=== PATIENT | male | born 1955 | race Caucasian/White ===

== ENCOUNTER 2016-05-31 11:39 | Inpatient (IN) ==
--- NOTE | 2016-05-31 11:56 | Emergency Department Note ---
Disposition Clinical Impression: Pancreatic cancer, Jaundice, Abdominal pain, Hyperbilirubinemia Disposition: Admitted As Inpatient Condition: Fair Referrals: NO,PCP [Primary Care Provider] - Forms: Work/School Release, ED Satisfaction Letter Time of Disposition: 14:37 Abdominal Pain HPI - General Chief Complaint: ED Abdominal Pain Stated Complaint: Abd Pain Time Seen by Provider: 05/31/16 11:46 Source: patient Mode of arrival: ambulatory Limitations: no limitations Nursing Notes Reviewed: Yes Vital Signs Reviewed: Yes - History of Present Illness HPI Narrative: This is a 61-year-old male who presents with abdominal pain that has been chronic since December but slowly getting worse. Patient also states the last couple weeks he has noticed a jaundice color to his skin. Patient states he has had one episode of vomiting with this. Patient states he is not having diarrhea but his stools are loose. Patient denies any black or bloody stools. Patient does not have any urinary symptoms or fevers. Patient states his pain does go up into his chest now. Pt has never used IV drugs or been a heavy alcohol drinker. Pt has not traveled out of the country. Pt Subjective Complaint: abdominal pain Onset (ago): month(s) Consistency: constant, Worsening Location: diffuse Pain Scale: 3 - Related Data Home Medications Medication Instructions Recorded Confirmed Amlodipine [Norvasc] 5 mg PO DAILY 04/30/15 05/31/16 Metoprolol XL (24 HR) Succ [Toprol 25 mg PO DAILY 04/30/15 05/31/16 XL] Allergies Allergy/AdvReac Type Severity Reaction Status Date / Time No Known Allergies Allergy Verified 01/27/16 16:12 All systems ED: reviewed and negative except as stated. Constitutional: Denies: fever, chills, weakness, weight change Eyes: Denies: eye pain, eye discharge, vision change ENT ED: Denies: ear pain, throat pain, dental pain, hearing loss, epistaxis, congestion, dysphagia Cardiovascular: Reports: chest pain. Denies: palpitations, dyspnea on exertion , edema, syncope Respiratory: Denies: cough, dyspnea, wheezes, hemoptysis, stridor Gastrointestinal: Reports: abdominal pain, nausea, vomiting. Denies: diarrhea, constipation, hematemesis, melena, hematochezia Genitourinary: Denies: urgency, dysuria, frequency, hematuria Musculoskeletal: Denies: back pain, neck pain, arthralgia, myalgia Integumentary: Reports: other (yellow skin color). Denies: rash, abrasion, lesions Neurological: Denies: headache, weakness, numbness, paresthesias, confusion, abnormal gait, vertigo Psychiatric: Denies: anxiety, depression, suicidal thoughts, homicidal thoughts , auditory hallucinations, visual hallucinations Endocrine: Denies: fatigue Hematological/Lymphatic: Denies: easy bleeding, easy bruising Allergic/Immunologic: Denies: facial swelling, urticaria Abdominal Pain PMH - Past Medical History Medical history: Reports: hypertension Male Surgical History: Reports: non-contributory - Social History Smoking status: Current every day smoker Alcohol use: Reports: none Drug use: Reports: none Physical Exam - General Limitations: no limitations General appearance: alert, in no apparent distress - Head Head exam: atraumatic, normocephalic, normal inspection - Eye Eye exam: Present: normal appearance, PERRL, EOMI - ENT ENT exam: normal exam, normal oropharynx, mucous membranes moist - Expanded ENT Exam External ear exam: Present: normal external inspection Mouth exam: Present: normal external inspection Teeth exam: Present: normal inspection Throat exam: Present: normal inspection - Neck Neck exam: Present: normal inspection, full ROM, trachea midline - Chest Chest inspection: Present: normal inspection, symmetric chest wall rise - Respiratory Respiratory exam: Present: normal lung sounds bilaterally - Cardiovascular Cardiovascular exam: Present: regular rate, normal rhythm, normal heart sounds - Abdominal Exam Abdominal exam: Present: soft, tenderness. Absent: distention, guarding, rebound, rigidity Abdominal tenderness: Present: diffuse, moderate - Extremities Exam Extremities exam: Present: normal inspection, full ROM. Absent: tenderness, pedal edema - Expanded Upper Extremity Exam Shoulder exam: Present: normal inspection, full ROM Arm exam: Present: normal inspection, full ROM Elbow exam: Present: normal inspection, full ROM Forearm/Wrist exam: Present: normal inspection, full ROM Hand exam: Present: normal inspection, full ROM Vascular exam: Normal: capillary refill, radial pulse - Expanded Lower Extremity Exam Hip/Pelvis exam: Present: normal inspection, full ROM Upper leg exam: Present: normal inspection, full ROM Knee exam: Present: normal inspection, full ROM Lower leg exam: Present: normal inspection, full ROM Ankle exam: Present: normal inspection, full ROM Foot/toe exam: Present: normal inspection, full ROM Neurovascular/Tendon exam: Absent: motor deficit, sensory deficit, tendon deficit - Back Exam Back exam: Present: normal inspection, full ROM. Absent: tenderness - Neurological Exam Neurological exam: Present: alert, oriented X3 - Expanded Neurological Exam Patient oriented to: Present: person, place, time Coma Scale Eye Opening: Spontaneous Coma Scale Motor Response: Obeys Commands Coma Scale Verbal Response: Oriented Coma Scale Total: 15 - Psychiatric Psychiatric exam: Present: normal affect, normal mood - Skin Skin exam: Present: warm, dry, intact, other (jaundice) Course - Consultations Consultation #1: I spoke with Dr. Guerrero he wants a CA 19-9 and a CEA ordered and he will consult. Time: 14:49 Consultation #2: I spoke with Dr. Wayne vance to admit and consult GI for Thursday. Time: 15:15 Vital Signs Temperature 97.9 F 05/31/16 11:40 Pulse Rate 70 05/31/16 11:40 Respiratory Rate 16 05/31/16 11:40 Blood Pressure 153/87 05/31/16 11:40 O2 Sat by Pulse Oximetry 97 05/31/16 11:40 Temperature 97.9 F 05/31/16 11:40 Pulse Rate 66 05/31/16 14:48 Respiratory Rate 16 05/31/16 14:48 Blood Pressure 138/95 05/31/16 14:48 O2 Sat by Pulse Oximetry 96 05/31/16 13:11 Oxygen Delivery Oxygen Delivery Room Air Abdominal Pain - Medical Records Medical records reviewed: Yes I reviewed the patient's medical records. - Lab Data Lab results reviewed: Yes I reviewed the patient's lab results. Result diagrams: 05/31/16 12:45 05/31/16 12:45 Lab Results 05/31/16 05/31/16 05/31/16 Range/Units 11:54 12:45 12:45 WBC 6.3 (4.3-11.1) K/mcL RBC 5.12 (4.19-5.50) M/mcL Hgb 15.4 (12.9-16.9) g/dL Hct 42.2 (37.5-50.1) % MCV 82.4 L (83.0-100.0) fL MCH 30.1 (28.0-33.3) pg MCHC 36.5 H (31.6-35.5) g/dL RDW 15.6 H (11.5-14.5) % Plt Count 179 (140-400) K/mcL MPV 11.0 (9.4-12.4) fL Immature Gran % 0.3 (0-4) % Seg Neutrophils % 69.3 % Lymphocytes % 20.6 % Monocytes % 7.4 % Eosinophils % 1.3 % Basophils % 1.1 % Neutrophils # 4.4 (1.6-8.9) K/mcL Lymphocytes # 1.3 (0.6-4.6) K/mcL Monocytes # 0.5 (0.0-1.3) K/mcL Eosinophils # 0.1 (0.0-0.6) K/mcL Basophils # 0.1 (0.0-0.2) K/mcL Sodium 132 L (136-145) mEq/L Potassium 4.0 (3.5-4.5) mEq/L Chloride 102 (98-109) mEq/L Carbon Dioxide 20 (19-29) mEq/L BUN 10 (8-26) mg/dL Creatinine 0.80 (0.72-1.25) mg/dL Est GFR ( Amer) > 60 (> 60) Est GFR (Non-Af Amer) > 60 (> 60) BUN/Creatinine Ratio 13 (6-26) Glucose 466 H (70-99) mg/dL Calculated Osmolality 293 (280-300) Calcium 9.1 (8.6-10.8) mg/dL Total Bilirubin 15.6 H (0.2-1.2) mg/dL Direct Bilirubin 11.3 H (0.0-0.5) mg/dL Indirect Bilirubin 4.3 H (0.0-1.2) mg/dL AST 92 H (5-34) Units/L ALT 285 H (0-55) Units/L Alkaline Phosphatase 456 H (38-126) Units/L Troponin I (0-0.03) ng/mL B-Natriuretic Peptide (0-100) pg/mL Serum Total Protein 6.1 (6.0-8.3) g/dL Albumin 3.1 L (3.5-5.0) g/dL Globulin 3.0 (2.4-3.5) g/dL Albumin/Globulin Ratio 1.0 L (1.1-2.2) Lipase 16 (8-78) Units/L Urine Color Dark Yellow (Yellow) Urine Clarity Clear (Clear) Urine pH 6.5 (5.0-8.0) pH Units Ur Specific [place] > 1.030 H (1.010-1.025) Urine Protein Negative (Neg-Trace) mg/dL Urine Glucose (UA) >=1000 H (Normal) mg/dL Urine Ketones Negative (Negative) mg/dL Urine Blood Negative (Negative) Urine Nitrite Negative (Negative) Urine Bilirubin Large H (Negative) Urine Urobilinogen Normal (Normal) mg/dL Ur Leukocyte Esterase Negative (Negative) Ur Culture Indicated? NO (NO) 05/31/16 05/31/16 Range/Units 12:45 12:45 WBC (4.3-11.1) K/mcL RBC (4.19-5.50) M/mcL Hgb (12.9-16.9) g/dL Hct (37.5-50.1) % MCV (83.0-100.0) fL MCH (28.0-33.3) pg MCHC (31.6-35.5) g/dL RDW (11.5-14.5) % Plt Count (140-400) K/mcL MPV (9.4-12.4) fL Immature Gran % (0-4) % Seg Neutrophils % % Lymphocytes % % Monocytes % % Eosinophils % % Basophils % % Neutrophils # (1.6-8.9) K/mcL Lymphocytes # (0.6-4.6) K/mcL Monocytes # (0.0-1.3) K/mcL Eosinophils # (0.0-0.6) K/mcL Basophils # (0.0-0.2) K/mcL Sodium (136-145) mEq/L Potassium (3.5-4.5) mEq/L Chloride (98-109) mEq/L Carbon Dioxide (19-29) mEq/L BUN (8-26) mg/dL Creatinine (0.72-1.25) mg/dL Est GFR ( Amer) (> 60) Est GFR (Non-Af Amer) (> 60) BUN/Creatinine Ratio (6-26) Glucose (70-99) mg/dL Calculated Osmolality (280-300) Calcium (8.6-10.8) mg/dL Total Bilirubin (0.2-1.2) mg/dL Direct Bilirubin (0.0-0.5) mg/dL Indirect Bilirubin (0.0-1.2) mg/dL AST (5-34) Units/L ALT (0-55) Units/L Alkaline Phosphatase (38-126) Units/L Troponin I 0.00 (0-0.03) ng/mL B-Natriuretic Peptide 36 (0-100) pg/mL Serum Total Protein (6.0-8.3) g/dL Albumin (3.5-5.0) g/dL Globulin (2.4-3.5) g/dL Albumin/Globulin Ratio (1.1-2.2) Lipase (8-78) Units/L Urine Color (Yellow) Urine Clarity (Clear) Urine pH (5.0-8.0) pH Units Ur Specific [place] (1.010-1.025) Urine Protein (Neg-Trace) mg/dL Urine Glucose (UA) (Normal) mg/dL Urine Ketones (Negative) mg/dL Urine Blood (Negative) Urine Nitrite (Negative) Urine Bilirubin (Negative) Urine Urobilinogen (Normal) mg/dL Ur Leukocyte Esterase (Negative) Ur Culture Indicated? (NO) - Radiology Data Radiology results reviewed: Yes I reviewed the patient's radiology results. - EKG Data EKG attestation: Yes I reviewed and interpreted this EKG. EKG shows normal: sinus rhythm Rate: normal Rhythm: NSR [place]/QRS: right axis deviation Interpretation: no acute changes, normal EKG
[2016-05-31] MEDS ORDERED: Ondansetron 4 MG/2 ML VIAL IV ONE (11:57)
[2016-05-31 12:12] LABS: Bilirubin,Urine Large (Negative); Blood,Urine Negative (Negative); Clarity,Urine Clear (Clear); Color,Urine Dark Yellow (Yellow); Glucose,Urine (UA) >=1000 mg/dL (Normal); Ketones,Urine Negative (Negative); Leukocyte Esterase,Urine Negative (Negative); Nitrite,Urine Negative (Negative); PH,Urine 6.5 pH Units (5.0-8.0); Protein,Urine Negative (Neg-Trace); Specific Gravity,Urine > 1.030 (1.010-1.025); Urobilinogen,Urine Normal (Normal)
[2016-05-31 13:02] LABS: Basophils # 0.1 K/mcL (0.0-0.2); Basophils % 1.1 %; Eosinophils # 0.1 K/mcL (0.0-0.6); Eosinophils % 1.3 %; Hematocrit 42.2 % (37.5-50.1); Hemoglobin 15.4 g/dL (12.9-16.9); Immature Granulocytes % 0.3 % (0-4); Lymphocytes # 1.3 K/mcL (0.6-4.6); Lymphocytes % 20.6 %; Mean Corpuscular HGB Conc 36.5 g/dL (31.6-35.5); Mean Corpuscular Hemoglobin 30.1 pg (28.0-33.3); Mean Corpuscular Volume 82.4 fL (83.0-100.0); Monocytes # 0.5 K/mcL (0.0-1.3); Monocytes % 7.4 %; Neutrophils # 4.4 K/mcL (1.6-8.9); Platelet Count 179 K/mcL (140-400); Red Blood Count 5.12 M/mcL (4.19-5.50); Red Cell Distribution Width 15.6 % (11.5-14.5); Segmented Neutrophils % 69.3 %
[2016-05-31 13:21] LABS: Alanine Aminotransferase 285 Units/L (0-55); Albumin 3.1 g/dL (3.5-5.0); Alkaline Phosphatase 456 Units/L (38-126); Aspartate Amino Transferase 92 Units/L (5-34); BUN/Creatinine Ratio 13 (6-26); Bilirubin,Direct 11.3 mg/dL (0.0-0.5); Bilirubin,Indirect 4.3 mg/dL (0.0-1.2); Bilirubin,Total 15.6 mg/dL (0.2-1.2); Blood Urea Nitrogen 10 mg/dL (8-26); Calcium 9.1 mg/dL (8.6-10.8); Carbon Dioxide 20 mEq/L (19-29); Chloride 102 mEq/L (98-109); Glucose 466 mg/dL (70-99); Lipase 16 Units/L (8-78); Osmolality,Calculated 293 (280-300); Sodium 132 mEq/L (136-145); Total Protein 6.1 g/dL (6.0-8.3); eGFR For African Americans > 60 (> 60); eGFR For Non-African Americans > 60 (> 60)
[2016-05-31 16:20] LABS: INR 1.1; Prothrombin Time 12.1 Seconds (9.4-12.1)
[2016-05-31 16:23] LABS: Activated Partial Thrombo Time 30.7 Seconds (26.0-36.0)
[2016-05-31] MEDS ORDERED: *HR* Morphine 2 MG/ML SYRINGE IVP PRN (17:11)
[2016-05-31] MEDS ORDERED: Acetaminophen 325 MG TABLET PO PRN (17:11)
[2016-05-31] MEDS ORDERED: Naloxone 0.4 MG/ML INJ IVP PRN (17:11)
[2016-05-31] MEDS ORDERED: Ondansetron 4 MG/2 ML VIAL IVP PRN (17:11)
[2016-05-31] MEDS ORDERED: *HR* Dextrose 50 % in Water (Syg) 50 ML SYRINGE IVP PRN (17:25)
[2016-05-31] MEDS ORDERED: D5% in Water 1,000 ML IV PRN (17:25)
[2016-05-31] MEDS ORDERED: Dextrose Gel 15 GM PO PRN ×2 (17:25)
--- NOTE | 2016-05-31 17:30 | Internal Med History&Physical ---
Date of Encounter: 05/31/16 Time of Encounter: 16:30 Assessment and Plan (1) Pancreatic cancer Current visit: Yes Status: Acute 1 CT concerning for pancreatic neoplasm. Patient has had 20 pound weight loss in the past few months with abdominal pain. Consulted oncology 2 cc for pain Zofran as needed for nausea 3 check Accu-Cheks before meals and at bedtime with sliding scale insulin 4 we will give IV fluids Qualifiers: Pancreatic malignancy location: head of pancreas Qualified Code(s): C25.0 - Malignant neoplasm of head of pancreas (2) Hypertension Current visit: Yes Status: Acute 1 patient presently controlled we will continue with home machine will monitor liver functions goal is to maintain systolic less than 140 Qualifiers: Hypertension type: essential hypertension Qualified Code(s): I10 - Essential (primary) hypertension (3) Tobacco abuse Current visit: Yes Status: Acute 1 occurred patient to stop smoking nicotine patch (4) Abdominal pain Current visit: Yes Status: Acute Patient has been experiencing abdominal pain since December. CT scan is suspicious for pancreatic neoplasm as well as biliary ductal dilatation/ obstruction. Consulted gastroenterology for MRCP/ERCP on Thursday we will avoid hepatotoxins will monitor liver functions Qualifiers: Abdominal location: generalized Qualified Code(s): R10.84 - Generalized abdominal pain (5) Jaundice Current visit: Yes Status: Acute 1 concern for biliary obstruction consulted gastroenterology for MRCP/ERCP- Thursday 2 Will monitor liver functions 3 we will avoid hepatotoxins (6) DVT prophylaxis Current visit: Yes Status: Acute 1 subcutaneous heparin Internal Medicine - H&P: HPI Chief complaint: Abdominal pain Admitted From: Home Plans for Post Hospital Care: Home History of present illness: Mr. Wilson is a 61 year old male past history of hypertension as well as arthritis and peptic ulcer disease current smoker. According to the patient he has been experiencing abdominal pain since December. He describes the pain as sharp to dull with no aggravating or relieving factors it located below sternum and radiates throughout abdomen at times going up into his chest. He also has nausea which is chronic and has had some episodes of vomiting which had just occurred within the past 2 weeks. He has lost approximately 20 pounds since January. And in the last 2 weeks has noticed jaundice color to his skin. He is also noticed increase in loose stools which are nela to white colored. He denies any not bloody emesis, hematochezia melena, fevers chills or urinary symptoms. He has a 2 pack-a-day smoker denies any alcohol use or recent travel out of the country. He has been seeing his PCP for the past few months for the abdominal pain which he has been retaking medications for nausea and he has appointment with regional project manager next week for colonoscopy. His became concerned about jaundice color and urged patient to go to the ER for evaluation. In the ER patient's chest x-ray no acute process, his glucose was 466 his total bilirubin was 15.6 direct bilirubin 11.3 and direct 4.3 AST 92 a LT [address] of abdomen and pelvis had findings concerning for pancreatic neoplasm moderate biliary ductal dilatation and and hypodensities in the liver which were concerning for metastases. Per ER documentation the ER physician spoke with oncology in which they will see the patient as well as place consult for gastroenterology and MRCP on Thursday. The patient has been admitted for further workup and evaluation. Presently patient denies any pain or discomfort at this time he is hemodynamically stable I reviewed case with who agrees with plan Past Med Surg Social Fam HX - Past Medical History Medical history: hypertension - Past Surgical History Surgical History: orthopedic, other (cervical spinal fusion) - Social History Smoking Status: Current every day smoker Smokeless Tobacco Status: No Alcohol use: none Drug use: none - Family History Mother Living Status: Hx Family Cancer: Yes Hx Family Neurologic Disorders: Yes Father Living Status: Cause of : NC Hx Family Cardiac Disorders: Yes Brother Living Status: Cause of : Cancer colon Hx Family Cancer: Yes Sister Living Status: Cause of : Breast cancer Hx Family Cancer: Yes Internal Medicine - H&P: Meds Amlodipine [Norvasc] 5 mg PO DAILY 04/30/15 [History] Metoprolol XL (24 HR) Succ [Toprol XL] 25 mg PO DAILY 04/30/15 [History] Allergies No Known Allergies Allergy (Verified 01/27/16 16:12) All Systems PM: A 10-system review of systems was performed and is negative for pertinent findings except as documented above in the HPI. - Constitutional Constitutional: weight loss - Cardiovascular Cardiovascular ROS IM: chest pain - Respiratory Respiratory: no cough, no dyspnea, no wheezing, no excessive phlegm production - Gastrointestinal Gastrointestinal: abdominal pain, change in stool character, loose stools, nausea, vomiting - Musculoskeletal Musculoskeletal ROS IM: no numbness, no tingling - Neurological Neurological ROS: no confusion, no convulsions, no focal weakness, no numbness, no tingling, no tremor(s) - Hematologic/Lymphatic Hematologic/Lymphatic: no easy bruising - Constitutional Vitals: Temp Pulse Resp BP Pulse Ox 98.0 F 63 16 119/71 96 05/31/16 17:17 05/31/16 17:17 05/31/16 17:17 05/31/16 17:17 05/31/16 17:17 General appearance: Present: A&O X 3, pleasant - Head Head exam: Present: atraumatic, normocephalic - Neck Neck exam general surgery: Present: supple, trachea midline. Absent: lymphadenopathy - Respiratory Respiratory exam: Present: CTAB. Absent: accessory muscle use, rales, rhonchi, wheezes - Cardiovascular Cardiovascular exam: Present: RRR, +S1, +S2. Absent: diastolic murmur, gallop, rubs, systolic murmur - GI/Abdominal GI/Abdominal exam: Present: normal bowel sounds, soft, no peritoneal signs. Absent: distended, tenderness - Extremities Exam Extremities exam: Present: warm, radial pulses palpable and symetrical. Absent : calf tenderness, cyanotic, pedal edema - Neurological Exam Neurological exam: Present: CN II-XII intact, oriented X3, no focal deficits. Absent: pronater drift, facial droop, speech deficit - Skin Skin exam: Present: dry, intact Additional comments: Jaundiced Internal Med - H&P Results - Labs CBC & Chem 7: 05/31/16 12:45 05/31/16 12:45 - EKG Data EKG shows normal: sinus rhythm Rate: normal - EKG Data Prior EKG available for review: no Interpretation IM: normal EKG EKG comments: 05/31/16 17:[address] Crespo - Diagnostic Studies CT scan - abdomen Additional comments: Per radiology read findings concerning for pancreatic neoplasm with ill-defined hyperdensity at the junction of the pancreatic head and neck. Moderate biliary ductal dilatation and narrowing of the origin of the superior mesenteric vein with no clear evidence of invasion. 11 x 8 mm soft tissue density nodule in the right upper quadrant mesenteric fat metastatic deposit not excluded. Small volume of free fluid in the abdomen and pelvis with malignant ascites not excluded. There are also a few scattered subcentimeter hypodensities in the liver that may represent benign cysts or hemangiomas although metastatic since are not excluded. Findings could be further evaluated with a PET CT and/or MRI.
[2016-05-31 17:41] LABS: Hemoglobin A1C 10.1 %
[2016-05-31] MEDS: 0.9 % Sodium Chloride 1,000 ML IVC SCH (18:43)
[2016-05-31] MEDS: Carbamide Peroxide 150 DROP/15 ML BOTTLE RIGHT EAR SCH (18:43)
[2016-05-31] MEDS: *HR* Heparin 5,000 UNIT/ML VIAL SQ SCH (18:43)
[2016-05-31] MEDS: *HR* HYDROcodone/Acet 5/325 mg TABLET PO PRN (18:51)
[2016-05-31] MEDS: Insulin LISPRO 300 UNITS/3 ML VIAL SQ SCH (20:53)
[2016-06-01] MEDS: 0.9 % Sodium Chloride 1,000 ML IVC SCH (04:56)
[2016-06-01] MEDS: *HR* Heparin 5,000 UNIT/ML VIAL SQ SCH ×2 (04:56→17:22)
[2016-06-01 05:48] LABS: Basophils # 0.1 K/mcL (0.0-0.2); Basophils % 1.1 %; Eosinophils # 0.1 K/mcL (0.0-0.6); Eosinophils % 1.1 %; Hematocrit 39.6 % (37.5-50.1); Hemoglobin 14.4 g/dL (12.9-16.9); Immature Granulocytes % 0.3 % (0-4); Lymphocytes # 1.6 K/mcL (0.6-4.6); Lymphocytes % 23.5 %; Mean Corpuscular HGB Conc 36.4 g/dL (31.6-35.5); Mean Corpuscular Volume 82.5 fL (83.0-100.0); Mean Platelet Volume 10.9 fL (9.4-12.4); Monocytes # 0.4 K/mcL (0.0-1.3); Monocytes % 5.9 %; Neutrophils # 4.5 K/mcL (1.6-8.9); Platelet Count 162 K/mcL (140-400); Segmented Neutrophils % 68.1 %
[2016-06-01 06:04] LABS: BUN/Creatinine Ratio 15 (6-26); Blood Urea Nitrogen 10 mg/dL (8-26); Calcium 8.6 mg/dL (8.6-10.8); Carbon Dioxide 18 mEq/L (19-29); Chloride 107 mEq/L (98-109); Glucose 177 mg/dL (70-99); Osmolality,Calculated 285 (280-300); Potassium 3.6 mEq/L (3.5-4.5); eGFR For African Americans > 60 (> 60); eGFR For Non-African Americans > 60 (> 60)
[2016-06-01 06:10] LABS: Sodium 136 mEq/L (136-145)
[2016-06-01] MEDS: Nicotine 21 MG PATCH.TD24 TD SCH (07:53)
[2016-06-01] MEDS: Carbamide Peroxide 150 DROP/15 ML BOTTLE RIGHT EAR SCH (07:53)
[2016-06-01] MEDS: Insulin LISPRO 300 UNITS/3 ML VIAL SQ SCH ×4 (07:54→21:11)
[2016-06-01] MEDS: amLODIPine 5 MG TABLET PO SCH (07:54)
[2016-06-01] MEDS: Metoprolol XL (24 HR) Succ 25 MG TAB.ER.24H PO SCH (07:54)
[2016-06-01] MEDS: *HR* HYDROcodone/Acet 5/325 mg TABLET PO PRN ×2 (15:37→22:36)
--- NOTE | 2016-06-01 17:30 | Internal Med Progress Note ---
Date of Encounter: 06/01/16 Time of Encounter: 17:28 - Assessment and plan (1) Obstructive jaundice Current Visit: Yes Status: Acute Assessment and plan: GI was consulted may need ERCP, keep him nothing by mouth after midnight, discussed with oncologist , he will come and see him next a.m. (2) Pancreatic mass Current Visit: Yes Status: Acute (3) Abdominal pain Current Visit: Yes Status: Acute Assessment and plan: Pain controlled with current pain medication Qualifiers: Abdominal location: generalized Qualified Code(s): R10.84 - Generalized abdominal pain (4) Diarrhea Current Visit: Yes Status: Acute Assessment and plan: Course monitoring of electrolyte Qualifiers: Diarrhea type: unspecified type Qualified Code(s): R19.7 - Diarrhea, unspecified - Time Spent With Patient Plan discussed with patient and family at bedside - Subjective Interval history: Patient denies any nausea or vomiting. The abdominal pain is controlled with current pain medication. He had loose bowel movement. Patient denies any blood in his stool - Constitutional Vitals: Temp Pulse Resp BP Pulse Ox 99.0 F 62 16 120/72 95 06/01/16 16:17 06/01/16 16:17 06/01/16 16:17 06/01/16 16:17 06/01/16 16:17 General appearance: Present: pleasant, loss of weight, answers questions appropriately - Head Head exam: Present: atraumatic, normocephalic - Respiratory Respiratory exam: Present: CTAB. Absent: accessory muscle use, rales, rhonchi, wheezes - Cardiovascular Cardiovascular exam: Present: RRR, +S1, +S2. Absent: diastolic murmur, gallop, rubs, systolic murmur - GI/Abdominal GI/Abdominal exam: Present: normal bowel sounds, soft. Absent: distended - Extremities Exam Extremities exam: Present: warm, radial pulses palpable and symetrical. Absent : calf tenderness, cyanotic, pedal edema - Neurological Exam Neurological exam: Present: CN II-XII intact. Absent: motor sensory deficit - Expanded Skin Exam Type of lesion: Absent: abrasion (Jaundice ) Internal Medicine: Result - Labs CBC & Chem 7: 06/01/16 05:24 06/01/16 05:24 Labs: Short CBC 06/01/16 Range/Units 05:24 WBC 6.6 (4.3-11.1) K/mcL Hgb 14.4 (12.9-16.9) g/dL Hct 39.6 (37.5-50.1) % Plt Count 162 (140-400) K/mcL Neutrophils # 4.5 (1.6-8.9) K/mcL BMP 06/01/16 05:24 Sodium 136 Potassium 3.6 Chloride 107 Carbon Dioxide 18 L BUN 10 Creatinine 0.67 L Glucose 177 H Calcium 8.6 - ABG Interpretation ABG results: PT/INR, D-dimer PT 12.1 Seconds (9.4-12.1) 05/31/16 15:50 Consult Discharge Plan - Plan Referrals: NO,PCP [Primary Care Provider] -
[2016-06-01] MEDS ORDERED: Potassium Chloride Elixir 20 MEQ/15 ML UDC PO ONE (17:37)
[2016-06-02] MEDS: 0.9 % Sodium Chloride 1,000 ML IVC SCH ×2 (01:00→10:11)
[2016-06-02 05:25] LABS: Basophils # 0.1 K/mcL (0.0-0.2); Basophils % 1.3 %; Eosinophils # 0.1 K/mcL (0.0-0.6); Eosinophils % 1.5 %; Hematocrit 39.1 % (37.5-50.1); Hemoglobin 14.2 g/dL (12.9-16.9); Immature Granulocytes % 0.2 % (0-4); Lymphocytes # 1.4 K/mcL (0.6-4.6); Mean Corpuscular HGB Conc 36.3 g/dL (31.6-35.5); Mean Corpuscular Hemoglobin 29.7 pg (28.0-33.3); Mean Corpuscular Volume 81.8 fL (83.0-100.0); Mean Platelet Volume 11.5 fL (9.4-12.4); Monocytes # 0.4 K/mcL (0.0-1.3); Monocytes % 7.1 %; Neutrophils # 3.4 K/mcL (1.6-8.9); Platelet Count 169 K/mcL (140-400); Red Blood Count 4.78 M/mcL (4.19-5.50); Red Cell Distribution Width 16.6 % (11.5-14.5); Segmented Neutrophils % 63.9 %
[2016-06-02 05:28] LABS: INR 1.2; Prothrombin Time 12.7 Seconds (9.4-12.1)
[2016-06-02 05:53] LABS: Alanine Aminotransferase 187 Units/L (0-55); Albumin 2.7 g/dL (3.5-5.0); Alkaline Phosphatase 412 Units/L (38-126); Aspartate Amino Transferase 74 Units/L (5-34); BUN/Creatinine Ratio 15 (6-26); Bilirubin,Total 16.5 mg/dL (0.2-1.2); Blood Urea Nitrogen 9 mg/dL (8-26); Calcium 8.6 mg/dL (8.6-10.8); Carbon Dioxide 17 mEq/L (19-29); Chloride 106 mEq/L (98-109); Globulin 2.8 g/dL (2.4-3.5); Glucose 196 mg/dL (70-99); Osmolality,Calculated 282 (280-300); Potassium 3.8 mEq/L (3.5-4.5); Sodium 134 mEq/L (136-145); Total Protein 5.5 g/dL (6.0-8.3); eGFR For African Americans > 60 (> 60); eGFR For Non-African Americans > 60 (> 60)
[2016-06-02] MEDS: *HR* Heparin 5,000 UNIT/ML VIAL SQ SCH ×2 (06:09→18:18)
--- NOTE | 2016-06-02 09:32 | Electrocardiograph Report ---
[facility] Test Date: 2016-05-31 Pat Name: Asif Wilson Department: [id number] Room: 3A56 Gender: M [employer]: : [id number] Requested By: Gloria Goel Order Number: [id number] Reading MD: Raad Addison MD Measurements Intervals [place] Rate: 65 P: 60 ID: 150 QRS: 91 QRSD: 93 T: 67 QT: 394 QTc: 405 Interpretive Statements SINUS RHYTHM BORDERLINE RIGHT AXIS DEVIATION Electronically Signed On 06-02-16 09:31:38 EST by Raad Addison MD
--- NOTE | 2016-06-02 09:37 | Gastroenterology Consult Note ---
<Joann Sinclair - Last Filed: 06/02/16 13:56> Date of Encounter: 06/02/16 Time of Encounter: 11:50 - Assessment and plan (1) Abdominal pain Current Visit: Yes Status: Acute Assessment and plan: ERCP to evaluate Qualifiers: Abdominal location: generalized Qualified Code(s): R10.84 - Generalized abdominal pain (2) Obstructive jaundice Current Visit: Yes Status: Acute Assessment and plan: ERCP to evaluate, r/o pancreatic mass, choledocholelithiasis. Likely with stent placement. (3) Pancreatic mass Current Visit: Yes Status: Acute - Time Spent With Patient Total time spent is greater than 50% in coordination of care (as documented) at patient's floor/unit and/or counseling patient: 25 - 35 minutes GI History of Present Illness - Data of Consult Patient: new to practice Consult date: 06/02/16 Requesting Physician: Bran Light MD - Consult Narrative Reason for consult: hyperbilirubinemia, abd CT findings History of present illness: Mr. Wilson is a 61 year old male with a PMH of hypertension as well as arthritis and peptic ulcer disease, he is a current smoker. According to the patient he has been experiencing abdominal pain since December. He describes the pain as sharp to dull with no aggravating or relieving factors it located below sternum and radiates throughout abdomen at times going up into his chest. He also has nausea which is chronic and has had some episodes of vomiting which had just occurred within the past 2 weeks. He has lost approximately 20 pounds since January. And in the last 2 weeks has noticed jaundice color to his skin. He is also noticed increase in loose stools which are nela to white colored. He denies any not bloody emesis, hematochezia melena, fevers chills or urinary symptoms. He has a 2 pack-a-day smoker denies any alcohol use or recent travel out of the country. He has been seeing his PCP for the past few months for the abdominal pain which he has been retaking medications for nausea and he has appointment with plant engineer next week for colonoscopy. His became concerned about jaundice color and urged patient to go to the ER for evaluation. CT of abdomen and pelvis had findings concerning for pancreatic neoplasm moderate biliary ductal dilatation and and hypodensities in the liver which were concerning for metastases. Urine has been dark. Bowels are fairly regular, daily, can be very light in color. Denies dysphagia, admits acid reflux symptoms. Colonoscopy: None noted EGD: Yes - years ago Past Med Surg Social Fam HX - Past Medical History Medical history: hypertension - Past Surgical History Surgical History: orthopedic, other (cervical spinal fusion) - Social History Smoking Status: Current every day smoker Smokeless Tobacco Status: No Alcohol use: none Drug use: none - Family History Mother Living Status: Age at : 90 Hx Family Cancer: Yes Father Age at : 83 Hx Family Cardiac Disorders: Yes Brother Living Status: Cause of : Cancer colon Hx Family Cancer: Yes Sister Living Status: Cause of : Breast cancer Hx Family Cancer: Yes - Gastrointestinal NSAID use: None noted Anticoagulation Use: Heparin as INPT Number of BM Per Day: 1 Gastrointestinal: Present: abdominal pain, heartburn, nausea, vomiting - Constitutional Constitutional: weight loss - EENT Eyes: as per HPI Ears: Present: as per HPI Nose, mouth and throat: Present: as per HPI - Cardiovascular Cardiovascular ROS: Present: as per HPI - Respiratory Respiratory IM: Present: as per HPI - Neurological ROS Neurological GI: Present: as per HPI - Hematologic/Lymphatic Hematologic/Lymphatic pediatric: Present: as per HPI - Musculoskeletal Musculoskeletal ROS GI: Present: as per HPI - Integumentary Integumentary GI: Present: jaundice - Psychiatric ROS Psychiatric GI: Present: as per HPI - Endocrine Endocrine IM: Present: as per HPI - Constitutional Vitals: Temp Pulse Resp BP Pulse Ox 97.7 F 63 14 127/73 97 06/02/16 07:58 06/02/16 07:58 06/02/16 07:58 06/02/16 07:58 06/02/16 07:58 General appearance: Present: cooperative, A&O X 3, no acute distress, answers questions appropriately - Head Head exam: Present: atraumatic, normocephalic - Eye Eye exam: Present: normal appearance, scleral icterus - ENT ENT exam: Present: mucous membranes moist - Neck Neck exam general surgery: Present: normal inspection, trachea midline - Respiratory Respiratory exam: Present: CTAB - Cardiovascular Cardiovascular exam: Present: RRR, +S1, +S2 - GI/Abdominal GI/Abdominal exam: Present: soft, tenderness, no peritoneal signs - Rectal Rectal exam: Present: deferred - Extremities Exam Extremities exam: Present: warm - Neurological Exam Neurological exam: Present: no focal deficits - Psychiatric Psychiatric exam: Present: normal affect, normal mood - Skin Skin exam: Present: dry, warm Additional comments: jaundice Results - Labs CBC & Chem 7: 06/02/16 04:54 06/02/16 04:54 Labs: Last Result Calcium 8.6 mg/dL (8.6-10.8) 06/02/16 04:54 Troponin I 0.00 ng/mL (0-0.03) 05/31/16 12:45 Entire Visit Hgb 14.2 g/dL (12.9-16.9) 06/02/16 04:54 Hct 39.1 % (37.5-50.1) 06/02/16 04:54 PT 12.7 Seconds (9.4-12.1) H 06/02/16 04:54 Total Bilirubin 16.5 mg/dL (0.2-1.2) H 06/02/16 04:54 AST 74 Units/L (5-34) H 06/02/16 04:54 ALT 187 Units/L (0-55) H 06/02/16 04:54 Lipase 16 Units/L (8-78) 05/31/16 12:45 Carcinoembryonic Ag 6.7 ng/mL (0-5.0) H 05/31/16 15:50 - ABG ABG results: PT/INR, D-dimer PT 12.7 Seconds (9.4-12.1) H 06/02/16 04:54 Consult Discharge Plan - Plan Referrals: NO,PCP [Primary Care Provider] - <Sandy Carlson - Last Filed: 06/02/16 18:30> Time of Encounter: 12:00 - Time Spent With Patient Total time spent is greater than 50% in coordination of care (as documented) at patient's floor/unit and/or counseling patient: GI History of Present Illness - Data of Consult Requesting Physician: Bran Light MD - Consult Narrative History of present illness: Mr. Wilson is a 61 year old male - Constitutional Vitals: Temp Pulse Resp BP Pulse Ox 99.1 F 70 16 158/81 95 06/02/16 15:50 06/02/16 15:50 06/02/16 15:50 06/02/16 15:50 06/02/16 15:50 Results - Labs CBC & Chem 7: 06/02/16 04:54 06/02/16 04:54 Labs: Last Result Calcium 8.6 mg/dL (8.6-10.8) 06/02/16 04:54 Troponin I 0.00 ng/mL (0-0.03) 05/31/16 12:45 Entire Visit Hgb 14.2 g/dL (12.9-16.9) 06/02/16 04:54 Hct 39.1 % (37.5-50.1) 06/02/16 04:54 PT 12.7 Seconds (9.4-12.1) H 06/02/16 04:54 Total Bilirubin 16.5 mg/dL (0.2-1.2) H 06/02/16 04:54 AST 74 Units/L (5-34) H 06/02/16 04:54 ALT 187 Units/L (0-55) H 06/02/16 04:54 Lipase 16 Units/L (8-78) 05/31/16 12:45 Carcinoembryonic Ag 6.7 ng/mL (0-5.0) H 05/31/16 15:50 - ABG ABG results: PT/INR, D-dimer PT 12.7 Seconds (9.4-12.1) H 06/02/16 04:54 - Impressions Impressions Cath/Invasive Procedure 06/02/16 14:40 IMPRESSION: Intraoperative images during ERCP. Common bile duct stent is placed. D/ / Lee Mancuso MD / Lee aMncuso MD Interpreting Provider: Lee Mancuso MD - Attending Attestation I examined this patient and my medical decision-making was reviewed with the [facility]/PA/Advanced Practice Nurse/Resident Physician. I agree with the documented findings, disposition and treatment plan as described except to the extent set forth below. Patient with pancreatic tumor with obstructive jaundice. Recommendation: ERCP with stent placement and EUS with biopsy
[2016-06-02] MEDS: Insulin LISPRO 300 UNITS/3 ML VIAL SQ SCH ×5 (10:09→20:51)
[2016-06-02] MEDS: Metoprolol XL (24 HR) Succ 25 MG TAB.ER.24H PO SCH (10:10)
[2016-06-02] MEDS: Nicotine 21 MG PATCH.TD24 TD SCH (10:10)
[2016-06-02] MEDS: Carbamide Peroxide 150 DROP/15 ML BOTTLE RIGHT EAR SCH (10:10)
[2016-06-02] MEDS: amLODIPine 5 MG TABLET PO SCH (10:10)
[2016-06-02] MEDS: *HR* HYDROcodone/Acet 5/325 mg TABLET PO PRN ×3 (10:12→20:45)
[2016-06-02] MEDS ORDERED: Albuterol 2.5 MG/3 ML NEBULIZER ONE (12:53)
--- NOTE | 2016-06-02 12:56 | Anesthesia Evaluation PreOp ---
Date of Encounter: 06/02/16 Time of Encounter: 12:54 - Past History Planned Operation: ERCP Cardiac History: HTN (maintained on Norvasc, Metoprolol) Pulmonary History: Smoker (2ppd x 40yrs), COPD HARDBOARD GRINDER History: Denies Any Significant HX Other Medical History: Hepatic (CT suggestive of liver mets, Elevated LFTs), Diabetes Type II (HbA1C >10, avg glucose = 243), GERD, Other (Probable Pancreatic Ca (per chart): Neoplastic mass head of pancreas w/Mets, common bile duct dilation/obstruction) Anesthesia History: No Prior Anesthetic Complications, Past Anesthesia (C-spine fusion, orthopedic surgeries) Alcohol Use: none Drug use: none Medications and Allergies Amlodipine [Norvasc] 5 mg PO DAILY 04/30/15 [History] Metoprolol XL (24 HR) Succ [Toprol XL] 25 mg PO DAILY 04/30/15 [History] Allergies No Known Allergies Allergy (Verified 01/27/16 16:12) - Meds/Allergy Pre-op Review Medications Reviewed: Yes Allergies Reviewed: Yes Beta Blockers on Current Med List: Yes (Metoprolol) If Beta Blockers taken, Date/Time (Last Dose taken): Not given today re: low HR Anesthesia Results - Labs 06/02/16 04:54 06/02/16 04:54 Laboratory Results Impressions Chest X-Ray 05/31/16 11:53 IMPRESSION: No acute cardiopulmonary disease. D/ / 05/31/2016 13:42:04 Fausto Ortega MD / bcarter Interpreting Provider: Fausto Ortega MD Abdomen/Pelvis CT 05/31/16 11:56 IMPRESSION: Findings concerning for pancreatic neoplasm with an ill-defined hypodensity at the junction of the pancreatic head and neck. Moderate biliary ductal dilatation and narrowing of the origin of the superior mesenteric vein with no clear evidence of invasion. 11 x 8 mm soft tissue density nodule in the right upper quadrant mesenteric fat with metastatic deposit not excluded. Small volume of free fluid in the abdomen and pelvis with malignant ascites not excluded. There are also a few scattered subcentimeter hypodensities in the liver that may represent benign cysts or hemangiomas although metastases are not excluded. Findings could be further evaluated with PET-CT and/or MRI. D/ / Hermelindo Bello MD / Hermelindo Bello MD Interpreting Provider: Hermelindo Bello MD Laboratory Tests 05/31/16 05/31/16 05/31/16 12:44 15:50 15:50 PT INR APTT 30.7 Est GFR (Non-Af Amer) POC Glucose Est Mean Plasma Glucose 243 Hemoglobin A1c 10.1 H AST ALT Alkaline Phosphatase Carcinoembryonic Ag 6.7 H 06/02/16 06/02/16 06/02/16 04:54 04:54 12:31 PT 12.7 H INR 1.2 APTT Est GFR (Non-Af Amer) > 60 POC Glucose 160 H Est Mean Plasma Glucose Hemoglobin A1c AST 74 H ALT 187 H Alkaline Phosphatase 412 H Carcinoembryonic Ag - Imaging EKG: image reviewed ( 65bpm SR) Anesthesia Exam Vital Signs Temp Pulse Resp BP Pulse Ox 06/02/16 12:51 99.4 F 62 16 136/80 95 06/02/16 07:58 97.7 F 63 14 127/73 97 06/02/16 05:33 97.7 F 56 17 116/72 93 L 06/02/16 00:57 97.9 F 58 17 111/66 97 06/01/16 20:54 98.4 F 63 17 122/65 96 06/01/16 16:17 99.0 F 62 16 120/72 95 Intake and Output 06/01/16 06/02/16 06/02/16 23:59 07:59 15:59 Intake Total 360 / 360 0 / 0 1000 / 1000 Output Total 1300 / 1300 0 / 0 Balance -940 / -940 0 / 0 1000 / 1000 Intake: IV Fluids 1000 / 1000 0.9 % Sodium Chloride 1, 1000 / 1000 000 ML @ 100 mls/hr IVC . Q10H KATIE Rx#:[id number] Oral 360 / 360 0 / 0 Output: Urine 1300 / 1300 0 / 0 Other: Meal apple juice Percent of Meal Consumed 25% # Voids 1 Weight 65.771 kg Blood Glucose* 153 197 197 Patient Weight 06/02/16 23:59 Weight 65.771 kg Height: 5'7" Weight: 145# BMI = 23 NPO (# of Hours): MNoc - HEENT Pupil (Motor): Pupils equal (slceral icterus), EOMI Mallampati: II Teeth: Edentulous Oral Opening: Greater than 3 - HARDBOARD GRINDER LOC: Oriented HARDBOARD GRINDER Motor: Normal RUE, Normal LUE, Normal RLE, Normal LLE, Normal Face HARDBOARD GRINDER Sensory: Normal: RUE, LUE, RLE, LLE, Face - Cardiac Rhythm: Regular Murmur: None - Pulmonary Breath Sounds: bilateral Clear Respiratory Effort: Symmetrical Anesthesia Assess/Plan ASA Score: 3 (Smoker, HTN, DM) Modified Karely Scale for Level of Consciousness: Cooperative, oriented, and tranquil Anesthetic Plan: General Monitoring Plan: Standard Monitors Recovery Plan: PACU Anes Supervising Prov Stmt: Pt seen/evaluated, R&B discussed, questions answered and consent obtained. Avel Lucio MD
[2016-06-02] MEDS ORDERED: Ringers Solution, Lactated 1,000 ML IVC SCH (13:00)
[2016-06-02] MEDS ORDERED: *HR* FentaNYL (PF) 100 MCG/2 ML VIAL ONE ×2 (13:20→13:38)
[2016-06-02] MEDS ORDERED: Indomethacin 50 MG SUPP.RECT RC ONE (14:56)
[2016-06-02 15:19] LABS: Hepatitis A Antibody IgM Nonreactive (Nonreactive); Hepatitis B Core IgM Nonreactive (Nonreactive); Hepatitis B Surface Antigen Nonreactive (Nonreactive); Hepatitis C Virus Antibody Nonreactive (Nonreactive)
--- NOTE | 2016-06-02 15:35 | Internal Med Progress Note ---
Date of Encounter: 06/02/16 Time of Encounter: 15:33 - Assessment and plan (1) Abdominal pain Current Visit: Yes Status: Acute Assessment and plan: Pain controlled with current pain medication Qualifiers: Abdominal location: generalized Qualified Code(s): R10.84 - Generalized abdominal pain (2) Hypertension Current Visit: Yes Status: Acute Assessment and plan: will continue home meds. BP controlled. Qualifiers: Hypertension type: essential hypertension Qualified Code(s): I10 - Essential (primary) hypertension (3) Obstructive jaundice Current Visit: Yes Status: Acute Assessment and plan: GI was consulted , planned for ERCP today for possible pancreatic mass with stenting. will follow post procedure GI recommendtaions. will continue supportive treatment, start diet as tolerated after the procedure. (4) Pancreatic mass Current Visit: Yes Status: Acute (5) Tobacco abuse Current Visit: Yes Status: Acute - Time Spent With Patient 25 - 35 minutes - Subjective Interval history: seen at the bedside, c/o abdominal pain , denies any nausea or vomiting NPO for possibel ERCP today. GI has been consulted for obstructive jaundice and possible pancreatic mass. - Constitutional Vitals: Temp Pulse Resp BP Pulse Ox 99.1 F 80 18 158/87 94 L 06/02/16 15:21 06/02/16 15:21 06/02/16 15:21 06/02/16 15:21 06/02/16 15:21 General appearance: Present: mild distress, A&O X 3, pleasant, loss of weight, answers questions appropriately Exam: General appearance: Present: cooperative, A&O X 3, no acute distress, answers questions appropriately - Head Head exam: Present: atraumatic, normocephalic - Eye Eye exam: Present: normal appearance, scleral icterus - ENT ENT exam: Present: mucous membranes moist - Neck Neck exam general surgery: Present: normal inspection, trachea midline - Respiratory Respiratory exam: Present: CTAB - Cardiovascular Cardiovascular exam: Present: RRR, +S1, +S2 - GI/Abdominal GI/Abdominal exam: Present: soft, tenderness, no peritoneal signs - Extremities Exam Extremities exam: Present: warm - Neurological Exam Neurological exam: Present: no focal deficits - Psychiatric Psychiatric exam: Present: normal affect, normal mood - Skin Skin exam: Present: dry, warm Additional comments: Internal Medicine: Result - Labs CBC & Chem 7: 06/02/16 04:54 06/02/16 04:54 Labs: Short CBC 06/02/16 Range/Units 04:54 WBC 5.3 (4.3-11.1) K/mcL Hgb 14.2 (12.9-16.9) g/dL Hct 39.1 (37.5-50.1) % Plt Count 169 (140-400) K/mcL Neutrophils # 3.4 (1.6-8.9) K/mcL BMP 06/02/16 04:54 Sodium 134 L Potassium 3.8 Chloride 106 Carbon Dioxide 17 L BUN 9 Creatinine 0.62 L Glucose 196 H Calcium 8.6 Liver Function 06/02/16 Range/Units 04:54 Total Bilirubin 16.5 H (0.2-1.2) mg/dL AST 74 H (5-34) Units/L ALT 187 H (0-55) Units/L Alkaline Phosphatase 412 H (38-126) Units/L Albumin 2.7 L (3.5-5.0) g/dL - ABG Interpretation ABG results: PT/INR, D-dimer PT 12.7 Seconds (9.4-12.1) H 06/02/16 04:54 Consult Discharge Plan - Plan Referrals: NO,PCP [Primary Care Provider] -
--- NOTE | 2016-06-02 18:03 | Oncology Inp Consult Note ---
Date of Encounter: 06/02/16 Time of Encounter: 17:58 Assessment and Plan (1) Pancreatic cancer Status: Acute Assessment and plan: Mass in the head of the pancreas. Hehasobstructive jaundice with the distal CBD stricture 1.5 cm followed by a plastic stent. Please obtained which showed some suspicious cells awaiting final report Complete staging with a PET/CT. Peritoneal nodule is concerning for metastasis. CA 19-9 pending. CEA elevated at 6.7 Alkaline phosphatase elevated at 425 with direct bilirubin 11. Viral hepatitis panel negative Treatment recommendation after completion of workup. May start with chemotherapy dose modified FOLFIRINOX. Also obtain surgical consult after completion of workup Discussed with family in detail about the natural history of pancreatic cancer which is very aggressive. 2. New-onset type 2 diabetes milliliters was 250-300 range. Gly Hb A1c 10. He was controlled on insulin hospitalization. Plan is to discharge him on oral metformin. If it is not controlling the blood glucose may need insulin as pancreatic cancer may have caused damage to the islet cells Qualifiers: Qualified Code(s): C25.0 - Malignant neoplasm of head of pancreas - Data of Consult Requesting Physician: Bran Light MD Primary Care Provider: PCP NO - Consult Narrative Reason for consult: Pancreatic cancer History of present illness: Mr. Wilson is a 61 year old male with a complaints of abdominal pain since December. He has lost approximately 20 pounds since January. Progressed jaundice in the last 2 weeks Admitted through the emergency room CT of abdomen and pelvis with contrast 2016 showed hypodensity junction of head and the neck. Rate biliary ductal dilatation with a narrowing of superior mesenteric vein Peritoneal nodule 11 x 8 mm concerning for metastasis Few subcentimeter hypodensities in the liver which could be evaluated further with a PET CT as an outpatient Discussed with Dr. Carlson. ERCP and a plastic stent deployed. He has about 1.5 cm area of stricture in the distal CBD which was successfully stented. Discussed with Dr. Carlson and the mass was fairly large extending from the head into the neck with some compression of portal vein. PMH Hypertension arthritis and peptic ulcer disease, current smoker. Past Med Surg Social Fam HX - Past Medical History Medical history: hypertension Psychiatric history: no psych history - Past Surgical History Surgical History: orthopedic, other (cervical spinal fusion) - Social History Smoking Status: Current every day smoker Smokeless Tobacco Status: No Alcohol use: none Drug use: none - Family History Mother Living Status: Age at : 90 Hx Family Cancer: Yes Father Age at : 83 Hx Family Cardiac Disorders: Yes Brother Living Status: Cause of : Cancer colon Hx Family Cancer: Yes Sister Living Status: Cause of : Breast cancer Hx Family Cancer: Yes Medications and Allergies Amlodipine [Norvasc] 5 mg PO DAILY 04/30/15 [History] Metoprolol XL (24 HR) Succ [Toprol XL] 25 mg PO DAILY 04/30/15 [History] Allergies No Known Allergies Allergy (Verified 01/27/16 16:12) Review of systems: Abdominal pain, weight loss and fatigue. Denied major shortness of breath Oncology - Exam - Constitutional Vitals: Temp Pulse Resp BP Pulse Ox 99.1 F 70 16 158/81 95 06/02/16 15:50 06/02/16 15:50 06/02/16 15:50 06/02/16 15:50 06/02/16 15:50 Exam: GENERAL: Alert and oriented, jaundiced Mental Status: Affect appropriate for circumstances HEENT: Sclerae anicteric. No mucositis or thrush. No other oral or pharyngeal lesions or erythema. Skin: No rashes or petechiae. No evidence of skin malignancy Lymph nodes: No cervical, supraclavicular, axillary, or inguinal adenopathy. Lungs: Clear to auscultation and percussion bilaterally. Cardiovascular: Regular rate and rhythm. No gallops, murmurs, or rubs. Abdomen: Soft, tenderness in the epigastrium; no organomegaly or masses palpable. Extremities: No edema. No calf swelling or tenderness. No joint deformity. Neurologic: Alert, cranial nerves II-XII intact; normal gait; no focal weakness or sensory abnormalities. Oncology - Results - Labs Labs: Short CBC 06/02/16 Range/Units 04:54 WBC 5.3 (4.3-11.1) K/mcL Hgb 14.2 (12.9-16.9) g/dL Hct 39.1 (37.5-50.1) % Plt Count 169 (140-400) K/mcL Neutrophils # 3.4 (1.6-8.9) K/mcL BMP 06/02/16 04:54 Sodium 134 L Potassium 3.8 Chloride 106 Carbon Dioxide 17 L BUN 9 Creatinine 0.62 L Glucose 196 H Calcium 8.6 Liver Function 06/02/16 Range/Units 04:54 Total Bilirubin 16.5 H (0.2-1.2) mg/dL AST 74 H (5-34) Units/L ALT 187 H (0-55) Units/L Alkaline Phosphatase 412 H (38-126) Units/L Albumin 2.7 L (3.5-5.0) g/dL Consult Discharge Plan - Plan Referrals: NO,PCP [Primary Care Provider] -
[2016-06-02] MEDS: *HR* FentaNYL (PF) 100 MCG/2 ML VIAL IVP PRN ×2 (18:18→18:19)
[2016-06-02] MEDS: Pantoprazole 40 MG VIAL IV SCH (18:18)
[2016-06-02] MEDS ORDERED: *HR* HYDROmorphone 2 MG/ML SYRINGE IVP PRN (19:55)
[2016-06-03] MEDS: *HR* HYDROcodone/Acet 5/325 mg TABLET PO PRN (02:45)
[2016-06-03] MEDS: *HR* Heparin 5,000 UNIT/ML VIAL SQ SCH (05:30)
[2016-06-03] MEDS: 0.9 % Sodium Chloride 1,000 ML IVC SCH (05:31)
[2016-06-03 07:08] VITALS: BP 120/67
[2016-06-03] MEDS: Pantoprazole 40 MG VIAL IV SCH (08:30)
[2016-06-03] MEDS: Nicotine 21 MG PATCH.TD24 TD SCH (08:31)
[2016-06-03] MEDS: Metoprolol XL (24 HR) Succ 25 MG TAB.ER.24H PO SCH (08:31)
[2016-06-03] MEDS: Insulin LISPRO 300 UNITS/3 ML VIAL SQ SCH (08:32)
[2016-06-03] MEDS: amLODIPine 5 MG TABLET PO SCH (08:32)
[2016-06-03] MEDS: Carbamide Peroxide 150 DROP/15 ML BOTTLE RIGHT EAR SCH (08:32)
[2016-06-03 08:58] LABS: Basophils # 0.1 K/mcL (0.0-0.2); Basophils % 0.5 %; Eosinophils # 0.1 K/mcL (0.0-0.6); Eosinophils % 0.8 %; Hematocrit 40.6 % (37.5-50.1); Hemoglobin 14.1 g/dL (12.9-16.9); Immature Granulocytes % 0.2 % (0-4); Lymphocytes # 1.7 K/mcL (0.6-4.6); Mean Corpuscular HGB Conc 34.7 g/dL (31.6-35.5); Mean Corpuscular Hemoglobin 29.4 pg (28.0-33.3); Mean Corpuscular Volume 84.6 fL (83.0-100.0); Mean Platelet Volume 11.9 fL (9.4-12.4); Monocytes # 0.6 K/mcL (0.0-1.3); Monocytes % 6.5 %; Neutrophils # 6.8 K/mcL (1.6-8.9); Platelet Count 186 K/mcL (140-400); Red Cell Distribution Width 16.8 % (11.5-14.5)
[2016-06-03 09:14] LABS: Blood Urea Nitrogen 9 mg/dL (8-26); Carbon Dioxide 23 mEq/L (19-29); Chloride 102 mEq/L (98-109); Potassium 3.5 mEq/L (3.5-4.5); Sodium 134 mEq/L (136-145)
[2016-06-03 09:15] LABS: Alanine Aminotransferase 142 Units/L (0-55); Albumin 2.8 g/dL (3.5-5.0); Alkaline Phosphatase 374 Units/L (38-126); Aspartate Amino Transferase 44 Units/L (5-34); BUN/Creatinine Ratio 13 (6-26); Bilirubin,Direct 6.1 mg/dL (0.0-0.5); Bilirubin,Indirect 2.9 mg/dL (0.0-1.2); Calcium 8.6 mg/dL (8.6-10.8); Globulin 2.8 g/dL (2.4-3.5); Glucose 263 mg/dL (70-99); Osmolality,Calculated 286 (280-300); Total Protein 5.6 g/dL (6.0-8.3); eGFR For African Americans > 60 (> 60); eGFR For Non-African Americans > 60 (> 60)
--- NOTE | 2016-06-03 09:18 | Gastroenterology Progress Note ---
Date of Encounter: 06/03/16 Time of Encounter: 10:10 - Assessment and plan (1) Abdominal pain Current Visit: Yes Status: Acute Assessment and plan: ERCP/EUS revealed pancreatic head mass with initial biopsy suspicious for malignancy. ERCP with stent placement, temporary. Remove 3 months. Consider permanent stent placement if mass non-resectable following oncology w/u. Improved pain level today. Understands need for oncology and GI f/u as scheduled. Qualifiers: Abdominal location: generalized Qualified Code(s): R10.84 - Generalized abdominal pain (2) Obstructive jaundice Current Visit: Yes Status: Acute Assessment and plan: Pancreatic mass, head/neck with stent placement.Bilirubin improved from 15.6 to 9 today. (3) Pancreatic mass Current Visit: Yes Status: Acute Assessment and plan: Oncology consulted and has seen patient. Planning for PET/CT. Temporary stent placed in CBD. If mass non-resectable, consider placement of permanent stent. - Time Spent With Patient Total time spent is greater than 50% in coordination of care (as documented) at patient's floor/unit and/or counseling patient: less than 15 minutes - Subjective Interval history: Patient underwent ERCP/EUS yesterday with [facility], initial pathology was suspicious for malignancy. Temporary stent was placed in CBD. Patient and present at time of my visit, they were packing and preparing for his d/c today. He feels improved and was up in room. Denies any immediate concerns. Will f/u with oncology and GI as scheduled. - Constitutional Vitals: Temp Pulse Resp BP Pulse Ox 98.3 F 61 14 120/67 93 L 06/03/16 07:06 06/03/16 07:06 06/03/16 07:06 06/03/16 07:06 06/03/16 07:06 General appearance: Present: cooperative, A&O X 3, no acute distress, answers questions appropriately - Head Head exam: Present: atraumatic, normocephalic - Eye Eye exam: Present: scleral icterus - ENT ENT exam: Present: mucous membranes moist - Neck Neck exam general surgery: Present: normal inspection, trachea midline - Respiratory Respiratory exam: Present: CTAB - Cardiovascular Cardiovascular exam: Present: RRR, +S1, +S2 - GI/Abdominal GI/Abdominal exam: Present: tenderness, no peritoneal signs - Rectal Rectal exam: Present: deferred - Extremities Exam Extremities exam: Present: warm - Neurological Exam Neurological exam: Present: no focal deficits - Psychiatric Psychiatric exam: Present: normal affect, normal mood - Skin Additional comments: jaundice Results - Labs CBC & Chem 7: 06/03/16 08:07 06/03/16 08:04 Labs: Last Result Calcium 8.6 mg/dL (8.6-10.8) 06/02/16 04:54 Troponin I 0.00 ng/mL (0-0.03) 05/31/16 12:45 Entire Visit Hgb 14.1 g/dL (12.9-16.9) 06/03/16 08:07 Hct 40.6 % (37.5-50.1) 06/03/16 08:07 PT 12.7 Seconds (9.4-12.1) H 06/02/16 04:54 Total Bilirubin 16.5 mg/dL (0.2-1.2) H 06/02/16 04:54 AST 74 Units/L (5-34) H 06/02/16 04:54 ALT 187 Units/L (0-55) H 06/02/16 04:54 Lipase 16 Units/L (8-78) 05/31/16 12:45 Carcinoembryonic Ag 6.7 ng/mL (0-5.0) H 05/31/16 15:50 - ABG ABG results: PT/INR, D-dimer PT 12.7 Seconds (9.4-12.1) H 06/02/16 04:54 - Impressions Impressions Cath/Invasive Procedure 06/02/16 14:40 IMPRESSION: Intraoperative images during ERCP. Common bile duct stent is placed. D/ / Lee Mancuso MD / Lee Mancuso MD Interpreting Provider: Lee Mancuso MD Consult Discharge Plan - Plan Referrals: Umberto Charles MD [Partnered Physician] - Prescriptions: Ondansetron [Zofran] 4 mg PO Q8HR #30 tablet OxyCODONE ER (12 HR) [OxyCONTIN] 10 mg PO Q8HR #30 tab.er.12h Metformin [Glucophage] 500 mg PO BIDWM #60 tablet Nicotine Patch [Nicoderm] 21 mg TD DAILY #7 patch.[id number]
--- NOTE | 2016-06-03 09:57 | Discharge Summary ---
Date of Encounter: 06/03/16 Time of Encounter: 09:54 - Discharge Diagnosis (1) Abdominal pain Priority: Primary Status: Acute Qualifiers: Abdominal location: generalized Qualified Code(s): R10.84 - Generalized abdominal pain (2) Hypertension Priority: Secondary Status: Acute Qualifiers: Hypertension type: essential hypertension Qualified Code(s): I10 - Essential (primary) hypertension (3) Obstructive jaundice Priority: Primary Status: Acute (4) Pancreatic mass Priority: Primary Status: Acute (5) Tobacco abuse Priority: Secondary Status: Acute - Discharge Medications Prescriptions: HYDROcodone/Acet 10/325 mg [[place] 10-325 mg] 1 tab PO Q4HR PRN #60 tab PRN Reason: Pain Morphine Sulfate SR (12 HR) [MS Contin] 30 mg PO Q8HR #60 tablet.er Ondansetron [Zofran] 4 mg PO Q8HR #30 tablet Metformin [Glucophage] 500 mg PO BIDWM #60 tablet Nicotine Patch [Nicoderm] 21 mg TD DAILY #7 patch.td24 Home Medications: Amlodipine [Norvasc] 5 mg PO DAILY 04/30/15 [History] Metoprolol XL (24 HR) Succ [Toprol Xl] 25 mg PO DAILY 04/30/15 [History] HYDROcodone/Acet 10/325 mg [[place] 10-325 mg] 1 tab PO Q4HR PRN #60 tab 06/03/16 [Rx] Metformin [Glucophage] 500 mg PO BIDWM #60 tablet 06/03/16 [Rx] Morphine Sulfate SR (12 HR) [MS Contin] 30 mg PO Q8HR #60 tablet.er 06/03/16 [Rx ] Nicotine Patch [Nicoderm] 21 mg TD DAILY #7 patch.td24 06/03/16 [Rx] Ondansetron [Zofran] 4 mg PO Q8HR #30 tablet 06/03/16 [Rx] Allergies/Adverse Reactions: Allergies No Known Allergies Allergy (Verified 01/27/16 16:12) Date of admission: 05/31/16 17:11 Primary care physician: PCP NO Consults: 05/31/16 17:44 Consult to Nutrition [CONS] Routine Comment: Consulting Provider: NUTRITION Reason for Dietary Consult: MST Score Consult to Restaurant Associate [CONS] Routine Reason for SW Consult: discharge planning 06/01/16 14:58 Consult to Oncology [CONS] Routine Consulting Provider: Oncology [facility] Reason for Consult: Pancreatic mass Call Completed: Yes 06/02/16 17:42 Consult to Pastoral Services [CONS] Routine Comment: New diagnosis of pancreatic cancer Discharging clinician: Kina Roque Anticipated date of discharge: 06/03/16 - Patient Status Disposition: Home, Self-Care Condition: Fair Functional capacity at discharge: independent ambulation Overall status at discharge: patient is progressing back to baseline - Discharge Instructions Instructions: Pancreatic Cancer (DC), Chronic Hypertension (DC), Jaundice (DC) , Pancreatic Cancer, Pheresis Nurse (GEN) Follow Up With: Keon Ferro [Other] - 06/13/16 2:30 pm Keon Ferro MD [Partnered Physician] - 06/05/16 8:10 am () Sola Doss MD [Non-Partnered Physician] - 06/10/16 11:30 am - Diet and Activity Activity: resume usual activities as tolerated Diet: diabetic diet, low fat, low cholesterol Interval History: Mr. Wilson is a 61 year old male with a PMH of hypertension as well as arthritis and peptic ulcer disease, he is a current smoker. According to the patient he has been experiencing abdominal pain since December. He describes the pain as sharp to dull with no aggravating or relieving factors it located below sternum and radiates throughout abdomen at times going up into his chest. He also has nausea which is chronic and has had some episodes of vomiting which had just occurred within the past 2 weeks. He has lost approximately 20 pounds since January. And in the last 2 weeks has noticed jaundice color to his skin. He is also noticed increase in loose stools which are nela to white colored. He denies any not bloody emesis, hematochezia melena, fevers chills or urinary symptoms. He has a 2 pack-a-day smoker denies any alcohol use or recent travel out of the country. He has been seeing his PCP for the past few months for the abdominal pain which he has been retaking medications for nausea and he has appointment with [facility] next week for colonoscopy. His became concerned about jaundice color and urged patient to go to the ER for evaluation. CT of abdomen and pelvis had findings concerning for pancreatic neoplasm moderate biliary ductal dilatation and and hypodensities in the liver which were concerning for metastases. Urine has been dark. Bowels are fairly regular, daily, can be very light in color. Denies dysphagia, admits acid reflux symptoms. Hospital course: HE was admitted for further evaluation of the obstructive jaundice and pancreatic mass. GI was consulted and he underwent ERCP/EUS. ERCP/EUS revealed pancreatic head mass with initial biopsy suspicious for malignancy. ERCP with stent placement, temporary. Remove 3 months. Consider permanent stent placement if mass non-resectable following oncology w/u. lFTS repeated next day has improved,Improved pain level today. Understands need for oncology and GI f/u as scheduled. was seen by DR. ferro from oncology , will be aranged for PET scan as OP and will f/u with onco for initiation of chemotherapy as OP. lesli is being dc in stable condition today to home. Time spent discussing smoking cessation with patient: more than 10 minutes - Time Spent with Patient Total time spent providing and/or coordinating discharge services: Greater than 30 minutes - Constitutional Vitals: Temp Pulse Resp BP Pulse Ox 98.3 F 61 14 120/67 93 L 06/03/16 07:06 06/03/16 07:06 06/03/16 07:06 06/03/16 07:06 06/03/16 07:06 General appearance: Present: A&O X 3, pleasant, loss of weight, answers questions appropriately Exam: General appearance: Present: cooperative, A&O X 3, no acute distress, answers questions appropriately - Head Head exam: Present: atraumatic, normocephalic - Eye Eye exam: Present: scleral icterus - ENT ENT exam: Present: mucous membranes moist - Neck Neck exam general surgery: Present: normal inspection, trachea midline - Respiratory Respiratory exam: Present: CTAB - Cardiovascular Cardiovascular exam: Present: RRR, +S1, +S2 - GI/Abdominal GI/Abdominal exam: Present:non tender, no peritoneal signs - Rectal Rectal exam: Present: deferred - Extremities Exam Extremities exam: Present: warm - Neurological Exam Neurological exam: Present: no focal deficits - Psychiatric Psychiatric exam: Present: normal affect, normal mood
[2016-06-03] MEDS ORDERED: Lidocaine -MPF 2% 5 ML VIAL INFILT ONE (12:15)
[2016-06-03] MEDS ORDERED: Ondansetron 4 MG/2 ML VIAL IVP ONE (12:15)
[2016-06-03] MEDS ORDERED: *HR* Propofol 200 MG/20 ML VIAL IVP ONE (12:15)
[2016-06-03] MEDS ORDERED: *HR* Metoprolol 5 MG/5 ML VIAL IVP ONE (12:15)
[2016-06-03] MEDS ORDERED: *HR* Succinylcholine 200 MG/10 ML VIAL IVP ONE (12:15)
== END 2016-06-03 12:16 | disposition home or self-care (01) | DRG 281 ==
LOC: 3ANU 11:39 → EMEROO 11:39 → 3ANU 16:18
PROVIDERS: ADMIT Internal Medicine; ATTEND Internal Medicine

== ENCOUNTER 2016-09-04 10:14 | Inpatient (IN) ==
[2016-09-04] MEDS ORDERED: Ondansetron 4 MG/2 ML VIAL IVP ONE (10:27)
[2016-09-04] MEDS ORDERED: 0.9 % Sodium Chloride 1,000 ML IVC ONE (10:27)
--- NOTE | 2016-09-04 10:27 | Emergency Department Note ---
START Narrative - START START: I examined this patient and my medical decision-making was reviewed with the SPECIAL EDUCATION RESOURCE ROOM TEACHER/PA/Advanced Practice Nurse/Resident Physician. I agree with the documented findings, disposition and treatment plan as described except to the extent set forth below. ED attending note: Patient seen with emergency medicine resident Dr. Cano. Please see a copy of his note for details of the H&P, evaluation, management and disposition of this patient. We independently had wegt-[id number] contact with the patient Briefly: -year-old male diagnosed with pancreatic cancer in May status post a supple chemotherapy treatments. On his lesions are getting smaller provided bedside. Saw Dr. rebollar earlier today. Patient fatigue jaundice with intractable vomiting. I performed last night will be reviewed he has a port in place. IV fluids and antibiotics and we will plan on admission. Disposition pending.
--- NOTE | 2016-09-04 10:32 | Emergency Department Note ---
Disposition Clinical Impression: Dehydration, Obstructive jaundice, Pancreatic cancer, Jaundice, Failure to thrive Disposition: Admitted As Inpatient Condition: Fair Referrals: Sola Doss MD [Primary Care Provider] - Forms: ED Satisfaction Letter Time of Disposition: 11:00 Nausea/Vomiting/Diarrhea HPI - General Chief complaint: ED Nausea/Vomiting/Diarrhea Stated complaint: vomiting Time Seen by Provider: 09/04/16 10:20 Source: patient Mode of arrival: wheelchair Limitations: no limitations Nursing Notes Reviewed: Yes Vital Signs Reviewed: Yes - History of Present Illness HPI Narrative: Patient presents to the ED the chief complaint of dehydration and vomiting. Patient has a history of pancreatic cancer that was diagnosed in early May of this year. He had pancreatic stents placed by Dr. Carlson in May. States that these were meant to be temporary. Has been following with oncology as well. He finished his sixth dose of chemotherapy a few weeks ago. Does have a port in place. States that for the last several days to a week. He has been having increasing nausea and vomiting. Has had significant decrease in by mouth intake with only liquids in last 24 hours. States he feels very dehydrated. Saw Dr. Carlson yesterday and had lab work drawn. Was told to come to the emergency department if symptoms worsen. States that he continued to worse throughout the night and decided to come in. He has had an MRI last month that showed decrease in the size of his cancer. He also had a spot on his liver, which are decreased by 40%. He states that GI and oncology has been working closely with him and that they know the stents are only temporary and that they will need to be replaced. They told him to watch out for warning signs such as abdominal pain, nausea and vomiting which is now experiencing. No fevers, but has been having chills. No chest pain or shortness of breath. No diarrhea. No pain or swelling in his legs. Does feel generally weak and has had a weight loss. - Related Data Home Medications Medication Instructions Recorded Confirmed Aspirin/Acetaminophen/Caffeine 1 tab PO DAILY PRN 09/04/16 09/04/16 [Excedrin Migraine Caplet] Ciprofloxacin HCl [Cipro] 500 mg PO BID MDD for 10 days 09/04/16 09/04/16 Ibuprofen/Diphenhydramine Cit 1 tab PO HS PRN 09/04/16 09/04/16 [Advil Pm Caplet] Insulin Glargine,Hum.rec.anlog 10 unit SQ BID 09/04/16 09/04/16 [Lantus Solostar] Oxycodone HCl/Acetaminophen 1 tab PO Q6H PRN 09/04/16 09/04/16 [Percocet 10-325 mg Tablet] Sennosides [Senna] 8.6 mg PO DAILY PRN 09/04/16 09/04/16 Previous Rx's Medication Instructions Recorded Ondansetron [Zofran] 4 mg PO Q8HR #30 tablet 06/03/16 Lidocaine/Prilocaine [Emla] 1 appl TP AD #30 gm 06/05/16 Nut.tx.gluc.intoler,Lac-Fr,Soy 1 can PO TID #90 can 06/05/16 [Glucerna] Loperamide [Imodium] 2 cap PO AD #30 capsule 06/09/16 Magic Mouthwash 5 ml PO Q4H PRN #240 ml 06/09/16 Prochlorperazine Maleate 10 mg PO Q6HR PRN #30 tablet 06/09/16 [Compazine] Ranitidine HCl [Zantac] 150 mg PO BID #60 tablet 07/17/16 Hydromorphone HCl [Dilaudid] 4 mg PO Q6H PRN #120 tablet 08/28/16 Oxymorphone HCl [Oxymorphone HCl 10 mg PO BID #28 tab.er.12h 08/28/16 ER] Allergies Allergy/AdvReac Type Severity Reaction Status Date / Time No Known Allergies Allergy Verified 06/14/16 20:32 All systems ED: reviewed and negative except as stated. Constitutional: Reports: chills, weakness, weight change (loss) Eyes: Denies: vision change Cardiovascular: Denies: chest pain Respiratory: Denies: dyspnea Gastrointestinal: Reports: abdominal pain, nausea, vomiting. Denies: diarrhea, hematemesis, melena, hematochezia Genitourinary: Reports: other (decreased urination and dark urine). Denies: dysuria Musculoskeletal: Denies: back pain, neck pain Integumentary: Denies: rash Neurological: Denies: headache Endocrine: Reports: fatigue Past Medical History - Past Medical History Attestation: Yes The following information was validated with the patient. Source: patient, old records reviewed Medical history: Reports: arthritis, cancer, diabetes, hypertension, other Surgical history: Reports: orthopedic, other Psychiatric history: Reports: no psych history - Social History Smoking Status: Former smoker Smokeless Tobacco Status: No Alcohol use: Reports: none Drug use: Reports: none Physical Exam - General Limitations: no limitations General appearance: alert, in no apparent distress, other (Slightly jaundiced, appears dehydrated and chronically ill) - Head Head exam: atraumatic, normocephalic, normal inspection - Eye Eye exam: Present: normal appearance, PERRL, EOMI - ENT ENT exam: normal exam, normal oropharynx, mucous membranes dry - Neck Neck exam: Present: normal inspection, full ROM, trachea midline - Chest Chest inspection: Present: normal inspection, symmetric chest wall rise, other ( Port in right chest, no signs of infection) - Respiratory Respiratory exam: Present: normal lung sounds bilaterally - Cardiovascular Cardiovascular exam: Present: regular rate, normal rhythm, normal heart sounds - Abdominal Exam Abdominal exam: Present: soft, tenderness, hyperactive bowel sounds. Absent: distention, guarding, rebound, Finnegan's sign, tenderness at McBurney's Point Abdominal tenderness: Present: epigastrium, mild - Extremities Exam Extremities exam: Present: normal inspection, full ROM, normal capillary refill. Absent: tenderness, pedal edema - Back Exam Back exam: Present: normal inspection - Neurological Exam Neurological exam: Present: alert, oriented X3 - Psychiatric Psychiatric exam: Present: normal affect, normal mood - Skin Skin exam: Present: warm, dry, intact, other (Slightly jaundiced). Absent: normal color Course Course Narrative: 61 -year-old male with pancreatic cancer and temp panc stent presenting for dehydration, nausea, vomiting. Planned admission. Had labs last night. We will repeat today. - Reevaluation(s) Reevaluation #1: Spoke with the hospitalist to let him know about likely admission. Agreeable with admission but did want to wait until the chemistry returns to evaluate for any electrolyte abnormalities. Did want to keep the patient in the emergency department as short as possible to avoid exposures. Will replace K Time: 10:30 Vital Signs Temperature 98.5 F 09/04/16 10:16 Pulse Rate 78 09/04/16 10:16 Respiratory Rate 16 09/04/16 10:16 Blood Pressure 121/78 09/04/16 10:16 O2 Sat by Pulse Oximetry 97 09/04/16 10:16 Temperature 98.5 F 09/04/16 10:16 Pulse Rate 78 09/04/16 10:16 Respiratory Rate 16 09/04/16 10:16 Blood Pressure 121/78 09/04/16 10:16 O2 Sat by Pulse Oximetry 97 09/04/16 10:16 Oxygen Delivery Oxygen Delivery Room Air Nausea/Vomiting/Diarrhea - Medical Records Medical records reviewed: Yes I reviewed the patient's medical records. - Lab Data Lab results reviewed: Yes I reviewed the patient's lab results. Result diagrams: 09/04/16 10:45 09/04/16 10:45 Lab Results 09/04/16 09/04/16 Range/Units 10:45 10:45 WBC 5.7 (4.3-11.1) K/mcL RBC 4.56 (4.19-5.50) M/mcL Hgb 13.0 (12.9-16.9) g/dL Hct 38.2 (37.5-50.1) % MCV 83.8 (83.0-100.0) fL MCH 28.5 (28.0-33.3) pg MCHC 34.0 (31.6-35.5) g/dL RDW 15.6 H (11.5-14.5) % Plt Count 150 (140-400) K/mcL MPV 10.5 (9.4-12.4) fL Immature Gran % 0.7 (0-4) % Seg Neutrophils % 74.2 % Lymphocytes % 18.9 % Monocytes % 5.8 % Eosinophils % 0.0 % Basophils % 0.4 % Neutrophils # 4.2 (1.6-8.9) K/mcL Lymphocytes # 1.1 (0.6-4.6) K/mcL Monocytes # 0.3 (0.0-1.3) K/mcL Eosinophils # 0.0 (0.0-0.6) K/mcL Basophils # 0.0 (0.0-0.2) K/mcL Sodium 136 (136-145) mEq/L Potassium 3.1 L (3.5-4.5) mEq/L Chloride 99 (98-109) mEq/L Carbon Dioxide 29 (19-29) mEq/L BUN 20 (8-26) mg/dL Creatinine 0.74 (0.72-1.25) mg/dL Est GFR ( Amer) > 60 (> 60) Est GFR (Non-Af Amer) > 60 (> 60) BUN/Creatinine Ratio 27 H (6-26) Glucose 134 H (70-99) mg/dL Calculated Osmolality 287 (280-300) Calcium 9.4 (8.6-10.8) mg/dL Total Bilirubin 3.5 H (0.2-1.2) mg/dL Direct Bilirubin 2.7 H (0.0-0.5) mg/dL Indirect Bilirubin 0.8 (0.0-1.2) mg/dL AST 79 H (5-34) Units/L ALT 122 H (0-55) Units/L Alkaline Phosphatase 596 H (38-126) Units/L Serum Total Protein 6.6 (6.0-8.3) g/dL Albumin 2.6 L (3.5-5.0) g/dL Globulin 4.0 H (2.4-3.5) g/dL Albumin/Globulin Ratio 0.7 L (1.1-2.2) Lipase < 4 L (8-78) Units/L - Radiology Data Radiology results reviewed: Yes I reviewed the patient's radiology results. - EKG Data EKG attestation: Yes I reviewed and interpreted this EKG. EKG results narrative: Sinus rhythm, rate 84, [place] interval 120, QRS 88, QTC 398, normal axis, no ischemic changes S.B.A.RAvelina - Robin.Medhat Situation: Demographics, MOA Background: Presenting Complaint, Relevant PMH, Meds, & Allergies Assessment: Vital Signs, Course and respsone to treatment, Exam Concerns, Patient/Family Expectation, Pertinant Lab Results, Outstanding Labs Recommendation: Recommendation based on pending studies, treatments, or consults S.B.A.RAvelina Report Given to: Dr. Rene Littlejohn Repor Time: 11:21
[2016-09-04 11:02] LABS: Basophils % 0.4 %; Hematocrit 38.2 % (37.5-50.1); Immature Granulocytes % 0.7 % (0-4); Lymphocytes # 1.1 K/mcL (0.6-4.6); Lymphocytes % 18.9 %; Mean Corpuscular Hemoglobin 28.5 pg (28.0-33.3); Mean Corpuscular Volume 83.8 fL (83.0-100.0); Mean Platelet Volume 10.5 fL (9.4-12.4); Monocytes # 0.3 K/mcL (0.0-1.3); Monocytes % 5.8 %; Neutrophils # 4.2 K/mcL (1.6-8.9); Platelet Count 150 K/mcL (140-400); Red Blood Count 4.56 M/mcL (4.19-5.50); Red Cell Distribution Width 15.6 % (11.5-14.5); Segmented Neutrophils % 74.2 %
[2016-09-04 11:16] LABS: Alanine Aminotransferase 122 Units/L (0-55); Albumin 2.6 g/dL (3.5-5.0); Albumin/Globulin Ratio 0.7 (1.1-2.2); Alkaline Phosphatase 596 Units/L (38-126); Aspartate Amino Transferase 79 Units/L (5-34); BUN/Creatinine Ratio 27 (6-26); Bilirubin,Direct 2.7 mg/dL (0.0-0.5); Bilirubin,Indirect 0.8 mg/dL (0.0-1.2); Bilirubin,Total 3.5 mg/dL (0.2-1.2); Blood Urea Nitrogen 20 mg/dL (8-26); Calcium 9.4 mg/dL (8.6-10.8); Carbon Dioxide 29 mEq/L (19-29); Chloride 99 mEq/L (98-109); Glucose 134 mg/dL (70-99); Lipase < 4 Units/L (8-78); Osmolality,Calculated 287 (280-300); Potassium 3.1 mEq/L (3.5-4.5); Sodium 136 mEq/L (136-145); Total Protein 6.6 g/dL (6.0-8.3); eGFR For African Americans > 60 (> 60); eGFR For Non-African Americans > 60 (> 60)
[2016-09-04] MEDS ORDERED: Potassium Chloride 40 MEQ, Lidocaine 1% 2 ML in D5% in Water 500 ML IVPB ONE (11:23)
[2016-09-04] MEDS ORDERED: *HR* FentaNYL (PF) 100 MCG/2 ML VIAL IVP ONE (11:56)
[2016-09-04] MEDS ORDERED: *HR* Promethazine 25 MG/ML VIAL IVP PRN (12:02)
[2016-09-04] MEDS ORDERED: Naloxone 0.4 MG/ML INJ IVP PRN (12:02)
[2016-09-04 12:37] LABS: Basophils % 0.4 %; Eosinophils % 0.4 %; Hematocrit 36.2 % (37.5-50.1); Hemoglobin 12.3 g/dL (12.9-16.9); Immature Granulocytes % 0.9 % (0-4); Lymphocytes # 1.2 K/mcL (0.6-4.6); Lymphocytes % 22.9 %; Mean Corpuscular Volume 85.4 fL (83.0-100.0); Mean Platelet Volume 10.6 fL (9.4-12.4); Monocytes # 0.3 K/mcL (0.0-1.3); Monocytes % 6.4 %; Neutrophils # 3.7 K/mcL (1.6-8.9); Platelet Count 129 K/mcL (140-400); Red Blood Count 4.24 M/mcL (4.19-5.50); Red Cell Distribution Width 15.6 % (11.5-14.5)
[2016-09-04 12:39] LABS: INR 1.5; Prothrombin Time 16.8 Seconds (9.4-12.1)
[2016-09-04 12:42] LABS: Activated Partial Thrombo Time 29.5 Seconds (26.0-36.0)
[2016-09-04 12:47] LABS: Alanine Aminotransferase 121 Units/L (0-55); Albumin 2.6 g/dL (3.5-5.0); Albumin/Globulin Ratio 0.7 (1.1-2.2); Alkaline Phosphatase 563 Units/L (38-126); Aspartate Amino Transferase 80 Units/L (5-34); BUN/Creatinine Ratio 26 (6-26); Blood Urea Nitrogen 18 mg/dL (8-26); Calcium 8.8 mg/dL (8.6-10.8); Carbon Dioxide 27 mEq/L (19-29); Chloride 102 mEq/L (98-109); Globulin 3.8 g/dL (2.4-3.5); Glucose 118 mg/dL (70-99); Magnesium 1.8 mg/dL (1.6-2.6); Osmolality,Calculated 285 (280-300); Potassium 3.4 mEq/L (3.5-4.5); Sodium 136 mEq/L (136-145); Total Protein 6.4 g/dL (6.0-8.3); eGFR For African Americans > 60 (> 60); eGFR For Non-African Americans > 60 (> 60)
[2016-09-04] MEDS ORDERED: DIPHENHYDRAMINE CIT PO PRN (13:00)
[2016-09-04] MEDS ORDERED: *HR* HYDROmorphone 4 MG TABLET PO PRN (13:00)
[2016-09-04] MEDS ORDERED: Acetaminophen/Aspirin/Caffeine TABLET PO PRN (13:00)
[2016-09-04] MEDS ORDERED: Sennosides 8.6 MG TABLET PO PRN (13:00)
[2016-09-04] MEDS ORDERED: *HR* OxyCODONE/APAP 10/325 TABLET PO PRN (13:00)
[2016-09-04] MEDS ORDERED: IBUPROFEN PO PRN (13:00)
[2016-09-04] MEDS ORDERED: Magic Mouthwash 10 ML UD Cup PO PRN (13:00)
--- NOTE | 2016-09-04 13:01 | Event Note ---
Date of Encounter: 09/04/16 Time of Encounter: 12:56 Patients and examined with nurse practitioner. Patient with an unfortunate history of pancreatic cancer status post delivery stent placement for biliary obstruction May 2016 currently on palliative chemotherapy presents to the emergency room today sent from production floater office because of vomiting and lethargy. For the past 10 days patient has been having abdominal pain nausea vomiting, unable to keep food down. He is also been getting progressively weaker. Currently he is performance stage significantly declined sitting in his recliner more than 50% of the time. He has also been noticing dark coloration of the urine. He was noted by Dr. Carlson to have rise in his direct bilirubin and alkaline phosphatase and was thought that he may be having obstruction in the stent with plan to change it. He also complained of rigors was checking temperature Tmax 99F. It was started [address] Carlson on ciprofloxacin and we will continue that in case there is concern for cholangitis.
[2016-09-04] MEDS ORDERED: D5% in Water 1,000 ML IVC PRN (13:10)
[2016-09-04] MEDS ORDERED: Dextrose Gel 15 GM PO PRN ×2 (13:10)
[2016-09-04] MEDS ORDERED: *HR* Dextrose 50 % in Water (Syg) 50 ML SYRINGE IVP PRN (13:10)
--- NOTE | 2016-09-04 13:19 | Internal Med History&Physical ---
Date of Encounter: 09/04/16 Time of Encounter: 11:30 Assessment and Plan (1) Dehydration Current visit: Yes Status: Acute Assess: Patient presents with current chief complaint of dehydration related to nausea and vomiting. Plan: Start IV fluids Monitor vitals Phenergan ordered PRN (Zofran contraindicated with current Cipro medication) NPO diet (2) Abdominal pain Current visit: Yes Status: Acute Assess: Patient reports abdominal pain and discomfort related to possible biliary stent blockage and recent nausea/vomiting. Plan: Assess: Monitor vitals Pain medications continued Continue famotidine Phenergan ordered PRN (Zofran contraindicated with current Cipro medication) NPO diet Bedrest with assist to bathroom Qualifiers: Abdominal location: generalized Qualified Code(s): R10.84 - Generalized abdominal pain (3) Hyperbilirubinemia Current visit: Yes Status: Acute Assess: Patient presents with hyperbilirubinemia related to possible biliary stent blockage. Plan: NPO diet GI consult ordered (4) Cancer-related pain Current visit: Yes Status: Chronic Assess: Patient presents with pain related to pancreatic cancer and possible biliary stent blockage. Plan: Continue pain medications IV Assess for pain Monitor vital signs (5) Diabetes mellitus Current visit: Yes Status: Chronic Assess: Patient presents with current diagnosis of insulin-dependent DM which began with diagnosis of pancreatic cancer. 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 Plan: Anti-embolic stockings ordered 12-lead ECG due to weakness/dehydration Internal Medicine - H&P: HPI Chief complaint: Nausea/vomiting History of present illness: Mr. Wilson is a 61 year old male who presents from the ED today with nausea and vomiting for the past several days. Patient reports he has not eaten for 3- 4 days. Patient also reports abdominal pain, marked weakness, and fatigue which has become progressively worse over the past 1 1/2 weeks. Patient feels that he has a blockage in the biliary stents placed in May after his diagnosis of pancreatic cancer. Reports he had his sixth dose of chemotherapy one week ago. He currently has port in place. Saw Dd. Carlson on 09/03/16 and had labs drawn[address] Dr. Carlson instructed patient to come to hospital is symptoms became worse. Patient's latest MRI shows a decrease in the size of his cancer as well as the spot on his liver. Patient was told to be aware of nausea, vomiting, and abdominal pain which could mean a biliary blockage. Patient reports chills within the past few days. Patient denies SOB, chest pain, diarrhea, and edema in extremities. Patient to be admitted as inpatient status IV fluid resuscitation. GI consult ordered. Past Med Surg Social Fam HX - Past Medical History Medical history: arthritis, cancer, diabetes, other Psychiatric history: no psych history - Past Surgical History Surgical History: orthopedic, other, other - Social History Smoking Status: Former smoker Packs per day: 2 packs per day Smokeless Tobacco Status: No Alcohol use: none Drug use: none Occupational status: unemployed Current living situation: Home, With Family Activity Level: Independent ambulation Recent Out of Country Travel Within the Last 8 Weeks: No Exposure or Possible Exposure to Illness During Travel: No - Family History Mother Race: Family Member Ethnicity: Non- Living Status: Age at : 90 Hx Family Cardiac Disorders: Yes (HTN) Hx Family Cancer: Yes (Colon) Father Race: Family Member Ethnicity: Non- Living Status: Age at : 90 Hx Family Cardiac Disorders: Yes (HD, [place], stroke) Brother Race: Family Member Ethnicity: Non- Living Status: Age at : 71 (Colon cancer) Hx Family Cancer: Yes (Colon) Sister Race: Family Member Ethnicity: Non- Living Status: Still Living Hx Family Cardiac Disorders: Yes (HD) Hx Family Cancer: Yes (Breast) Internal Medicine - H&P: Meds Ondansetron [Zofran] 4 mg PO Q8HR #30 tablet 06/03/16 [Rx] Lidocaine/Prilocaine [Emla] 1 appl TP AD #30 gm 06/05/16 [Rx] Nut.tx.gluc.intoler,Lac-Fr,Soy [Glucerna] 1 can PO TID #90 can 06/05/16 [Rx] Loperamide [Imodium] 2 cap PO AD #30 capsule 06/09/16 [Rx] Magic Mouthwash 5 ml PO Q4H PRN #240 ml 06/09/16 [Rx] Prochlorperazine Maleate [Compazine] 10 mg PO Q6HR PRN #30 tablet 06/09/16 [Rx] Ranitidine HCl [Zantac] 150 mg PO BID #60 tablet 07/17/16 [Rx] Hydromorphone HCl [Dilaudid] 4 mg PO Q6H PRN #120 tablet 08/28/16 [Rx] Oxymorphone HCl [Oxymorphone HCl ER] 10 mg PO BID #28 tab.er.12h 08/28/16 [Rx] Aspirin/Acetaminophen/Caffeine [Excedrin Migraine Caplet] 1 tab PO DAILY PRN [History] Ciprofloxacin HCl [Cipro] 500 mg PO BID MDD for 10 days 09/04/16 [History] Ibuprofen/Diphenhydramine Cit [Advil Pm Caplet] 1 tab PO HS PRN 09/04/16 [ History] Insulin Glargine,Hum.rec.anlog [Lantus Solostar] 10 unit SQ BID 09/04/16 [ History] Oxycodone HCl/Acetaminophen [Percocet 10-325 mg Tablet] 1 tab PO Q6H PRN [History] Sennosides [Senna] 8.6 mg PO DAILY PRN 09/04/16 [History] Allergies No Known Allergies Allergy (Verified 06/14/16 20:32) All Systems PM: A 10-system review of systems was performed and is negative for pertinent findings except as documented above in the HPI. - Constitutional Constitutional: as per HPI, chills, fatigue, weakness, weight loss Additional comments: Patient reports chills, weakness, fatigue and weight loss over the past week. - EENT Eyes: no change in vision, no discharge, no pain, no photophobia Ears: no ear discharge, no ear pain, no tinnitus Nose, mouth and throat: as per HPI, mouth lesions Additional comments: Patient reports history of mouth sores related to treatment. Uses magic mouthwash PRN. - Breasts Breasts: as per HPI - Cardiovascular Cardiovascular ROS IM: no chest pain, no diaphoresis, no dyspnea, no lightheadedness, no palpitations, no syncope - Respiratory Respiratory: no cough, no dyspnea, no wheezing, no excessive phlegm production - Gastrointestinal Gastrointestinal: abdominal pain, nausea, vomiting Additional comments: Patient reports abdominal pain accompanied by nausea and vomiting for the past 1 1/2 weeks. - Genitourinary Genitourinary ROS male: as per HPI, difficulty urinating Additional comments: Patient reports urine is dark and turbid for the past week becoming progressively darker with less output. - Musculoskeletal Musculoskeletal ROS IM: no numbness, no tingling - Integumentary Integumentary IM: no rash, no unusual bruising - Neurological Neurological ROS: weakness, no confusion, no convulsions, no focal weakness, no numbness, no tingling, no tremor(s) Additional comments: Patient reports progressive weakness over the past 1 1/2 weeks. - Psychiatric Psychiatric: as per HPI Additional comments: Denies any psych issues or history. - Endocrine Endocrine IM: as per HPI - Hematologic/Lymphatic Hematologic/Lymphatic: no easy bruising - Allergic/Immunologic Allergic/Immunologic: as per HPI - Constitutional Vitals: Temp Pulse Resp BP Pulse Ox 98.7 F 74 16 162/86 98 09/04/16 12:42 09/04/16 12:42 09/04/16 12:42 09/04/16 12:42 09/04/16 12:42 General appearance: Present: cooperative, mild distress, A&O X 3, pleasant, loss of weight, answers questions appropriately Exam: Patient appears in mild distress upon examination. Many answers given by family member due to patient's discomfort and fatigue. - Head Head exam: Present: atraumatic, normocephalic - Eye Eye exam: Present: PERRL, conjuntiva pink, sclera anicteric Pupils: Present: PERRL - ENT ENT exam: Present: normal exam - Neck Neck exam general surgery: Present: supple, trachea midline. Absent: lymphadenopathy - Respiratory Respiratory exam: Present: CTAB. Absent: accessory muscle use, rales, rhonchi, wheezes - Cardiovascular Cardiovascular exam: Present: RRR, +S1, +S2. Absent: diastolic murmur, gallop, rubs, systolic murmur - GI/Abdominal GI/Abdominal exam: Present: diminished bowel sounds, soft, tenderness Additional comments: Patient exhibits guarding and abdominal tenderness with mild palpation. - Rectal Rectal exam: Present: deferred - Additional comments: exam deferred. - Extremities Exam Extremities exam: Present: normal capillary refill, normal inspection, radial pulses palpable and symetrical - Back Exam Back exam: Present: normal inspection - Neurological Exam Neurological exam: Present: alert, oriented X3, no focal deficits - Psychiatric Psychiatric exam: Present: normal affect, normal mood - Skin Skin exam: Present: dry, intact Internal Med - H&P Results - Labs CBC & Chem 7: 09/04/16 12:22 09/04/16 12:22 Labs: Short CBC 09/04/16 Range/Units 12:22 WBC 5.3 (4.3-11.1) K/mcL Hgb 12.3 L (12.9-16.9) g/dL Hct 36.2 L (37.5-50.1) % Plt Count 129 L (140-400) K/mcL Neutrophils # 3.7 (1.6-8.9) K/mcL BMP 09/04/16 12:22 Sodium 136 Potassium 3.4 L Chloride 102 Carbon Dioxide 27 BUN 18 Creatinine 0.68 L Glucose 118 H Calcium 8.8 Liver Function 09/04/16 Range/Units 12:22 Total Bilirubin 4.0 H (0.2-1.2) mg/dL AST 80 H (5-34) Units/L ALT 121 H (0-55) Units/L Alkaline Phosphatase 563 H (38-126) Units/L Albumin 2.6 L (3.5-5.0) g/dL
[2016-09-04] MEDS: *HR* HYDROmorphone (PF) 1 MG/ML SYRINGE IVP PRN ×3 (14:57→22:16)
[2016-09-04] MEDS: 0.9 % Sodium Chloride 1,000 ML IVC SCH (14:58)
[2016-09-04] MEDS ORDERED: NON-FORMULARY MEDICATION 1 EACH EACH (Nut.Tx.Gluc.Intoler,Lac-Fr,Soy [Glucerna] 1 CAN) PO SCH (15:00)
[2016-09-04] MEDS: Insulin LISPRO 300 UNITS/3 ML VIAL SQ SCH ×2 (17:09→22:10)
[2016-09-04] MEDS ORDERED: Insulin DETEMIR 100 UNIT/ML X5UNITS SQ SCH (21:00)
[2016-09-04] MEDS ORDERED: Famotidine 20 MG TABLET PO SCH (21:00)
[2016-09-04] MEDS ORDERED: OXYMORPHONE HCL 10 MG PO SCH (21:00)
[2016-09-05] MEDS: *HR* HYDROmorphone (PF) 1 MG/ML SYRINGE IVP PRN ×4 (04:09→21:29)
[2016-09-05 04:14] LABS: Basophils % 0.4 %; Eosinophils % 0.2 %; Hematocrit 35.1 % (37.5-50.1); Hemoglobin 11.9 g/dL (12.9-16.9); Immature Granulocytes % 0.5 % (0-4); Lymphocytes # 1.3 K/mcL (0.6-4.6); Lymphocytes % 23.7 %; Mean Corpuscular HGB Conc 33.9 g/dL (31.6-35.5); Mean Corpuscular Hemoglobin 28.5 pg (28.0-33.3); Mean Corpuscular Volume 84.2 fL (83.0-100.0); Mean Platelet Volume 10.4 fL (9.4-12.4); Monocytes # 0.5 K/mcL (0.0-1.3); Neutrophils # 3.8 K/mcL (1.6-8.9); Platelet Count 138 K/mcL (140-400); Red Blood Count 4.17 M/mcL (4.19-5.50); Red Cell Distribution Width 15.3 % (11.5-14.5); Segmented Neutrophils % 67.2 %
[2016-09-05 04:21] LABS: INR 1.7; Prothrombin Time 18.1 Seconds (9.4-12.1)
[2016-09-05 04:34] LABS: Alanine Aminotransferase 142 Units/L (0-55); Albumin 2.4 g/dL (3.5-5.0); Albumin/Globulin Ratio 0.6 (1.1-2.2); Alkaline Phosphatase 611 Units/L (38-126); Aspartate Amino Transferase 137 Units/L (5-34); BUN/Creatinine Ratio 18 (6-26); Bilirubin,Total 5.2 mg/dL (0.2-1.2); Blood Urea Nitrogen 11 mg/dL (8-26); C-Reactive Protein 102 mg/L (Less than 5); Calcium 8.8 mg/dL (8.6-10.8); Carbon Dioxide 23 mEq/L (19-29); Chloride 102 mEq/L (98-109); Globulin 3.7 g/dL (2.4-3.5); Glucose 86 mg/dL (70-99); Osmolality,Calculated 283 (280-300); Sodium 137 mEq/L (136-145); Total Protein 6.1 g/dL (6.0-8.3); eGFR For African Americans > 60 (> 60); eGFR For Non-African Americans > 60 (> 60)
[2016-09-05 04:44] LABS: Bilirubin,Direct 4.2 mg/dL (0.0-0.5)
[2016-09-05] MEDS: Insulin LISPRO 300 UNITS/3 ML VIAL SQ SCH ×4 (08:46→21:25)
[2016-09-05] MEDS: Pantoprazole 40 MG VIAL IVP SCH (08:52)
[2016-09-05] MEDS: 0.9 % Sodium Chloride 1,000 ML IVC SCH ×3 (08:52→23:40)
[2016-09-05] MEDS ORDERED: Potassium Chloride 40 MEQ, Lidocaine 1% 2 ML in D5% in Water 500 ML IVPB ONE (09:00)
--- NOTE | 2016-09-05 11:32 | Gastroenterology Consult Note ---
<Umberto Jarrell - Last Filed: 09/05/16 11:30> Date of Encounter: 09/05/16 Time of Encounter: 10:25 - Assessment and plan (1) Pancreatic cancer metastasized to liver Current Visit: No Status: Acute Assessment and plan: EUS 05/2016 showed pancreatic mass with invasion into portal vein. ERPC 05/2016 with temporary stent placed in CBD and PD. Pt with abdominal pain, nausea, and vomiting. Plan to complete ERCP with possible metal stent placement. (2) Abdominal pain Current Visit: Yes Status: Acute Assessment and plan: Continue pain control. Plan for ERCP with possible metal stent placement. Qualifiers: Abdominal location: generalized Qualified Code(s): R10.84 - Generalized abdominal pain (3) Nausea Current Visit: Yes Status: Acute Assessment and plan: Continue antiemetics. - Time Spent With Patient Total time spent is greater than 50% in coordination of care (as documented) at patient's floor/unit and/or counseling patient: GI History of Present Illness - Data of Consult Patient: known to practice within the last 3 years Consult date: 09/05/16 Requesting Physician: Gilbert Treadwell - Consult Narrative Reason for consult: possible biliary stent blockage History of present illness: Mr. Wilson is a 61 year old male with PMHx of stage IV pancreatic cancer who presented to the ED with nausea and vomiting for 3-4 days. He also complains of abdominal pain, weakness, and fatigue that has worsened of the past week. Patient feels that he has a blockage in the biliary stents placed in May after his diagnosis of pancreatic cancer. Reports he had his sixth dose of chemotherapy one week ago. Patient's latest MRI shows a decrease in the size of his cancer as well as the spot on his liver. Patient was told to be aware of nausea, vomiting, and abdominal pain which could mean a biliary blockage. Patient reports chills within the past few days. Patient denies SOB, chest pain , diarrhea, and edema in extremities. Procedure: EUS 06/02/2016 with pancreatic mass with invasion into the portal vein. ERCP 06/02/2016 localized biliary stricture found due to pancreatic head tumor, entire main bile duct severely dilated, temporary stent placed into the CBD and PD. Past Med Surg Social Fam HX - Past Medical History Medical history: arthritis, cancer, diabetes, other Psychiatric history: no psych history - Past Surgical History Surgical History: orthopedic, other, other - Social History Smoking Status: Former smoker Packs per day: 2 packs per day Smokeless Tobacco Status: No Alcohol use: none Drug use: none - Family History Mother Race: Family Member Ethnicity: Non- Living Status: Age at : 90 Hx Family Cardiac Disorders: Yes (HTN) Hx Family Cancer: Yes (Colon) Father Race: Family Member Ethnicity: Non- Living Status: Age at : 90 Hx Family Cardiac Disorders: Yes (HD, [place], stroke) Brother Race: Family Member Ethnicity: Non- Living Status: Age at : 71 (Colon cancer) Hx Family Cancer: Yes (Colon) Sister Race: Family Member Ethnicity: Non- Living Status: Still Living Hx Family Cardiac Disorders: Yes (HD) Hx Family Cancer: Yes (Breast) - Gastrointestinal Gastrointestinal: Present: as per HPI - Constitutional Constitutional: as per HPI - EENT Eyes: as per HPI Ears: Present: as per HPI Nose, mouth and throat: Present: as per HPI - Cardiovascular Cardiovascular ROS: Present: as per HPI - Respiratory Respiratory IM: Present: as per HPI - Genitourinary Genitourinary: Absent: change in color, Urinary frequency - Neurological ROS Neurological GI: Present: as per HPI - Hematologic/Lymphatic Hematologic/Lymphatic pediatric: Present: as per HPI - Musculoskeletal Musculoskeletal ROS GI: Present: as per HPI - Integumentary Integumentary GI: Present: as per HPI - Psychiatric ROS Psychiatric GI: Present: as per HPI - Endocrine Endocrine IM: Present: as per HPI - Constitutional Vitals: Temp Pulse Resp BP Pulse Ox 98.2 F 73 18 149/81 95 09/05/16 07:22 09/05/16 07:22 09/05/16 07:22 09/05/16 07:22 09/05/16 08:55 General appearance: Present: cooperative, A&O X 3, no acute distress, answers questions appropriately - Head Head exam: Present: atraumatic, normocephalic - Eye Eye exam: Present: scleral icterus - ENT ENT exam: Present: mucous membranes dry - Neck Neck exam general surgery: Present: normal inspection, trachea midline - Respiratory Respiratory exam: Present: decreased breath sounds, CTAB. Absent: rales, rhonchi - Cardiovascular Cardiovascular exam: Present: RRR, +S1, +S2 - GI/Abdominal GI/Abdominal exam: Present: guarding, soft, tenderness (generalized with mild palpation), no peritoneal signs. Absent: distended, firm - Rectal Rectal exam: Present: deferred - Extremities Exam Extremities exam: Present: warm - Neurological Exam Neurological exam: Present: no focal deficits - Psychiatric Psychiatric exam: Present: normal affect, normal mood - Skin Skin exam: Present: dry, intact, normal color, warm Results - Labs CBC & Chem 7: 09/05/16 03:55 09/05/16 03:55 Labs: Last Result Calcium 8.8 mg/dL (8.6-10.8) 09/05/16 03:55 C-Reactive Protein 102 mg/L (Less than 5) H 09/05/16 03:55 Entire Visit Hgb 11.9 g/dL (12.9-16.9) L 09/05/16 03:55 Hct 35.1 % (37.5-50.1) L 09/05/16 03:55 PT 18.1 Seconds (9.4-12.1) H 09/05/16 03:55 Total Bilirubin 5.2 mg/dL (0.2-1.2) H 09/05/16 03:55 AST 137 Units/L (5-34) H 09/05/16 03:55 ALT 142 Units/L (0-55) H 09/05/16 03:55 Lipase < 4 Units/L (8-78) L 09/04/16 10:45 - ABG ABG results: PT/INR, D-dimer PT 18.1 Seconds (9.4-12.1) H 09/05/16 03:55 Consult Discharge Plan - Plan Referrals: Sola Doss MD [Primary Care Provider] - 09/18/16 1:45 pm <Sandy Carlson - Last Filed: 09/05/16 14:00> Date of Encounter: 09/05/16 Time of Encounter: 12:00 - Time Spent With Patient Total time spent is greater than 50% in coordination of care (as documented) at patient's floor/unit and/or counseling patient: GI History of Present Illness - Data of Consult Requesting Physician: Gilbert Treadwell - Consult Narrative History of present illness: Mr. Wilson is a 61 year old male - Constitutional Vitals: Temp Pulse Resp BP Pulse Ox 99.5 F 102 18 145/97 95 09/05/16 11:27 09/05/16 11:27 09/05/16 11:27 09/05/16 11:27 09/05/16 11:27 Results - Labs CBC & Chem 7: 09/05/16 03:55 09/05/16 03:55 Labs: Last Result Calcium 8.8 mg/dL (8.6-10.8) 09/05/16 03:55 C-Reactive Protein 102 mg/L (Less than 5) H 09/05/16 03:55 Entire Visit Hgb 11.9 g/dL (12.9-16.9) L 09/05/16 03:55 Hct 35.1 % (37.5-50.1) L 09/05/16 03:55 PT 18.1 Seconds (9.4-12.1) H 09/05/16 03:55 Total Bilirubin 5.2 mg/dL (0.2-1.2) H 09/05/16 03:55 AST 137 Units/L (5-34) H 09/05/16 03:55 ALT 142 Units/L (0-55) H 09/05/16 03:55 Lipase < 4 Units/L (8-78) L 09/04/16 10:45 - ABG ABG results: PT/INR, D-dimer PT 18.1 Seconds (9.4-12.1) H 09/05/16 03:55 - Attending Attestation I examined this patient and my medical decision-making was reviewed with the VENDOR SPECIALIST/PA/Advanced Practice Nurse/Resident Physician. I agree with the documented findings, disposition and treatment plan as described except to the extent set forth below. Worsening LFTs concerning for stent occlusion with possible cholangitis. Recommendation is for stent replacement with metal stent
[2016-09-05] MEDS ORDERED: Ringers Solution, Lactated 1,000 ML IVC SCH (11:45)
--- NOTE | 2016-09-05 12:39 | Electrocardiograph Report ---
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
--- NOTE | 2016-09-05 12:39 | Electrocardiograph Report ---
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
--- NOTE | 2016-09-05 12:41 | Anesthesia Evaluation PreOp ---
Date of Encounter: 09/05/16 Time of Encounter: 12:38 - Past History Planned Operation: ERCP Cardiac History: HTN Pulmonary History: Former smoker (quit 05/2016, smoked for 30+ years) PARK ATTENDANT History: Denies Any Significant HX Other Medical History: Diabetes Type II, GERD, Other (metastatic pancreatic CA) Anesthesia History: No Prior Anesthetic Complications, Past Anesthesia Alcohol Use: none Drug use: none Medications and Allergies Ondansetron [Zofran] 4 mg PO Q8HR #30 tablet 06/03/16 [Rx] Lidocaine/Prilocaine [Emla] 1 appl TP AD #30 gm 06/05/16 [Rx] Nut.tx.gluc.intoler,Lac-Fr,Soy [Glucerna] 1 can PO TID #90 can 06/05/16 [Rx] Loperamide [Imodium] 2 cap PO AD #30 capsule 06/09/16 [Rx] Magic Mouthwash 5 ml PO Q4H PRN #240 ml 06/09/16 [Rx] Prochlorperazine Maleate [Compazine] 10 mg PO Q6HR PRN #30 tablet 06/09/16 [Rx] Ranitidine HCl [Zantac] 150 mg PO BID #60 tablet 07/17/16 [Rx] Hydromorphone HCl [Dilaudid] 4 mg PO Q6H PRN #120 tablet 08/28/16 [Rx] Oxymorphone HCl [Oxymorphone HCl ER] 10 mg PO BID #28 tab.er.12h 08/28/16 [Rx] Aspirin/Acetaminophen/Caffeine [Excedrin Migraine Caplet] 1 tab PO DAILY PRN [History] Ciprofloxacin HCl [Cipro] 500 mg PO BID MDD for 10 days 09/04/16 [History] Ibuprofen/Diphenhydramine Cit [Advil Pm Caplet] 1 tab PO HS PRN 09/04/16 [ History] Insulin Glargine,Hum.rec.anlog [Lantus Solostar] 10 unit SQ BID 09/04/16 [ History] Oxycodone HCl/Acetaminophen [Percocet 10-325 mg Tablet] 1 tab PO Q6H PRN [History] Sennosides [Senna] 8.6 mg PO DAILY PRN 09/04/16 [History] Allergies No Known Allergies Allergy (Verified 06/14/16 20:32) - Meds/Allergy Pre-op Review Medications Reviewed: Yes Allergies Reviewed: Yes Beta Blockers on Current Med List: No Anesthesia Results - Labs 09/05/16 03:55 09/05/16 03:55 Laboratory Tests 09/04/16 09/05/16 12:22 03:55 PT 18.1 H INR 1.7 APTT 29.5 - Imaging EKG: report reviewed (09/04/2016 SR) Anesthesia Exam Vital Signs/O2 Sat/Glucose, Most Recent Temp Pulse Resp BP Pulse Ox 99.5 F 102 18 145/97 95 09/05/16 11:27 09/05/16 11:27 09/05/16 11:27 09/05/16 11:27 09/05/16 11:27 Blood Glucose* 85 Height: 5'7''/1.7 m Weight: 139 lbs/63.276 kg NPO (# of Hours): 8 Pain Scale: 0 Pain Scale Used: Numeric (1 - 10) - HEENT Pupil (Motor): EOMI Mallampati: II Teeth: Edentulous Oral Opening: Greater than 3 - PARK ATTENDANT LOC: Oriented PARK ATTENDANT Motor: Normal RUE, Normal LUE, Normal RLE, Normal LLE, Normal Face PARK ATTENDANT Sensory: Normal: RUE, LUE, RLE, LLE, Face - Cardiac Rhythm: Regular Murmur: None - Pulmonary Breath Sounds: bilateral Clear Respiratory Effort: Symmetrical Anesthesia Assess/Plan ASA Score: 3 Modified Karely Scale for Level of Consciousness: Cooperative, oriented, and tranquil Anesthetic Plan: General Monitoring Plan: Standard Monitors Recovery Plan: PACU
[2016-09-05] MEDS ORDERED: *HR* FentaNYL (PF) 100 MCG/2 ML VIAL ONE (13:08)
[2016-09-05] MEDS ORDERED: Indomethacin 50 MG SUPP.RECT RC ONE (13:46)
--- NOTE | 2016-09-05 14:34 | Anesthesia Evaluation Post Op ---
Date of Encounter: 09/05/16 Time of Encounter: 14:34 - Vital Signs Vital Signs: Last Vital Signs Temp 97.8 F 09/05/16 14:30 Pulse 62 09/05/16 14:30 Resp 16 09/05/16 14:30 BP 156/92 09/05/16 14:30 Pulse Ox 98 09/05/16 14:30 - Lungs Lungs: Clear Ascult./Percussion - Airway Airway: Non-obstructed - Cardiovascular Regular Rate - Mental Status Mental Status: Alert & Oriented, Answers Appropriately - Pain Pain Scale: 2 - Nausea Vomiting Nausea Vomiting: Not Present - Hydration Hydration: Ice chips - Discharge PostOp Status: Transfer Patient to floor
[2016-09-05] MEDS ORDERED: Potassium Chloride 20 MEQ, Lidocaine 1% 2 ML in D5% in Water 250 ML IVPB ONE (16:00)
--- NOTE | 2016-09-05 16:54 | Internal Med Progress Note ---
Date of Encounter: 09/05/16 Time of Encounter: 16:51 - Assessment and plan (1) Obstructive jaundice Current Visit: Yes Status: Acute Assessment and plan: history of plastic biliary stent, occluded, had ERCP today, report noted, metallic stent placed, pus noted during the procedure, will start CLD, continue iv antibiotics and might switch to po antibiotics tomorrow as recommened by GI. (2) Failure to thrive Current Visit: Yes Status: Acute Qualifiers: Failure to thrive age range: in adult Qualified Code(s): R62.7 - Adult failure to thrive (3) Pancreatic cancer metastasized to liver Current Visit: No Status: Acute (4) DVT prophylaxis Current Visit: Yes Status: Acute - Subjective Interval history: 1st encounter with the patient. seen and examined this am. his was at bedside. afebrile has not vomited since admission. - Constitutional Vitals: Temp Pulse Resp BP Pulse Ox 97.6 F 62 18 164/85 97 09/05/16 15:27 09/05/16 15:27 09/05/16 15:27 09/05/16 15:27 09/05/16 15:27 General appearance: Present: cooperative, mild distress, A&O X 3, pleasant, loss of weight, answers questions appropriately Exam: jaundiced - Head Head exam: Present: atraumatic, normocephalic - Eye Eye exam: Present: PERRL, conjuntiva pink, sclera anicteric Pupils: Present: PERRL - Neck Neck exam general surgery: Present: supple, trachea midline. Absent: lymphadenopathy - Respiratory Respiratory exam: Present: CTAB. Absent: accessory muscle use, rales, rhonchi, wheezes - Cardiovascular Cardiovascular exam: Present: RRR, +S1, +S2. Absent: diastolic murmur, gallop, rubs, systolic murmur - GI/Abdominal GI/Abdominal exam: Present: normal bowel sounds, soft, no peritoneal signs. Absent: distended, tenderness - Extremities Exam Extremities exam: Present: warm, radial pulses palpable and symetrical. Absent : calf tenderness, cyanotic, pedal edema - Neurological Exam Neurological exam: Present: CN II-XII intact, oriented X3, no focal deficits. Absent: pronater drift, facial droop, speech deficit - Skin Skin exam: Present: dry, intact Internal Medicine: Result - Labs CBC & Chem 7: 04/21/17 03:55 09/05/16 03:55 Labs: Short CBC 09/05/16 Range/Units 03:55 WBC 5.7 (4.3-11.1) K/mcL Hgb 11.9 L (12.9-16.9) g/dL Hct 35.1 L (37.5-50.1) % Plt Count 138 L (140-400) K/mcL Neutrophils # 3.8 (1.6-8.9) K/mcL BMP 09/05/16 03:55 Sodium 137 Potassium 3.0 L Chloride 102 Carbon Dioxide 23 BUN 11 Creatinine 0.61 L Glucose 86 Calcium 8.8 Liver Function 09/05/16 Range/Units 03:55 Total Bilirubin 5.2 H (0.2-1.2) mg/dL Direct Bilirubin 4.2 H D (0.0-0.5) mg/dL AST 137 H (5-34) Units/L ALT 142 H (0-55) Units/L Alkaline Phosphatase 611 H (38-126) Units/L Albumin 2.4 L (3.5-5.0) g/dL - ABG Interpretation ABG results: PT/INR, D-dimer PT 18.1 Seconds (9.4-12.1) H 09/05/16 03:55 - Impressions Impressions Cath/Invasive Procedure 09/05/16 00:00 IMPRESSION: Interval removal of the plastic stent and placement of a permanent metallic stent across the common ductal stricture. D/ / Omkar Warren MD / Omkar Warren MD Interpreting Provider: Omkar Warren MD - VTE Documentation of Mechanical Device: Graduated compression elastic hosiery Consult Discharge Plan - Plan Referrals: Sola Doss MD [Primary Care Provider] - 09/18/16 1:45 pm
[2016-09-06] MEDS: *HR* HYDROmorphone (PF) 1 MG/ML SYRINGE IVP PRN ×2 (04:19→08:50)
[2016-09-06 04:39] LABS: Basophils % 0.2 %; Hematocrit 33.5 % (37.5-50.1); Hemoglobin 11.6 g/dL (12.9-16.9); Immature Granulocytes % 0.4 % (0-4); Lymphocytes % 18.1 %; Mean Corpuscular HGB Conc 34.6 g/dL (31.6-35.5); Mean Corpuscular Hemoglobin 28.9 pg (28.0-33.3); Mean Corpuscular Volume 83.3 fL (83.0-100.0); Mean Platelet Volume 11.2 fL (9.4-12.4); Monocytes # 0.4 K/mcL (0.0-1.3); Monocytes % 6.6 %; Neutrophils # 4.2 K/mcL (1.6-8.9); Platelet Count 132 K/mcL (140-400); Red Blood Count 4.02 M/mcL (4.19-5.50); Red Cell Distribution Width 15.4 % (11.5-14.5); Segmented Neutrophils % 74.7 %
[2016-09-06 04:52] LABS: Alanine Aminotransferase 124 Units/L (0-55); Albumin 2.4 g/dL (3.5-5.0); Albumin/Globulin Ratio 0.7 (1.1-2.2); Alkaline Phosphatase 599 Units/L (38-126); Aspartate Amino Transferase 75 Units/L (5-34); BUN/Creatinine Ratio 15 (6-26); Bilirubin,Indirect 0.6 mg/dL (0.0-1.2); Bilirubin,Total 2.7 mg/dL (0.2-1.2); Blood Urea Nitrogen 9 mg/dL (8-26); Calcium 9.1 mg/dL (8.6-10.8); Carbon Dioxide 25 mEq/L (19-29); Chloride 102 mEq/L (98-109); Globulin 3.5 g/dL (2.4-3.5); Glucose 147 mg/dL (70-99); Magnesium 1.3 mg/dL (1.6-2.6); Osmolality,Calculated 283 (280-300); Potassium 3.5 mEq/L (3.5-4.5); Sodium 136 mEq/L (136-145); Total Protein 5.9 g/dL (6.0-8.3); eGFR For African Americans > 60 (> 60); eGFR For Non-African Americans > 60 (> 60)
[2016-09-06 04:53] LABS: Bilirubin,Direct 2.1 mg/dL (0.0-0.5)
[2016-09-06] MEDS: Insulin LISPRO 300 UNITS/3 ML VIAL SQ SCH ×2 (07:49→12:14)
[2016-09-06] MEDS ORDERED: Magnesium Sulfate 2 GM in D5% in Water 100 ML IVPB ONE (08:29)
[2016-09-06] MEDS: Pantoprazole 40 MG VIAL IVP SCH (08:50)
[2016-09-06 10:22] VITALS: BP 109/66
--- NOTE | 2016-09-06 12:25 | Discharge Summary ---
Date of Encounter: 09/06/16 Time of Encounter: 12:19 - Discharge Diagnosis (1) Dehydration Priority: Primary Status: Resolved (2) Obstructive jaundice Priority: Primary Status: Acute (3) Hyperbilirubinemia Priority: Primary Status: Acute (4) Pancreatic cancer Priority: Secondary Status: Chronic Qualifiers: Pancreatic malignancy location: body of pancreas Qualified Code(s): C25.1 - Malignant neoplasm of body of pancreas (5) Cancer-related pain Priority: Secondary Status: Chronic (6) Hypertension Priority: Secondary Status: Chronic Qualifiers: Hypertension type: essential hypertension Qualified Code(s): I10 - Essential (primary) hypertension - Discharge Medications Home Medications: Ondansetron [Zofran] 4 mg PO Q8HR #30 tablet 06/03/16 [Rx] Lidocaine/Prilocaine [Emla] 1 appl TP AD #30 gm 06/05/16 [Rx] Nut.tx.gluc.intoler,Lac-Fr,Soy [Glucerna] 1 can PO TID #90 can 06/05/16 [Rx] Loperamide [Imodium] 2 cap PO AD #30 capsule 06/09/16 [Rx] Magic Mouthwash 5 ml PO Q4H PRN #240 ml 06/09/16 [Rx] Prochlorperazine Maleate [Compazine] 10 mg PO Q6HR PRN #30 tablet 06/09/16 [Rx] Ranitidine HCl [Zantac] 150 mg PO BID #60 tablet 07/17/16 [Rx] Hydromorphone HCl [Dilaudid] 4 mg PO Q6H PRN #120 tablet 08/28/16 [Rx] Oxymorphone HCl [Oxymorphone HCl ER] 10 mg PO BID #28 tab.er.12h 08/28/16 [Rx] Aspirin/Acetaminophen/Caffeine [Excedrin Migraine Caplet] 1 tab PO DAILY PRN [History] Ciprofloxacin HCl [Cipro] 500 mg PO BID MDD for 10 days 09/04/16 [History] Ibuprofen/Diphenhydramine Cit [Advil Pm Caplet] 1 tab PO HS PRN 09/04/16 [ History] Insulin Glargine,Hum.rec.anlog [Lantus Solostar] 10 unit SQ BID 09/04/16 [ History] Oxycodone HCl/Acetaminophen [Percocet 10-325 mg Tablet] 1 tab PO Q6H PRN [History] Sennosides [Senna] 8.6 mg PO DAILY PRN 09/04/16 [History] Allergies/Adverse Reactions: Allergies No Known Allergies Allergy (Verified 06/14/16 20:32) Procedures/tests Complete & Pending: Procedures Performed prior 72 hours Category Date Time Status ECG 12 lead ECG [ECG] Routine Y 09/04/16 Completed Date of admission: 09/04/16 12:02 Primary care physician: Sola Doss MD Consults: 09/04/16 12:51 Consult to Gastroenterology [CONS] Routine Consulting Provider: Gastroenterology Emi Reason for Consult: Possible biliary stent blockage Call Completed: Yes 09/04/16 13:04 Consult to Nutrition [CONS] Routine Comment: Consulting Provider: NUTRITION Reason for Dietary Consult: MST Score Other:: CA patient, unergoing chemotherapy - Patient Status Disposition: Home, Self-Care Condition: Good Functional capacity at discharge: independent ambulation Overall status at discharge: patient is back to baseline - Discharge Instructions Follow Up With: Sola Doss MD [Primary Care Provider] - 09/18/16 1:45 pm - Diet and Activity Activity: resume usual activities as tolerated Diet: advance to your usual diet Interval History: Patient feels back to baseline. He is eager to go home. He is eating well. Hospital course: Mr. Wilson is a 61 year old male with a past medical history of diabetes and recent diagnosis of pancreatic cancer in May that got complicated by biliary obstruction status post biliary stent placement 06/02. Patient presented with worsening of abdominal pain, generalized weakness and jaundice. He was started on supportive therapy with IV fluids and empiric IV antibiotics for suspected blockage of old biliary stent. Patient underwent ERCP with removal of old biliary stent, biliary tree was swept and pus was found, one unconvered metal stent was placed into the common bile duct. Patient was eating well and antibiotics were switched to by mouth. PLAN: Continue oral ciprofloxacin for 5 more days. He will follow-up with Dr. Carlson 2-3 weeks. He will follow-up in the oncology clinic per his schedule. - Time Spent with Patient Total time spent providing and/or coordinating discharge services: - Constitutional Vitals: Temp Pulse Resp BP Pulse Ox 98.5 F 68 14 109/66 97 09/06/16 10:19 09/06/16 10:19 09/06/16 10:19 09/06/16 10:19 09/06/16 10:19 General appearance: Present: cooperative, A&O X 3, pleasant, no acute distress, loss of weight, answers questions appropriately - Eye Eye exam: Present: PERRL, scleral icterus - Respiratory Respiratory exam: Present: CTAB - Cardiovascular Cardiovascular exam: Present: RRR - GI/Abdominal GI/Abdominal exam: Present: normal bowel sounds, soft. Absent: distended, tenderness - Extremities Exam Extremities exam: Absent: pedal edema - Back Exam Back exam: Absent: CVA tenderness (L), CVA tenderness (R) - Neurological Exam Neurological exam: Present: alert, oriented X3, no focal deficits, strengths equal and symetr throughout. Absent: facial droop, speech deficit - Skin Skin exam: Absent: normal color (jaundice) - VTE Documentation of Mechanical Device: Graduated compression elastic hosiery
[2016-09-06] MEDS ORDERED: *HR* Propofol 500 MG/50 ML BOTTLE IVC ONE (12:49)
[2016-09-06] MEDS ORDERED: *HR* Succinylcholine 200 MG/10 ML VIAL IVP ONE (12:49)
[2016-09-06] MEDS ORDERED: *HR* EPINEPHrine 1 MG/ML AMPUL IV ONE (12:49)
[2016-09-06] MEDS ORDERED: Lidocaine -MPF 4% 5 ML AMPUL TP ONE (12:49)
[2016-09-06] MEDS ORDERED: *HR* Propofol 200 MG/20 ML VIAL IVP ONE (12:49)
== END 2016-09-06 12:50 | disposition home or self-care (01) | DRG 791 ==
LOC: EMEROO 10:14 → 3ANU 10:14 → SUATTDRO 12:02 → 3ANU 12:23
PROVIDERS: ADMIT Hospitalist; ATTEND Internal Medicine

== ENCOUNTER 2017-06-24 21:31 | Inpatient (IN) ==
[2017-06-24] MEDS ORDERED: Ondansetron 4 MG/2 ML VIAL IVP ONE (21:42)
[2017-06-24] MEDS ORDERED: *HR* FentaNYL (PF) 100 MCG/2 ML VIAL IVP ONE (21:43)
--- NOTE | 2017-06-24 21:49 | Emergency Department Note ---
Disposition Clinical Impression: Obstructive jaundice, Pancreatic cancer metastasized to liver Anemia Qualifiers: Anemia type: unspecified type Qualified Code(s): D64.9 - Anemia, unspecified Pancreatic cancer Qualifiers: Pancreatic malignancy location: unspecified Qualified Code(s): C25.9 - Malignant neoplasm of pancreas, unspecified Disposition: Admitted As Inpatient Time of Disposition: 22:55 Chest Pain HPI - General Chief Complaint: ED Chest Pain Stated Complaint: CP, dizzy Time Seen by Provider: 06/24/17 21:47 Source: patient, EMS Limitations: no limitations Vital Signs Reviewed: Yes Nursing Notes Reviewed: Yes - History of Present Illness HPI Narrative: 62-year-old male history of pancreatic cancer presents complaining of acute onset chest pain about 2-3 hours prior to arrival. Patient has no history of DVT, PE, history of CAD. Patient states that he just had 6 L of fluid drained off with paracentesis earlier today, about 2 or 3 hours ago he started having chest pain shortness of breath, he has been feeling dizzy and lightheaded as well. Said a few episodes of near syncope. Patient reports his pain is 6 out of 10 epigastric and substernal, aching in quality. Patient denies hematochezia or melena. Reports nausea but denies emesis. Pt complaint: chest pain Duration: intermittent Onset: during rest Pain Location: substernal, left chest Severity: moderate Severity scale (1-10): 5 Pain Radiation: LUE Improves with: nothing Associated symptoms: Reports: nausea, vomiting, dyspnea Treatments prior to arrival chest pain: none - Related Data Home Medications Medication Instructions Recorded Confirmed Cyclobenzaprine [Flexeril] 10 mg PO TID PRN 01/15/17 06/24/17 Zolpidem [Ambien] 10 mg PO HS PRN 01/27/17 06/24/17 Previous Rx's Medication Instructions Recorded Magic Mouthwash 5 ml PO Q4H PRN #240 ml 06/09/16 Ondansetron HCl [Zofran] 4 mg PO Q6H PRN #40 tablet 10/30/16 Bisacodyl [Dulcolax] 10 mg PO DAILY PRN tab 01/29/17 Prochlorperazine Maleate 10 mg PO Q6HR PRN #30 tablet 03/10/17 [Compazine] Lidocaine/Prilocaine [Emla] 1 appl TP AD #30 gm 03/31/17 Insulin Glargine,Hum.rec.anlog 10 unit SQ BID #5 insuln.pen 04/17/17 [Basaglar Kwikpen U-100] Dicyclomine [Bentyl] 10 mg PO QID PRN #30 capsule 06/09/17 Hydromorphone HCl [Dilaudid] 4 mg PO Q6H PRN #120 tablet 06/09/17 Lipase/Protease/Amylase [Creon Dr 1 each PO ACHS #90 cap 06/09/17 24,000 Units Capsule] Omeprazole [PriLOSEC] 20 mg PO DAILY #30 cap 06/09/17 Oxycodone HCl/Acetaminophen 1 each PO Q6H PRN #120 tablet 06/09/17 [Percocet 10-325 mg Tablet] Allergies Allergy/AdvReac Type Severity Reaction Status Date / Time morphine AdvReac Headache Verified 06/24/17 22:47 All systems ED: reviewed and negative except as stated. Review of Systems: As Per HPI Constitutional: Reports: weakness. Denies: fever, chills Eyes: Denies: eye pain ENT ED: Denies: ear pain Cardiovascular: Reports: as per HPI, chest pain Respiratory: Denies: cough, dyspnea Gastrointestinal: Reports: abdominal pain, nausea, diarrhea. Denies: vomiting, melena, hematochezia Genitourinary: Denies: urgency, dysuria Musculoskeletal: Denies: back pain Integumentary: Denies: rash Neurological: Denies: headache Chest Pain PMH - Past Medical History Medical history: Reports: arthritis, cancer, diabetes, hypertension, other Surgical history: Reports: orthopedic, other, other Psychiatric history: Reports: no psych history - Social History Smoking Status: Current every day smoker Alcohol use: Reports: none Drug use: Reports: none Physical Exam - General Limitations: no limitations General appearance: alert, cachectic - Head Head exam: atraumatic - Eye Eye exam: Present: scleral icterus, other (Conjunctival pallor) - ENT ENT exam: mucous membranes dry - Neck Neck exam: Present: normal inspection - Chest Chest inspection: Present: normal inspection - Respiratory Respiratory exam: Present: normal lung sounds bilaterally - Cardiovascular Cardiovascular exam: Present: tachycardia - Abdominal Exam Abdominal exam: Present: soft, tenderness (Mild diffusely), other (Ecchymosis to the right abdomen, paracentesis site with good hemostasis). Absent: rebound Abdominal tenderness: Present: diffuse, mild - Extremities Exam Extremities exam: Present: normal inspection, full ROM - Expanded Lower Extremity Exam Neurovascular/Tendon exam: Present: normal capillary refill - Neurological Exam Neurological exam: Present: alert, oriented X3, CN II-XII intact - Psychiatric Psychiatric exam: Present: normal affect - Skin Skin exam: Present: pallor (Jaundice), other Course Course Narrative: 62-year-old male who appears cachectic and frail, on exam his jaundice, conjunctival pallor, CBC BMP and basic lab work was ordered in addition to CT of chest as he had acute onset of chest pain shortness of breath in the setting of tachycardia, recent paracentesis, known pancreatic cancer, concern for possible pulmonary embolus versus other acute etiologies of ischemia, he has some subtle ST segment changes on his EKG, including depressions, - Reevaluation(s) Reevaluation #1: Patient was found to have an acute anemia hemoglobin of 6.6 he was recently transfused a few weeks ago for hemoglobin of 7.6, 2 units type and screen were ordered for the patient, CT scan shows worsening lymphadenopathy and obstruction , no evidence of pulmonary embolus, admitted to the medicine service Dr. Dela Cruz or blood transfusions, oncology consult, patient likely needs palliative care consult given his condition. Time: 22:58 Vital Signs Temperature 97.6 F 06/24/17 21:31 Pulse Rate 103 06/24/17 21:31 Respiratory Rate 18 06/24/17 21:31 Blood Pressure 99/68 06/24/17 21:31 O2 Sat by Pulse Oximetry 92 06/24/17 21:31 Temperature 97.6 F 06/24/17 21:31 Pulse Rate 105 06/24/17 22:22 Respiratory Rate 18 06/24/17 22:22 Blood Pressure 111/80 06/24/17 22:22 O2 Sat by Pulse Oximetry 96 06/24/17 22:22 Oxygen Delivery Oxygen Delivery Room Air Chest Pain - Differential Diagnosis Likely: pneumothorax, stable angina, unstable angina pectoris, atypical chest pain, chest pain - Medical Records Medical records reviewed: Yes I reviewed the patient's medical records. - Lab Data Lab results reviewed: Yes I reviewed the patient's lab results. Result diagrams: 06/24/17 21:51 06/24/17 21:51 Lab Results 06/24/17 06/24/17 06/24/17 Range/Units 21:51 21:51 21:51 WBC 13.6 H (4.3-11.1) K/mcL RBC 2.50 L (4.19-5.50) M/mcL Hgb 6.6 L D (12.9-16.9) g/dL Hct 21.7 L (37.5-50.1) % MCV 86.8 (83.0-100.0) fL MCH 26.4 L (28.0-33.3) pg MCHC 30.4 L (31.6-35.5) g/dL RDW 19.7 H (11.5-14.5) % Plt Count 386 D (140-400) K/mcL MPV 10.1 (9.4-12.4) fL Immature Gran % 0.7 (0-4) % Seg Neutrophils % 86.2 % Lymphocytes % 7.8 % Monocytes % 4.9 % Eosinophils % 0.0 % Basophils % 0.4 % Neutrophils # 11.7 H (1.6-8.9) K/mcL Lymphocytes # 1.1 (0.6-4.6) K/mcL Monocytes # 0.7 (0.0-1.3) K/mcL Eosinophils # 0.0 (0.0-0.6) K/mcL Basophils # 0.1 (0.0-0.2) K/mcL Sodium (136-145) mEq/L Potassium (3.5-5.1) mEq/L Chloride (98-107) mEq/L Carbon Dioxide (23-29) mEq/L BUN (8-23) mg/dL Creatinine (0.70-1.30) mg/dL Est GFR ( Amer) (> 60) Est GFR (Non-Af Amer) (> 60) BUN/Creatinine Ratio (6-26) Glucose (70-105) mg/dL Calculated Osmolality (280-300) Calcium (8.6-10.3) mg/dL Total Bilirubin 0.6 (0.3-1.0) mg/dL Direct Bilirubin 0.3 H (0.0-0.2) mg/dL Indirect Bilirubin 0.3 (0.0-1.2) mg/dL AST 18 (13-39) Units/L ALT 16 (7-52) Units/L Alkaline Phosphatase 515 H (34-104) Units/L Troponin I (< 0.04) ng/mL B-Natriuretic Peptide 18 (Less than 100) pg/mL Serum Total Protein 5.4 L (6.4-8.9) g/dL Albumin 2.9 L (3.5-5.7) g/dL Globulin 2.5 (2.4-3.5) g/dL Albumin/Globulin Ratio 1.2 (1.1-2.2) Lipase 7 L (11-82) Units/L 06/24/17 06/24/17 Range/Units 21:51 21:51 WBC (4.3-11.1) K/mcL RBC (4.19-5.50) M/mcL Hgb (12.9-16.9) g/dL Hct (37.5-50.1) % MCV (83.0-100.0) fL MCH (28.0-33.3) pg MCHC (31.6-35.5) g/dL RDW (11.5-14.5) % Plt Count (140-400) K/mcL MPV (9.4-12.4) fL Immature Gran % (0-4) % Seg Neutrophils % % Lymphocytes % % Monocytes % % Eosinophils % % Basophils % % Neutrophils # (1.6-8.9) K/mcL Lymphocytes # (0.6-4.6) K/mcL Monocytes # (0.0-1.3) K/mcL Eosinophils # (0.0-0.6) K/mcL Basophils # (0.0-0.2) K/mcL Sodium 136 (136-145) mEq/L Potassium 4.2 (3.5-5.1) mEq/L Chloride 102 (98-107) mEq/L Carbon Dioxide 30 H (23-29) mEq/L BUN 23 (8-23) mg/dL Creatinine 0.78 (0.70-1.30) mg/dL Est GFR ( Amer) > 60 (> 60) Est GFR (Non-Af Amer) > 60 (> 60) BUN/Creatinine Ratio 29 H (6-26) Glucose 243 H (70-105) mg/dL Calculated Osmolality 294 (280-300) Calcium 8.2 L (8.6-10.3) mg/dL Total Bilirubin (0.3-1.0) mg/dL Direct Bilirubin (0.0-0.2) mg/dL Indirect Bilirubin (0.0-1.2) mg/dL AST (13-39) Units/L ALT (7-52) Units/L Alkaline Phosphatase (34-104) Units/L Troponin I < 0.03 (< 0.04) ng/mL B-Natriuretic Peptide (Less than 100) pg/mL Serum Total Protein (6.4-8.9) g/dL Albumin (3.5-5.7) g/dL Globulin (2.4-3.5) g/dL Albumin/Globulin Ratio (1.1-2.2) Lipase (11-82) Units/L - Radiology Data Radiology results reviewed: Yes I reviewed the patient's radiology results. Chest CTA 06/24/17 21:48 IMPRESSION: Limited exam with no definite scan evidence for pulmonary embolus. Tiny left pleural effusion. Emphysema. D/ / Lj Goel MD / Lj Goel MD Interpreting Provider: Lj Goel MD Abdomen/Pelvis CT 06/24/17 22:14 IMPRESSION: Increasing soft tissue mass in the hima hepatis and pancreatic head region surrounding the common duct stent highly suspicious for local recurrence of pancreatic tumor and/or metastatic adenopathy. The stomach is moderately to markedly distended. Gastric outlet obstruction should be considered with partial obstruction of the duodenum. Nasogastric tube placement would be helpful. Moderate ascites, new from the prior study. D/ / Sunday Jack MD / Sunday Jack MD Interpreting Provider: Sunday Jack MD - EKG Data EKG attestation: Yes I reviewed and interpreted this EKG. EKG shows normal: sinus rhythm Rate: tachycardia (105 bpm MS 131 QRS 85 QTc 388 no acute ischemic changes, Q waves in leads 23 aVF, slight ST depressions in precordial leads) ST segment depression in: v3, v4, v5 Interpretation: nonspecific ST-T wave changes - Core Measures AMI Core Measures Followed: No Measure Exclusions: not indicated Attestation Statement - Attestation Attestation: I, Adam Hendrix DO, examined this patient [id number] and my medical decision-making was reviewed with Dr. Sim Serrano, Resident Physician. I agree with the documented findings, disposition and treatment plan as described except to the extent set forth below. Please see my progress notes for details. 62-year-old male presents to emergency room with epigastric pain secondary to pancreatic cancer. Patient is currently in chemotherapy radiation treatment. Patient had paracentesis performed today secondary to large volume fluid effusion in the abdomen. 6 L of fluid was taken off his abdomen today. Is clear colored according to him. Since the procedure patient has had some abdominal discomfort and pain in his left chest and abdomen. Patient presented today secondary to nausea and vomiting. Physical exam is otherwise unremarkable except for the patient being extremely thin and frail. Patient is a pale-appearing skin. His mucous membranes and conjunctivae are very poor as well. Patient does appear to be dry. Patient's lungs are clear heart is regular. Abdomen is soft with some mild tenderness but no guarding or rigidity. There is no leaking or bleeding noted on exam. Patient moves his extremities but he is very weak. Labs reviewed and patient is anemic with a hemoglobin of 6.6. He was recently transfused 2 units of blood 2 weeks ago secondary to anemia. Patient currently is a full code based on conversations with the family as well as the patient himself. Patient's CT imaging of his chest and his abdomen do show progression of the pancreatic mass with possible extension of the liver at this time. Because of the low hemoglobin as well as the patient symptomatic presentation he will be recommended for admission. 2 units of blood for transfusion. Patient family informed that the patient himself is very critical could decompensate potentially secondary to his terminal illness. Family has not been informed at this time that the patient most likely has a terminal condition at this time. We will admit for symptomatic control and reevaluation. Further workup and treatment course will be completed by the hospitalist team. Physical exam is otherwise unremarkable except for the discomfort in his abdomen. No other acute infectious, pulmonary emboli, fluid accumulations were noted during the evaluation. No need for antibiotics or further medication treatment course at this time. See detailed documentation of the physical exam, medical intervention, medical decision- making, disposition and admission M.D. resident physician's note. No critical care providertubercle
[2017-06-24 22:02] LABS: Basophils # 0.1 K/mcL (0.0-0.2); Basophils % 0.4 %; Hematocrit 21.7 % (37.5-50.1); Immature Granulocytes % 0.7 % (0-4); Lymphocytes # 1.1 K/mcL (0.6-4.6); Lymphocytes % 7.8 %; Mean Corpuscular HGB Conc 30.4 g/dL (31.6-35.5); Mean Corpuscular Hemoglobin 26.4 pg (28.0-33.3); Mean Corpuscular Volume 86.8 fL (83.0-100.0); Mean Platelet Volume 10.1 fL (9.4-12.4); Monocytes # 0.7 K/mcL (0.0-1.3); Monocytes % 4.9 %; Neutrophils # 11.7 K/mcL (1.6-8.9); Platelet Count 386 K/mcL (140-400); Red Cell Distribution Width 19.7 % (11.5-14.5); Segmented Neutrophils % 86.2 %
[2017-06-24 22:20] LABS: BUN/Creatinine Ratio 29 (6-26); Blood Urea Nitrogen 23 mg/dL (8-23); Calcium 8.2 mg/dL (8.6-10.3); Carbon Dioxide 30 mEq/L (23-29); Chloride 102 mEq/L (98-107); Glucose 243 mg/dL (70-105); Osmolality,Calculated 294 (280-300); Potassium 4.2 mEq/L (3.5-5.1); Sodium 136 mEq/L (136-145); eGFR For African Americans > 60 (> 60); eGFR For Non-African Americans > 60 (> 60)
[2017-06-24 22:21] LABS: Albumin 2.9 g/dL (3.5-5.7); Albumin/Globulin Ratio 1.2 (1.1-2.2); Bilirubin,Direct 0.3 mg/dL (0.0-0.2); Bilirubin,Indirect 0.3 mg/dL (0.0-1.2); Bilirubin,Total 0.6 mg/dL (0.3-1.0); Globulin 2.5 g/dL (2.4-3.5); Total Protein 5.4 g/dL (6.4-8.9)
[2017-06-24 22:23] LABS: Hemoglobin 6.6 g/dL (12.9-16.9)
[2017-06-24] MEDS ORDERED: Naloxone 0.4 MG/ML INJ IVP PRN (23:30)
[2017-06-24] MEDS ORDERED: 0.9 % Sodium Chloride 250 ML ONE (23:47)
--- NOTE | 2017-06-25 | Internal Med History&Physical ---
Date of Encounter: 06/24/17 Time of Encounter: 23:40 Assessment and Plan (1) Anemia Current visit: Yes Status: Acute Will admit the pt into Tele His Hb dropped down to 6.6 Mostly due to his metastatic pancreatic adeno CA will transfuse 2 U PRBC check Iron levels in AM Qualifiers: Anemia type: unspecified type Qualified Code(s): D64.9 - Anemia, unspecified (2) Gastric outlet obstruction Current visit: Yes Status: Acute Reviewed his CT of Abd..he does have gastric out let obstruction will put NG tube with low intermittent suction Will consult surgery in AM NPO IV hydration IV analgesics (3) Abdominal pain Current visit: No Status: Acute cont supportive care Qualifiers: Abdominal location: generalized Qualified Code(s): R10.84 - Generalized abdominal pain (4) Pancreatic cancer metastasized to liver Current visit: Yes Status: Acute Seems to be overall very poor prognosis will consult his Heme Onc in AM (5) Dehydration Current visit: No Status: Acute on IV hydration (6) Diabetes mellitus Current visit: No Status: Chronic on ISS Qualifiers: Diabetes mellitus type: type 2 Diabetes mellitus complication status: with hyperglycemia Diabetes mellitus joint terminal attack controller insulin use: without joint terminal attack controller use Qualified Code(s): E11.65 - Type 2 diabetes mellitus with hyperglycemia (7) Hypertension Current visit: No Status: Chronic resumed home meds Qualifiers: Hypertension type: essential hypertension Qualified Code(s): I10 - Essential (primary) hypertension Internal Medicine - H&P: HPI Chief complaint: Weakness, N/V Admitted From: Emergency Dept Plans for Post Hospital Care: Home History of present illness: Mr. Wilson is a 62 year old male with known history of arthritis, hypertension , diabetes, metastatic pancreatic adenocarcinoma stage IV with liver metastases diagnosed in May 2016, currently on chemo therapy with Abraxane since 2016, who does have ascities for which he had paracentesis this morning and removed 6 lit fluid. Now he presented to ER c/o not feeling well, intractable nausea and vomiting x 1 episode, as well as SOB, lightheadedness and dizzy. Pt does look very pale and his Hb @ 6.6. He does have chronic anemia due to Pancreatic cancer, recently received 2 U PRBC at Heme Onc office. His CT Abd and Plevis showed local recurrent of pancreatic tumor as well markedly distended stomach with possible gastric outlet obstruction. Past Med Surg Social Fam HX - Past Medical History Medical history: arthritis, cancer, diabetes, hypertension, other Psychiatric history: no psych history - Past Surgical History Surgical History: orthopedic, other, other - Social History Smoking Status: Current every day smoker Smokeless Tobacco Status: No Alcohol use: none Drug use: none - Family History Mother Family Member Ethnicity: Non- Living Status: Hx Family Cardiac Disorders: Yes (HTN) Hx Family Cancer: Yes (Colon) Father Family Member Ethnicity: Non- Living Status: Hx Family Cardiac Disorders: Yes ([place], [place], stroke) Brother Family Member Ethnicity: Non- Living Status: Hx Family Cancer: Yes (Colon) Sister Family Member Ethnicity: Non- Living Status: Still Living Hx Family Cardiac Disorders: Yes ([place]) Hx Family Cancer: Yes (Breast) Internal Medicine - H&P: Meds Magic Mouthwash 5 ml PO Q4H PRN #240 ml 06/09/16 [Rx] Ondansetron HCl [Zofran] 4 mg PO Q6H PRN #40 tablet 10/30/16 [Rx] Cyclobenzaprine [Flexeril] 10 mg PO TID PRN 01/15/17 [History] Zolpidem [Ambien] 10 mg PO HS PRN 01/27/17 [History] Bisacodyl [Dulcolax] 10 mg PO DAILY PRN tab 01/29/17 [Rx] Prochlorperazine Maleate [Compazine] 10 mg PO Q6HR PRN #30 tablet 03/10/17 [Rx] Lidocaine/Prilocaine [Emla] 1 appl TP AD #30 gm 03/31/17 [Rx] Insulin Glargine,Hum.rec.anlog [Basaglar Kwikpen U-100] 10 unit SQ BID #5 insuln.pen 04/17/17 [Rx] Dicyclomine [Bentyl] 10 mg PO QID PRN #30 capsule 06/09/17 [Rx] Hydromorphone HCl [Dilaudid] 4 mg PO Q6H PRN #120 tablet 06/09/17 [Rx] Lipase/Protease/Amylase [Creon Dr 24,000 Units Capsule] 1 each PO ACHS #90 cap 06/09/17 [Rx] Omeprazole [PriLOSEC] 20 mg PO DAILY #30 cap 06/09/17 [Rx] Oxycodone HCl/Acetaminophen [Percocet 10-325 mg Tablet] 1 each PO Q6H PRN #120 tablet 06/09/17 [Rx] 3 Allergy/AdvReac Type Severity Reaction Status Date / Time morphine AdvReac Headache Verified 06/24/17 22:47 All Systems PM: A 10-system review of systems was performed and is negative for pertinent findings except as documented above in the HPI. Review of systems: All the systems are reviewed everything is benign except the systems and symptoms I mentioned in the history of present illness - Constitutional Vitals: Temp Pulse Resp BP Pulse Ox 97.5 F L 125 16 97/66 100 06/24/17 23:28 06/24/17 23:28 06/24/17 23:28 06/24/17 23:28 06/24/17 23:28 General appearance: Present: mild distress, A&O X 3, answers questions appropriately Exam: Looks very pale and lethargic - Head Head exam: Present: atraumatic, normal inspection - Neck Neck exam general surgery: Present: supple - Respiratory Respiratory exam: Present: decreased breath sounds, wheezes. Absent: rales, respiratory distress, rhonchi - Cardiovascular Cardiovascular exam: Present: +S1, +S2, tachycardia - GI/Abdominal GI/Abdominal exam: Present: distended, hypoactive bowel sounds, soft, tenderness. Absent: guarding, rebound, rigid - Extremities Exam Extremities exam: Absent: calf tenderness, pedal edema, tenderness - Back Exam Back exam: Absent: CVA tenderness (L), CVA tenderness (R) - Neurological Exam Neurological exam: Present: alert, oriented X3 - Psychiatric Psychiatric exam: Present: depressed - Skin Skin exam: Present: pallor. Absent: rash Internal Med - H&P Results - Labs CBC & Chem 7: 06/24/17 21:51 06/24/17 21:51
[2017-06-25] MEDS: *HR* Promethazine 25 MG/ML VIAL IVP PRN ×2 (00:36→10:13)
[2017-06-25] MEDS: *HR* FentaNYL (PF) 100 MCG/2 ML VIAL IVP PRN ×7 (01:22→23:14)
[2017-06-25] MEDS ORDERED: 0.9 % Sodium Chloride 250 ML ONE (03:06)
[2017-06-25] MEDS: 0.9 % Sodium Chloride 1,000 ML IVC SCH ×2 (07:02→15:31)
[2017-06-25 08:57] LABS: Basophils # 0.1 K/mcL (0.0-0.2); Basophils % 0.4 %; Hematocrit 22.9 % (37.5-50.1); Hemoglobin 7.4 g/dL (12.9-16.9); Immature Granulocytes % 0.7 % (0-4); Immature Platelets 4.4 % (1.1-6.1); Lymphocytes # 1.4 K/mcL (0.6-4.6); Lymphocytes % 10.6 %; Mean Corpuscular HGB Conc 32.3 g/dL (31.6-35.5); Mean Corpuscular Hemoglobin 27.1 pg (28.0-33.3); Mean Corpuscular Volume 83.9 fL (83.0-100.0); Mean Platelet Volume 10.4 fL (9.4-12.4); Monocytes # 0.8 K/mcL (0.0-1.3); Monocytes % 6.2 %; Platelet Count 398 K/mcL (140-400); Red Blood Count 2.73 M/mcL (4.19-5.50); Red Cell Distribution Width 17.7 % (11.5-14.5); Segmented Neutrophils % 82.1 %
[2017-06-25 09:00] LABS: INR 1.6
[2017-06-25 09:08] LABS: Alanine Aminotransferase 13 Units/L (7-52); Albumin 2.7 g/dL (3.5-5.7); Albumin/Globulin Ratio 1.2 (1.1-2.2); Alkaline Phosphatase 381 Units/L (34-104); Aspartate Amino Transferase 13 Units/L (13-39); BUN/Creatinine Ratio 49 (6-26); Bilirubin,Total 0.8 mg/dL (0.3-1.0); Blood Urea Nitrogen 52 mg/dL (8-23); Calcium 8.2 mg/dL (8.6-10.3); Carbon Dioxide 30 mEq/L (23-29); Chloride 101 mEq/L (98-107); Globulin 2.2 g/dL (2.4-3.5); Glucose 240 mg/dL (70-105); Magnesium 1.8 mg/dL (1.6-2.6); Osmolality,Calculated 304 (280-300); Phosphorous 3.6 mg/dL (2.7-4.5); Potassium 4.3 mEq/L (3.5-5.1); Sodium 136 mEq/L (136-145); Total Protein 4.9 g/dL (6.4-8.9); eGFR For African Americans > 60 (> 60); eGFR For Non-African Americans > 60 (> 60)
[2017-06-25] MEDS ORDERED: *HR* LORazepam 2 MG/ML VIAL ONE (10:39)
[2017-06-25] MEDS ORDERED: Albumin 25% 25gram/100mL 25 GM/100 ML IV.SOLN IVPB ONE (10:54)
[2017-06-25 11:03] LABS: ABG Base Excess 2 mEq/L (-2 to 3); ABG HCO3 26 mEq/L (21-27); ABG Oxygen Saturation 100 % (95-98); ABG PCO2 34 mmHg (35-45); ABG PH 7.49 pH Units (7.32-7.45); ABG PO2 291 mmHg (85-104); ABG TCO2 27 mEq/L (20-26)
--- NOTE | 2017-06-25 11:28 | Internal Med Progress Note ---
Date of Encounter: 06/25/17 Time of Encounter: 11:22 - Assessment and plan (1) Near syncope Current Visit: Yes Status: Acute Assessment and plan: per chart review, reported multiple episodes of near syncope on day of presentation. Had recurrent episode on 06/25/17 and rapid response was called. Suspect multifactorial with hypovolemia from paracentesis/anemia and disease progression. With persistent tachycardia in hypotension. Continue volume expansion was PRBC, albumin. Closely monitor vital signs. Transfer to [facility] for higher level of care. (2) Pancreatic cancer metastasized to liver Current Visit: Yes Status: Acute Assessment and plan: per hx. Follows with Dr. Sousa. Initially good response to chemo but now with disease progression per chart review. Oncology consulted. Palliative care consult for goals of care discussion. Overall poor prognosis. (3) Anemia Current Visit: Yes Status: Acute Assessment and plan: suspect secondary to chemo. Hgb 6.6 on arrival; received 2 units PRBC. Repeat Hgb 7.4, transfuse an additional 1 unit PRBC now. No active bleeding. Suspect this is vibha from chemo. Monitor H&H, transfuse for Hgb less than 8 Qualifiers: Anemia type: unspecified type Qualified Code(s): D64.9 - Anemia, unspecified (4) Hyperammonemia Current Visit: Yes Status: Acute Assessment and plan: Lethargic on exam. Ammonia 100. Start lactulose. Monitor repeat ammonia level and mentation. (5) Gastric outlet obstruction Current Visit: Yes Status: Acute Assessment and plan: presented with ABD pain. ABD CT showed moderately to markedly distended stomach concerning for gastric outlet obstruction with partial obstruction of the duodenum. NG attempted but unable to place. Remains symptomatic with nausea and vomiting. Attempts place NG, continue PRN emetics. General surgery consulted (6) Diabetes mellitus Current Visit: No Status: Chronic Assessment and plan: per hx. Cont SSI. Monitor blood sugars and titrate PRN Qualifiers: Diabetes mellitus type: type 2 Diabetes mellitus complication status: with hyperglycemia Diabetes mellitus mcfp insulin use: without exterminator termite use Qualified Code(s): E11.65 - Type 2 diabetes mellitus with hyperglycemia (7) Full code status Current Visit: Yes Status: Acute Assessment and plan: Full code; verified with family/patient on 06/25/17 although family considering comfort care. Palliative following. CODE STATUS remains full code as of now (8) DVT prophylaxis Current Visit: No Status: Acute Assessment and plan: SCDs - Time Spent With Patient 25 - 35 minutes - Subjective Interval history: Seen and examined at bedside; a rapid response was called due to possible seizure activity. at bedside and reports patient had to void and was attempting to get up out of bed by himself when he abruptly fell back. No shaking, no loss of consciousness. He was incontinent of urine however he was already in the process of waiting when incident occurred. A rapid response was called; he improved to baseline after laying 5-10 minutes in the supine position. Dr. Rubio at bedside attempting to place NG tube. Discussed with patient and at bedside and patient is to remain a full code at this time. Family's considering comfort care - Constitutional Vitals: Temp Pulse Resp BP Pulse Ox 98.0 F 122 15 106/74 96 06/25/17 07:57 06/25/17 07:57 06/25/17 07:57 06/25/17 07:57 06/25/17 07:57 General appearance: Present: A&O X 2, mild distress, answers questions appropriately - Head Head exam: Present: atraumatic, normocephalic - Eye Eye exam: Present: PERRL, conjuntiva pink, sclera anicteric Pupils: Present: PERRL - Neck Neck exam general surgery: Present: supple, trachea midline. Absent: lymphadenopathy - Respiratory Respiratory exam: Present: CTAB. Absent: accessory muscle use, rales, rhonchi, wheezes - Cardiovascular Cardiovascular exam: Present: RRR, +S1, +S2. Absent: diastolic murmur, gallop, rubs, systolic murmur - GI/Abdominal GI/Abdominal exam: Present: normal bowel sounds, soft, no peritoneal signs. Absent: distended, tenderness - Expanded GI/Abdominal Exam GI/Abdominal exam expanded: Present: ascites - Extremities Exam Extremities exam: Present: warm, radial pulses palpable and symmetrical. Absent : calf tenderness, cyanotic, pedal edema - Neurological Exam Neurological exam: Present: CN II-XII intact, oriented X3, no focal deficits. Absent: pronater drift, facial droop, speech deficit - Skin Skin exam: Present: dry, intact Internal Medicine: Result - Labs CBC & Chem 7: 06/25/17 08:31 06/25/17 08:31 Labs: Short CBC 06/25/17 Range/Units 08:31 WBC 13.4 H (4.3-11.1) K/mcL Hgb 7.4 L (12.9-16.9) g/dL Hct 22.9 L (37.5-50.1) % Plt Count 398 (140-400) K/mcL Neutrophils # 11.0 H (1.6-8.9) K/mcL BMP 06/25/17 08:31 Sodium 136 Potassium 4.3 Chloride 101 Carbon Dioxide 30 H BUN 52 H Creatinine 1.07 Glucose 240 H Calcium 8.2 L Liver Function 06/25/17 Range/Units 08:31 Total Bilirubin 0.8 (0.3-1.0) mg/dL AST 13 (13-39) Units/L ALT 13 (7-52) Units/L Alkaline Phosphatase 381 H (34-104) Units/L Albumin 2.7 L (3.5-5.7) g/dL - ABG Interpretation ABG results: ABG ABG pH 7.49 pH Units (7.32-7.45) H 06/25/17 10:58 ABG pCO2 34 mmHg (35-45) L 06/25/17 10:58 ABG pO2 291 mmHg (85-104) H 06/25/17 10:58 ABG O2 Saturation 100 % (95-98) H 06/25/17 10:58 PT/INR, D-dimer PT 17.0 Seconds (9.4-12.1) H 06/25/17 08:31 Consult Discharge Plan - Plan Referrals: NONE,PCP [Non-Partnered Physician] -
[2017-06-25] MEDS: Ondansetron 4 MG/2 ML VIAL IVP PRN ×2 (11:40→20:32)
[2017-06-25] MEDS ORDERED: 0.9 % Sodium Chloride 1,000 ML IVC ONE (12:07)
--- NOTE | 2017-06-25 13:54 | Palliative - Consult Note ---
Date of Encounter: 06/25/17 Time of Encounter: 13:50 - Assessment and Plan (1) Cancer associated pain Current Visit: Yes Status: Acute Assessment and plan: Currently has Fentanyl IVP for pain - administration has been limited r/t hypotension. Receiving blood at this time. Hopefully hemodynamically will stabilize and can tolerate pain medication. Decompression NG may make him more comfortable as well. (2) Nausea Current Visit: No Status: Acute Assessment and plan: Has Ondansetron (received x1) and Promethazine (Received x3) currently for nausea. NG just inserted and he already feels some relief. (3) Counseling regarding advanced care planning and goals of care Current Visit: Yes Status: Acute Assessment and plan: Patient in distress during my visit - at bedside very emotional. Dr. Rubio had a demarco discussion with them regarding probable poor prognosis, progression of cancer, and obstruction. Discussed code status as well. Awaiting oncology consult - per PATRICA Guallpa Dr. will be seeing pt today. understands that if they decide against surgery, would recommend comfort care/hospice. She verbalized understanding, was quite distraught during discussion. Pt/ have no children together - pt son is 28 and still resides with them, and he recently lost his biological mother. 's 2 sons currently in [place] with their wives ill relative. Will f/u in am after oncology visit and re-evaluate clinical course and goals of care. He already has power of insurance defense attorney completed, but currently remains a full code until pt/ decide how they desire to proceed with his care. (4) Gastric outlet obstruction Current Visit: Yes Status: Acute Assessment and plan: Dr. Rubio consulted and has evaluated pt. If they decide on surgery, possibly tomorrow (5) Pancreatic cancer metastasized to liver Current Visit: Yes Status: Acute Palliative-CN HPI - Data of Consult Consult date: 06/25/17 Requesting Physician: Dana Yarbrough CNP Primary Care Provider: Florence Bello - Consult Narrative History of present illness: Mr. Wilson is a 62 year old male with a medical history of hypertension and metastatic pancreatic cancer (diagnosed last ) who was admitted after presenting to ER for increasing abd pain/nausea, weakness. He had paracentesis yesterday and 6 liters was removed. He was found to have progression of pancreatic mass, gastric outlet obstruction, and anemia. NG was unable to be placed last night per nursing. He had rapid response earlier today, with brief unresponsive period. Patient is seen by Dr. Dewitt of [facility]. He has still been receiving chemotherapy, and has had ERCP with stents to bile duct, last one placed August 2016. states as of last week, they were told tumor markers were down. [facility] on [facility]. Upon my initial visit, Dr. Rubio is also present having demarco discussion with pt/ re: clinical status and option for possible surgery. Patient restless , cannot lie still in bed. Tachypneic and diaphoretic. Assisted up on side of bed and was incontinent of large amount urine. Dr Rubio returned and placed NG tube - returned burgundy liquid. Approx 700 immediate return. Patient now appears more relaxed and resting quietly. Lives with at home - pt's 28 yr old son currently resides with them. Madelyn and close friend are at the bedside. CC: Dana Yarbrough, MARA Past Med Surg Social Fam HX - Past Medical History Medical history: arthritis, cancer, diabetes, hypertension, other Psychiatric history: no psych history - Past Surgical History Surgical History: orthopedic, other, other - Social History Smoking Status: Current every day smoker Smokeless Tobacco Status: No Alcohol use: none Drug use: none - Family History Mother Family Member Ethnicity: Non- Living Status: Hx Family Cardiac Disorders: Yes (HTN) Hx Family Cancer: Yes (Colon) Father Family Member Ethnicity: Non- Living Status: Hx Family Cardiac Disorders: Yes (HD, [place], stroke) Brother Family Member Ethnicity: Non- Living Status: Hx Family Cancer: Yes (Colon) Sister Family Member Ethnicity: Non- Living Status: Still Living Hx Family Cardiac Disorders: Yes (HD) Hx Family Cancer: Yes (Breast) Medications and Allergies Magic Mouthwash 5 ml PO Q4H PRN #240 ml 06/09/16 [Rx] Ondansetron HCl [Zofran] 4 mg PO Q6H PRN #40 tablet 10/30/16 [Rx] Cyclobenzaprine [Flexeril] 10 mg PO TID PRN 01/15/17 [History] Zolpidem [Ambien] 10 mg PO HS PRN 01/27/17 [History] Bisacodyl [Dulcolax] 10 mg PO DAILY PRN tab 01/29/17 [Rx] Prochlorperazine Maleate [Compazine] 10 mg PO Q6HR PRN #30 tablet 03/10/17 [Rx] Lidocaine/Prilocaine [Emla] 1 appl TP AD #30 gm 03/31/17 [Rx] Insulin Glargine,Hum.rec.anlog [Basaglar Kwikpen U-100] 10 unit SQ BID #5 insuln.pen 04/17/17 [Rx] Dicyclomine [Bentyl] 10 mg PO QID PRN #30 capsule 06/09/17 [Rx] Hydromorphone HCl [Dilaudid] 4 mg PO Q6H PRN #120 tablet 06/09/17 [Rx] Lipase/Protease/Amylase [[place] Dr 24,000 Units Capsule] 1 each PO ACHS #90 cap 06/09/17 [Rx] Omeprazole [PriLOSEC] 20 mg PO DAILY #30 cap 06/09/17 [Rx] Oxycodone HCl/Acetaminophen [Percocet 10-325 mg Tablet] 1 each PO Q6H PRN #120 tablet 06/09/17 [Rx] 3 Allergy/AdvReac Type Severity Reaction Status Date / Time morphine AdvReac Headache Verified 06/24/17 22:47 All systems: reviewed and no additional remarkable complaints except as stated ( nausea, abd pain and distention, weakness, shortness of breath) Palliative Care-Exam - Constitutional Vitals: Temp Pulse Resp BP Pulse Ox 97.4 F L 132 24 92/64 97 06/25/17 12:09 06/25/17 12:09 06/25/17 12:09 06/25/17 12:09 06/25/17 12:09 General appearance: Present: thin - Head Head Exam: Present: normal inspection, normocephalic - Respiratory Respiratory exam: Present: CTAB - Cardiovascular Cardiovascular exam: Present: +S1, +S2, tachycardia - GI/Abdominal Exam GI/Abdominal exam: Present: distended, firm additional comments: NG inserted by Dr. Rubio during my visit. At least 700 ml burgandy fluid removed. - Catheter Type: Urethral (Marcus) - Extremities Exam Extremities exam: Present: normal capillary refill, normal inspection - Neurological Exam Neurological exam: Present: alert, oriented X3 - Skin Skin exam: Present: diaphoretic, pallor Internal Medicine - CN: Reslt - Labs CBC & Chem 7: 06/25/17 08:31 06/25/17 08:31 Labs: Short CBC 06/25/17 Range/Units 08:31 WBC 13.4 H (4.3-11.1) K/mcL Hgb 7.4 L (12.9-16.9) g/dL Hct 22.9 L (37.5-50.1) % Plt Count 398 (140-400) K/mcL Neutrophils # 11.0 H (1.6-8.9) K/mcL BMP 06/25/17 08:31 Sodium 136 Potassium 4.3 Chloride 101 Carbon Dioxide 30 H BUN 52 H Creatinine 1.07 Glucose 240 H Calcium 8.2 L Liver Function 06/25/17 Range/Units 08:31 Total Bilirubin 0.8 (0.3-1.0) mg/dL AST 13 (13-39) Units/L ALT 13 (7-52) Units/L Alkaline Phosphatase 381 H (34-104) Units/L Albumin 2.7 L (3.5-5.7) g/dL - ABG Interpretation ABG results: ABG ABG pH 7.49 pH Units (7.32-7.45) H 06/25/17 10:58 ABG pCO2 34 mmHg (35-45) L 06/25/17 10:58 ABG pO2 291 mmHg (85-104) H 06/25/17 10:58 ABG O2 Saturation 100 % (95-98) H 06/25/17 10:58 PT/INR, D-dimer PT 17.0 Seconds (9.4-12.1) H 06/25/17 08:31 Consult Discharge Plan - Plan Referrals: NONE,PCP [Non-Partnered Physician] - Palliative Quality Palliative Quality: Screen for Code Status: Yes, Screen for Goals of Care: Yes, Screen for Pain: Yes, If Pain Regimen Started, Initiate Bowel Regimen: NA, Screen for Nausea/Vomitting: Yes
[2017-06-25] MEDS: 0.9 % Sodium Chloride 250 ML IVC SCH ×2 (15:07→21:22)
[2017-06-25 15:09] LABS: Basophils % 0.2 %; Hematocrit 18.6 % (37.5-50.1); Hemoglobin 6.1 g/dL (12.9-16.9); Immature Granulocytes % 1.1 % (0-4); Lymphocytes # 1.5 K/mcL (0.6-4.6); Lymphocytes % 9.3 %; Mean Corpuscular HGB Conc 32.8 g/dL (31.6-35.5); Mean Corpuscular Hemoglobin 27.4 pg (28.0-33.3); Mean Corpuscular Volume 83.4 fL (83.0-100.0); Monocytes # 0.6 K/mcL (0.0-1.3); Monocytes % 3.9 %; Neutrophils # 13.9 K/mcL (1.6-8.9); Nucleated Red Blood Cells 0.1 /100 WBC (0); Platelet Count 396 K/mcL (140-400); Red Blood Count 2.23 M/mcL (4.19-5.50); Red Cell Distribution Width 16.7 % (11.5-14.5); Segmented Neutrophils % 85.5 %
[2017-06-25] MEDS ORDERED: *HR* FentaNYL (PF) 100 MCG/2 ML VIAL IVP ONE (15:19)
--- NOTE | 2017-06-25 17:31 | Oncology Inp Consult Note ---
Date of Encounter: 06/26/17 Time of Encounter: 17:29 Assessment and Plan (1) Gastric outlet obstruction Status: Acute Assessment and plan: This is secondary to enlarging pancreatic mass. He also has bloody gastric drainage Discussed with Dr. butt in detail Consult Dr. Carlson for EGD and if there are any bleeding spotsin the stomach may be cauterized Plan is to do gastrojejunostomy once his condition is stable and blood pressure improves Wound healing is a definite problem. May consider giving albumin infusions to improve his protein and oncotic pressure He may not need TPN at least for now (2) Pancreatic cancer metastasized to liver Status: Acute Assessment and plan: He is on second line chemotherapy as mentioned. His CA-19-9 has come down but there is evidence of disease progression by enlargement of pancreatic head mass. This is causing gastric outlet obstruction Profound anemia . This could be related to leading into the stomach. He has large volume ascites likely malignant. Had no history of prior liver cirrhosis Overall prognosis poor. May consider palliative radiation to pancreas if it is causing erosion into the stomach - Data of Consult Requesting Physician: Dana Yarbrough CNP Primary Care Provider: Florence Bello - Consult Narrative Reason for consult: Metastatic pancreatic cancer with gastric outlet obstruction History of present illness: Mr. Wilson is a 62 year old male treated with hypertension and syncopal episode I saw him in the office 06/23/2017 and he had huge abdominal distention. Ultrasound showed ascites and 5 L of fluid removed 06/23/[address] angiogram chest 06/24/2017 limited study but negative for PE CT abdomen and pelvis 06/25/2017 showed extremely distended stomach with enlarging pancreatic mass causing gastric obstruction. He is also profoundly anemic with hemoglobin 6.1. Glucose 240. Liver enzymes normal AST ALT 13. Alkaline phosphatase elevated at 381. Ammonia 100 He was evaluated by Dr. butt surgery Oncological history Diagnosis: Pancreatic cancer stage IV with multiple liver metastasis complaints of abdominal pain since December 2015 He has lost approximately 20 pounds . Developed obstructive jaundice Imaging CT of abdomen and pelvis with contrast on 05/31/2016 showed hypodensity junction of head and the neck. It showed biliary ductal dilatation with a narrowing of superior mesenteric vein Peritoneal nodule 11 x 8 mm concerning for metastasis. PET scan denied by insurance CT chest w/o con on 06/18/16 shows no evidence of intrathoracic metastatic disease. MRI abdomen w/wo con on 06/18/16 shows prominent prepancreatic lymph nodes, the largest measuring 2.2 x 1.2cm are likely metastatic. multiple metastatic lesions within the left hepatic lobe, the largest measuring 2.2 2.1cm. MRI also showed pancreatic mass. Biopsy was ordered but not done because the metastases was close to the diaphragm Discussed with Dr. Carlson. ERCP and a plastic stent deployed. He has about 1.5 cm area of stricture in the distal CBD which was successfully stented. Discussed with Dr. Carlson and the mass was fairly large extending from the head into the neck with some compression of portal vein. Elevated CA 19 9 of 2024 and CEA 6.7. Pathology EUS biopsy Dr. Carlson 1 05/31/2016 FNAC showed adenocarcinoma He had a port through interventional radiology right internal jugular vein on 06/12/2016. New onset diabetes mellitus most likely from pancreatic cancer. Currently on Lantus 10 units twice a day starting 06/25/2016 line blood glucose has been ranging between 150-220 including postprandial. Palliative chemotherapy Oxaliplatin 85 mg/m day 1 and irinotecan 150 mg/m day 1 with 5-FU infusion 2400 mg/m or 46 hours. Treatment dates 06/19/2016 to 02/09/2017 total of 11 doses FOLFIRINOX since 06/19/2016 every 2 weeks. After 3 doses changed every 3 weeks since 08/07/2016. Subsequently change frequency to every 4 weeks starting on 11/27/2016 Progression of disease Developed obstructive Jaundice again on 01/28/2017 Jaundice because of biliary sludge. With Dr. Carlson. Plastic stent deployed over metal stent. No need for any further intervention at this time. May redo the stent in 4 months if necessary He developed mild jaundice bilirubin 1.5 with AST and ALT 80 range on 2016. It was transient and the liver enzymes down to normal range on 2016 and bilirubin returned to 1.1 Second line chemotherapy Cycle repeated every 2 weeks Gemzar 1 g/m IV day 1 Abraxane 100 mg/m IV day 1 Cycle one started on 03/17/2017. He tolerated it well with grade 2 fatigue is the main complaint Platelets 7 cycles on 06/09/2017. Cycle 8 for 06/23/2017 postponed because of ascites Further imaging MRI abdomen on 03/30/2017 showed trace ascites. Stable liver metastases. Segment 2 size 1.8 x 1.5 cm. rest are smaller Retroperitoneal lymph node 1 Lymph node near aorta 1.4 x 2.1 cm. Pancreatic mass stable at 1.4 x 2.1 cm Right upper quadrant ultrasound 05/21/2017 showed mild intrahepatic biliary dilatation otherwise negative Tumor markers CA 19 9 has come down to 1300 on 06/09/2017 from 1900 range Past Med Surg Social Fam HX - Past Medical History Medical history: arthritis, cancer, diabetes, hypertension, other Psychiatric history: no psych history - Past Surgical History Surgical History: orthopedic, other, other - Social History Smoking Status: Current every day smoker Smokeless Tobacco Status: No Alcohol use: none Drug use: none - Family History Mother Family Member Ethnicity: Non- Living Status: Hx Family Cardiac Disorders: Yes (HTN) Hx Family Cancer: Yes (Colon) Father Family Member Ethnicity: Non- Living Status: Hx Family Cardiac Disorders: Yes (HD, [place], stroke) Brother Family Member Ethnicity: Non- Living Status: Hx Family Cancer: Yes (Colon) Sister Family Member Ethnicity: Non- Living Status: Still Living Hx Family Cardiac Disorders: Yes (HD) Hx Family Cancer: Yes (Breast) Medications and Allergies Magic Mouthwash 5 ml PO Q4H PRN #240 ml 06/09/16 [Rx] Ondansetron HCl [Zofran] 4 mg PO Q6H PRN #40 tablet 10/30/16 [Rx] Cyclobenzaprine [Flexeril] 10 mg PO TID PRN 01/15/17 [History] Zolpidem [Ambien] 10 mg PO HS PRN 01/27/17 [History] Bisacodyl [Dulcolax] 10 mg PO DAILY PRN tab 01/29/17 [Rx] Prochlorperazine Maleate [Compazine] 10 mg PO Q6HR PRN #30 tablet 03/10/17 [Rx] Lidocaine/Prilocaine [Emla] 1 appl TP AD #30 gm 03/31/17 [Rx] Insulin Glargine,Hum.rec.anlog [Basaglar Kwikpen U-100] 10 unit SQ BID #5 insuln.pen 04/17/17 [Rx] Dicyclomine [Bentyl] 10 mg PO QID PRN #30 capsule 06/09/17 [Rx] Hydromorphone HCl [Dilaudid] 4 mg PO Q6H PRN #120 tablet 06/09/17 [Rx] Lipase/Protease/Amylase [Creon Dr 24,000 Units Capsule] 1 each PO ACHS #90 cap 06/09/17 [Rx] Omeprazole [PriLOSEC] 20 mg PO DAILY #30 cap 06/09/17 [Rx] Oxycodone HCl/Acetaminophen [Percocet 10-325 mg Tablet] 1 each PO Q6H PRN #120 tablet 06/09/17 [Rx] 3 Allergy/AdvReac Type Severity Reaction Status Date / Time morphine AdvReac Headache Verified 06/24/17 22:47 Review of systems: NG tube in place. Abdominal distention. Breathing is stable. Abdominal pressure has improved after ascites fluid tapping Oncology - Exam - Constitutional Vitals: Temp Pulse Resp BP Pulse Ox 98.5 F 123 20 118/77 100 06/25/17 16:21 06/25/17 16:21 06/25/17 16:21 06/25/17 16:21 06/25/17 16:21 Exam: GENERAL: Alert and oriented, weight loss and deconditioning. Mental Status: Affect appropriate for circumstances HEENT: Sclerae anicteric. No mucositis or thrush. No other oral or pharyngeal lesions or erythema. Skin: No rashes or petechiae. No evidence of skin malignancy Lymph nodes: No cervical, supraclavicular, axillary, or inguinal adenopathy. Lungs: Air entry normal with normal breath sounds. No rhonchi or wheezing Cardiovascular: Regular rate and rhythm. No skipped beats Abdomen: distention and diffuse tenderness Extremities: No edema. No calf swelling or tenderness. No joint deformity. Neurologic: Alert, cranial nerves II-XII intact; normal gait; no focal weakness or sensory abnormalities Has deconditioning Oncology - Results Labs: Short CBC 06/25/17 06/25/17 Range/Units 08:31 15:00 WBC 13.4 H 16.3 H (4.3-11.1) K/mcL Hgb 7.4 L 6.1 L (12.9-16.9) g/dL Hct 22.9 L 18.6 L (37.5-50.1) % Plt Count 398 396 (140-400) K/mcL Neutrophils # 11.0 H 13.9 H (1.6-8.9) K/mcL BMP 06/25/17 08:31 Sodium 136 Potassium 4.3 Chloride 101 Carbon Dioxide 30 H BUN 52 H Creatinine 1.07 Glucose 240 H Calcium 8.2 L Liver Function 06/25/17 Range/Units 08:31 Total Bilirubin 0.8 (0.3-1.0) mg/dL AST 13 (13-39) Units/L ALT 13 (7-52) Units/L Alkaline Phosphatase 381 H (34-104) Units/L Albumin 2.7 L (3.5-5.7) g/dL Consult Discharge Plan - Plan Referrals: NONE,PCP [Non-Partnered Physician] -
[2017-06-25] MEDS: Lactulose Oral Soln 20 GM/30 ML UDC PO SCH ×2 (17:42→20:25)
--- NOTE | 2017-06-25 17:54 | General Surgery Consult Note ---
Date of Encounter: 06/25/17 Time of Encounter: 12:00 History of Present Illness Consult date: 06/25/17 Reason for consult: other (gastric outlet obstruction) Requesting physician: Humphrey Dela Cruz History of present illness: General Surgery - this is a delayed dictation including 2 bedside visits with patient and family. 62 yo with known metastatic pancreatic cancer referred for Surgical Evaluation new onset abd pain, distention, with N/V. Radiologic findings of gastric outlet obstruction. Patient approx 13 months (diagnosis made May 2016) after diagnosis of metastatic pancreatic cancer. Deemed inoperable. Has been receiving chemotherapy per [facility]. Dr Dewitt indicates patient is currently receiving second line chemotherapy. CA 19 9 has diminished but there has been clinical evidence progressive carcinoma including enlargement of the pancreatic head and gastric outlet obstruction. The patient apparently presented to the Emergency Department 06/24/17 complaining of chest pain. Patient was found to be anemic, hemoglobin 6.6/hematocrit 21.7. A CT angiogram of the chest demonstrated minor bilateral atelectasis without evidence of pneumonia, no pleural effusions or pneumothorax. No PE was identified. CT of the abdomen and pelvis demonstrated increasing soft tissue mass in the hima hepatis and pancreatic head, the presence of a common duct stent, markedly dilated/distended stomach which was fluid-filled. The duodenum appeared to be partially obstructed of visualization of the duodenum was incomplete. Moderate volume ascites in the abdominal pelvis and diffuse mesenteric fat stranding is noted. There is considerable fluid surrounding the liver. And evidence of carcinomatosis involving the peritoneal cavity The patient underwent a paracentesis of 6600 mL of fluid earlier today. This fluid is most likely malignant. The diagnosis of stage IV pancreatic cancer, the patient remains a full code. Past medical history: Stage IV pancreatic cancer as noted; diabetes mellitus, hypertension, and progressive weight loss Allergies: Morphine Medications on admission: Magic mouthwash 5 mL by mouth every 4 hours as needed Ondansetron 4 mg by mouth every 6 hours as needed Cyclobenzaprine 10 mg by mouth 3 times a day as needed Zolpidem 10 mg by mouth daily at bedtime as needed for sleep Bisacodyl 10 mg by mouth daily as needed for bowel movement Prochlorperazine 10 mg by mouth every 6 hours as needed for nausea or vomiting Lidocaine/Prilocaine (Emla) topical applied as directed Insulin glargine 10 units subcutaneous twice a day Dicyclomine 10 mg by mouth 4 times a day when necessary Hydromorphone 4 mg by mouth every 6 hours when necessary pain Lipase/protease/amylase (Remigio VELASCO 24,000 units) 1 capsule by mouth before meals and at bedtime Omeprazole 20 mg by mouth daily Oxycodone with acetaminophen 10/325 one every 6 hours as needed for pain Social history: Patient is ; is at home with his spouse; he is a smoker; no noted alcohol or illicit drug use Family history: Mother - Hypertension, colon cancer; Father - CAD with previous [place], CVA Brother due to colon cancer Sisters surviving; history of heart disease and breast cancer Physical examination: Thin, cachectic male in extremis secondary to upper abdominal pain. He is extremely restless, finding it difficult to find a comfortable position. He is afebrile ranging from 97.4-98.5; pulse ranging from 119 132; respirations 16-24; blood pressure 92/64 to 119/77; SPO2 on 4 L/m nasal cannula 100% The patient is extremely pale; there is very little subcutaneous fat, the skin very little turgor Lungs: Clear though breath sounds are rapid Cardiac: Rapid rate without discernible murmurs Abdomen: Distended; obvious tenderness or detected intra-abdominal masses; bowel sounds are hypoactive Extremities: Without obvious clubbing, cyanosis, or edema. CT and lab work were personally reviewed. Hospital course: On presentation to the ED and subsequent admission and NG tube was attempted but not tolerated by the patient. After lengthy discussion the patient was willing to have me place an NG tube. This was accomplished at bedside using an 18-gauge nasogastric tube. On insertion of the nasogastric tube approximately 800 mL of maroon fluid was evacuated. The patient felt immediately better with diminished restlessness and agitation. Patient has been transfused - medical record indicates he has received 3 units packed red blood cells with resulting hemoglobin falling to 6.1 (previously 6.6). It appears that the pancreatic cancer may have eroded into the stomach versus the stress of the disease causing significant peptic ulcer disease/peptic ulceration. The patient was examined followed by a lengthy discussion with the patient and his family. and daughter were present. CODE STATUS was discussed in detail. Surgery versus palliative care was also discussed at length. The patient's is in favor of surgery as this would provide relief of his upper abdominal discomfort, nausea and vomiting. This surgery would provide only transient relief of the patient's present discomfort will have no impact on the continued progression of his pancreatic cancer. The patient is poor candidate for surgery, however, a gastrojejunostomy to relieve his gastric obstruction was discussed versus comfort care/palliative care. Risks of surgery including hemorrhage, infection, intra-abdominal abscess, injury to adjacent structures, anastomotic leak or disruption, respiratory failure with prolonged mechanical ventilation, cardiac risks including dysrhythmia and [place]; progression of the patient's metastatic disease. The patient is severely calorie and protein deficient - which will increase the risk of surgery and failure to heal. As a result of his apparent upper GI hemorrhage (bloody nasogastric output) Dr Carlson has been consulted for possible EGD as he has been involved with this patient's care in the past. Recommendations: Continue transfusions await Dr Carlson's evaluation if hemoglobin improves and patient remains hemodynamically stable - proceed with gastro jejunostomy per patient's family wishes. If surgery is to be completed; total parenteral nutrition must be considered to provide calorie and protein supplementation to facilitate healing I will follow along with you and make further recommendations as the patient' s condition dictates Past Med Surg Social Fam HX - Past Medical History Medical history: arthritis, cancer, diabetes, hypertension, other Psychiatric history: no psych history - Past Surgical History Surgical History: orthopedic, other, other - Social History Smoking Status: Current every day smoker Smokeless Tobacco Status: No Alcohol use: none Drug use: none - Family History Mother Family Member Ethnicity: Non- Living Status: Hx Family Cardiac Disorders: Yes (HTN) Hx Family Cancer: Yes (Colon) Father Family Member Ethnicity: Non- Living Status: Hx Family Cardiac Disorders: Yes (HD, [place], stroke) Brother Family Member Ethnicity: Non- Living Status: Hx Family Cancer: Yes (Colon) Sister Family Member Ethnicity: Non- Living Status: Still Living Hx Family Cardiac Disorders: Yes (HD) Hx Family Cancer: Yes (Breast) Medications and Allergies Magic Mouthwash 5 ml PO Q4H PRN #240 ml 06/09/16 [Rx] Ondansetron HCl [Zofran] 4 mg PO Q6H PRN #40 tablet 10/30/16 [Rx] Cyclobenzaprine [Flexeril] 10 mg PO TID PRN 01/15/17 [History] Zolpidem [Ambien] 10 mg PO HS PRN 01/27/17 [History] Bisacodyl [Dulcolax] 10 mg PO DAILY PRN tab 01/29/17 [Rx] Prochlorperazine Maleate [Compazine] 10 mg PO Q6HR PRN #30 tablet 03/10/17 [Rx] Lidocaine/Prilocaine [Emla] 1 appl TP AD #30 gm 03/31/17 [Rx] Insulin Glargine,Hum.rec.anlog [Basaglar Kwikpen U-100] 10 unit SQ BID #5 insuln.pen 04/17/17 [Rx] Dicyclomine [Bentyl] 10 mg PO QID PRN #30 capsule 06/09/17 [Rx] Hydromorphone HCl [Dilaudid] 4 mg PO Q6H PRN #120 tablet 06/09/17 [Rx] Lipase/Protease/Amylase [Creon Dr 24,000 Units Capsule] 1 each PO ACHS #90 cap 06/09/17 [Rx] Omeprazole [PriLOSEC] 20 mg PO DAILY #30 cap 06/09/17 [Rx] Oxycodone HCl/Acetaminophen [Percocet 10-325 mg Tablet] 1 each PO Q6H PRN #120 tablet 06/09/17 [Rx] 3 Allergy/AdvReac Type Severity Reaction Status Date / Time morphine AdvReac Headache Verified 06/24/17 22:47 Review of Systems All systems PM: A 10-system review of systems was performed and is negative for pertinent findings except as documented above in the HPI. General Surgery Exam Initial Vital Signs Temp Pulse Resp BP Pulse Ox 97.6 F 103 18 99/68 92 06/24/17 21:31 06/24/17 21:31 06/24/17 21:31 06/24/17 21:31 06/24/17 21:31 Exam Initial Vital Signs Temp Pulse Resp BP Pulse Ox 97.6 F 103 18 99/68 92 06/24/17 21:31 06/24/17 21:31 06/24/17 21:31 06/24/17 21:31 06/24/17 21:31 Results - Labs 06/25/17 15:00 06/25/17 08:31 Abnormal lab results WBC 16.3 K/mcL (4.3-11.1) H 06/25/17 15:00 RBC 2.23 M/mcL (4.19-5.50) L 06/25/17 15:00 Hgb 6.1 g/dL (12.9-16.9) L 06/25/17 15:00 Hct 18.6 % (37.5-50.1) L 06/25/17 15:00 MCH 27.4 pg (28.0-33.3) L 06/25/17 15:00 RDW 16.7 % (11.5-14.5) H 06/25/17 15:00 Neutrophils # 13.9 K/mcL (1.6-8.9) H 06/25/17 15:00 Nucleated RBCs/100 WBC 0.1 /100 WBC (0) H 06/25/17 15:00 PT 17.0 Seconds (9.4-12.1) H 06/25/17 08:31 ABG pH 7.49 pH Units (7.32-7.45) H 06/25/17 10:58 ABG pCO2 34 mmHg (35-45) L 06/25/17 10:58 ABG pO2 291 mmHg (85-104) H 06/25/17 10:58 ABG Total CO2 27 mEq/L (20-26) H 06/25/17 10:58 ABG O2 Saturation 100 % (95-98) H 06/25/17 10:58 Carbon Dioxide 30 mEq/L (23-29) H 06/25/17 08:31 BUN 52 mg/dL (8-23) H 06/25/17 08:31 BUN/Creatinine Ratio 49 (6-26) H 06/25/17 08:31 Glucose 240 mg/dL (70-105) H 06/25/17 08:31 Calculated Osmolality 304 (280-300) H 06/25/17 08:31 Calcium 8.2 mg/dL (8.6-10.3) L 06/25/17 08:31 Direct Bilirubin 0.3 mg/dL (0.0-0.2) H 06/24/17 21:51 Alkaline Phosphatase 381 Units/L (34-104) H 06/25/17 08:31 Ammonia 100 mcmol/L (16-53) H 06/25/17 10:55 Serum Total Protein 4.9 g/dL (6.4-8.9) L 06/25/17 08:31 Albumin 2.7 g/dL (3.5-5.7) L 06/25/17 08:31 Globulin 2.2 g/dL (2.4-3.5) L 06/25/17 08:31 Lipase 7 Units/L (11-82) L 06/24/17 21:51 Diabetes panel 06/25/17 Range/Units 08:31 Sodium 136 (136-145) mEq/L Potassium 4.3 (3.5-5.1) mEq/L Chloride 101 (98-107) mEq/L Carbon Dioxide 30 H (23-29) mEq/L BUN 52 H (8-23) mg/dL Creatinine 1.07 (0.70-1.30) mg/dL Glucose 240 H (70-105) mg/dL Calcium 8.2 L (8.6-10.3) mg/dL AST 13 (13-39) Units/L ALT 13 (7-52) Units/L Alkaline Phosphatase 381 H (34-104) Units/L Albumin 2.7 L (3.5-5.7) g/dL Calcium panel 06/25/17 Range/Units 08:31 Calcium 8.2 L (8.6-10.3) mg/dL Phosphorus 3.6 (2.7-4.5) mg/dL Albumin 2.7 L (3.5-5.7) g/dL Pituitary panel 06/25/17 Range/Units 08:31 Sodium 136 (136-145) mEq/L Potassium 4.3 (3.5-5.1) mEq/L Chloride 101 (98-107) mEq/L Carbon Dioxide 30 H (23-29) mEq/L BUN 52 H (8-23) mg/dL Creatinine 1.07 (0.70-1.30) mg/dL Glucose 240 H (70-105) mg/dL Calcium 8.2 L (8.6-10.3) mg/dL Adrenal panel 06/25/17 Range/Units 08:31 Sodium 136 (136-145) mEq/L Potassium 4.3 (3.5-5.1) mEq/L Chloride 101 (98-107) mEq/L Carbon Dioxide 30 H (23-29) mEq/L BUN 52 H (8-23) mg/dL Creatinine 1.07 (0.70-1.30) mg/dL Glucose 240 H (70-105) mg/dL Calcium 8.2 L (8.6-10.3) mg/dL Total Bilirubin 0.8 (0.3-1.0) mg/dL AST 13 (13-39) Units/L ALT 13 (7-52) Units/L Alkaline Phosphatase 381 H (34-104) Units/L Albumin 2.7 L (3.5-5.7) g/dL All other labs normal. Consult Discharge Plan - Plan Referrals: NONE,PCP [Non-Partnered Physician] -
[2017-06-25] MEDS ORDERED: Dextrose Gel 15 GM/37.5 ML TUBE PO PRN ×2 (18:28)
[2017-06-25] MEDS ORDERED: D5% in Water 1,000 ML IVC PRN (18:28)
[2017-06-25] MEDS ORDERED: *HR* Dextrose 50 % in Water (Syg) 50 ML SYRINGE IVP PRN (18:28)
--- NOTE | 2017-06-25 19:57 | Electrocardiograph Report ---
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
[2017-06-25] MEDS: Insulin LISPRO 300 UNITS/3 ML VIAL SQ SCH ×2 (20:25→23:15)
[2017-06-25] MEDS ORDERED: *HR* Metoprolol 5 MG/5 ML VIAL IVP ONE (20:44)
[2017-06-25 21:35] LABS: Hematocrit 21.3 % (37.5-50.1); Hemoglobin 7.2 g/dL (12.9-16.9)
[2017-06-26] MEDS: *HR* FentaNYL (PF) 100 MCG/2 ML VIAL IVP PRN ×6 (01:15→11:33)
[2017-06-26 03:37] LABS: Hematocrit 21.2 % (37.5-50.1); Hemoglobin 7.1 g/dL (12.9-16.9)
[2017-06-26] MEDS: Insulin LISPRO 300 UNITS/3 ML VIAL SQ SCH ×4 (05:21→18:30)
[2017-06-26] MEDS: 0.9 % Sodium Chloride 250 ML IVC SCH ×3 (05:22→22:25)
[2017-06-26] MEDS: Lactulose Oral Soln 20 GM/30 ML UDC PO SCH ×3 (07:54→20:07)
[2017-06-26] MEDS: Pantoprazole 40 MG VIAL IVP SCH (07:54)
--- NOTE | 2017-06-26 09:34 | Internal Med Progress Note ---
Date of Encounter: 06/26/17 Time of Encounter: 08:30 - Assessment and plan (1) Anemia Current Visit: Yes Status: Acute Assessment and plan: Secondary to acute blood loss. Hgb 6.6 on admission; has received multiple units of PRBCs. NG with coffee-ground drainage, now clearing. Etiology unknown at this time; possibly secondary to disease progression with erosion into stomach or peptic ulcer disease/peptic ulceration. With persistent tachycardia however overall hemodynamically stable. No hypotension, maintaining mentation. Keep NG at low wall suction, NPO, IV PPI. GI complaining EGD. Monitor H&H and transfuse for Hgb less than 7 Qualifiers: Anemia type: unspecified type Qualified Code(s): D64.9 - Anemia, unspecified (2) Gastric outlet obstruction Current Visit: Yes Status: Acute Assessment and plan: presented with ABD pain. ABD CT showed moderately to markedly distended stomach concerning for gastric outlet obstruction with partial obstruction of the duodenum. Secondary to enlarging pancreatic mass. NG placed at bedside per general surgery. Patient is poor surgical candidate however a gastrojejunostomy is being considered for palliative treatment. Anemia/bleeding needs to be controlled first. General surgery following (3) Pancreatic cancer metastasized to liver Current Visit: Yes Status: Acute Assessment and plan: hx pancreatic cancer stage IV with multiple liver metastasis. ABD CT showed increasing soft tissue mass surrounding, and bile duct stent highly suspicious for recurrence of pancreatic tumor. Overall prognosis is poor. Oncology following. Pain poorly controlled with PRN fentanyl. 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 Lactulose started with improvement in mentation. Repeat ammonia level 50. Continue lactulose (5) Diabetes mellitus Current Visit: No Status: Chronic Assessment and plan: per hx. blood sugars variable. Accu-Cheks every 4 hours. Cont SSI. 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 Had recurrent episode on 06/25/17 and rapid response was called. Suspect multifactorial with hypovolemia from paracentesis/anemia and disease progression. With persistent tachycardia in hypotension. Continue volume expansion with IV fluids, PRBC. (7) Full code status Current Visit: Yes Status: Acute Assessment and plan: Full code; verified with family/patient on 06/25/17 although family considering comfort care. Palliative following. CODE STATUS remains full code as of now (8) DVT prophylaxis Current Visit: No Status: Acute Assessment and plan: SCDs - Subjective Interval history: Seen and examined at bedside; says he feels significantly better from yesterday. Still with some abdominal pain and cramping, fentanyl only provides about 20 minutes of relief. No chest pain or shortness of breath. reports several loose stools overnight that were black, no obvious bleeding. He is aware of plan for EGD later today. - Constitutional Vitals: Temp Pulse Resp BP Pulse Ox 98.2 F 106 22 112/77 95 06/26/17 07:02 06/26/17 08:02 06/26/17 07:58 06/26/17 07:58 06/26/17 07:58 General appearance: Present: A&O X 3, answers questions appropriately - Head Head exam: Present: atraumatic, normocephalic - Eye Eye exam: Present: PERRL, conjuntiva pink, sclera anicteric Pupils: Present: PERRL - ENT ENT exam: Present: mucous membranes dry - Neck Neck exam general surgery: Present: supple, trachea midline. Absent: lymphadenopathy - Respiratory Respiratory exam: Present: CTAB. Absent: accessory muscle use, rales, rhonchi, wheezes - Cardiovascular Cardiovascular exam: Present: RRR, +S1, +S2. Absent: diastolic murmur, gallop, rubs, systolic murmur - GI/Abdominal GI/Abdominal exam: Present: hypoactive bowel sounds, soft, no peritoneal signs. Absent: distended, tenderness - Extremities Exam Extremities exam: Present: warm, radial pulses palpable and symmetrical. Absent : calf tenderness, cyanotic, pedal edema - Neurological Exam Neurological exam: Present: CN II-XII intact, oriented X3, no focal deficits. Absent: pronater drift, facial droop, speech deficit - Skin Skin exam: Present: dry, intact Internal Medicine: Result - Labs CBC & Chem 7: 06/26/17 03:26 06/25/17 08:31 Labs: Short CBC 06/25/17 06/25/17 06/26/17 Range/Units 15:00 21:25 03:26 WBC 16.3 H (4.3-11.1) K/mcL Hgb 6.1 L 7.2 L 7.1 L (12.9-16.9) g/dL Hct 18.6 L 21.3 L 21.2 L (37.5-50.1) % Plt Count 396 (140-400) K/mcL Neutrophils # 13.9 H (1.6-8.9) K/mcL - ABG Interpretation ABG results: ABG ABG pH 7.49 pH Units (7.32-7.45) H 06/25/17 10:58 ABG pCO2 34 mmHg (35-45) L 06/25/17 10:58 ABG pO2 291 mmHg (85-104) H 06/25/17 10:58 ABG O2 Saturation 100 % (95-98) H 06/25/17 10:58 PT/INR, D-dimer PT 17.0 Seconds (9.4-12.1) H 06/25/17 08:31 Consult Discharge Plan - Plan Referrals: NONE,PCP [Non-Partnered Physician] -
[2017-06-26 10:44] LABS: INR 1.5; Prothrombin Time 16.4 Seconds (9.4-12.1)
[2017-06-26 10:50] LABS: Hematocrit 20.8 % (37.5-50.1); Hemoglobin 7.1 g/dL (12.9-16.9)
[2017-06-26 11:19] LABS: Alanine Aminotransferase 14 Units/L (7-52); Albumin 2.8 g/dL (3.5-5.7); Albumin/Globulin Ratio 1.4 (1.1-2.2); Aspartate Amino Transferase 17 Units/L (13-39); BUN/Creatinine Ratio 71 (6-26); Bilirubin,Total 0.8 mg/dL (0.3-1.0); Blood Urea Nitrogen 75 mg/dL (8-23); Calcium 8.5 mg/dL (8.6-10.3); Carbon Dioxide 31 mEq/L (23-29); Chloride 103 mEq/L (98-107); Glucose 186 mg/dL (70-105); Osmolality,Calculated 315 (280-300); Potassium 3.3 mEq/L (3.5-5.1); Sodium 139 mEq/L (136-145); Total Protein 4.8 g/dL (6.4-8.9); eGFR For African Americans > 60 (> 60); eGFR For Non-African Americans > 60 (> 60)
[2017-06-26] MEDS ORDERED: FentaNYL (PF) 1,000 MCG in 0.9 % Sodium Chloride 80 ML IVC SCH (11:30)
--- NOTE | 2017-06-26 12:21 | Palliative Progress Note ---
Date of Encounter: 06/26/17 Time of Encounter: 09:30 - Assessment and plan (1) Cancer associated pain Current Visit: Yes Status: Acute Assessment and plan: Patient with stage IV pancreatic cancer with liver mets. Patient c/o diffuse abdominal pain, ache 6/10. Just received IVP fentanyl. Total past 24 hour doses 6 doses IVP = 150 mcg total. Discussed possible need for continuous IV drip. Will reassess need. (2) Nausea Current Visit: No Status: Acute Assessment and plan: Patient's NG now draining coffee ground drainage. Patient reports feeling better and states no nausea since yesterday. PRN Zofran if needed. (3) Counseling regarding advanced care planning and goals of care Current Visit: Yes Status: Acute Assessment and plan: Follow-up discussion with patient and . Confirmed patient's desire to have EGD and possible surgery. They verbalized understanding and are aware of patient 's fragile state to have surgery. Case discussed with Dr. Rubio and plan for OR for gastrojejunostomy tomorrow 06/27/16. Patient receiving transfusion of PRBC today for Hgb - 7.1 and HCT 20.8. Ammonia level down to 50 and patent is more alert. B/P 112/77. Stage IV pancreatic cancer with mets. Oncology following and met with patient, and daughter last evening. Patient remains Full Code and NPO for now. Will continue to follow hospital course as patient has overall poor prognosis. (4) Gastric outlet obstruction Current Visit: Yes Status: Acute Assessment and plan: General Surgery - Dr. Rubio following. (5) Pancreatic cancer metastasized to liver Current Visit: Yes Status: Acute Assessment and plan: Oncology following - Time Spent With Patient Total time spent is greater than 50% in coordination of care (as documented) at patient's floor/unit and/or counseling patient: 25 - 35 minutes - Subjective Interval history: Chart reviewed and bedside discussion with patient and Madelyn. Patient just received IVP fentanyl and rates pain as continuous ache 6/10 to anterior abdomen. Patient alert and calm. states that discussions with Dr. Rubio and Oncology took place yesterday evening. They agree to having Dr. Carlson assess for EGD possibility and agree to attempt surgery if able. - Constitutional Vitals: Abnormal lab results WBC 16.3 K/mcL (4.3-11.1) H 06/25/17 15:00 RBC 2.23 M/mcL (4.19-5.50) L 06/25/17 15:00 Hgb 7.1 g/dL (12.9-16.9) L 06/26/17 10:29 Hct 20.8 % (37.5-50.1) L 06/26/17 10:29 MCH 27.4 pg (28.0-33.3) L 06/25/17 15:00 RDW 16.7 % (11.5-14.5) H 06/25/17 15:00 Neutrophils # 13.9 K/mcL (1.6-8.9) H 06/25/17 15:00 Nucleated RBCs/100 WBC 0.1 /100 WBC (0) H 06/25/17 15:00 PT 16.4 Seconds (9.4-12.1) H 06/26/17 10:29 ABG pH 7.49 pH Units (7.32-7.45) H 06/25/17 10:58 ABG pCO2 34 mmHg (35-45) L 06/25/17 10:58 ABG pO2 291 mmHg (85-104) H 06/25/17 10:58 ABG Total CO2 27 mEq/L (20-26) H 06/25/17 10:58 ABG O2 Saturation 100 % (95-98) H 06/25/17 10:58 Potassium 3.3 mEq/L (3.5-5.1) L 06/26/17 10:29 Carbon Dioxide 31 mEq/L (23-29) H 06/26/17 10:29 BUN 75 mg/dL (8-23) H 06/26/17 10:29 BUN/Creatinine Ratio 71 (6-26) H 06/26/17 10:29 Glucose 186 mg/dL (70-105) H 06/26/17 10:29 POC Glucose 315 (58-89) H 06/25/17 23:14 Calculated Osmolality 315 (280-300) H 06/26/17 10:29 Calcium 8.5 mg/dL (8.6-10.3) L 06/26/17 10:29 Direct Bilirubin 0.3 mg/dL (0.0-0.2) H 06/24/17 21:51 Alkaline Phosphatase 381 Units/L (34-104) H 06/25/17 08:31 Serum Total Protein 4.8 g/dL (6.4-8.9) L 06/26/17 10:29 Albumin 2.8 g/dL (3.5-5.7) L 06/26/17 10:29 Globulin 2.0 g/dL (2.4-3.5) L 06/26/17 10:29 Lipase 7 Units/L (11-82) L 06/24/17 21:51 Stool Occult Blood Positive (Negative) A 06/26/17 01:35 - Head Head exam: Present: atraumatic, normal inspection, normocephalic - Eye Eye exam: Present: PERRL Pupils: Present: PERRL Additional comments: Corrective glasses on - ENT ENT exam: Present: mucous membranes dry - Neck Neck exam: Present: full ROM - Respiratory Respiratory exam: Present: CTAB - Cardiovascular Cardiovascular exam: Present: RRR, +S1, +S2, tachycardia - Expanded Cardiovascular Exam Peripheral pulses: 1+: Femoral (L) PM, Femoral (R) PM, Posterior Tibialis (L), Posterior Tibialis (R), 2+: Carotid (L) PM, Carotid (R) PM, Radial (L), Radial ( R), Dorsalis Pedis (L) PM, Dorsalis Pedis (R) PM - GI/Abdominal GI/Abdominal exam: Present: distended, soft, tenderness Additional comments: NG to LWIS. Coffee ground drainage. Denies nausea. - Extremities Exam Extremities exam: Present: full ROM - Back Exam Back exam: Present: tenderness - Neurological Exam Neurological exam: Present: alert, oriented X3 - Psychiatric Psychiatric exam: Present: normal affect - Skin Skin exam: Present: pallor, warm Palliative Quality Palliative Quality: Screen for Code Status: Yes, Screen for Goals of Care: Yes, Screen for Pain: Yes, If Pain Regimen Started, Initiate Bowel Regimen: Yes, Screen for Nausea/Vomitting: Yes - Labs CBC & Chem 7: 06/26/17 10:29 06/26/17 10:29 Labs: Laboratory Results - last 24 hr 06/25/17 06/25/17 06/25/17 00:06 06:03 10:47 WBC RBC Hgb Hct MCV MCH MCHC RDW Plt Count MPV Immature Gran % Seg Neutrophils % Lymphocytes % Monocytes % Eosinophils % Basophils % Neutrophils # Lymphocytes # Monocytes # Eosinophils # Basophils # Nucleated RBCs/100 WBC PT INR Sodium Potassium Chloride Carbon Dioxide BUN Creatinine Est GFR ( Amer) Est GFR (Non-Af Amer) BUN/Creatinine Ratio Glucose POC Glucose 276 H 255 H 290 H Calculated Osmolality Calcium Total Bilirubin AST ALT Ammonia Serum Total Protein Albumin Globulin Albumin/Globulin Ratio Stool Occult Blood 06/25/17 06/25/17 06/25/17 15:00 17:53 17:55 WBC 16.3 H RBC 2.23 L Hgb 6.1 L Hct 18.6 L MCV 83.4 MCH 27.4 L MCHC 32.8 RDW 16.7 H Plt Count 396 MPV 10.0 Immature Gran % 1.1 Seg Neutrophils % 85.5 Lymphocytes % 9.3 Monocytes % 3.9 Eosinophils % 0.0 Basophils % 0.2 Neutrophils # 13.9 H Lymphocytes # 1.5 Monocytes # 0.6 Eosinophils # 0.0 Basophils # 0.0 Nucleated RBCs/100 WBC 0.1 H PT INR Sodium Potassium Chloride Carbon Dioxide BUN Creatinine Est GFR ( Amer) Est GFR (Non-Af Amer) BUN/Creatinine Ratio Glucose POC Glucose 392 H 397 H Calculated Osmolality Calcium Total Bilirubin AST ALT Ammonia Serum Total Protein Albumin Globulin Albumin/Globulin Ratio Stool Occult Blood 06/25/17 06/25/17 06/25/17 19:58 20:01 21:25 WBC RBC Hgb 7.2 L Hct 21.3 L MCV MCH MCHC RDW Plt Count MPV Immature Gran % Seg Neutrophils % Lymphocytes % Monocytes % Eosinophils % Basophils % Neutrophils # Lymphocytes # Monocytes # Eosinophils # Basophils # Nucleated RBCs/100 WBC PT INR Sodium Potassium Chloride Carbon Dioxide BUN Creatinine Est GFR ( Amer) Est GFR (Non-Af Amer) BUN/Creatinine Ratio Glucose POC Glucose 401 H* 391 H Calculated Osmolality Calcium Total Bilirubin AST ALT Ammonia Serum Total Protein Albumin Globulin Albumin/Globulin Ratio Stool Occult Blood 06/25/17 06/26/17 06/26/17 23:14 01:35 03:26 WBC RBC Hgb Hct MCV MCH MCHC RDW Plt Count MPV Immature Gran % Seg Neutrophils % Lymphocytes % Monocytes % Eosinophils % Basophils % Neutrophils # Lymphocytes # Monocytes # Eosinophils # Basophils # Nucleated RBCs/100 WBC PT INR Sodium Potassium Chloride Carbon Dioxide BUN Creatinine Est GFR ( Amer) Est GFR (Non-Af Amer) BUN/Creatinine Ratio Glucose POC Glucose 315 H Calculated Osmolality Calcium Total Bilirubin AST ALT Ammonia 50 Serum Total Protein Albumin Globulin Albumin/Globulin Ratio Stool Occult Blood Positive A 06/26/17 06/26/17 06/26/17 03:26 10:29 10:29 WBC RBC Hgb 7.1 L 7.1 L Hct 21.2 L 20.8 L MCV MCH MCHC RDW Plt Count MPV Immature Gran % Seg Neutrophils % Lymphocytes % Monocytes % Eosinophils % Basophils % Neutrophils # Lymphocytes # Monocytes # Eosinophils # Basophils # Nucleated RBCs/100 WBC PT INR Sodium 139 Potassium 3.3 L Chloride 103 Carbon Dioxide 31 H BUN 75 H Creatinine 1.06 Est GFR ( Amer) > 60 Est GFR (Non-Af Amer) > 60 BUN/Creatinine Ratio 71 H Glucose 186 H POC Glucose Calculated Osmolality 315 H Calcium 8.5 L Total Bilirubin 0.8 AST 17 ALT 14 Ammonia Serum Total Protein 4.8 L Albumin 2.8 L Globulin 2.0 L Albumin/Globulin Ratio 1.4 Stool Occult Blood 06/26/17 10:29 WBC RBC Hgb Hct MCV MCH MCHC RDW Plt Count MPV Immature Gran % Seg Neutrophils % Lymphocytes % Monocytes % Eosinophils % Basophils % Neutrophils # Lymphocytes # Monocytes # Eosinophils # Basophils # Nucleated RBCs/100 WBC PT 16.4 H INR 1.5 Sodium Potassium Chloride Carbon Dioxide BUN Creatinine Est GFR ( Amer) Est GFR (Non-Af Amer) BUN/Creatinine Ratio Glucose POC Glucose Calculated Osmolality Calcium Total Bilirubin AST ALT Ammonia Serum Total Protein Albumin Globulin Albumin/Globulin Ratio Stool Occult Blood - ABG Interpretation ABG results: ABG ABG pH 7.49 pH Units (7.32-7.45) H 06/25/17 10:58 ABG pCO2 34 mmHg (35-45) L 06/25/17 10:58 ABG pO2 291 mmHg (85-104) H 06/25/17 10:58 ABG O2 Saturation 100 % (95-98) H 06/25/17 10:58 PT/INR, D-dimer PT 16.4 Seconds (9.4-12.1) H 06/26/17 10:29 Consult Discharge Plan - Plan Referrals: NONE,PCP [Non-Partnered Physician] -
--- NOTE | 2017-06-26 13:06 | Gastroenterology Consult Note ---
<Eileen Boyer - Last Filed: 06/26/17 13:04> Date of Encounter: 06/26/17 Time of Encounter: 10:50 - Assessment and plan (1) Upper GI bleed Current Visit: Yes Status: Acute Assessment and plan: Pt had 800 ml maroon drainage after insertion of NGT, now coffee ground. Discussed with Dr Ken, needs EGD but is scheduled for gastrojejunostomy tube tomorrow with Dr Rubio. (2) Anemia Current Visit: Yes Status: Acute Assessment and plan: chronic due to pancreatic ca, worse presently due to upper GI bleed, pt has metastasis and may have erosion it the stomach, outcome is dismal Qualifiers: Anemia type: unspecified type Qualified Code(s): D64.9 - Anemia, unspecified (3) Pancreatic cancer metastasized to liver Current Visit: Yes Status: Acute Assessment and plan: Pt has Stage IV with mets to the liver, prognosis is very dismal, discussed with pt and per Dr Ken - Time Spent With Patient Total time spent is greater than 50% in coordination of care (as documented) at patient's floor/unit and/or counseling patient: GI History of Present Illness - Data of Consult Patient: known to practice within the last 3 years Consult date: 06/26/17 Requesting Physician: Dana Yarbrough CNP - Consult Narrative Reason for consult: upper GI bleed History of present illness: Mr. Wilson is a 62 year old male with known history of arthritis, hypertension , diabetes, metastatic pancreatic adenocarcinoma stage IV with liver metastases diagnosed in May 2016, currently on chemo therapy with Abraxane since 2016, who does have ascities for which he had paracentesis on Thursday, and removed 6 l fluid. He presented to ER c/o not feeling well, intractable nausea and vomiting, SOB, lightheadedness and dizzy. He was found to have a Hgb of 6.6. He does have chronic anemia due to Pancreatic cancer, recently received 2 U PRBC at Heme Onc office. CT Abd and Plevis showed local recurrent of pancreatic tumor as well markedly distended stomach with possible gastric outlet obstruction. 18g NGT was placed and 800 ml of maroon fluid was evacuated and the patient had some relief. He has been transfused prbcs. He has been seen by Dr Carlson in the past and ERCPs with stents were placed on multiple occasions, last 02/01, and the family is requesting to see Dr Carlson. He was seen by palliative care team and pain medications are being adjusted. He remains a full code at this time. Colonoscopy: EGD: ERCP 02/01biliary tree metal stent in place sludge cleared, temporary stent placed in CBD NSAIDS/ASA: none Anticoagulants: none Past Med Surg Social Fam HX - Past Medical History Medical history: arthritis, cancer, diabetes, hypertension, other Psychiatric history: no psych history - Past Surgical History Surgical History: orthopedic, other, other - Social History Smoking Status: Current every day smoker Smokeless Tobacco Status: No Alcohol use: none Drug use: none - Family History Mother Family Member Ethnicity: Non- Living Status: Hx Family Cardiac Disorders: Yes (HTN) Hx Family Cancer: Yes (Colon) Father Family Member Ethnicity: Non- Living Status: Hx Family Cardiac Disorders: Yes (HD, SC, stroke) Brother Family Member Ethnicity: Non- Living Status: Hx Family Cancer: Yes (Colon) Sister Family Member Ethnicity: Non- Living Status: Still Living Hx Family Cardiac Disorders: Yes (HD) Hx Family Cancer: Yes (Breast) Review of Systems: GI: as per [place] GENERAL: denies fever, has some chills EYES: denies yellow discoloration ENT: denies pain with swallowing or difficulty swallowing CARDIO: chest pain, no palpitations RESP: Shortness of breath with exertion : dark yellow to orange urine NEURO: weakness HEME: bruising MS: chronic joint and back pain DERM: denies rash or itching PSYCH: history of anxiety or depression - Constitutional Vitals: Temp Pulse Resp BP Pulse Ox 98.6 F 109 20 108/70 96 06/26/17 11:16 06/26/17 11:35 06/26/17 11:16 06/26/17 11:16 06/26/17 11:16 Exam: CONSTITUTIONAL:~alert, no acute distress.~HEAD:~normocephalic, facial wasting noted.~EYES:~mild jaundice.~NECK:~no obvious swelling.~HEART:~regular rate and rhythm, no murmurs.~LUNGS:~decreased air exchange bilateral ~ABDOMEN:~distended , soft, mildly tender.~RECTAL EXAM:~Deferred.~EXTREMITIES:~no clubbing, cyanosis , 1+ BLE edema~SKIN:~pallor and mild jaundice noted.~NEUROLOGIC:~no obvious focal defect.~~~~ Results - Labs CBC & Chem 7: 06/26/17 10:29 06/26/17 10:29 Labs: Last Result Calcium 8.5 mg/dL (8.6-10.3) L 06/26/17 10:29 Troponin I < 0.03 ng/mL (< 0.04) 06/24/17 21:51 Stool Occult Blood Positive (Negative) A 06/26/17 01:35 Entire Visit Hgb 7.1 g/dL (12.9-16.9) L 06/26/17 10:29 Hct 20.8 % (37.5-50.1) L 06/26/17 10:29 PT 16.4 Seconds (9.4-12.1) H 06/26/17 10:29 Total Bilirubin 0.8 mg/dL (0.3-1.0) 06/26/17 10:29 AST 17 Units/L (13-39) 06/26/17 10:29 ALT 14 Units/L (7-52) 06/26/17 10:29 Ammonia 50 mcmol/L (16-53) 06/26/17 03:26 Lipase 7 Units/L (11-82) L 06/24/17 21:51 - ABG ABG results: ABG ABG pH 7.49 pH Units (7.32-7.45) H 06/25/17 10:58 ABG pCO2 34 mmHg (35-45) L 06/25/17 10:58 ABG pO2 291 mmHg (85-104) H 06/25/17 10:58 ABG O2 Saturation 100 % (95-98) H 06/25/17 10:58 PT/INR, D-dimer PT 16.4 Seconds (9.4-12.1) H 06/26/17 10:29 Consult Discharge Plan - Plan Referrals: NONE,PCP [Non-Partnered Physician] - <Ish Ken - Last Filed: 06/29/17 09:37> Date of Encounter: 06/26/17 - Time Spent With Patient Total time spent is greater than 50% in coordination of care (as documented) at patient's floor/unit and/or counseling patient: GI History of Present Illness - Data of Consult Requesting Physician: Abundio Sunshine DO - Consult Narrative History of present illness: Mr. Wilson is a 62 year old male - Constitutional Vitals: Temp Pulse Resp BP Pulse Ox 97.1 F L 85 16 114/85 96 06/29/17 04:35 06/29/17 08:00 06/29/17 08:00 06/29/17 08:00 06/29/17 04:30 Results - Labs CBC & Chem 7: 06/29/17 04:37 06/28/17 04:10 Labs: Last Result Calcium 8.2 mg/dL (8.6-10.3) L 06/28/17 04:10 Troponin I < 0.03 ng/mL (< 0.04) 06/24/17 21:51 Stool Occult Blood Positive (Negative) A 06/26/17 01:35 Entire Visit Hgb 8.8 g/dL (12.9-16.9) L 06/29/17 04:37 Hct 27.7 % (37.5-50.1) L 06/29/17 04:37 PT 16.6 Seconds (9.4-12.1) H 06/28/17 07:38 Total Bilirubin 0.9 mg/dL (0.3-1.0) 06/28/17 04:10 AST 20 Units/L (13-39) 06/28/17 04:10 ALT 15 Units/L (7-52) 06/28/17 04:10 Ammonia 50 mcmol/L (16-53) 06/26/17 03:26 Lipase 7 Units/L (11-82) L 06/24/17 21:51 - ABG ABG results: ABG ABG pH 7.49 pH Units (7.32-7.45) H 06/25/17 10:58 ABG pCO2 34 mmHg (35-45) L 06/25/17 10:58 ABG pO2 291 mmHg (85-104) H 06/25/17 10:58 ABG O2 Saturation 100 % (95-98) H 06/25/17 10:58 PT/INR, D-dimer PT 16.6 Seconds (9.4-12.1) H 06/28/17 07:38 - Attending Attestation Unfortunate 62 year old male with advanced pancreatic cancer S/P palliative stenting via ERCP in past - most recently 01/16/2017. Patient seen by surgery and slated to have a procedure tomorrow. Overall poor prognosis unfortunately. I have personally performed a face to face evaluation on this patient. I have reviewed and agree with the care plan. History and Exam by me shows:
[2017-06-26 15:37] LABS: Alkaline Phosphatase 255 Units/L (34-104)
[2017-06-26] MEDS ORDERED: Iron Sucrose Complex 400 MG in 0.9 % Sodium Chloride 250 ML IVPB ONE (17:43)
[2017-06-26] MEDS ORDERED: Cyanocobalamin (B-12) 1,000 MCG/ML VIAL IM ONE (17:45)
--- NOTE | 2017-06-26 17:48 | Oncology Inp Progress Note ---
Date of Encounter: 06/29/17 Time of Encounter: 17:45 (1) Gastric outlet obstruction Current Visit: Yes Status: Acute Assessment and plan: This is secondary to enlarging pancreatic mass. He also has bloody gastric drainage Plan is to do gastrojejunostomy 06/27/2017 with tube in the gastrojejunostomy Wound healing is a definite problem. May consider giving albumin infusions to improve his protein and oncotic pressure He may not need TPN at least for now (2) Pancreatic cancer metastasized to liver Current Visit: Yes Status: Acute Assessment and plan: He is on second line chemotherapy as mentioned. His CA-19-9 has come down but there is evidence of disease progression by enlargement of pancreatic head mass. This is causing gastric outlet obstruction. About 6 L of acetic fluid drained. Cytology showed atypical cells suspicious for adenocarcinoma Profound anemia . This could be related to leading into the stomach. Iron levels are low. Venofer 400 mg IV one dose. B12 also low at 230. B12 1000 g IM Overall prognosis poor. May consider palliative radiation to pancreas if it is causing erosion into the stomach Oncology: Subj Interval history: Gastric outlet obstruction with progressive pancreatic cancer. Also malignant ascites. He is feeling slightly better today - Constitutional Vitals: Vital Signs Temp Pulse Resp BP Pulse Ox 06/26/17 16:42 98 06/26/17 16:37 97.9 F 92 18 126/76 97 06/26/17 14:49 98.0 F 105 16 116/75 97 06/26/17 14:43 98.0 F 109 16 124/77 97 06/26/17 14:38 97.6 F 104 16 96 06/26/17 14:15 98.0 F 103 20 124/77 96 06/26/17 13:20 104 16 119/72 96 06/26/17 11:35 109 06/26/17 11:27 105 16 115/72 06/26/17 11:16 98.6 F 111 20 108/70 96 06/26/17 11:14 98.6 F 113 20 109/74 96 06/26/17 11:12 97.6 F 115 20 116/69 97 06/26/17 09:54 108 96 06/26/17 08:02 106 06/26/17 07:58 105 22 112/77 95 06/26/17 07:57 105 22 112/77 95 06/26/17 07:02 98.2 F 107 16 112/77 97 06/26/17 04:05 98.3 F 112 19 119/78 97 06/25/17 23:13 98.0 F 112 20 115/75 98 06/25/17 21:28 95 122/78 06/25/17 21:05 121 129/89 06/25/17 20:37 98.0 F 120 18 136/90 06/25/17 18:22 97.7 F 117 19 117/81 100 Intake and Output 06/26/17 06/26/17 06/26/17 07:59 15:59 23:59 Intake Total 1250 / 1250 742 / 742 620 / 620 Output Total 1000 / 1000 1525 / 1525 Balance 250 / 250 -783 / -783 620 / 620 Intake: IV Fluids 1250 / 1250 0.9 % Sodium Chloride 1,000 ML 1000 / 1000 @ 75 mls/hr IVC .[id number] [facility] Rx #:[id number] 0.9 % Sodium Chloride 250 ML @ 250 / 250 25 mls/hr IVC .Q10H [facility] Rx#: [id number] Oral 0 / 0 Blood Product 742 / 742 620 / 620 Rbcs Leuko Poor As-1 Unit 0 / 0 620 / 620 [id number] Rbcs Leuko Poor As-3 Ph Unit 742 / 742 [id number] Output: Urine 0 / 0 525 / 525 Gastric Drainage 1000 / 1000 1000 / 1000 Other: Meal NPO Percent of Meal Consumed 0% Stool Size Moderate Small Stool Consistency liquid liquid Stool Characteristics Normal for Patient Stool Color Black Black # Voids 1 Weight 62.9 kg Blood Glucose* 201 210 Patient Weight 06/26/17 23:59 Weight 62.9 kg Exam: GENERAL: Alert and oriented, fatigued Mental Status: Affect appropriate for circumstances HEENT: Sclerae anicteric. No mucositis or thrush. No other oral or pharyngeal lesions or erythema. Skin: No rashes or petechiae. No evidence of skin malignancy Lymph nodes: No cervical, supraclavicular, axillary, or inguinal adenopathy. Lungs: Air entry decreased at both bases Cardiovascular: Regular rate and rhythm. No skipped beats Abdomen: Mild to moderate distention. NG tube in place Extremities: No edema. No calf swelling or tenderness. No joint deformity. Neurologic: Alert, cranial nerves II-XII intact; normal gait; no focal weakness or sensory abnormalities Oncology: Obj Data - Labs CBC & Chem 7: 06/29/17 04:37 06/28/17 04:10 Labs: Laboratory Results - last 24 hr 06/25/17 06/25/17 06/25/17 00:06 06:03 10:47 Hgb Hct PT INR Sodium Potassium Chloride Carbon Dioxide BUN Creatinine Est GFR ( Amer) Est GFR (Non-Af Amer) BUN/Creatinine Ratio Glucose POC Glucose 276 H 255 H 290 H Calculated Osmolality Calcium Total Bilirubin AST ALT Alkaline Phosphatase Ammonia Serum Total Protein Albumin Globulin Albumin/Globulin Ratio Stool Occult Blood 06/25/17 06/25/17 06/25/17 17:53 17:55 19:58 Hgb Hct PT INR Sodium Potassium Chloride Carbon Dioxide BUN Creatinine Est GFR ( Amer) Est GFR (Non-Af Amer) BUN/Creatinine Ratio Glucose POC Glucose 392 H 397 H 401 H* Calculated Osmolality Calcium Total Bilirubin AST ALT Alkaline Phosphatase Ammonia Serum Total Protein Albumin Globulin Albumin/Globulin Ratio Stool Occult Blood 06/25/17 06/25/17 06/25/17 20:01 21:25 23:14 Hgb 7.2 L Hct 21.3 L PT INR Sodium Potassium Chloride Carbon Dioxide BUN Creatinine Est GFR ( Amer) Est GFR (Non-Af Amer) BUN/Creatinine Ratio Glucose POC Glucose 391 H 315 H Calculated Osmolality Calcium Total Bilirubin AST ALT Alkaline Phosphatase Ammonia Serum Total Protein Albumin Globulin Albumin/Globulin Ratio Stool Occult Blood 06/26/17 06/26/17 06/26/17 01:35 03:26 03:26 Hgb 7.1 L Hct 21.2 L PT INR Sodium Potassium Chloride Carbon Dioxide BUN Creatinine Est GFR ( Amer) Est GFR (Non-Af Amer) BUN/Creatinine Ratio Glucose POC Glucose Calculated Osmolality Calcium Total Bilirubin AST ALT Alkaline Phosphatase Ammonia 50 Serum Total Protein Albumin Globulin Albumin/Globulin Ratio Stool Occult Blood Positive A 06/26/17 06/26/17 06/26/17 07:05 10:29 10:29 Hgb 7.1 L Hct 20.8 L PT INR Sodium 139 Potassium 3.3 L Chloride 103 Carbon Dioxide 31 H BUN 75 H Creatinine 1.06 Est GFR ( Amer) > 60 Est GFR (Non-Af Amer) > 60 BUN/Creatinine Ratio 71 H Glucose 186 H POC Glucose 201 H Calculated Osmolality 315 H Calcium 8.5 L Total Bilirubin 0.8 AST 17 ALT 14 Alkaline Phosphatase 255 H Ammonia Serum Total Protein 4.8 L Albumin 2.8 L Globulin 2.0 L Albumin/Globulin Ratio 1.4 Stool Occult Blood 06/26/17 06/26/17 06/26/17 10:29 11:41 17:36 Hgb Hct PT 16.4 H INR 1.5 Sodium Potassium Chloride Carbon Dioxide BUN Creatinine Est GFR ( Amer) Est GFR (Non-Af Amer) BUN/Creatinine Ratio Glucose POC Glucose 206 H 210 H Calculated Osmolality Calcium Total Bilirubin AST ALT Alkaline Phosphatase Ammonia Serum Total Protein Albumin Globulin Albumin/Globulin Ratio Stool Occult Blood - ABG Interpretation ABG results: ABG ABG pH 7.49 pH Units (7.32-7.45) H 06/25/17 10:58 ABG pCO2 34 mmHg (35-45) L 06/25/17 10:58 ABG pO2 291 mmHg (85-104) H 06/25/17 10:58 ABG O2 Saturation 100 % (95-98) H 06/25/17 10:58 PT/INR, D-dimer PT 16.4 Seconds (9.4-12.1) H 06/26/17 10:29 Consult Discharge Plan - Plan Referrals: NONE,PCP [Non-Partnered Physician] -
[2017-06-26 18:09] LABS: Basophils % 0.2 %; Hematocrit 27.6 % (37.5-50.1); Immature Granulocytes % 0.9 % (0-4); Lymphocytes # 1.8 K/mcL (0.6-4.6); Lymphocytes % 9.2 %; Mean Corpuscular Volume 84.9 fL (83.0-100.0); Mean Platelet Volume 9.7 fL (9.4-12.4); Monocytes # 1.2 K/mcL (0.0-1.3); Neutrophils # 16.5 K/mcL (1.6-8.9); Nucleated Red Blood Cells 0.1 /100 WBC (0); Platelet Count 275 K/mcL (140-400); Red Blood Count 3.25 M/mcL (4.19-5.50); Red Cell Distribution Width 16.6 % (11.5-14.5); Segmented Neutrophils % 83.7 %
[2017-06-26 18:11] LABS: Hemoglobin 9.1 g/dL (12.9-16.9)
--- NOTE | 2017-06-26 21:25 | General Surgery Progress Note ---
Date of Encounter: 06/26/17 Time of Encounter: 13:00 Subjective Patient reports: feels better, still having pain Narrative: General Surgery - Hospital Day #2 -- this is a delayed dictation The patient is feeling somewhat better with NG tube decompression of his gastric distention was present at bedside Patient has been afebrile, most recently 98.6; patient remains tachycardic range 105 to 115 - this is likely due to to the patient's discomfort which he indicates is only partially controlled with the provided analgesics. Respiratory rate 16-20; blood pressure 108/70. NG output approximately 800 mL. Nursing reports large formed black stool. NG output also demonstrates the presence of blood. Hemoglobin is improved to 7.1/ hematocrit 21.2. Additional blood being transfused. PT 16.4/INR 1.5 Laboratories notable for potassium of 3.3; BUN has increased to 75, creatinine 1.06. The patient's clinical situation again discussed in detail. The patient likely has a gastric outlet obstruction secondary to his pancreatic cancer. This either has occurred due to enlargement of the pancreatic head causing outlet obstruction versus metastatic involvement of the stomach causing the obstruction. There is also evidence of ongoing GI bleeding for which an EGD is pending. The patient and his still wished to proceed with surgery. The patient remains a full code. The planned gastrojejunostomy was again discussed in detail. This will provide only transient relief from the patient's obviously progressive metastatic pancreatic cancer. The risks of surgery include hemorrhage, infection, intra- abdominal abscess, injury to adjacent structures and failure to achieve significant pain relief. The patient wishes to proceed. The surgery is planned for the a.m. however the findings on EGD, which is pending, will determine whether the GI bleeding is controlled or controllable and that surgery is a reasonable but palliative option. Objective Vital Signs - Last 8 Hours Temp Pulse Resp BP Pulse Ox 06/26/17 18:50 97.9 F 98 19 114/80 95 06/26/17 16:42 98 06/26/17 16:37 97.9 F 92 18 126/76 97 06/26/17 14:49 98.0 F 105 16 116/75 97 06/26/17 14:43 98.0 F 109 16 124/77 97 06/26/17 14:38 97.6 F 104 16 96 06/26/17 14:15 98.0 F 103 20 124/77 96 06/26/17 13:20 104 16 119/72 96 Intake and Output 06/26/17 06/26/17 06/26/17 07:59 15:59 23:59 Intake Total 1250 / 1250 742 / 742 890 / 890 Output Total 1000 / 1000 1525 / 1525 1200 / 1200 Balance 250 / 250 -783 / -783 -310 / -310 Intake: IV Fluids 1250 / 1250 270 / 270 0.9 % Sodium Chloride 1,000 ML 1000 / 1000 @ 75 mls/hr IVC .[id number] [facility] Rx #:[id number] 0.9 % Sodium Chloride 250 ML @ 250 / 250 25 mls/hr IVC .Q10H [facility] Rx#: [id number] Venofer 400 MG In 0.9 % Sodium 270 / 270 Chloride 250 ML @ 120 mls/hr IVPB ONCE ONE Rx#:[id number] Oral 0 / 0 0 / 0 Blood Product 742 / 742 620 / 620 Rbcs Leuko Poor As-1 Unit 0 / 0 620 / 620 [id number] Rbcs Leuko Poor As-3 Ph Unit 742 / 742 [id number] Output: Urine 0 / 0 525 / 525 0 / 0 Gastric Drainage 1000 / 1000 1000 / 1000 1200 / 1200 Other: Meal NPO Percent of Meal Consumed 0% Stool Size Moderate Small Small Stool Consistency liquid liquid loose Stool Characteristics Normal for Patient Stool Color Black Black Brown # Voids 1 Weight 62.9 kg Blood Glucose* 201 210 Patient Weight 06/26/17 23:59 Weight 62.9 kg - Labs 06/26/17 17:47 06/26/17 10:29 Diabetes panel 06/26/17 Range/Units 10:29 Sodium 139 (136-145) mEq/L Potassium 3.3 L (3.5-5.1) mEq/L Chloride 103 (98-107) mEq/L Carbon Dioxide 31 H (23-29) mEq/L BUN 75 H (8-23) mg/dL Creatinine 1.06 (0.70-1.30) mg/dL Glucose 186 H (70-105) mg/dL Calcium 8.5 L (8.6-10.3) mg/dL AST 17 (13-39) Units/L ALT 14 (7-52) Units/L Alkaline Phosphatase 255 H (34-104) Units/L Albumin 2.8 L (3.5-5.7) g/dL Calcium panel 06/26/17 Range/Units 10:29 Calcium 8.5 L (8.6-10.3) mg/dL Albumin 2.8 L (3.5-5.7) g/dL Pituitary panel 06/26/17 Range/Units 10:29 Sodium 139 (136-145) mEq/L Potassium 3.3 L (3.5-5.1) mEq/L Chloride 103 (98-107) mEq/L Carbon Dioxide 31 H (23-29) mEq/L BUN 75 H (8-23) mg/dL Creatinine 1.06 (0.70-1.30) mg/dL Glucose 186 H (70-105) mg/dL Calcium 8.5 L (8.6-10.3) mg/dL Adrenal panel 06/26/17 Range/Units 10:29 Sodium 139 (136-145) mEq/L Potassium 3.3 L (3.5-5.1) mEq/L Chloride 103 (98-107) mEq/L Carbon Dioxide 31 H (23-29) mEq/L BUN 75 H (8-23) mg/dL Creatinine 1.06 (0.70-1.30) mg/dL Glucose 186 H (70-105) mg/dL Calcium 8.5 L (8.6-10.3) mg/dL Total Bilirubin 0.8 (0.3-1.0) mg/dL AST 17 (13-39) Units/L ALT 14 (7-52) Units/L Alkaline Phosphatase 255 H (34-104) Units/L Albumin 2.8 L (3.5-5.7) g/dL Consult Discharge Plan - Plan Referrals: NONE,PCP [Non-Partnered Physician] -
[2017-06-27] MEDS: Insulin LISPRO 300 UNITS/3 ML VIAL SQ SCH ×4 (00:07→20:50)
[2017-06-27 04:28] LABS: Hematocrit 26.1 % (37.5-50.1); Hemoglobin 8.6 g/dL (12.9-16.9); Mean Corpuscular Hemoglobin 28.1 pg (28.0-33.3); Mean Corpuscular Volume 85.3 fL (83.0-100.0); Mean Platelet Volume 9.8 fL (9.4-12.4); Platelet Count 224 K/mcL (140-400); Red Blood Count 3.06 M/mcL (4.19-5.50); Red Cell Distribution Width 17.7 % (11.5-14.5)
[2017-06-27 04:48] LABS: Alanine Aminotransferase 16 Units/L (7-52); Albumin 2.9 g/dL (3.5-5.7); Albumin/Globulin Ratio 1.4 (1.1-2.2); Alkaline Phosphatase 237 Units/L (34-104); Aspartate Amino Transferase 21 Units/L (13-39); BUN/Creatinine Ratio 71 (6-26); Bilirubin,Total 0.8 mg/dL (0.3-1.0); Blood Urea Nitrogen 52 mg/dL (8-23); Calcium 8.3 mg/dL (8.6-10.3); Carbon Dioxide 29 mEq/L (23-29); Chloride 106 mEq/L (98-107); Globulin 2.1 g/dL (2.4-3.5); Glucose 146 mg/dL (70-105); Osmolality,Calculated 313 (280-300); Potassium 3.1 mEq/L (3.5-5.1); Sodium 143 mEq/L (136-145); eGFR For African Americans > 60 (> 60); eGFR For Non-African Americans > 60 (> 60)
[2017-06-27] MEDS: Lactulose Oral Soln 20 GM/30 ML UDC PO SCH (07:42)
[2017-06-27] MEDS: Pantoprazole 40 MG VIAL IVP SCH (07:57)
[2017-06-27] MEDS: 0.9 % Sodium Chloride 250 ML IVC SCH (08:54)
--- NOTE | 2017-06-27 10:05 | Internal Med Progress Note ---
Date of Encounter: 06/27/17 Time of Encounter: 08:30 - Assessment and plan (1) Gastric outlet obstruction Current Visit: Yes Status: Acute Assessment and plan: presented with ABD pain. ABD CT showed moderately to markedly distended stomach concerning for gastric outlet obstruction with partial obstruction of the duodenum. Secondary to enlarging pancreatic mass causing outlet obstruction versus metastatic involvement of the stomach causing the obstruction. NG placed at bedside per general surgery. Patient is poor surgical candidate however a gastrojejunostomy is planned for palliative treatment. Wound healing is a concern post-op; Oncology recommends considering albumin infusions to improve his protein and oncotic pressure. Need to consider TPN as well. OR planned . General surgery following (2) Pancreatic cancer metastasized to liver Current Visit: Yes Status: Acute Assessment and plan: hx pancreatic cancer stage IV with multiple liver metastasis. S/p outpatient paracentesis with 6 L drained; cytology showed atypical cells suspicious for adenocarcinoma. ABD CT showed increasing soft tissue mass surrounding and bile duct stent concerning for recurrence of pancreatic tumor. Overall prognosis is poor. Pain controlled fentanyl gtt. Oncology and Palliative following. (3) Anemia Current Visit: Yes Status: Acute Assessment and plan: mulitfactorial with pancreatic cancer, chemo and acutely worsened with acute blood loss. Hgb 6.6 on admission; has received multiple units of PRBCs. NG with coffee-ground drainage, now clearing. Etiology unknown but suspect possible disease progression with erosion into stomach or peptic ulcer disease/ peptic ulceration. Keep NG to low wall suction, NPO, IV PPI. Monitor H&H and transfuse for Hgb less than 8. Qualifiers: Anemia type: unspecified type Qualified Code(s): D64.9 - Anemia, unspecified (4) Hypokalemia Current Visit: No Status: Acute Assessment and plan: K 3.1; secondary to excessive GI loss with NG tube. Replacement ordered. Monitor repeat BMP. (5) Hyperammonemia Current Visit: Yes Status: Acute Assessment and plan: Ammonia level 100. Lactulose started with improvement in mentation. Repeat ammonia level 50. Continue lactulose, maintaining mentation on 10 eam (6) Diabetes mellitus Current Visit: No Status: Chronic Assessment and plan: per hx. blood sugars variable. Accu-Cheks every 4 hours. Cont SSI. Monitor blood sugars and titrate PRN Qualifiers: Diabetes mellitus type: type 2 Diabetes mellitus complication status: with hyperglycemia Diabetes mellitus penitentiary insulin use: without intermediate designer use Qualified Code(s): E11.65 - Type 2 diabetes mellitus with hyperglycemia (7) Near syncope Current Visit: Yes Status: Acute Assessment and plan: per chart review, reported multiple episodes of near syncope on day of presentation. Had recurrent episode on 06/25/17 and rapid response was called. Suspect multifactorial with hypovolemia from paracentesis/anemia and disease progression. Symptoms now improved, no near-syncope recurrence. Hemodynamically stable; no further tachycardia or hypotension. No further workup indicated at this time. Continue to monitor. (8) Full code status Current Visit: Yes Status: Acute Assessment and plan: Full code; verified with family/patient on 06/25/17 although family considering comfort care. Palliative following. CODE STATUS remains full code as of now (9) DVT prophylaxis Current Visit: No Status: Acute Assessment and plan: SCDs - Subjective Interval history: Seen and examined at bedside; says he is weak and tired but overall feels better. He did not have EGD yesterday. Says he sat up in chair for a little bit yesterday. Has a little ABD pain; pain controlled with IV fentanyl. No CP, no SOB - Constitutional Vitals: Temp Pulse Resp BP Pulse Ox 98.5 F 86 18 120/78 93 06/27/17 06:59 06/27/17 08:06 06/27/17 06:59 06/27/17 08:06 06/27/17 08:06 General appearance: Present: A&O X 3, underweight, answers questions appropriately - Head Head exam: Present: atraumatic, normocephalic - Eye Eye exam: Present: PERRL, conjuntiva pink, sclera anicteric Pupils: Present: PERRL - Neck Neck exam general surgery: Present: supple, trachea midline. Absent: lymphadenopathy - Respiratory Respiratory exam: Present: CTAB. Absent: accessory muscle use, rales, rhonchi, wheezes - Cardiovascular Cardiovascular exam: Present: RRR, +S1, +S2. Absent: diastolic murmur, gallop, rubs, systolic murmur - GI/Abdominal GI/Abdominal exam: Present: firm, normal bowel sounds, no peritoneal signs. Absent: distended, tenderness Additional comments: NG to left nare - Extremities Exam Extremities exam: Present: warm, radial pulses palpable and symmetrical. Absent : calf tenderness, cyanotic, pedal edema - Neurological Exam Neurological exam: Present: CN II-XII intact, oriented X3, no focal deficits. Absent: pronater drift, facial droop, speech deficit - Skin Skin exam: Present: dry, intact Internal Medicine: Result - Labs CBC & Chem 7: 06/27/17 04:00 06/27/17 04:00 Labs: Short CBC 06/26/17 06/26/17 06/27/17 Range/Units 10:29 17:47 04:00 WBC 19.7 H 16.9 H (4.3-11.1) K/mcL Hgb 7.1 L 9.1 L D 8.6 L (12.9-16.9) g/dL Hct 20.8 L 27.6 L 26.1 L (37.5-50.1) % Plt Count 275 224 (140-400) K/mcL Neutrophils # 16.5 H (1.6-8.9) K/mcL BMP 06/26/17 06/27/17 10:29 04:00 Sodium 139 143 Potassium 3.3 L 3.1 L Chloride 103 106 Carbon Dioxide 31 H 29 BUN 75 H 52 H Creatinine 1.06 0.73 Glucose 186 H 146 H Calcium 8.5 L 8.3 L Liver Function 06/26/17 06/27/17 Range/Units 10:29 04:00 Total Bilirubin 0.8 0.8 (0.3-1.0) mg/dL AST 17 21 (13-39) Units/L ALT 14 16 (7-52) Units/L Alkaline Phosphatase 255 H 237 H (34-104) Units/L Albumin 2.8 L 2.9 L (3.5-5.7) g/dL - ABG Interpretation ABG results: ABG ABG pH 7.49 pH Units (7.32-7.45) H 06/25/17 10:58 ABG pCO2 34 mmHg (35-45) L 06/25/17 10:58 ABG pO2 291 mmHg (85-104) H 06/25/17 10:58 ABG O2 Saturation 100 % (95-98) H 06/25/17 10:58 PT/INR, D-dimer PT 16.4 Seconds (9.4-12.1) H 06/26/17 10:29 Consult Discharge Plan - Plan Referrals: NONE,PCP [Non-Partnered Physician] -
--- NOTE | 2017-06-27 10:17 | Event Note ---
Date of Encounter: 06/27/17 Time of Encounter: 10:00 Patient resting - for OR later today. Comfortable on Fentanyl drip at 25mcg/ hr. NG drainage now lt green - appears bleeding has subsided. Will follow clinical progress.
[2017-06-27] MEDS: *HR* FentaNYL (PF) 100 MCG/2 ML VIAL IVP PRN (10:31)
[2017-06-27 10:41] LABS: Hematocrit 26.9 % (37.5-50.1); Hemoglobin 8.9 g/dL (12.9-16.9)
--- NOTE | 2017-06-27 11:27 | Anesthesia Evaluation PreOp ---
Date of Encounter: 06/27/17 Time of Encounter: 11:25 - Past History Planned Operation: GastroJejunostomy Cardiac History: HTN Pulmonary History: Former smoker, COPD MACHINE COMPOSITOR History: Denies Any Significant HX Other Medical History: Diabetes Type II, Other (Metastatic Pancreatic Cancer) Anesthesia History: No Prior Anesthetic Complications Alcohol Use: none Drug use: none Medications and Allergies Magic Mouthwash 5 ml PO Q4H PRN #240 ml 06/09/16 [Rx] Ondansetron HCl [Zofran] 4 mg PO Q6H PRN #40 tablet 10/30/16 [Rx] Cyclobenzaprine [Flexeril] 10 mg PO TID PRN 01/15/17 [History] Zolpidem [Ambien] 10 mg PO HS PRN 01/27/17 [History] Bisacodyl [Dulcolax] 10 mg PO DAILY PRN tab 01/29/17 [Rx] Prochlorperazine Maleate [Compazine] 10 mg PO Q6HR PRN #30 tablet 03/10/17 [Rx] Lidocaine/Prilocaine [Emla] 1 appl TP AD #30 gm 03/31/17 [Rx] Insulin Glargine,Hum.rec.anlog [Basaglar Kwikpen U-100] 10 unit SQ BID #5 insuln.pen 04/17/17 [Rx] Dicyclomine [Bentyl] 10 mg PO QID PRN #30 capsule 06/09/17 [Rx] Hydromorphone HCl [Dilaudid] 4 mg PO Q6H PRN #120 tablet 06/09/17 [Rx] Lipase/Protease/Amylase [Remigio Dr 24,000 Units Capsule] 1 each PO ACHS #90 cap 06/09/17 [Rx] Omeprazole [PriLOSEC] 20 mg PO DAILY #30 cap 06/09/17 [Rx] Oxycodone HCl/Acetaminophen [Percocet 10-325 mg Tablet] 1 each PO Q6H PRN #120 tablet 06/09/17 [Rx] 3 Allergy/AdvReac Type Severity Reaction Status Date / Time morphine AdvReac Headache Verified 06/24/17 22:47 Anesthesia Results - Labs 06/27/17 10:15 06/27/17 04:00 Laboratory Tests 01/27/17 06/26/17 06/27/17 02:16 10:29 04:00 Hgb Hct Plt Count 224 PT 16.4 H INR 1.5 APTT 30.3 Sodium Potassium BUN Creatinine 06/27/17 06/27/17 04:00 10:15 Hgb 8.9 L Hct 26.9 L Plt Count PT INR APTT Sodium 143 Potassium 3.1 L BUN 52 H Creatinine 0.73 - Imaging EKG: report reviewed (Sinus Tach) Anesthesia Exam O2 Sat Weight 60.3 kg Weight 67.7 kg O2 Sat by Pulse Oximetry 93 O2 Sat by Pulse Oximetry 92 O2 Sat by Pulse Oximetry 94 O2 Sat by Pulse Oximetry 95 O2 Sat by Pulse Oximetry 95 O2 Sat by Pulse Oximetry 97 O2 Sat by Pulse Oximetry 97 O2 Sat by Pulse Oximetry 97 O2 Sat by Pulse Oximetry 96 O2 Sat by Pulse Oximetry 96 O2 Sat by Pulse Oximetry 96 Vital Signs Temp Pulse Resp BP Pulse Ox 97.6 F 103 18 99/68 92 06/24/17 21:31 06/24/17 21:31 06/24/17 21:31 06/24/17 21:31 06/24/17 21:31 Height: 5'2 Weight: 132 lbs NPO (# of Hours): MN Pain Scale: 0 - HEENT Pupil (Motor): Pupils equal, EOMI Mallampati: II Teeth: Edentulous Oral Opening: Greater than 3 - MACHINE COMPOSITOR LOC: Oriented MACHINE COMPOSITOR Motor: Normal RUE, Normal LUE, Normal RLE, Normal LLE, Normal Face MACHINE COMPOSITOR Sensory: Normal: RUE, LUE, RLE, LLE, Face - Cardiac Rhythm: Regular Murmur: None JVD: No Carotid Bruit: No - Pulmonary Breath Sounds: bilateral Clear Respiratory Effort: Symmetrical Anesthesia Assess/Plan ASA Score: 3 (HTN COPD Met Pancreatic Cancer) Modified Karely Scale for Level of Consciousness: Cooperative, oriented, and tranquil Anesthetic Plan: General, Regional Monitoring Plan: Standard Monitors Recovery Plan: PACU (Discussed GA, possible TAP Block, agrees to proceed)
[2017-06-27] MEDS ORDERED: Dexamethasone 4 MG/ML VIAL ONE (11:40)
[2017-06-27] MEDS ORDERED: *HR* FentaNYL (PF) 100 MCG/2 ML VIAL ONE ×2 (11:40→12:36)
[2017-06-27] MEDS ORDERED: Lidocaine -MPF 2% 2 ML VIAL ONE (11:40)
[2017-06-27] MEDS ORDERED: *HR* Rocuronium Bromide 50 MG/5 ML VIAL ONE (11:40)
[2017-06-27] MEDS ORDERED: Ondansetron 4 MG/2 ML VIAL ONE (11:40)
[2017-06-27] MEDS ORDERED: 0.9 % Sodium Chloride 500 ML ONE (11:47)
[2017-06-27] MEDS ORDERED: *HR* PHENYLEPHRINE 1,000 MCG/10 ML SYRINGE IVP ONE (12:19)
[2017-06-27] MEDS ORDERED: Bupivacaine/EPI 1:200k 0.5%PF 30 ML VIAL ONE (12:22)
[2017-06-27] MEDS ORDERED: ceFAZolin 2,000 MG in Water for inj. (sterile) 20 ML IVP ONE (12:42)
[2017-06-27] MEDS ORDERED: Neostigmine Methylsulfate 3 MG/3 ML SYRINGE ONE (13:14)
[2017-06-27] MEDS ORDERED: *HR* Morphine 10 MG/ML VIAL ONE (13:32)
--- NOTE | 2017-06-27 14:19 | Operative Note ---
Date of procedure: 06/27/17 Pre-op diagnosis: metastatic pancreatic carcinoma with gastric outlet obstruction Post-op diagnosis: same Procedure: placement CVL for elena operative IV access; explor celiotomy, stapled gastrojejunostomy with placement gastrojejunostomy tube Complications: none apparent Anesthesia: GETA Local Anesthetics: 0.5% Sensorcaine HCL with Epinephrine 1:200,000 SubQ (cc) ( 40 mL) Surgeon: Jorge Rubio Was there an refinery operator assistant present: No Estimated blood loss (cc): 100 IV fluids (cc): 1,000 Specimen: none Condition: critical Disposition: ICU Procedure in Detail: Brief history: 62-year-old male with known history of metastatic pancreatic cancer referred for evaluation of new onset abdominal pain, distention, and radiographic evidence of acute gastric outlet obstruction. The patient was seen and examined, x-rays and labs were reviewed. Lengthy discussion with patient and family completed. The patient presents now gastrojejunostomy with placement of a gastrojejunostomy tube to bypass the gastric outlet obstruction. Technique: The patient was brought to the operating room where he was placed supine on the operating room table. The patient was appropriately identified as person and procedure. The accuracy of this information is confirmed by the patient as well as the procedure team. The patient was intubated and anesthetized under the supervision of Dr. Anthony Cardenas. At the time of endotracheal intubation, the only IV access was a port which had previously been placed via the right subclavian vein. This was sufficient to sedate the patient for intubation but anesthesia requested additional IV access. The patient was placed in Trendelenburg, the left upper chest and shoulder was prepped with chlorhexidine. A whole body drape was applied. Using an 18-gauge needle the left subclavian vein was located. At no time was air aspirated. In a technique described by Adelaida, the guidewire was inserted, the needle extracted. The skin tract was incised and dilated. A 16 cm, 7Fr, 3 lumen Arrow -lyn catheter was passed over the guidewire. The guidewire was removed. 3 ports aspirated easily for blood and were flushed with saline. The catheter was advanced to 15 cm and secured to the infraclavicular skin with 3-0 silk. A Biopatch was applied followed by a dry sterile OpSite dressing. The patient bilateral equal breath sounds at the completion of the line placement. The surgeon then re-scrubbed and was gowned and gloved in the usual manner. The abdomen was prepped and draped in usual sterile fashion. A midline incision from xiphoid to umbilicus was planned with a skin scribe. This proposed incision was infiltrated with several milliliters of 0.5% bupivacaine with 1 200,000 epinephrine. The skin was incised, dissection extended to the fascia. Bleeding points were controlled with electrocautery. The fascia was then incised and the abdomen entered atraumatically. Immediately on entering the peritoneal cavity copious clear ascites was encountered. Approximately 2800 mL of this fluid was evacuated. Examination demonstrated extensive carcinomatosis throughout the serosal surfaces and omentum. The liver also had significant palpable "studding". An ill-defined indurated mass was evident in the midline. Small bowel was examined from the ligament of Treitz to the ileocecal valve. There were no obvious obstructing lesions. A segment of the jejunum was approximated to the anterior abdominal wall with interrupted 3-0 silk. A small incision was made in the stomach and adjacent small bowel. A stapled gastrojejunostomy was completed with an Ethicon 75 mm linear stapler. A Kay gastrojejunostomy tube was introduced through the left upper anterior abdominal wall. A pursestring 3-0 silk was placed in the anterior gastric wall. A gastrotomy was placed in the center of this pursestring. A gastrojejunostomy tube was passed through the gastrotomy and exited through the remaining defect in the gastric wall related to the stapled gastrojejunostomy. The pursestring was secured and the anterior gastric wall affixed to the anterior abdominal wall with 3-0 silk. The gastric balloon was inflated with 5 mL sterile saline. The gastrojejunostomy tube was then passed into the efferent limb of the gastrojejunostomy. The remaining defect in the thymic and small bowel was closed with interrupted 3-0 silk reinforced with an Ethicon TX 60 mm stapler. Hemostasis appeared to be adequate. The abdominal wall was then closed in layers. The peritoneum was closed with running interlocking 0 Vicryl. The fascia was closed with interrupted [id number] 0 Vicryl. The fascia was infiltrated with several milliliters of 0.5% piperocaine with 1-200, 000 epinephrine. The skin edges were approximated with slim. A dry sterile dressing was applied. The gastrojejunostomy tube was secured to the anterior abdominal wall with interrupted 3-0 silk. The patient was taken to ICU in stable condition. Needle, sponge, and instrument counts were correct at the close of the case. Total volume of 0.5% bupivacaine with 1-200,000 epinephrine , 40 mL.
[2017-06-27] MEDS ORDERED: D5% in Water 1,000 ML IVC PRN (15:18)
[2017-06-27] MEDS ORDERED: Ondansetron 4 MG/2 ML VIAL IVP PRN (15:18)
[2017-06-27] MEDS ORDERED: FentaNYL (PF) 1,000 MCG in 0.9 % Sodium Chloride 80 ML IVC SCH (15:18)
[2017-06-27] MEDS ORDERED: *HR* Promethazine 25 MG/ML VIAL IVP PRN (15:18)
[2017-06-27] MEDS ORDERED: *HR* Dextrose 50 % in Water (Syg) 50 ML SYRINGE IVP PRN (15:18)
[2017-06-27] MEDS ORDERED: Dextrose Gel 15 GM/37.5 ML TUBE PO PRN (15:18)
[2017-06-27] MEDS ORDERED: Magic Mouthwash 10 ML UD Cup PO PRN (15:18)
[2017-06-27] MEDS ORDERED: Naloxone 0.4 MG/ML INJ IVP PRN (15:18)
[2017-06-27 15:41] LABS: Hemoglobin 9.1 g/dL (12.9-16.9)
[2017-06-27] MEDS: Ringers Solution, Lactated 1,000 ML IVC SCH (16:08)
[2017-06-27] MEDS ORDERED: Insulin LISPRO 300 UNITS/3 ML VIAL SQ SCH (17:57)
[2017-06-27 22:11] LABS: Hematocrit 27.1 % (37.5-50.1); Hemoglobin 8.7 g/dL (12.9-16.9)
[2017-06-28] MEDS: Insulin LISPRO 300 UNITS/3 ML VIAL SQ SCH ×6 (00:07→20:18)
[2017-06-28] MEDS: Ringers Solution, Lactated 1,000 ML IVC SCH (04:24)
[2017-06-28 04:26] LABS: Hematocrit 27.2 % (37.5-50.1); Hemoglobin 8.7 g/dL (12.9-16.9); Mean Corpuscular Hemoglobin 28.8 pg (28.0-33.3); Mean Corpuscular Volume 90.1 fL (83.0-100.0); Mean Platelet Volume 9.6 fL (9.4-12.4); Platelet Count 228 K/mcL (140-400); Red Blood Count 3.02 M/mcL (4.19-5.50); Red Cell Distribution Width 19.3 % (11.5-14.5)
[2017-06-28 05:42] LABS: Alanine Aminotransferase 15 Units/L (7-52); Albumin 2.8 g/dL (3.5-5.7); Albumin/Globulin Ratio 1.3 (1.1-2.2); Alkaline Phosphatase 213 Units/L (34-104); Aspartate Amino Transferase 20 Units/L (13-39); BUN/Creatinine Ratio 52 (6-26); Bilirubin,Total 0.9 mg/dL (0.3-1.0); Blood Urea Nitrogen 35 mg/dL (8-23); Calcium 8.2 mg/dL (8.6-10.3); Carbon Dioxide 28 mEq/L (23-29); Chloride 106 mEq/L (98-107); Globulin 2.1 g/dL (2.4-3.5); Glucose 154 mg/dL (70-105); Osmolality,Calculated 307 (280-300); Sodium 143 mEq/L (136-145); Total Protein 4.9 g/dL (6.4-8.9); eGFR For African Americans > 60 (> 60); eGFR For Non-African Americans > 60 (> 60)
--- NOTE | 2017-06-28 07:08 | Pulmonology Consult Note ---
Date of Encounter: 06/28/17 Time of Encounter: 07:03 Assessment and Plan (1) Gastric outlet obstruction Current Visit: Yes Status: Acute Postop day 0 status post palliative surgical evaluation of gastric outlet obstruction. Encouraging hemodynamically stable with acceptable oxygenation on Oxy mask which can likely be weaned down to nasal cannula over the next 12-24 hours. 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 Encouragingly renal function appears stable and we will continue to monitor urine output (2) Pancreatic cancer Current Visit: Yes Status: Acute This is advanced metastatic pancreatic cancer with overall poor prognosis oncology following his receiving chemotherapy Qualifiers: Pancreatic malignancy location: unspecified Qualified Code(s): C25.9 - Malignant neoplasm of pancreas, unspecified (3) Protein-calorie malnutrition, mild Current Visit: No Status: Acute Seen by dietary was plan to start TPN (4) Counseling regarding advanced care planning and goals of care Current Visit: Yes Status: Acute Patient currently full code however given extent of metastatic disease this would be inappropriate based upon outcomes in this patient population palliative care has been consulted prior to admission to ICU and is following closely with patient need to continue to educate patient about the outcomes of metastatic oncology patients who undergo CPR (5) DVT prophylaxis Current Visit: No Status: Acute Mechanical DVT prophylaxis today and can start low molecular weight heparin likely within the next 24 hours after discussion with general surgery (6) Cancer-related pain Current Visit: No Status: Chronic Currently receiving fentanyl infusion and pain appears adequately controlled History of Present Illness Consult date: 06/28/17 Requesting physician: Jorge Rubio Reason for consult: other Chief complaint: abdominal pain History of present illness: 62-year-old gentleman unfortunately has developed metastatic pancreatic cancer and developed gastric outlet obstruction he is postop day 0 status post palliative exploratory celiotomy with stapled gastrojejunostomy and placement of GJ tube. The surgery was performed by Dr. Rubio who kindly requested critical care evaluation of the patient postoperatively and medical management. Patient tolerated the procedure very well and was able to be liberated from the ventilator in the PACU and is otherwise hemodynamically stable when I evaluated him. With regard to treatment of underlying malignancy is on saline chemotherapy and although tumor markers have declined on this therapy has evidence of diffuse carcinomatosis of the abdomen. Course is also been complicated by malnutrition. Concerning his also had significant anemia with a concern for GI invasion however this has not been confirmed by endoscopy Clearly overall prognosis is extremely poor and both oncologist and palliative care and involved and goals of care conversation. When I examined the patient and this note reflects the findings from 06/27/2017 he is comfortable but does complain of some moderate postoperative abdominal pain. He is otherwise drowsy. Past Med Surg Social Fam HX - Past Medical History Medical history: arthritis, cancer, diabetes, hypertension, other Psychiatric history: no psych history - Past Surgical History Surgical History: orthopedic, other, other - Social History Smoking Status: Current every day smoker Smokeless Tobacco Status: No Alcohol use: none Drug use: none - Family History Mother Family Member Ethnicity: Non- Living Status: Hx Family Cardiac Disorders: Yes (HTN) Hx Family Cancer: Yes (Colon) Father Family Member Ethnicity: Non- Living Status: Hx Family Cardiac Disorders: Yes (HD, [place], stroke) Brother Family Member Ethnicity: Non- Living Status: Hx Family Cancer: Yes (Colon) Sister Family Member Ethnicity: Non- Living Status: Still Living Hx Family Cardiac Disorders: Yes (HD) Hx Family Cancer: Yes (Breast) Medications and Allergies Magic Mouthwash 5 ml PO Q4H PRN #240 ml 06/09/16 [Rx] Ondansetron HCl [Zofran] 4 mg PO Q6H PRN #40 tablet 10/30/16 [Rx] Cyclobenzaprine [Flexeril] 10 mg PO TID PRN 01/15/17 [History] Zolpidem [Ambien] 10 mg PO HS PRN 01/27/17 [History] Bisacodyl [Dulcolax] 10 mg PO DAILY PRN tab 01/29/17 [Rx] Prochlorperazine Maleate [Compazine] 10 mg PO Q6HR PRN #30 tablet 03/10/17 [Rx] Lidocaine/Prilocaine [Emla] 1 appl TP AD #30 gm 03/31/17 [Rx] Insulin Glargine,Hum.rec.anlog [Basaglar Kwikpen U-100] 10 unit SQ BID #5 insuln.pen 04/17/17 [Rx] Dicyclomine [Bentyl] 10 mg PO QID PRN #30 capsule 06/09/17 [Rx] Hydromorphone HCl [Dilaudid] 4 mg PO Q6H PRN #120 tablet 06/09/17 [Rx] Lipase/Protease/Amylase [Creon Dr 24,000 Units Capsule] 1 each PO ACHS #90 cap 06/09/17 [Rx] Omeprazole [PriLOSEC] 20 mg PO DAILY #30 cap 06/09/17 [Rx] Oxycodone HCl/Acetaminophen [Percocet 10-325 mg Tablet] 1 each PO Q6H PRN #120 tablet 06/09/17 [Rx] 3 Allergy/AdvReac Type Severity Reaction Status Date / Time morphine AdvReac Headache Verified 06/24/17 22:47 All Systems: A 10-system review of systems was performed and is negative for pertinent findings except as documented above in the HPI. Physical Examination Vital Signs: Vital Signs, Last 4 Hours Temp Pulse Resp BP Pulse Ox 06/28/17 06:00 88 16 139/89 98 06/28/17 05:00 94 18 143/87 99 06/28/17 04:32 98.0 F 06/28/17 04:00 98 20 125/89 98 General appearance: no acute distress, other (Drowsy but easily awakens) Eyes: nonicteric ENT: oropharynx dry Neck: supple Effort: normal Auscultation: bilateral: clear Cardiovascular: regular rate and rhythm Gastrointestinal: hypoactive bowel sounds, soft, tender (Surgical incision is dressed and dressing is clean and dry and intact) Integumentary: normal Extremities: no edema Musculoskeletal: no deformities non-focal exam, pupils equal and round affect normal Results - Laboratory Findings CBC and BMP: 06/28/17 04:10 06/28/17 04:10 ABG ABG pH 7.49 pH Units (7.32-7.45) H 06/25/17 10:58 ABG pCO2 34 mmHg (35-45) L 06/25/17 10:58 ABG pO2 291 mmHg (85-104) H 06/25/17 10:58 ABG O2 Saturation 100 % (95-98) H 06/25/17 10:58 PT/INR, D-dimer PT 16.4 Seconds (9.4-12.1) H 06/26/17 10:29 Abnormal lab findings: Abnormal lab results WBC 14.0 K/mcL (4.3-11.1) H 06/28/17 04:10 RBC 3.02 M/mcL (4.19-5.50) L 06/28/17 04:10 Hgb 8.7 g/dL (12.9-16.9) L 06/28/17 04:10 Hct 27.2 % (37.5-50.1) L 06/28/17 04:10 RDW 19.3 % (11.5-14.5) H 06/28/17 04:10 Neutrophils # 16.5 K/mcL (1.6-8.9) H 06/26/17 17:47 Nucleated RBCs/100 WBC 0.1 /100 WBC (0) H 06/26/17 17:47 PT 16.4 Seconds (9.4-12.1) H 06/26/17 10:29 ABG pH 7.49 pH Units (7.32-7.45) H 06/25/17 10:58 ABG pCO2 34 mmHg (35-45) L 06/25/17 10:58 ABG pO2 291 mmHg (85-104) H 06/25/17 10:58 ABG Total CO2 27 mEq/L (20-26) H 06/25/17 10:58 ABG O2 Saturation 100 % (95-98) H 06/25/17 10:58 BUN 35 mg/dL (8-23) H 06/28/17 04:10 Creatinine 0.67 mg/dL (0.70-1.30) L 06/28/17 04:10 BUN/Creatinine Ratio 52 (6-26) H 06/28/17 04:10 Glucose 154 mg/dL (70-105) H 06/28/17 04:10 POC Glucose 156 (58-89) H 06/28/17 04:19 Calculated Osmolality 307 (280-300) H 06/28/17 04:10 Calcium 8.2 mg/dL (8.6-10.3) L 06/28/17 04:10 Direct Bilirubin 0.3 mg/dL (0.0-0.2) H 06/24/17 21:51 Alkaline Phosphatase 213 Units/L (34-104) H 06/28/17 04:10 Serum Total Protein 4.9 g/dL (6.4-8.9) L 06/28/17 04:10 Albumin 2.8 g/dL (3.5-5.7) L 06/28/17 04:10 Globulin 2.1 g/dL (2.4-3.5) L 06/28/17 04:10 Lipase 7 Units/L (11-82) L 06/24/17 21:51 Stool Occult Blood Positive (Negative) A 06/26/17 01:35 - Clinical Findings Intake & Output: Intake & Output 06/27/17 06/27/17 06/28/17 15:59 23:59 07:59 Intake Total 662.5 / 662.5 1495 / 1495 Output Total 3760 / 3760 200 / 200 300 / 300 Balance -3097.5 / -3097.5 -200 / -200 1195 / 1195 Weight 60.8 kg Consult Discharge Plan - Plan Referrals: NONE,PCP [Non-Partnered Physician] -
[2017-06-28 07:59] LABS: INR 1.5; Prothrombin Time 16.6 Seconds (9.4-12.1)
[2017-06-28] MEDS ORDERED: Pantoprazole 40 MG VIAL IVP SCH (09:00)
--- NOTE | 2017-06-28 09:54 | General Surgery Progress Note ---
Date of Encounter: 06/28/17 Time of Encounter: 09:15 Subjective Narrative: General Surgery - POD #1 Patient feeling well, minimal abdominal distention, no N/V. Distention resolved with placement gastrostomy port to intermittent suction. patient has remained afeb; 97.9; pulse 84-90; respiratory rate 18, blood pressure stable at 140/87 Lungs: Clear; no obvious pain on deep inspiration Abdomen: Soft, active bowel sounds but no flatus or BM. Midline incision clean and dry; dressing removed. Gastrostomy tube also intact - small amount of bilious fluid evacuated when gastrostomy tube placed to suction. Urine output approximately 400 mL so far today. Laboratories: White count has improved to 14.0; hemoglobin stable at 8.7, hematocrit 27.2. Electrolytes notable for correction of hypokalemia; electrolytes currently within normal limits; BUN has improved to 35, creatinine 0.67. Impression: Postoperative day #1 - status post stapled gastrojejunostomy for gastric outlet obstruction secondary to prostatic pancreatic cancer. Acceptable status Plan: Transfer to General bed (3A) Allow clear liquids Objective Vital Signs - Last 8 Hours Temp Pulse Resp BP Pulse Ox 06/28/17 09:00 90 18 140/87 95 06/28/17 08:24 97.9 F 06/28/17 08:00 84 19 141/82 95 06/28/17 07:00 86 15 144/86 100 06/28/17 06:00 88 16 139/89 98 06/28/17 05:00 94 18 143/87 99 06/28/17 04:32 98.0 F 06/28/17 04:00 98 20 125/89 98 06/28/17 03:00 81 16 150/84 98 06/28/17 02:00 79 16 127/82 98 Intake and Output 06/27/17 06/28/17 06/28/17 23:59 07:59 15:59 Intake Total 1507.5 / 1507.5 Output Total 200 / 200 300 / 300 130 / 130 Balance -200 / -200 1207.5 / 1207.5 -130 / -130 Intake: IV Fluids 1027.5 / 1027.5 FentaNYL (PF) 1,000 MCG In 0.9 27.5 / 27.5 % Sodium Chloride 80 ML @ 25 MCG/HR 2.5 mls/hr IVC CONT KATIE Rx#:[id number] Lactated Ringers 1,000 ML @ 100 1000 / 1000 mls/hr IVC .Q10H KATIE Rx#: [id number] Oral 480 / 480 Output: Gastric Tube Lavage Amount 30 / 30 Left Lower Quadrant 30 / 30 Catheter 200 / 200 300 / 300 100 / 100 Other: Weight 60.8 kg Blood Glucose* 171 157 154 Patient Weight 06/28/17 23:59 Weight 60.8 kg - Labs 06/28/17 04:10 06/28/17 04:10 Diabetes panel 06/28/17 Range/Units 04:10 Sodium 143 (136-145) mEq/L Potassium 4.0 (3.5-5.1) mEq/L Chloride 106 (98-107) mEq/L Carbon Dioxide 28 (23-29) mEq/L BUN 35 H (8-23) mg/dL Creatinine 0.67 L (0.70-1.30) mg/dL Glucose 154 H (70-105) mg/dL Calcium 8.2 L (8.6-10.3) mg/dL AST 20 (13-39) Units/L ALT 15 (7-52) Units/L Alkaline Phosphatase 213 H (34-104) Units/L Albumin 2.8 L (3.5-5.7) g/dL Calcium panel 06/28/17 Range/Units 04:10 Calcium 8.2 L (8.6-10.3) mg/dL Albumin 2.8 L (3.5-5.7) g/dL Pituitary panel 06/28/17 Range/Units 04:10 Sodium 143 (136-145) mEq/L Potassium 4.0 (3.5-5.1) mEq/L Chloride 106 (98-107) mEq/L Carbon Dioxide 28 (23-29) mEq/L BUN 35 H (8-23) mg/dL Creatinine 0.67 L (0.70-1.30) mg/dL Glucose 154 H (70-105) mg/dL Calcium 8.2 L (8.6-10.3) mg/dL Adrenal panel 06/28/17 Range/Units 04:10 Sodium 143 (136-145) mEq/L Potassium 4.0 (3.5-5.1) mEq/L Chloride 106 (98-107) mEq/L Carbon Dioxide 28 (23-29) mEq/L BUN 35 H (8-23) mg/dL Creatinine 0.67 L (0.70-1.30) mg/dL Glucose 154 H (70-105) mg/dL Calcium 8.2 L (8.6-10.3) mg/dL Total Bilirubin 0.9 (0.3-1.0) mg/dL AST 20 (13-39) Units/L ALT 15 (7-52) Units/L Alkaline Phosphatase 213 H (34-104) Units/L Albumin 2.8 L (3.5-5.7) g/dL - VTE Documentation of Mechanical Device: Intermittent pneumatic compression device Consult Discharge Plan - Plan Referrals: NONE,PCP [Non-Partnered Physician] -
[2017-06-28] MEDS ORDERED: Dextrose Gel 15 GM/37.5 ML TUBE PO PRN (10:08)
[2017-06-28] MEDS ORDERED: Magic Mouthwash 10 ML UD Cup PO PRN (10:08)
[2017-06-28] MEDS ORDERED: *HR* Promethazine 25 MG/ML VIAL IVP PRN (10:08)
[2017-06-28] MEDS ORDERED: Naloxone 0.4 MG/ML INJ IVP PRN (10:08)
[2017-06-28] MEDS ORDERED: Ondansetron 4 MG/2 ML VIAL IVP PRN (10:08)
[2017-06-28] MEDS ORDERED: *HR* Dextrose 50 % in Water (Syg) 50 ML SYRINGE IVP PRN (10:08)
[2017-06-28] MEDS ORDERED: *HR* FentaNYL PATCH 75 MCG PATCH TD SCH (11:00)
--- NOTE | 2017-06-28 11:31 | Event Note ---
Date of Encounter: 06/28/17 Time of Encounter: 11:30 Awake and alert - feeling better. present. Incision open to air - Kay GJ tube to suction. Some incisional discomfort but tolerable with Fentanyl. Hemodynamically stable. Awaiting transfer to . Anxious to get out of bed today. Palliative following from a distance.
[2017-06-28] MEDS: D5% in 0.45% NACL 1,000 ML IVC SCH (12:30)
[2017-06-28] MEDS: *HR* FentaNYL (PF) 100 MCG/2 ML VIAL IVP PRN ×4 (16:00→22:56)
[2017-06-29] MEDS: D5% in 0.45% NACL 1,000 ML IVC SCH ×2 (00:41→15:51)
[2017-06-29] MEDS: Insulin LISPRO 300 UNITS/3 ML VIAL SQ SCH ×6 (00:45→23:26)
[2017-06-29] MEDS: *HR* FentaNYL (PF) 100 MCG/2 ML VIAL IVP PRN ×2 (02:30→05:16)
[2017-06-29 04:55] LABS: Hematocrit 27.7 % (37.5-50.1); Hemoglobin 8.8 g/dL (12.9-16.9); Mean Corpuscular HGB Conc 31.8 g/dL (31.6-35.5); Mean Corpuscular Hemoglobin 28.7 pg (28.0-33.3); Mean Corpuscular Volume 90.2 fL (83.0-100.0); Mean Platelet Volume 9.5 fL (9.4-12.4); Platelet Count 203 K/mcL (140-400); Red Blood Count 3.07 M/mcL (4.19-5.50); Red Cell Distribution Width 18.7 % (11.5-14.5)
[2017-06-29] MEDS: Pantoprazole 40 MG VIAL IVP SCH (08:14)
--- NOTE | 2017-06-29 10:55 | Internal Med Progress Note ---
<EvanUmberto terry - Last Filed: 06/29/17 14:37> Date of Encounter: 06/29/17 Time of Encounter: 10:52 - Assessment and plan (1) Gastric outlet obstruction Current Visit: Yes Status: Acute Assessment and plan: Postop day 2 status post gastrojejunostomy. Patient appears to be recovering well. He is not had a bowel movement yet but is passing flatus. Tolerating clear liquids well. Further management per surgery. (2) Anemia Current Visit: Yes Status: Acute Assessment and plan: Hemoglobin stable postoperative period. No evidence of active bleeding. We will continue to monitor. Qualifiers: Anemia type: unspecified type Qualified Code(s): D64.9 - Anemia, unspecified (3) Pancreatic cancer metastasized to liver Current Visit: Yes Status: Acute Assessment and plan: History of stage IV pancreatic cancer resulting in bowel obstruction. Pain appears to be under good control at this time. Continue fentanyl patch and transition to oral Percocet for breakthrough. - Subjective Interval history: Patient seen and examined at bedside. He states that he feels better today. He reports very mild abdominal pain that is worse with movement. He states he is tolerating a clear liquid diet well. He denies any nausea, vomiting. He has not had a bowel movement yet but is passing gas. - Constitutional Vitals: Temp Pulse Resp BP Pulse Ox 97.8 F 85 16 114/85 96 06/29/17 08:00 06/29/17 08:00 06/29/17 08:00 06/29/17 08:00 06/29/17 04:30 General appearance: Present: A&O X 3, no acute distress, underweight, answers questions appropriately - Respiratory Respiratory exam: Present: CTAB. Absent: rales, rhonchi, wheezes - Cardiovascular Cardiovascular exam: Present: RRR. Absent: gallop, rubs, systolic murmur - GI/Abdominal GI/Abdominal exam: Present: distended (mild), hypoactive bowel sounds, soft. Absent: tenderness Additional comments: Midline abdominal incision is clean dry and intact with slim present. - Extremities Exam Extremities exam: Absent: pedal edema Internal Medicine: Result - Labs CBC & Chem 7: 06/29/17 04:37 06/28/17 04:10 Labs: Short CBC 06/29/17 Range/Units 04:37 WBC 9.5 (4.3-11.1) K/mcL Hgb 8.8 L (12.9-16.9) g/dL Hct 27.7 L (37.5-50.1) % Plt Count 203 (140-400) K/mcL - ABG Interpretation ABG results: ABG ABG pH 7.49 pH Units (7.32-7.45) H 06/25/17 10:58 ABG pCO2 34 mmHg (35-45) L 06/25/17 10:58 ABG pO2 291 mmHg (85-104) H 06/25/17 10:58 ABG O2 Saturation 100 % (95-98) H 06/25/17 10:58 PT/INR, D-dimer PT 16.6 Seconds (9.4-12.1) H 06/28/17 07:38 - VTE Documentation of Mechanical Device: Intermittent pneumatic compression device Consult Discharge Plan - Plan Referrals: NONE,PCP [Non-Partnered Physician] - <Abundio Sunshine - Last Filed: 06/29/17 18:34> Date of Encounter: 06/29/17 - Assessment and plan (1) Anemia Current Visit: Yes Status: Acute Qualifiers: Anemia type: other cause Other causes of anemia: chronic disease, neoplastic Qualified Code(s): 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 - Anemia in neoplastic disease (2) Gastric outlet obstruction Current Visit: Yes Status: Acute (3) Pancreatic cancer Current Visit: Yes Status: Chronic Qualifiers: Pancreatic malignancy location: unspecified Qualified Code(s): C25.9 - Malignant neoplasm of pancreas, unspecified (4) Tobacco abuse Current Visit: Yes Status: Chronic - Constitutional Vitals: Temp Pulse Resp BP Pulse Ox 98.2 F 91 16 117/76 96 06/29/17 15:13 06/29/17 15:13 06/29/17 15:13 06/29/17 15:13 06/29/17 15:13 Internal Medicine: Result - Labs CBC & Chem 7: 06/29/17 04:37 06/28/17 04:10 Labs: Short CBC 06/29/17 Range/Units 04:37 WBC 9.5 (4.3-11.1) K/mcL Hgb 8.8 L (12.9-16.9) g/dL Hct 27.7 L (37.5-50.1) % Plt Count 203 (140-400) K/mcL - ABG Interpretation ABG results: ABG ABG pH 7.49 pH Units (7.32-7.45) H 06/25/17 10:58 ABG pCO2 34 mmHg (35-45) L 06/25/17 10:58 ABG pO2 291 mmHg (85-104) H 06/25/17 10:58 ABG O2 Saturation 100 % (95-98) H 06/25/17 10:58 PT/INR, D-dimer PT 16.6 Seconds (9.4-12.1) H 06/28/17 07:38 - Attending Attestation I examined this patient and my medical decision-making was reviewed with the Resident Physician on 06/29/17. I agree with the documented findings, disposition and treatment plan as described except to the extent set forth below. Mr Wilson is currently admitted for gastric outlet obstruction s/p surgery. He remains moderate risk at this time. Mr Wilson is beginning to feel better. No fever or chills. No new issues Exam Alert. Comfortable Mucus membranes dry Heart reg No wheeze I/P 1. Gastric outlet obstruction 2. Anemia 3. Pancreatic cancer Further diagnoses and plan as above.
[2017-06-29] MEDS: *HR* OxyCODONE/APAP 10/325 TABLET PO PRN ×3 (11:10→23:15)
--- NOTE | 2017-06-29 20:33 | General Surgery Progress Note ---
Date of Encounter: 06/29/17 Time of Encounter: 20:27 Subjective Patient reports: feels better Narrative: General Surgery -POD #2 Patient feeling better with resolution of cramping abdominal pain. Minimal incisional pain; likely controlled with fentanyl patch patient is afebrile, 98.6; pulse 92, respirations 15, blood pressure 112/65. Lungs: Clear; minimal pain at end inspiration Abdomen: Soft, slightly distended, few active bowel sounds audible. No passage of flatus or bowel movement midline incision clean and dry; gastrostomy site intact gastric drainage significantly increased, I noted an mL for calendar day 06/28/17; 2500 mL so far today- this is likely reflective of clear liquids allowed today but the abdominal distention is concerning Laboratories: White count 9.5, hemoglobin 8.8 with hematocrit 27.7; platelet count 203,000. Impression: Postoperative day #2; status post gastro-jejunostomy for gastric outlet obstruction secondary to metastatic pancreatic carcinoma Acceptable status Plan: Hold clear liquid diet until improved bowel function and diminished abdominal distention - resume diet and/or tube feeding KATT; allow oral meds as needed for pain Encourage activity out of bed and pulmonary toilet Reduce fentanyl patch 25 mcg/h. Percocet 10/325 one every 6 hours as needed for breakthrough pain Objective Vital Signs - Last 8 Hours Temp Pulse Resp BP Pulse Ox 06/29/17 19:59 98.6 F 92 15 112/65 94 06/29/17 15:13 98.2 F 91 16 117/76 96 Intake and Output 06/29/17 06/29/17 06/29/17 07:59 15:59 23:59 Intake Total 1240 / 1240 1240 / 1240 720 / 720 Output Total 680 / 680 1360 / 1360 830 / 830 Balance 560 / 560 -120 / -120 -110 / -110 Intake: IV Fluids 1000 / 1000 1000 / 1000 D5% And 0.45% Nacl 1000 Ml Bag 1000 / 1000 1000 / 1000 1,000 ML @ 75 mls/hr IVC . [id number] [facility] Rx#:[id number] Oral 240 / 240 240 / 240 720 / 720 Output: Urine 250 / 250 0 / 0 Gastric Tube Lavage Amount 30 / 30 60 / 60 30 / 30 Left Lower Quadrant 30 / 30 60 / 60 30 / 30 Gastric Drainage 400 / 400 1300 / 1300 800 / 800 Other: Meal Breakfast Clears Percent of Meal Consumed 90% Weight 62 kg Blood Glucose* 126 105 185 Patient Weight 06/29/17 23:59 Weight 62 kg - Labs 06/29/17 04:37 06/28/17 04:10 - VTE Documentation of Mechanical Device: Intermittent pneumatic compression device Consult Discharge Plan - Plan Referrals: NONE,PCP [Non-Partnered Physician] -
[2017-06-29] MEDS: *HR* FentaNYL PATCH 25 MCG PATCH TD SCH (21:15)
[2017-06-30 04:50] LABS: Basophils % 0.2 %; Eosinophils # 0.1 K/mcL (0.0-0.6); Eosinophils % 0.7 %; Hematocrit 27.7 % (37.5-50.1); Hemoglobin 8.7 g/dL (12.9-16.9); Immature Granulocytes % 0.7 % (0-4); Lymphocytes # 1.2 K/mcL (0.6-4.6); Lymphocytes % 13.7 %; Mean Corpuscular HGB Conc 31.4 g/dL (31.6-35.5); Mean Corpuscular Hemoglobin 28.7 pg (28.0-33.3); Mean Corpuscular Volume 91.4 fL (83.0-100.0); Mean Platelet Volume 9.7 fL (9.4-12.4); Monocytes # 0.7 K/mcL (0.0-1.3); Monocytes % 8.4 %; Neutrophils # 6.4 K/mcL (1.6-8.9); Nucleated Red Blood Cells 0.2 /100 WBC (0); Platelet Count 208 K/mcL (140-400); Red Blood Count 3.03 M/mcL (4.19-5.50); Red Cell Distribution Width 18.5 % (11.5-14.5); Segmented Neutrophils % 76.3 %
[2017-06-30] MEDS: D5% in 0.45% NACL 1,000 ML IVC SCH ×2 (05:19→17:49)
[2017-06-30] MEDS: Insulin LISPRO 300 UNITS/3 ML VIAL SQ SCH ×4 (05:20→23:36)
[2017-06-30 05:57] LABS: BUN/Creatinine Ratio 24 (6-26); Blood Urea Nitrogen 13 mg/dL (8-23); Calcium 8.2 mg/dL (8.6-10.3); Carbon Dioxide 26 mEq/L (23-29); Chloride 103 mEq/L (98-107); Glucose 150 mg/dL (70-105); Osmolality,Calculated 287 (280-300); Potassium 3.4 mEq/L (3.5-5.1); Sodium 137 mEq/L (136-145); eGFR For African Americans > 60 (> 60); eGFR For Non-African Americans > 60 (> 60)
[2017-06-30] MEDS ORDERED: Potassium Chloride Elixir 20 MEQ/15 ML UDC GTUBE ONE (07:38)
--- NOTE | 2017-06-30 07:46 | Internal Med Progress Note ---
<Fred Hudson - Last Filed: 06/30/17 13:48> Date of Encounter: 06/30/17 Time of Encounter: 07:46 - Assessment and plan (1) Gastric outlet obstruction Current Visit: Yes Status: Acute Assessment and plan: Postop day 3 s/p gastrojejunostomy -Patient appears to be recovering well. -He is not had a bowel movement yet but is passing flatus. -Currently NPO except PO medications Plan: -Currently on fentanyl patch 25 mcg TD Q72 for pain control -Phenergan 12.5 mg IV Q4 PRN -Further management per surgery (2) Anemia Current Visit: Yes Status: Acute Assessment and plan: Hemoglobin stable postoperative period. -No evidence of active bleeding. -Current Hb is 8.7. -Repeat in the morning. 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 -Pain appears to be under good control at this time. -Continue fentanyl patch; transition to oral Percocet for breakthrough. -Oncology has been consulted Qualifiers: Pancreatic malignancy location: body of pancreas Qualified Code(s): C25.1 - Malignant neoplasm of body of pancreas - Subjective Interval history: 62-year-old male with a PMH of of arthritis, hypertension, diabetes, metastatic pancreatic adenocarcinoma stage IV with liver metastases diagnosed in May 2016, currently on chemo therapy with Abraxane since 03/17/2017 who presented to [facility] on 06/24/17 with the chief complain of acute onset chest pain about 2-3 hours prior to arrival. No history of DVT, PE, history of CAD. Patient stated that he just had 6 L of fluid drained off with paracentesis earlier today, about 2 or 3 hours ago he started having chest pain shortness of breath, he has been feeling dizzy and lightheaded as well. Said a few episodes of near syncope. Patient reports his pain is 6/10 epigastric and substernal, aching in quality. Patient denies hematochezia or melena. Reported nausea. Abdominal/Pelvic CT demonstrated the following: Increasing soft tissue mass in the hima hepatis and pancreatic head region surrounding the common duct stent highly suspicious for local recurrence of pancreatic tumor and/or metastatic adenopathy. Stomach moderately to markedly distended. Gastric outlet obstruction should be considered with partial obstruction of the duodenum. Patient was placed on fentanyl drip for pain management. Patient appeared very pale; his Hb was 6.6. He does have chronic anemia due to Pancreatic cancer, had recently received 2 U PRBC at Heme Onc office prior to arrival. Patient was transfused with 2U pRBCs. General surgery was consulted; NG tube was placed. Seemed to help with his distension. On 06/27, patient was taken to surgery. Recovering well; currently POD 3. - Constitutional Vitals: Temp Pulse Resp BP Pulse Ox 97.9 F 93 17 114/78 95 06/30/17 06:56 06/30/17 06:56 06/30/17 06:56 06/30/17 06:56 06/30/17 06:56 General appearance: Present: A&O X 3, no acute distress, underweight, answers questions appropriately - Head Head exam: Present: atraumatic, normocephalic - Eye Eye exam: Present: PERRL, conjuntiva pink, sclera anicteric Pupils: Present: PERRL - Neck Neck exam general surgery: Present: supple, trachea midline. Absent: lymphadenopathy - Respiratory Respiratory exam: Present: CTAB. Absent: accessory muscle use, rales, rhonchi, wheezes - Cardiovascular Cardiovascular exam: Present: RRR, +S1, +S2. Absent: diastolic murmur, gallop, rubs, systolic murmur - GI/Abdominal GI/Abdominal exam: Present: normal bowel sounds, soft, no peritoneal signs. Absent: distended, tenderness - Extremities Exam Extremities exam: Present: warm, radial pulses palpable and symmetrical. Absent : calf tenderness, cyanotic, pedal edema - Neurological Exam Neurological exam: Present: CN II-XII intact, oriented X3, no focal deficits. Absent: pronater drift, facial droop, speech deficit - Skin Skin exam: Present: dry, intact Internal Medicine: Result - Labs CBC & Chem 7: 06/30/17 04:13 06/30/17 04:13 Labs: Short CBC 06/30/17 Range/Units 04:13 WBC 8.4 (4.3-11.1) K/mcL Hgb 8.7 L (12.9-16.9) g/dL Hct 27.7 L (37.5-50.1) % Plt Count 208 (140-400) K/mcL Neutrophils # 6.4 (1.6-8.9) K/mcL [facility] 06/30/17 04:13 Sodium 137 Potassium 3.4 L Chloride 103 Carbon Dioxide 26 BUN 13 Creatinine 0.54 L Glucose 150 H Calcium 8.2 L - ABG Interpretation ABG results: ABG ABG pH 7.49 pH Units (7.32-7.45) H 06/25/17 10:58 ABG pCO2 34 mmHg (35-45) L 06/25/17 10:58 ABG pO2 291 mmHg (85-104) H 06/25/17 10:58 ABG O2 Saturation 100 % (95-98) H 06/25/17 10:58 PT/INR, D-dimer PT 16.6 Seconds (9.4-12.1) H 06/28/17 07:38 - VTE Documentation of Mechanical Device: Intermittent pneumatic compression device Consult Discharge Plan - Plan Referrals: Florence Bello CNP [Primary Care Provider] - Jorge Rubio MD [Non-Partnered Physician] - <Wayne Crespo - Last Filed: 06/30/17 15:05> Date of Encounter: 06/30/17 - Constitutional Vitals: Temp Pulse Resp BP Pulse Ox 98.6 F 98 15 109/73 93 06/30/17 15:01 06/30/17 15:01 06/30/17 15:01 06/30/17 15:01 06/30/17 15:01 Internal Medicine: Result - Labs CBC & Chem 7: 06/30/17 04:13 06/30/17 04:13 Labs: Short CBC 06/30/17 Range/Units 04:13 WBC 8.4 (4.3-11.1) K/mcL Hgb 8.7 L (12.9-16.9) g/dL Hct 27.7 L (37.5-50.1) % Plt Count 208 (140-400) K/mcL Neutrophils # 6.4 (1.6-8.9) K/mcL [facility] 06/30/17 04:13 Sodium 137 Potassium 3.4 L Chloride 103 Carbon Dioxide 26 BUN 13 Creatinine 0.54 L Glucose 150 H Calcium 8.2 L - ABG Interpretation ABG results: ABG ABG pH 7.49 pH Units (7.32-7.45) H 06/25/17 10:58 ABG pCO2 34 mmHg (35-45) L 06/25/17 10:58 ABG pO2 291 mmHg (85-104) H 06/25/17 10:58 ABG O2 Saturation 100 % (95-98) H 06/25/17 10:58 PT/INR, D-dimer PT 16.6 Seconds (9.4-12.1) H 06/28/17 07:38 - Attending Attestation Seen and evaluated at bedside Stage IV pancreatic head CA with liver mets, admitted for GOO. POD 3 He denies new complains, states his pain control is not adequate. He takes dilaudid at home and we will resume this through his Gtube since he is receiving feeds Abdomen is distended and mildly tender, Bowel sounds are present.Chest is CTAB. He is cachectic . Labs and Imaging reviewed:Hypokalemia. Chronic anemia is stable. Plan is to continue current management. Surgery is following. Rest as in resident physician's documentation
[2017-06-30] MEDS: *HR* OxyCODONE/APAP 10/325 TABLET PO PRN ×2 (08:17→20:32)
[2017-06-30] MEDS: Pantoprazole 40 MG VIAL IVP SCH (08:18)
[2017-06-30] MEDS: *HR* HYDROmorphone 4 MG TABLET PO PRN ×2 (14:42→23:41)
--- NOTE | 2017-06-30 17:10 | Oncology Inp Progress Note ---
Date of Encounter: 06/29/17 Time of Encounter: 17:09 (1) Gastric outlet obstruction Current Visit: Yes Status: Acute Assessment and plan: Recovering from stapled gastrojejunostomy with gastrostomy tube on 06/27/2017. Able to tolerate ice chips and some liquids area no major bowel movement yet. Continue to have some ascites (2) Pancreatic cancer metastasized to liver Current Visit: Yes Status: Acute Assessment and plan: He is on second line chemotherapy as mentioned. His CA-19-9 has come down but there is evidence of disease progression by enlargement of pancreatic head mass. This is causing gastric outlet obstruction. About 6 L of acetic fluid drained. Cytology showed atypical cells suspicious for adenocarcinoma Profound anemia . This could be related to leading into the stomach. Iron levels are low. Venofer 400 mg IV one dose. B12 also low at 230. B12 1000 g IM Current hemoglobin stable at 8.7 Overall prognosis poor. May consider palliative radiation to pancreas as an outpatient Oncology: Subj Interval history: According from recent stapled gastrojejunostomy and gastrostomy tube placement Draining some bile from the tube. Mild abdominal distention. Midline incision and slim looked good - Constitutional Vitals: Vital Signs Temp Pulse Resp BP Pulse Ox 06/30/17 15:01 98.6 F 98 15 109/73 93 06/30/17 10:49 98.3 F 91 15 113/74 95 06/30/17 06:56 97.9 F 93 17 114/78 95 06/30/17 04:03 98.5 F 84 14 117/74 95 06/29/17 23:16 98.8 F 93 15 114/73 94 06/29/17 19:59 98.6 F 92 15 112/65 94 Intake and Output 06/30/17 06/30/17 06/30/17 07:59 15:59 23:59 Intake Total 1000 / 1000 0 / 0 Output Total 30 / 30 1075 / 1075 300 / 300 Balance 970 / 970 -1075 / -1075 -300 / -300 Intake: IV Fluids 1000 / 1000 D5% And 0.45% Nacl 1000 Ml Bag 1000 / 1000 1,000 ML @ 75 mls/hr IVC . [id number] [facility] Rx#:[id number] Oral 0 / 0 0 / 0 Output: Urine 0 / 0 275 / 275 Gastric Tube Lavage Amount 30 / 30 300 / 300 Left Lower Quadrant 30 / 30 300 / 300 Gastric Drainage 800 / 800 Other: Weight 62.3 kg Blood Glucose* 142 145 Patient Weight 06/30/17 23:59 Weight 62.3 kg Exam: GENERAL: Alert and oriented, well appearing. Mental Status: Affect appropriate for circumstances HEENT: Sclerae anicteric. No mucositis or thrush. No other oral or pharyngeal lesions or erythema. Skin: No rashes or petechiae. No evidence of skin malignancy Lymph nodes: No cervical, supraclavicular, axillary, or inguinal adenopathy. Lungs: Air entry normal with normal breath sounds. No rhonchi or wheezing Cardiovascular: Regular rate and rhythm. No skipped beats Abdomen: Distention present. Midline incision healing. Extremities: No edema. No calf swelling or tenderness. No joint deformity. Neurologic: Alert, cranial nerves II-XII intact; normal gait; no focal weakness or sensory abnormalities Oncology: Obj Data - Labs CBC & Chem 7: 06/30/17 04:13 06/30/17 04:13 Labs: Laboratory Results - last 24 hr 06/29/17 06/30/17 06/30/17 23:24 04:13 04:13 WBC 8.4 RBC 3.03 L Hgb 8.7 L Hct 27.7 L MCV 91.4 MCH 28.7 MCHC 31.4 L RDW 18.5 H Plt Count 208 MPV 9.7 Immature Gran % 0.7 Seg Neutrophils % 76.3 Lymphocytes % 13.7 Monocytes % 8.4 Eosinophils % 0.7 Basophils % 0.2 Neutrophils # 6.4 Lymphocytes # 1.2 Monocytes # 0.7 Eosinophils # 0.1 Basophils # 0.0 Nucleated RBCs/100 WBC 0.2 H Sodium 137 Potassium 3.4 L Chloride 103 Carbon Dioxide 26 BUN 13 Creatinine 0.54 L Est GFR ( Amer) > 60 Est GFR (Non-Af Amer) > 60 BUN/Creatinine Ratio 24 Glucose 150 H POC Glucose 158 H Calculated Osmolality 287 Calcium 8.2 L 06/30/17 06/30/17 05:19 10:57 WBC RBC Hgb Hct MCV MCH MCHC RDW Plt Count MPV Immature Gran % Seg Neutrophils % Lymphocytes % Monocytes % Eosinophils % Basophils % Neutrophils # Lymphocytes # Monocytes # Eosinophils # Basophils # Nucleated RBCs/100 WBC Sodium Potassium Chloride Carbon Dioxide BUN Creatinine Est GFR ( Amer) Est GFR (Non-Af Amer) BUN/Creatinine Ratio Glucose POC Glucose 142 H 145 H Calculated Osmolality Calcium - ABG Interpretation ABG results: ABG ABG pH 7.49 pH Units (7.32-7.45) H 06/25/17 10:58 ABG pCO2 34 mmHg (35-45) L 06/25/17 10:58 ABG pO2 291 mmHg (85-104) H 06/25/17 10:58 ABG O2 Saturation 100 % (95-98) H 06/25/17 10:58 PT/INR, D-dimer PT 16.6 Seconds (9.4-12.1) H 06/28/17 07:38 Consult Discharge Plan - Plan Referrals: Florence Bello CNP [Primary Care Provider] - Jorge Rubio MD [Non-Partnered Physician] -
[2017-06-30] MEDS ORDERED: D5% in 0.45% NACL 1,000 ML IVC SCH (18:30)
--- NOTE | 2017-06-30 19:22 | General Surgery Progress Note ---
Date of Encounter: 06/30/17 Time of Encounter: 19:16 Subjective Patient reports: feels better, still having pain Narrative: General Surgery - POD#3 Patient feeling better; abdominal distention persists but diminished. Patient complaining that Percocet 10/325 did not provide significant relief last evening. Patient is also on a fentanyl patch, 25 g per hour The patient has been afebrile, most recently 98.6, pulse 91-98; respirations 15, but pressure 109/73 Lungs: Clear; no obvious pain in deep inspiration Abdomen: Distended but soft, nontender. Active bowel sounds. Patient reports passing flatus. Midline incision clean and dry; gastrostomy tube/site intact Urine output 550 mL per calendar day 06/29/17; 275 mL recorded today. Gastric output 3000 mL for calendar day 06/29/17; 800 mL so far today Laboratories: White count 8.4, hemoglobin 8.7, hematocrit 27.7; platelet count 208,000. Electrolytes, BUN, creatinine notable for potassium 3.4- likely due to gastric drainage; it has been replaced via gastrostomy tube Impression/plan: Allow clear liquid diet; if no increased abdominal distention or pain can advance to full in a.m. discontinue suction/clamp the gastrostomy. Unclamp and restore intermittent suction if abdominal distention, discomfort, nausea or vomiting Reduce IV fluids Objective Vital Signs - Last 8 Hours Temp Pulse Resp BP Pulse Ox 06/30/17 15:01 98.6 F 98 15 109/73 93 Intake and Output 06/30/17 06/30/17 06/30/17 07:59 15:59 23:59 Intake Total 1000 / 1000 0 / 0 1360 / 1360 Output Total 1075 / 1075 300 / 300 Balance 970 / 970 -1075 / -1075 1060 / 1060 Intake: IV Fluids 1000 / 1000 1000 / 1000 D5% And 0.45% Nacl 1000 Ml Bag 1000 / 1000 1000 / 1000 1,000 ML @ 75 mls/hr IVC . [id number] [facility] Rx#:[id number] Oral 0 / 0 0 / 0 360 / 360 Output: Urine 0 / 0 275 / 275 Gastric Tube Lavage Amount 30 / 30 300 / 300 Left Lower Quadrant 30 / 30 300 / 300 Gastric Drainage 800 / 800 Other: Weight 62.3 kg Blood Glucose* 142 145 150 Patient Weight 06/30/17 23:59 Weight 62.3 kg - Labs 06/30/17 04:13 06/30/17 04:13 Diabetes panel 06/30/17 Range/Units 04:13 Sodium 137 (136-145) mEq/L Potassium 3.4 L (3.5-5.1) mEq/L Chloride 103 (98-107) mEq/L Carbon Dioxide 26 (23-29) mEq/L BUN 13 (8-23) mg/dL Creatinine 0.54 L (0.70-1.30) mg/dL Glucose 150 H (70-105) mg/dL Calcium 8.2 L (8.6-10.3) mg/dL Calcium panel 06/30/17 Range/Units 04:13 Calcium 8.2 L (8.6-10.3) mg/dL Pituitary panel 06/30/17 Range/Units 04:13 Sodium 137 (136-145) mEq/L Potassium 3.4 L (3.5-5.1) mEq/L Chloride 103 (98-107) mEq/L Carbon Dioxide 26 (23-29) mEq/L BUN 13 (8-23) mg/dL Creatinine 0.54 L (0.70-1.30) mg/dL Glucose 150 H (70-105) mg/dL Calcium 8.2 L (8.6-10.3) mg/dL Adrenal panel 06/30/17 Range/Units 04:13 Sodium 137 (136-145) mEq/L Potassium 3.4 L (3.5-5.1) mEq/L Chloride 103 (98-107) mEq/L Carbon Dioxide 26 (23-29) mEq/L BUN 13 (8-23) mg/dL Creatinine 0.54 L (0.70-1.30) mg/dL Glucose 150 H (70-105) mg/dL Calcium 8.2 L (8.6-10.3) mg/dL - VTE Documentation of Mechanical Device: Intermittent pneumatic compression device Consult Discharge Plan - Plan Referrals: Florence Bello CNP [Primary Care Provider] - Jorge Rubio MD [Non-Partnered Physician] -
[2017-07-01] MEDS: *HR* OxyCODONE/APAP 10/325 TABLET PO PRN ×3 (03:58→20:40)
[2017-07-01 04:02] LABS: Basophils % 0.3 %; Eosinophils # 0.1 K/mcL (0.0-0.6); Eosinophils % 0.7 %; Immature Granulocytes % 0.4 % (0-4); Lymphocytes # 1.2 K/mcL (0.6-4.6); Lymphocytes % 11.2 %; Mean Corpuscular Hemoglobin 28.3 pg (28.0-33.3); Mean Corpuscular Volume 91.2 fL (83.0-100.0); Mean Platelet Volume 9.6 fL (9.4-12.4); Monocytes # 0.9 K/mcL (0.0-1.3); Monocytes % 8.2 %; Neutrophils # 8.5 K/mcL (1.6-8.9); Platelet Count 197 K/mcL (140-400); Red Blood Count 3.18 M/mcL (4.19-5.50); Red Cell Distribution Width 18.3 % (11.5-14.5); Segmented Neutrophils % 79.2 %
[2017-07-01 04:48] LABS: BUN/Creatinine Ratio 21 (6-26); Blood Urea Nitrogen 11 mg/dL (8-23); Calcium 8.1 mg/dL (8.6-10.3); Carbon Dioxide 27 mEq/L (23-29); Chloride 102 mEq/L (98-107); Glucose 114 mg/dL (70-105); Osmolality,Calculated 280 (280-300); Potassium 3.4 mEq/L (3.5-5.1); Sodium 135 mEq/L (136-145); eGFR For African Americans > 60 (> 60); eGFR For Non-African Americans > 60 (> 60)
[2017-07-01] MEDS: Insulin LISPRO 300 UNITS/3 ML VIAL SQ SCH ×3 (05:32→18:23)
[2017-07-01] MEDS: *HR* HYDROmorphone 4 MG TABLET PO PRN ×3 (05:49→23:54)
[2017-07-01] MEDS: Pantoprazole 40 MG VIAL IVP SCH (07:53)
--- NOTE | 2017-07-01 10:43 | General Surgery Progress Note ---
Date of Encounter: 07/01/17 Time of Encounter: 10:37 Subjective Narrative: General Surgery - POD #4 Patient voicing no complaints, indicating he is feeling well, however, abdominal distention markedly increased overnight. No nausea/vomiting The patient remains afebrile, MAXIMUM TEMPERATURE 99.1; pulse 97, respirations 15, blood pressure 110/75 Lungs: Clear bilaterally, no abdominal pain with deep inspiration Abdomen: Distended, tympanitic but nontender, no rebound; gastrostomy tube site intact; midline sitting clean and dry Active bowel sounds; patient passing flatus but no BM Laboratories: White count 10.7, hemoglobin 9.0, hematocrit 29.0; platelet count 197,000 Electrolytes notable for sodium of 135, potassium 3.4 Impression: Postoperative day #4; status post stapled gastrojejunostomy for gastric outlet obstruction secondary to metastatic pancreatic cancer Acceptable postoperative status; increased abdominal distention - most likely due to postoperative ileus, incomplete return of post operative bowel function Persistent hypokalemia which will be addressed Plan: Hold diet at clear liquids, do not advance as planned Replacement potassium via gastrostomy tube Monitor abdominal distention - if it increases, resume suction via gastrostomy tube Fleet enema rectally to stimulate colon Objective Vital Signs - Last 8 Hours Temp Pulse Resp BP Pulse Ox 07/01/17 10:29 97.9 F 83 15 111/72 94 07/01/17 07:53 94 07/01/17 07:09 98.6 F 97 15 110/75 94 07/01/17 03:54 99.1 F 97 15 115/71 95 Intake and Output 06/30/17 07/01/17 07/01/17 23:59 07:59 15:59 Intake Total 1700 / 1700 200 / 200 460 / 460 Output Total 300 / 300 0 / 0 Balance 1400 / 1400 200 / 200 460 / 460 Intake: IV Fluids 1100 / 1100 D5% And 0.45% Nacl 1000 Ml Bag 1100 / 1100 1,000 ML @ 75 mls/hr IVC . [id number] [facility] Rx#:[id number] Oral 600 / 600 200 / 200 460 / 460 Output: Urine 0 / 0 0 / 0 Gastric Tube Lavage Amount 300 / 300 0 / 0 Left Lower Quadrant 300 / 300 0 / 0 Other: Meal Clears Percent of Meal Consumed 0% # Voids 0 0 Weight 62.5 kg Blood Glucose* 186 146 Patient Weight 07/01/17 23:59 Weight 62.5 kg - Labs 07/01/17 03:47 07/01/17 03:47 Diabetes panel 07/01/17 Range/Units 03:47 Sodium 135 L (136-145) mEq/L Potassium 3.4 L (3.5-5.1) mEq/L Chloride 102 (98-107) mEq/L Carbon Dioxide 27 (23-29) mEq/L BUN 11 (8-23) mg/dL Creatinine 0.53 L (0.70-1.30) mg/dL Glucose 114 H (70-105) mg/dL Calcium 8.1 L (8.6-10.3) mg/dL Calcium panel 07/01/17 Range/Units 03:47 Calcium 8.1 L (8.6-10.3) mg/dL Pituitary panel 07/01/17 Range/Units 03:47 Sodium 135 L (136-145) mEq/L Potassium 3.4 L (3.5-5.1) mEq/L Chloride 102 (98-107) mEq/L Carbon Dioxide 27 (23-29) mEq/L BUN 11 (8-23) mg/dL Creatinine 0.53 L (0.70-1.30) mg/dL Glucose 114 H (70-105) mg/dL Calcium 8.1 L (8.6-10.3) mg/dL Adrenal panel 07/01/17 Range/Units 03:47 Sodium 135 L (136-145) mEq/L Potassium 3.4 L (3.5-5.1) mEq/L Chloride 102 (98-107) mEq/L Carbon Dioxide 27 (23-29) mEq/L BUN 11 (8-23) mg/dL Creatinine 0.53 L (0.70-1.30) mg/dL Glucose 114 H (70-105) mg/dL Calcium 8.1 L (8.6-10.3) mg/dL - VTE Documentation of Mechanical Device: Intermittent pneumatic compression device Consult Discharge Plan - Plan Referrals: Florence Bello CNP [Primary Care Provider] - Jorge Rubio MD [Non-Partnered Physician] -
[2017-07-01] MEDS: Potassium Chloride Elixir 20 MEQ/15 ML UDC GTUBE SCH ×2 (11:25→20:39)
--- NOTE | 2017-07-01 11:26 | Internal Med Progress Note ---
<Fred Hudson - Last Filed: 07/01/17 14:53> Date of Encounter: 07/01/17 Time of Encounter: 11:25 - Assessment and plan (1) Gastric outlet obstruction Current Visit: Yes Status: Acute Assessment and plan: Postop day 4 s/p gastrojejunostomy -Patient appears to be recovering well. -He is not had a bowel movement yet but is passing flatus. -Currently NPO except PO medications Per Sugery: -Hold diet at clear liquids, do not advance as planned -Replacement potassium via gastrostomy tube -Monitor abdominal distention - if it increases, resume suction via gastrostomy tube -Fleet enema rectally to stimulate colon Plan: -Currently on fentanyl patch 25 mcg TD Q72 for pain control -Phenergan 12.5 mg IV Q4 PRN (2) Anemia Current Visit: Yes Status: Acute Assessment and plan: Hemoglobin stable postoperative period. -No evidence of active bleeding. -Continue to monitor. 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 -Pain appears to be under good control at this time. -Continue fentanyl patch; transition to oral Percocet for breakthrough. -Oncology has been consulted; recommend possible palliative radiation to pancreas -Consult palliative Qualifiers: Pancreatic malignancy location: body of pancreas Qualified Code(s): C25.1 - Malignant neoplasm of body of pancreas - Subjective Interval history: Patient was seen and examined at bedside this morning. Reports an improvement in his pain. Stated that his abdomen becomes mildly distended after he eats. Per surgery, diet is being advanced. No complaints at this time. - Constitutional Vitals: Temp Pulse Resp BP Pulse Ox 97.9 F 83 15 111/72 94 07/01/17 10:29 07/01/17 10:29 07/01/17 10:29 07/01/17 10:29 07/01/17 10:29 General appearance: Present: A&O X 3, no acute distress, underweight, answers questions appropriately - Head Head exam: Present: atraumatic, normocephalic - Eye Eye exam: Present: PERRL, conjuntiva pink, sclera anicteric Pupils: Present: PERRL - Neck Neck exam general surgery: Present: supple, trachea midline. Absent: lymphadenopathy - Respiratory Respiratory exam: Present: CTAB. Absent: accessory muscle use, rales, rhonchi, wheezes - Cardiovascular Cardiovascular exam: Present: RRR, +S1, +S2. Absent: diastolic murmur, gallop, rubs, systolic murmur - GI/Abdominal GI/Abdominal exam: Present: distended, normal bowel sounds, soft, no peritoneal signs. Absent: tenderness Additional comments: Midline abdominal incision visualized; no redness or discharge. Feeding tube placed on L side. - Extremities Exam Extremities exam: Present: warm, radial pulses palpable and symmetrical. Absent : calf tenderness, cyanotic, pedal edema - Neurological Exam Neurological exam: Present: CN II-XII intact, oriented X3, no focal deficits. Absent: pronater drift, facial droop, speech deficit - Skin Skin exam: Present: dry, intact Internal Medicine: Result - Labs CBC & Chem 7: 07/01/17 03:47 07/01/17 03:47 Labs: Short CBC 07/01/17 Range/Units 03:47 WBC 10.7 (4.3-11.1) K/mcL Hgb 9.0 L (12.9-16.9) g/dL Hct 29.0 L (37.5-50.1) % Plt Count 197 (140-400) K/mcL Neutrophils # 8.5 (1.6-8.9) K/mcL BMP 07/01/17 03:47 Sodium 135 L Potassium 3.4 L Chloride 102 Carbon Dioxide 27 BUN 11 Creatinine 0.53 L Glucose 114 H Calcium 8.1 L - ABG Interpretation ABG results: ABG ABG pH 7.49 pH Units (7.32-7.45) H 06/25/17 10:58 ABG pCO2 34 mmHg (35-45) L 06/25/17 10:58 ABG pO2 291 mmHg (85-104) H 06/25/17 10:58 ABG O2 Saturation 100 % (95-98) H 06/25/17 10:58 PT/INR, D-dimer PT 16.6 Seconds (9.4-12.1) H 06/28/17 07:38 - VTE Documentation of Mechanical Device: Intermittent pneumatic compression device Consult Discharge Plan - Plan Referrals: Florence Bello CNP [Primary Care Provider] - Jorge Rubio MD [Non-Partnered Physician] - <Chi Alfonso - Last Filed: 07/01/17 18:15> Date of Encounter: 07/01/17 - Constitutional Vitals: Temp Pulse Resp BP Pulse Ox 98 F 80 15 115/69 95 07/01/17 16:08 07/01/17 16:08 07/01/17 16:08 07/01/17 16:08 07/01/17 16:08 Internal Medicine: Result - Labs CBC & Chem 7: 07/01/17 03:47 07/01/17 03:47 Labs: Short CBC 07/01/17 Range/Units 03:47 WBC 10.7 (4.3-11.1) K/mcL Hgb 9.0 L (12.9-16.9) g/dL Hct 29.0 L (37.5-50.1) % Plt Count 197 (140-400) K/mcL Neutrophils # 8.5 (1.6-8.9) K/mcL BMP 07/01/17 03:47 Sodium 135 L Potassium 3.4 L Chloride 102 Carbon Dioxide 27 BUN 11 Creatinine 0.53 L Glucose 114 H Calcium 8.1 L - ABG Interpretation ABG results: ABG ABG pH 7.49 pH Units (7.32-7.45) H 06/25/17 10:58 ABG pCO2 34 mmHg (35-45) L 06/25/17 10:58 ABG pO2 291 mmHg (85-104) H 06/25/17 10:58 ABG O2 Saturation 100 % (95-98) H 06/25/17 10:58 PT/INR, D-dimer PT 16.6 Seconds (9.4-12.1) H 06/28/17 07:38 - Attending Attestation His prognosis is quiet poor.. not yet ready to make decision on DNR
--- NOTE | 2017-07-01 18:13 | Event Note ---
Date of Encounter: 07/01/17 Time of Encounter: 18:11 With his in the room, discussed need for DNR-A order. His mortality is near 100% given the metastatic disease. The patient is quiet realistic, the is not yet ready to have that discussion. Prognosis is poor. There is no decision made at this time.
[2017-07-02] MEDS: *HR* OxyCODONE/APAP 10/325 TABLET PO PRN ×3 (02:08→21:10)
[2017-07-02 05:05] LABS: Basophils % 0.1 %; Hemoglobin 8.7 g/dL (12.9-16.9); Immature Granulocytes % 0.8 % (0-4); Lymphocytes # 0.4 K/mcL (0.6-4.6); Lymphocytes % 1.5 %; Mean Corpuscular HGB Conc 31.1 g/dL (31.6-35.5); Mean Corpuscular Hemoglobin 28.6 pg (28.0-33.3); Mean Corpuscular Volume 92.1 fL (83.0-100.0); Mean Platelet Volume 10.2 fL (9.4-12.4); Monocytes # 0.6 K/mcL (0.0-1.3); Monocytes % 2.5 %; Neutrophils # 22.7 K/mcL (1.6-8.9); Platelet Count 193 K/mcL (140-400); Red Blood Count 3.04 M/mcL (4.19-5.50); Red Cell Distribution Width 17.9 % (11.5-14.5); Segmented Neutrophils % 95.1 %
[2017-07-02 05:53] LABS: Anisocytosis 1+ (Not Present)
[2017-07-02 05:54] LABS: Platelet Estimate Normal (Normal)
--- NOTE | 2017-07-02 06:55 | Internal Med Progress Note ---
<Fred Hudson - Last Filed: 07/02/17 15:39> Date of Encounter: 07/02/17 Time of Encounter: 08:29 - Assessment and plan (1) Sepsis Current Visit: Yes Status: Acute Assessment and plan: On 07/02/17, patient developed fever, leukocytosis, hypotension, and tachycardia. -White count increased from 10.7 to 23.9. -Temperature 100.1, HR 109 bpm, BP 94/61 -No known source of infection at this time. -Initiated sepsis workup: 2V CXR, Blood CX x 2, UA, Lactic acid -CXR demonstrated free air under diaphragm -Lactic acid elevated at 2.5; a second lactic acid was ordered for 4 hours later -500 cc bolus NS given initially; BP did not respond. An additional liter was given. -Initiated broad spectrum antibiotics: Vancomycin, Zosyn, Levaquin -No identified infection source at this time; Blood CX and UA pending Qualifiers: Qualified Code(s): A41.9 - Sepsis, unspecified organism (2) Gastric outlet obstruction Current Visit: Yes Status: Acute Assessment and plan: Postop day 5 s/p gastrojejunostomy -Patient appears to be recovering well. -He is not had a bowel movement yet but is passing flatus. -Advancing diet; tolerating well. Plan: -Currently on fentanyl patch 25 mcg TD Q72 for pain control -Phenergan 12.5 mg IV Q4 PRN (3) Anemia Current Visit: Yes Status: Acute Assessment and plan: Hemoglobin stable postoperative period. -No evidence of active bleeding. -Continue to monitor. 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 -Pain appears to be under good control at this time. -Continue fentanyl patch; transition to oral Percocet for breakthrough. -Oncology has been consulted; recommend possible palliative radiation to pancreas -Palliative is on board; will discuss CODE STATUS with patient and his Qualifiers: Pancreatic malignancy location: body of pancreas Qualified Code(s): C25.1 - Malignant neoplasm of body of pancreas (5) Code status needs review Current Visit: Yes Status: Acute Assessment and plan: Patient currently full code. Prognosis is poor; mortality rate near 100% with metastatic disease. -Patient was seen on 07/02/[address] Alfonso who discussed need for a DNR-A order. was present in room. -The patient appears to be aware of his prognosis; the is not yet ready to have that discussion. -Patient will not sign form without his 's approval. -Palliative is on board; will discuss goals of care with patient and his . - Subjective Interval history: Patient was seen and examined at bedside this morning. Reports that he is feeling well today. Denies any abdominal pain, and states that his distension has improved. Reports that he is tolerating his diet well. Patient has no complaints at this time. - Constitutional Vitals: Temp Pulse Resp BP Pulse Ox 99.9 F H 122 14 92/63 91 07/02/17 04:22 07/02/17 04:22 07/02/17 04:22 07/02/17 04:22 07/02/17 04:22 General appearance: Present: A&O X 3, no acute distress, underweight, answers questions appropriately - Head Head exam: Present: atraumatic, normocephalic - Eye Eye exam: Present: PERRL, conjuntiva pink, sclera anicteric Pupils: Present: PERRL - Neck Neck exam general surgery: Present: supple, trachea midline. Absent: lymphadenopathy - Respiratory Respiratory exam: Present: CTAB. Absent: accessory muscle use, rales, rhonchi, wheezes - Cardiovascular Cardiovascular exam: Present: RRR, +S1, +S2. Absent: diastolic murmur, gallop, rubs, systolic murmur - GI/Abdominal GI/Abdominal exam: Present: normal bowel sounds, soft, tenderness, no peritoneal signs. Absent: distended Additional comments: tenderness along midline incision. - Extremities Exam Extremities exam: Present: warm, radial pulses palpable and symmetrical. Absent : calf tenderness, cyanotic, pedal edema - Neurological Exam Neurological exam: Present: CN II-XII intact, oriented X3, no focal deficits. Absent: pronater drift, facial droop, speech deficit - Skin Skin exam: Present: dry, intact Internal Medicine: Result - Labs CBC & Chem 7: 07/02/17 04:40 07/02/17 04:40 Labs: Short CBC 07/02/17 Range/Units 04:40 WBC 23.9 H D (4.3-11.1) K/mcL Hgb 8.7 L (12.9-16.9) g/dL Hct 28.0 L (37.5-50.1) % Plt Count 193 (140-400) K/mcL Neutrophils # 22.7 H (1.6-8.9) K/mcL BMP 07/02/17 04:40 Potassium 4.1 - ABG Interpretation ABG results: ABG ABG pH 7.49 pH Units (7.32-7.45) H 06/25/17 10:58 ABG pCO2 34 mmHg (35-45) L 06/25/17 10:58 ABG pO2 291 mmHg (85-104) H 06/25/17 10:58 ABG O2 Saturation 100 % (95-98) H 06/25/17 10:58 PT/INR, D-dimer PT 16.6 Seconds (9.4-12.1) H 06/28/17 07:38 - VTE Documentation of Mechanical Device: Intermittent pneumatic compression device Consult Discharge Plan - Plan Referrals: Florence Bello CNP [Primary Care Provider] - Jorge Rubio MD [Non-Partnered Physician] - <Chi Alfonso - Last Filed: 07/02/17 17:38> Date of Encounter: 07/02/17 - Constitutional Vitals: Temp Pulse Resp BP Pulse Ox 97.5 F L 96 14 94/61 95 07/02/17 14:49 07/02/17 14:49 07/02/17 14:49 07/02/17 14:49 07/02/17 14:49 Internal Medicine: Result - Labs CBC & Chem 7: 07/02/17 04:40 07/02/17 04:40 Labs: Short CBC 07/02/17 Range/Units 04:40 WBC 23.9 H D (4.3-11.1) K/mcL Hgb 8.7 L (12.9-16.9) g/dL Hct 28.0 L (37.5-50.1) % Plt Count 193 (140-400) K/mcL Neutrophils # 22.7 H (1.6-8.9) K/mcL BMP 07/02/17 04:40 Potassium 4.1 Urine 07/02/17 Range/Units 16:20 Urine Color [place] A (Yellow) Urine Clarity Cloudy A (Clear) Urine pH 6.0 (5.0-8.0) pH Units Ur Specific [place] 1.019 (1.010-1.025) Urine Protein 30 H (Neg-Trace) mg/dL Urine Glucose (UA) 250 H (Normal) mg/dL - ABG Interpretation ABG results: ABG ABG pH 7.49 pH Units (7.32-7.45) H 06/25/17 10:58 ABG pCO2 34 mmHg (35-45) L 06/25/17 10:58 ABG pO2 291 mmHg (85-104) H 06/25/17 10:58 ABG O2 Saturation 100 % (95-98) H 06/25/17 10:58 PT/INR, D-dimer PT 16.6 Seconds (9.4-12.1) H 06/28/17 07:38 - Impressions Impressions Chest X-Ray 07/02/17 08:29 IMPRESSION: 1. Small effusions with bibasilar atelectasis. 2. Intraperitoneal free air. 3. Probable ileus. Findings were discussed with Dr. Dietz 9:14 a.m. 07/02/2017 D/ / 07/02/2017 09:17:40 Dru Sanchez MD / [facility] [email or web address] Interpreting Provider: Dru Sanchez MD - Attending Attestation I examined this patient and my medical decision-making was reviewed with the Resident Physician. I agree with the documented findings, disposition and treatment plan as described except to the extent set forth below. He developed a sepsis picture last evening and early this morning, now doing a lot better area probably still somewhat hypovolemic, therefore will continue fluids through the night. He is feeling a good deal better, his current antibiotics are appropriate. Lactate was not that elevated. Palliative medicine has seen him, has left some paperwork about DNR status at the bedside. His abdominal exam is about the same, he does have some decreased breath sounds in the bases, with minimal rales on the right side and minimal rhonchus chain on the left. This is somewhat suspicious for nosocomial pneumonia. This is Dr. Bertrand Alfonso
[2017-07-02] MEDS: Insulin LISPRO 300 UNITS/3 ML VIAL SQ SCH ×4 (08:13→23:22)
[2017-07-02] MEDS ORDERED: 0.9 % Sodium Chloride 500 ML IVC ONE (08:30)
[2017-07-02] MEDS: *HR* HYDROmorphone 4 MG TABLET PO PRN ×2 (09:24→16:25)
[2017-07-02] MEDS: *HR* Enoxaparin 40 MG/0.4 ML SYRINGE SQ SCH (09:25)
[2017-07-02] MEDS: Potassium Chloride Elixir 20 MEQ/15 ML UDC GTUBE SCH ×2 (09:25→19:59)
[2017-07-02] MEDS: Pantoprazole 40 MG VIAL IVP SCH (09:25)
--- NOTE | 2017-07-02 12:18 | Palliative Progress Note ---
Date of Encounter: 07/02/17 Time of Encounter: 14:45 - Assessment and plan (1) Cancer associated pain Current Visit: Yes Status: Acute Assessment and plan: Remains on Fentanyl patch 25mcg , with po Dilaudid/Percocet for breakthrough per Dr. Rubio. States he has good pain control. (2) Nausea Current Visit: No Status: Acute Assessment and plan: Tolerating clear liquids - denies nausea at present. (3) Counseling regarding advanced care planning and goals of care Current Visit: Yes Status: Acute Assessment and plan: Palliative had a long discussion with pt when he was alone regarding resuscitation status and goals of care. He states he understands that without a miracle, he will succumb to his cancer, but states his fully believes that he will beat this. States that any discussion otherwise upset her. He states she has kirsten that God will touch me and I will be healed, so when end of life is discussed, this in opposition of her kirsten. Patient did allow me to discuss DNRCC-Arrest and DNRCC in detail with him and he understands the importance of discussing and making a decision. He asked for us to revisit this afternoon when she arrives. Update with afternoon conversation - , Madelyn at bedside. Discussed code status at length, also gave them written information related to [place] DNR law. Patient and states that they will discuss and I will see again tomorrow for follow up. (4) Gastric outlet obstruction Current Visit: Yes Status: Acute (5) Pancreatic cancer metastasized to liver Current Visit: Yes Status: Acute - Time Spent With Patient Total time spent is greater than 50% in coordination of care (as documented) at patient's floor/unit and/or counseling patient: Greater than 35 minutes - Subjective Interval history: Patient resting quietly - new leukocytosis today, febrile that began last pm, hypotension as well, was cultured and received fluid bolus this am. Patient states he feels well today. Still passing flatus, no BM. tolerating clears. Abd softly distended, denies nausea. - Constitutional Vitals: Abnormal lab results WBC 23.9 K/mcL (4.3-11.1) H D 07/02/17 04:40 RBC 3.04 M/mcL (4.19-5.50) L 07/02/17 04:40 Hgb 8.7 g/dL (12.9-16.9) L 07/02/17 04:40 Hct 28.0 % (37.5-50.1) L 07/02/17 04:40 MCHC 31.1 g/dL (31.6-35.5) L 07/02/17 04:40 RDW 17.9 % (11.5-14.5) H 07/02/17 04:40 Neutrophils # 22.7 K/mcL (1.6-8.9) H 07/02/17 04:40 Lymphocytes # 0.4 K/mcL (0.6-4.6) L 07/02/17 04:40 Nucleated RBCs/100 WBC 0.2 /100 WBC (0) H 06/30/17 04:13 Anisocytosis 1+ (Not Present) A 07/02/17 04:40 PT 16.6 Seconds (9.4-12.1) H 06/28/17 07:38 ABG pH 7.49 pH Units (7.32-7.45) H 06/25/17 10:58 ABG pCO2 34 mmHg (35-45) L 06/25/17 10:58 ABG pO2 291 mmHg (85-104) H 06/25/17 10:58 ABG Total CO2 27 mEq/L (20-26) H 06/25/17 10:58 ABG O2 Saturation 100 % (95-98) H 06/25/17 10:58 Sodium 135 mEq/L (136-145) L 07/01/17 03:47 Creatinine 0.53 mg/dL (0.70-1.30) L 07/01/17 03:47 Glucose 114 mg/dL (70-105) H 07/01/17 03:47 POC Glucose 223 (58-89) H 07/02/17 11:37 Calcium 8.1 mg/dL (8.6-10.3) L 07/01/17 03:47 Direct Bilirubin 0.3 mg/dL (0.0-0.2) H 06/24/17 21:51 Alkaline Phosphatase 213 Units/L (34-104) H 06/28/17 04:10 Serum Total Protein 4.9 g/dL (6.4-8.9) L 06/28/17 04:10 Albumin 2.8 g/dL (3.5-5.7) L 06/28/17 04:10 Globulin 2.1 g/dL (2.4-3.5) L 06/28/17 04:10 Lipase 7 Units/L (11-82) L 06/24/17 21:51 Stool Occult Blood Positive (Negative) A 06/26/17 01:35 General appearance: Present: no acute distress - Respiratory Respiratory exam: Present: CTAB - Cardiovascular Cardiovascular exam: Present: +S1, +S2 - GI/Abdominal Additional comments: Abd incision with slim intact, GJ tube clamped and intact - Extremities Exam Extremities exam: Present: normal capillary refill, normal inspection - Neurological Exam Neurological exam: Present: alert, oriented X3, strengths equal and symetr throughout - Psychiatric Psychiatric exam: Present: flat affect - Skin Skin exam: Present: dry, pallor, warm Palliative Quality Palliative Quality: Screen for Code Status: Yes, Screen for Goals of Care: Yes, Screen for Pain: Yes, If Pain Regimen Started, Initiate Bowel Regimen: Yes, Screen for Nausea/Vomitting: Yes - Labs CBC & Chem 7: 07/02/17 04:40 07/02/17 04:40 Labs: Laboratory Results - last 24 hr 07/01/17 07/02/17 07/02/17 11:17 04:40 04:40 WBC 23.9 H D RBC 3.04 L Hgb 8.7 L Hct 28.0 L MCV 92.1 MCH 28.6 MCHC 31.1 L RDW 17.9 H Plt Count 193 MPV 10.2 Immature Gran % 0.8 Seg Neutrophils % 95.1 Lymphocytes % 1.5 Monocytes % 2.5 Eosinophils % 0.0 Basophils % 0.1 Neutrophils # 22.7 H Lymphocytes # 0.4 L Monocytes # 0.6 Eosinophils # 0.0 Basophils # 0.0 Platelet Estimate Normal Anisocytosis 1+ A Potassium 4.1 POC Glucose 181 H Magnesium 07/02/17 07/02/17 07/02/17 04:40 05:30 11:37 WBC RBC Hgb Hct MCV MCH MCHC RDW Plt Count MPV Immature Gran % Seg Neutrophils % Lymphocytes % Monocytes % Eosinophils % Basophils % Neutrophils # Lymphocytes # Monocytes # Eosinophils # Basophils # Platelet Estimate Anisocytosis Potassium POC Glucose 176 H 223 H Magnesium 1.7 - Impressions Impressions Chest X-Ray 07/02/17 08:29 IMPRESSION: 1. Small effusions with bibasilar atelectasis. 2. Intraperitoneal free air. 3. Probable ileus. Findings were discussed with Dr. Dietz 9:14 a.m. 07/02/2017 D/ / 07/02/2017 09:17:40 Dru Sanchez MD / [place] Interpreting Provider: Dru Sanchez MD - ABG Interpretation ABG results: ABG ABG pH 7.49 pH Units (7.32-7.45) H 06/25/17 10:58 ABG pCO2 34 mmHg (35-45) L 06/25/17 10:58 ABG pO2 291 mmHg (85-104) H 06/25/17 10:58 ABG O2 Saturation 100 % (95-98) H 06/25/17 10:58 PT/INR, D-dimer PT 16.6 Seconds (9.4-12.1) H 06/28/17 07:38 Consult Discharge Plan - Plan Referrals: Florence Bello CNP [Primary Care Provider] - Jorge Rubio MD [Non-Partnered Physician] -
[2017-07-02] MEDS ORDERED: 0.9 % Sodium Chloride 1,000 ML IVC ONE (13:08)
--- NOTE | 2017-07-02 14:03 | General Surgery Progress Note ---
Date of Encounter: 07/02/17 Time of Encounter: 13:20 Subjective Narrative: General Surgery - POD #5 Patient has just completed a clear liquid meals; abdominal distention persists but no tenderness. Patient voicing no complaints though did use Percocet for breakthrough pain last night Maximum temperature 100.1 through the night; pulse elevated with range 101 122; respirations 14, blood pressure 92/65 Lungs: Clear to auscultation no inspiratory effort is limited by the patient' s abdominal distention Abdomen: Distended, tympanitic. Nontender. Gastrostomy insertion site clean and dry; midline incision also clean and dry Small bowel movement in response to Fleet enema administered yesterday Laboratories: Significant elevated white count of 23.9 (previously 10.7); hemoglobin stable at 8.7 with hematocrit 28.4. Platelet count 193,000. Neutrophilia also markedly increased to 22.7% Hypokalemia corrected for 4.1 Impression/Plan: Low grade fever and leukocytosis without significant patient complaints No obvious peritoneal signs, however, the findings are concerning Allow full liquid diet but monitor closely. Objective Vital Signs - Last 8 Hours Temp Pulse Resp BP Pulse Ox 07/02/17 11:38 98.4 F 101 14 92/65 93 07/02/17 09:24 93 07/02/17 07:11 100.1 F H 106 14 94/61 92 Intake and Output 07/01/17 07/02/17 07/02/17 23:59 07:59 15:59 Intake Total 200 / 200 0 / 0 240 / 240 Output Total 300 / 300 400 / 400 0 / 0 Balance -100 / -100 -400 / -400 240 / 240 Intake: Oral 200 / 200 0 / 0 240 / 240 Output: Urine 300 / 300 400 / 400 0 / 0 Other: Meal Breakfast # Voids 0 Weight 62.7 kg Blood Glucose* 148 176 223 Patient Weight 07/02/17 23:59 Weight 62.7 kg - Labs 07/02/17 04:40 07/02/17 04:40 Diabetes panel 07/02/17 Range/Units 04:40 Potassium 4.1 (3.5-5.1) mEq/L Pituitary panel 07/02/17 Range/Units 04:40 Potassium 4.1 (3.5-5.1) mEq/L Adrenal panel 07/02/17 Range/Units 04:40 Potassium 4.1 (3.5-5.1) mEq/L - VTE Documentation of Mechanical Device: Intermittent pneumatic compression device Consult Discharge Plan - Plan Referrals: Florence Bello CNP [Primary Care Provider] - Jorge Rubio MD [Non-Partnered Physician] -
[2017-07-02] MEDS: 0.9 % Sodium Chloride 1,000 ML IVC SCH (15:13)
[2017-07-02] MEDS: Levofloxacin 750 MG/150 ML 750 MG/150 ML BAG IVPB SCH (15:20)
[2017-07-02 16:51] LABS: Bilirubin,Urine Large (Negative); Blood,Urine Negative (Negative); Clarity,Urine Cloudy (Clear); Color,Urine Orange (Yellow); Glucose,Urine (UA) 250 mg/dL (Normal); Ketones,Urine Negative (Negative); Leukocyte Esterase,Urine Negative (Negative); Nitrite,Urine Negative (Negative); Protein,Urine 30 mg/dL (Neg-Trace); Specific Gravity,Urine 1.019 (1.010-1.025); Urobilinogen,Urine Normal (Normal)
[2017-07-02 16:53] LABS: Bacteria,Urine None Seen per hpf (None-Few); Hyaline Casts,Urine None Seen per lpf (None-Few); Squamous Epithelial Cell,Urine Few per lpf (None-Few); WBC,Urine 0-3 per hpf (0-3)
--- NOTE | 2017-07-02 18:08 | Oncology Inp Progress Note ---
Date of Encounter: 07/04/17 Time of Encounter: 18:06 (1) Gastric outlet obstruction Current Visit: Yes Status: Acute Assessment and plan: Recovering from stapled gastrojejunostomy with gastrostomy tube on 06/27/2017. Currently on liquid diet. In the past but no solid bowel movement yet Currently he has leukocytosis and fever. Vancomycin and Zosyn. Increasing abdominal distention likely due accumulation of malignant ascites. Discussed with Dr. butt. Proceed with ultrasound-guided paracentesis (2) Pancreatic cancer metastasized to liver Current Visit: Yes Status: Acute Assessment and plan: He is on second line chemotherapy as mentioned. His CA-19-9 has come down but there is evidence of disease progression by enlargement of pancreatic head mass. This is causing gastric outlet obstruction. About 6 L of acetic fluid drained. Cytology showed atypical cells suspicious for adenocarcinoma Profound anemia . This could be related to leading into the stomach. Iron levels are low. Venofer 400 mg IV one dose. B12 also low at 230. B12 1000 g IM Current hemoglobin stable at 8.7 Overall prognosis poor. May consider palliative radiation to pancreas as an outpatient Oncology: Subj Interval history: Recovering from his recent gastrojejunostomy. Increasing abdominal distention. He is passing some gas but no bowel movements. He is on liquid diet Leukocytosis and fever - Constitutional Vitals: Vital Signs Temp Pulse Resp BP Pulse Ox 07/02/17 14:49 97.5 F L 96 14 94/61 95 07/02/17 11:38 98.4 F 101 14 92/65 93 07/02/17 09:24 93 07/02/17 07:11 100.1 F H 106 14 94/61 92 07/02/17 04:22 99.9 F H 122 14 92/63 91 07/01/17 19:21 100.0 F H 110 15 117/76 93 Intake and Output 07/02/17 07/02/17 07/02/17 07:59 15:59 23:59 Intake Total 0 / 0 840 / 840 Output Total 400 / 400 0 / 0 450 / 450 Balance -400 / -400 840 / 840 -450 / -450 Intake: Oral 0 / 0 840 / 840 Output: Urine 400 / 400 0 / 0 450 / 450 Other: Meal Clear # Bowel Movements 0 Weight 62.7 kg Blood Glucose* 176 223 Patient Weight 07/02/17 23:59 Weight 62.7 kg Exam: abdominal distention. bowel movement sluggish. Air entry decreased both bases heart is one is to hold regular rate and rhythm conscious alert oriented. Neurological cranial nerves intact. No focal deficits. Oncology: Obj Data - Labs CBC & Chem 7: 07/04/17 04:25 07/03/17 12:01 Labs: Laboratory Results - last 24 hr 07/01/17 07/02/17 07/02/17 11:17 04:40 04:40 WBC 23.9 H D RBC 3.04 L Hgb 8.7 L Hct 28.0 L MCV 92.1 MCH 28.6 MCHC 31.1 L RDW 17.9 H Plt Count 193 MPV 10.2 Immature Gran % 0.8 Seg Neutrophils % 95.1 Lymphocytes % 1.5 Monocytes % 2.5 Eosinophils % 0.0 Basophils % 0.1 Neutrophils # 22.7 H Lymphocytes # 0.4 L Monocytes # 0.6 Eosinophils # 0.0 Basophils # 0.0 Platelet Estimate Normal Anisocytosis 1+ A Potassium 4.1 POC Glucose 181 H Lactic Acid Magnesium Urine Color Urine Clarity Urine pH Ur Specific [place] Urine Protein Urine Glucose (UA) Urine Ketones Urine Blood Urine Nitrite Urine Bilirubin Urine Urobilinogen Ur Leukocyte Esterase Urine Microscopic RBC Urine Microscopic WBC Ur Squamous Epith Cells Urine Bacteria Hyaline Casts Ur Culture Indicated? 07/02/17 07/02/17 07/02/17 04:40 05:30 11:37 WBC RBC Hgb Hct MCV MCH MCHC RDW Plt Count MPV Immature Gran % Seg Neutrophils % Lymphocytes % Monocytes % Eosinophils % Basophils % Neutrophils # Lymphocytes # Monocytes # Eosinophils # Basophils # Platelet Estimate Anisocytosis Potassium POC Glucose 176 H 223 H Lactic Acid Magnesium 1.7 Urine Color Urine Clarity Urine pH Ur Specific [place] Urine Protein Urine Glucose (UA) Urine Ketones Urine Blood Urine Nitrite Urine Bilirubin Urine Urobilinogen Ur Leukocyte Esterase Urine Microscopic RBC Urine Microscopic WBC Ur Squamous Epith Cells Urine Bacteria Hyaline Casts Ur Culture Indicated? 07/02/17 07/02/17 13:42 16:20 WBC RBC Hgb Hct MCV MCH MCHC RDW Plt Count MPV Immature Gran % Seg Neutrophils % Lymphocytes % Monocytes % Eosinophils % Basophils % Neutrophils # Lymphocytes # Monocytes # Eosinophils # Basophils # Platelet Estimate Anisocytosis Potassium POC Glucose Lactic Acid 2.5 H Magnesium Urine Color [place] A Urine Clarity Cloudy A Urine pH 6.0 Ur Specific [place] 1.019 Urine Protein 30 H Urine Glucose (UA) 250 H Urine Ketones Negative Urine Blood Negative Urine Nitrite Negative Urine Bilirubin Large H Urine Urobilinogen Normal Ur Leukocyte Esterase Negative Urine Microscopic RBC 3-5 H Urine Microscopic WBC 0-3 Ur Squamous Epith Cells Few Urine Bacteria None Seen Hyaline Casts None Seen Ur Culture Indicated? NO - Impressions Impressions Chest X-Ray 07/02/17 08:29 IMPRESSION: 1. Small effusions with bibasilar atelectasis. 2. Intraperitoneal free air. 3. Probable ileus. Findings were discussed with Dr. Dietz 9:14 a.m. 07/02/2017 D/ / 07/02/2017 09:17:40 Dru Sanchez MD / [facility] Interpreting Provider: Dru Sanchez MD - ABG Interpretation ABG results: ABG ABG pH 7.49 pH Units (7.32-7.45) H 06/25/17 10:58 ABG pCO2 34 mmHg (35-45) L 06/25/17 10:58 ABG pO2 291 mmHg (85-104) H 06/25/17 10:58 ABG O2 Saturation 100 % (95-98) H 06/25/17 10:58 PT/INR, D-dimer PT 16.6 Seconds (9.4-12.1) H 06/28/17 07:38 Consult Discharge Plan - Plan Referrals: Florence Bello CNP [Primary Care Provider] - Jorge Butt MD [Non-Partnered Physician] -
[2017-07-02] MEDS: *HR* FentaNYL PATCH 25 MCG PATCH TD SCH (20:01)
[2017-07-02 23:02] LABS: Acinetobacter baumannii by PCR Not Detected (Not Detect); Enterococcus by PCR Not Detected (Not Detect); Staphylococcus aureus by PCR Not Detected (Not Detect); Streptococcus agalactiae(B)PCR Not Detected (Not Detect); Streptococcus by PCR Not Detected (Not Detect); Streptococcus pneumoniae PCR Not Detected (Not Detect); Streptococcus pyogenes (A) PCR Not Detected (Not Detect); blaKPC Carbapenem-Resist Gene Not Detected (Not Detect); mecA Methicillin-Resist Gene Not Detected (Not Detect); vanA/B Vancomycin-Resist Genes Not Detected (Not Detect)
[2017-07-02 23:03] LABS: Candida albicans by PCR Not Detected (Not Detect); Candida glabrata by PCR Not Detected (Not Detect); Candida krusei by PCR Not Detected (Not Detect); Candida parapsilosis by PCR Not Detected (Not Detect); Candida tropicalis by PCR Not Detected (Not Detect); Escherichia coli by PCR ***DETECTED*** (Not Detect); Klebsiella oxytoca by PCR Not Detected (Not Detect); Klebsiella pneumoniae by PCR Not Detected (Not Detect); Pseudomonas aeruginosa by PCR Not Detected (Not Detect); Serratia marcescens by PCR Not Detected (Not Detect)
[2017-07-03] MEDS: 0.9 % Sodium Chloride 1,000 ML IVC SCH (02:51)
[2017-07-03] MEDS: *HR* HYDROmorphone 4 MG TABLET PO PRN ×2 (02:55→18:23)
[2017-07-03] MEDS: *HR* Enoxaparin 40 MG/0.4 ML SYRINGE SQ SCH (05:21)
[2017-07-03] MEDS: Insulin LISPRO 300 UNITS/3 ML VIAL SQ SCH ×3 (06:20→19:03)
[2017-07-03] MEDS: *HR* OxyCODONE/APAP 10/325 TABLET PO PRN ×2 (09:05→22:33)
[2017-07-03] MEDS: Pantoprazole 40 MG VIAL IVP SCH (09:05)
[2017-07-03] MEDS: Potassium Chloride Elixir 20 MEQ/15 ML UDC GTUBE SCH ×2 (09:05→21:32)
[2017-07-03] MEDS: Levofloxacin 750 MG/150 ML 750 MG/150 ML BAG IVPB SCH (09:06)
--- NOTE | 2017-07-03 10:58 | Internal Med Progress Note ---
Date of Encounter: 07/03/17 Time of Encounter: 10:56 - Assessment and plan (1) Leukocytosis Current Visit: Yes Status: Acute Assessment and plan: White count is 23,000 with left shift patient is afebrile he is on vancomycin and Levaquin as well as cefepime culture Gram stain and cell count is sent from ascitic fluid consult for possible spontaneous bacterial peritonitis Qualifiers: Leukocytosis type: bandemia Qualified Code(s): D72.825 - Bandemia (2) Failure to thrive Current Visit: No Status: Acute Assessment and plan: Severe malnourished Qualifiers: Failure to thrive age range: in adult Qualified Code(s): R62.7 - Adult failure to thrive (3) Pancreatic cancer Current Visit: Yes Status: Chronic Assessment and plan: Pancreatic cancer stage IV with metastases to the liver oncology following also palliative care service following Qualifiers: Pancreatic malignancy location: unspecified Qualified Code(s): C25.9 - Malignant neoplasm of pancreas, unspecified (4) Gastric outlet obstruction Current Visit: Yes Status: Acute Assessment and plan: Patient stable no nausea vomiting (5) Cancer associated pain Current Visit: Yes Status: Acute Assessment and plan: Palliative care following with pain management (6) Pancreatic cancer metastasized to liver Current Visit: Yes Status: Acute (7) Hypertension Current Visit: No Status: Chronic Assessment and plan: Chronic and well controlled Qualifiers: Hypertension type: essential hypertension Qualified Code(s): I10 - Essential (primary) hypertension (8) Diabetes mellitus Current Visit: No Status: Chronic Assessment and plan: Chronic continue sliding scale Qualifiers: Diabetes mellitus type: type 2 Diabetes mellitus complication status: with hyperglycemia Diabetes mellitus intermediate accountant insulin use: without intermediate use Qualified Code(s): E11.65 - Type 2 diabetes mellitus with hyperglycemia - Subjective Interval history: Patient with history of stage IV pancreatic cancer, hypertension, diabetes, admitted with gastric outlet obstruction being followed by surgery today patient underwent paracentesis 5100 mL fluid was removed. Patient reports that he feels much better no fever or chills but white count is increased to 23,000, Just sent Gram stain and cell count of the ascites fluid Patient is on vancomycin and Levaquin I will add cefepime also . - Constitutional Vitals: Temp Pulse Resp BP Pulse Ox 98.2 F 83 18 118/75 93 07/03/17 10:51 07/03/17 10:51 07/03/17 10:51 07/03/17 10:51 07/03/17 10:51 General appearance: Present: A&O X 3, no acute distress, underweight, answers questions appropriately - Eye Eye exam: Present: PERRL, conjuntiva pink, sclera anicteric Pupils: Present: PERRL - Neck Neck exam general surgery: Present: supple, trachea midline. Absent: lymphadenopathy - Respiratory Respiratory exam: Present: CTAB. Absent: accessory muscle use, rales, rhonchi, wheezes - Cardiovascular Cardiovascular exam: Present: RRR, +S1, +S2. Absent: diastolic murmur, gallop, rubs, systolic murmur - GI/Abdominal GI/Abdominal exam: Present: distended, soft Internal Medicine: Result - Labs CBC & Chem 7: 07/02/17 04:40 07/02/17 04:40 Labs: Urine 07/02/17 Range/Units 16:20 Urine Color [place] A (Yellow) Urine Clarity Cloudy A (Clear) Urine pH 6.0 (5.0-8.0) pH Units Ur Specific [place] 1.019 (1.010-1.025) Urine Protein 30 H (Neg-Trace) mg/dL Urine Glucose (UA) 250 H (Normal) mg/dL - ABG Interpretation ABG results: ABG ABG pH 7.49 pH Units (7.32-7.45) H 06/25/17 10:58 ABG pCO2 34 mmHg (35-45) L 06/25/17 10:58 ABG pO2 291 mmHg (85-104) H 06/25/17 10:58 ABG O2 Saturation 100 % (95-98) H 06/25/17 10:58 PT/INR, D-dimer PT 16.6 Seconds (9.4-12.1) H 06/28/17 07:38 - VTE Documentation of Mechanical Device: Intermittent pneumatic compression device Consult Discharge Plan - Plan Referrals: Florence Bello CNP [Primary Care Provider] - Jorge Rubio MD [Non-Partnered Physician] -
[2017-07-03 12:33] LABS: Basophils % 0.2 %; Eosinophils % 0.3 %; Hematocrit 30.5 % (37.5-50.1); Hemoglobin 9.4 g/dL (12.9-16.9); Immature Granulocytes % 0.6 % (0-4); Lymphocytes # 0.7 K/mcL (0.6-4.6); Mean Corpuscular HGB Conc 30.8 g/dL (31.6-35.5); Mean Corpuscular Hemoglobin 28.7 pg (28.0-33.3); Mean Corpuscular Volume 93.3 fL (83.0-100.0); Mean Platelet Volume 10.3 fL (9.4-12.4); Monocytes # 0.7 K/mcL (0.0-1.3); Monocytes % 6.1 %; Neutrophils # 10.6 K/mcL (1.6-8.9); Platelet Count 223 K/mcL (140-400); Red Blood Count 3.27 M/mcL (4.19-5.50); Red Cell Distribution Width 17.9 % (11.5-14.5); Segmented Neutrophils % 86.8 %
[2017-07-03 13:26] LABS: BUN/Creatinine Ratio 19 (6-26); Blood Urea Nitrogen 10 mg/dL (8-23); Calcium 7.8 mg/dL (8.6-10.3); Carbon Dioxide 25 mEq/L (23-29); Chloride 104 mEq/L (98-107); Glucose 193 mg/dL (70-105); Osmolality,Calculated 280 (280-300); Potassium 4.6 mEq/L (3.5-5.1); Sodium 133 mEq/L (136-145); eGFR For African Americans > 60 (> 60); eGFR For Non-African Americans > 60 (> 60)
--- NOTE | 2017-07-03 14:19 | Event Note ---
Date of Encounter: 07/03/17 Time of Encounter: 14:15 Follow up with pt and re: code status discussion. states that they desire to wait and have conversation with their children prior to making a decision. I discussed that the form will need signed by provider and she verbalized understanding. Repeat blood cultures today and fluid from paracentesis this am. Leukocytosis/hypotension improved. Afebrile today. Palliative will f/u on Thursday if pt remains in hospital.
[2017-07-03 15:20] LABS: RBC,Peritoneal Fluid 0.003 M/mcL
[2017-07-03 15:33] LABS: Appearance of Peritoneal Fl HAZY (Clear)
--- NOTE | 2017-07-03 16:12 | General Surgery Progress Note ---
Date of Encounter: 07/03/17 Time of Encounter: 16:04 Subjective Narrative: General Surgery - POD #6 patient feeling well; tolerating full liquids without nausea vomiting. In fact, the patient indicates he is still hungry. Patient remains afebrile. Heart rate 96-99; respirations 14, blood pressure 102/62 paracentesis completed - approximately 5100 mL removed. Abdomen significantly much less distended as a result Lungs: Clear Abdomen: Soft, slight distention persists but nontender. Midline incision clean and dry. Gastrostomy site also clean and dry. copious flatus, no BM yet Labs: White count 12.2 (yesterday 23.9) hemoglobin 9.4, hematocrit 35.5. Platelet count 223,000. Neutrophils also significantly diminished from 22.7 to 10.6% Electrolytes notable for a sodium of 133 otherwise normal lytes, BUN, creatinine Impression: Postoperative day #6; status post stapled gastrojejunostomy for gastric outlet obstruction secondary to metastatic pancreatic cancer Acceptable postoperative status. Patient tolerating full liquid diet - will increase to regular diet patient currently on IV antibiotics - appears to have responded favorably Objective Vital Signs - Last 8 Hours Temp Pulse Resp BP Pulse Ox 07/03/17 10:51 98.2 F 83 18 118/75 93 Intake and Output 07/03/17 07/03/17 07/03/17 07:59 15:59 23:59 Intake Total 1650 / 1650 1969 Output Total 350 / 350 0 / 0 Balance 1300 / 1300 1969 Intake: IV Fluids 1350 / 1350 1250 / 1250 0.9 % Sodium Chloride 1,000 ML 1000 / 1000 1000 / 1000 @ 100 mls/hr IVC .Q10H AKTIE Rx#: [id number] Levaquin Premix 750mg/150 mL 150 / 150 750 mg In 150 ml @ 100 mls/hr IVPB DAILY KATIE Rx#:[id number] Zosyn 3.375 GM In 0.9 % Sodium 100 / 100 100 / 100 Chloride 100 ML @ 25 mls/hr IVPB Q8H KATIE Rx#:[id number] Vancocin 1,000 MG In 0.9 % 250 / 250 Sodium Chloride 250 ML @ 167 mls/hr IVPB Q12H KATIE Rx#: [id number] Oral 300 / 300 720 / 720 Output: Urine 350 / 350 0 / 0 Other: Meal Lunch Percent of Meal Consumed 40% Blood Glucose* 146 196 - Labs 07/03/17 12:01 07/03/17 12:01 Diabetes panel 07/03/17 Range/Units 12:01 Sodium 133 L (136-145) mEq/L Potassium 4.6 (3.5-5.1) mEq/L Chloride 104 (98-107) mEq/L Carbon Dioxide 25 (23-29) mEq/L BUN 10 (8-23) mg/dL Creatinine 0.53 L (0.70-1.30) mg/dL Glucose 193 H (70-105) mg/dL Calcium 7.8 L (8.6-10.3) mg/dL Calcium panel 07/03/17 Range/Units 12:01 Calcium 7.8 L (8.6-10.3) mg/dL Pituitary panel 07/03/17 Range/Units 12:01 Sodium 133 L (136-145) mEq/L Potassium 4.6 (3.5-5.1) mEq/L Chloride 104 (98-107) mEq/L Carbon Dioxide 25 (23-29) mEq/L BUN 10 (8-23) mg/dL Creatinine 0.53 L (0.70-1.30) mg/dL Glucose 193 H (70-105) mg/dL Calcium 7.8 L (8.6-10.3) mg/dL Adrenal panel 07/03/17 Range/Units 12:01 Sodium 133 L (136-145) mEq/L Potassium 4.6 (3.5-5.1) mEq/L Chloride 104 (98-107) mEq/L Carbon Dioxide 25 (23-29) mEq/L BUN 10 (8-23) mg/dL Creatinine 0.53 L (0.70-1.30) mg/dL Glucose 193 H (70-105) mg/dL Calcium 7.8 L (8.6-10.3) mg/dL - VTE Documentation of Mechanical Device: Intermittent pneumatic compression device Consult Discharge Plan - Plan Referrals: Florence Bello CNP [Primary Care Provider] - Jorge Rubio MD [Non-Partnered Physician] -
[2017-07-03] MEDS: Cefepime HCl 1,000 MG in Water for inj. (sterile) 20 ML 10 ML IVP SCH (16:27)
[2017-07-04] MEDS: Cefepime HCl 1,000 MG in Water for inj. (sterile) 20 ML 10 ML IVP SCH ×2 (01:31→09:04)
[2017-07-04] MEDS: *HR* OxyCODONE/APAP 10/325 TABLET PO PRN ×3 (04:10→18:36)
[2017-07-04 04:46] LABS: Hematocrit 28.7 % (37.5-50.1); Hemoglobin 8.8 g/dL (12.9-16.9); Mean Corpuscular HGB Conc 30.7 g/dL (31.6-35.5); Mean Corpuscular Hemoglobin 28.2 pg (28.0-33.3); Mean Platelet Volume 10.2 fL (9.4-12.4); Platelet Count 225 K/mcL (140-400); Red Blood Count 3.12 M/mcL (4.19-5.50); Red Cell Distribution Width 17.7 % (11.5-14.5)
[2017-07-04] MEDS: *HR* Enoxaparin 40 MG/0.4 ML SYRINGE SQ SCH (06:03)
[2017-07-04] MEDS ORDERED: Aminoglycoside Consult 1 EACH MC ONE (08:58)
[2017-07-04] MEDS: Potassium Chloride Elixir 20 MEQ/15 ML UDC GTUBE SCH ×2 (09:04→21:18)
[2017-07-04] MEDS: Pantoprazole 40 MG VIAL IVP SCH (09:04)
[2017-07-04] MEDS: Levofloxacin 750 MG/150 ML 750 MG/150 ML BAG IVPB SCH (09:05)
--- NOTE | 2017-07-04 09:29 | Internal Med Progress Note ---
Date of Encounter: 07/04/17 Time of Encounter: 09:27 - Assessment and plan (1) Leukocytosis Current Visit: Yes Status: Acute Assessment and plan: White count is back to normal today patient clinically doing well Qualifiers: Leukocytosis type: bandemia Qualified Code(s): D72.825 - Bandemia (2) Failure to thrive Current Visit: No Status: Acute Qualifiers: Failure to thrive age range: in adult Qualified Code(s): R62.7 - Adult failure to thrive (3) Pancreatic cancer Current Visit: Yes Status: Chronic Assessment and plan: Pancreatic cancer stage IV continue current treatment Qualifiers: Pancreatic malignancy location: unspecified Qualified Code(s): C25.9 - Malignant neoplasm of pancreas, unspecified (4) Gastric outlet obstruction Current Visit: Yes Status: Acute Assessment and plan: Study postsurgery day #7 clinically recovering well surgery is following (5) Cancer associated pain Current Visit: Yes Status: Acute Assessment and plan: Palliative care following patient for pain control (6) Pancreatic cancer metastasized to liver Current Visit: Yes Status: Acute Assessment and plan: Stage IV pancreatic cancer metastatic liver (7) Hypertension Current Visit: No Status: Chronic Assessment and plan: Chronic and well controlled Qualifiers: Hypertension type: essential hypertension Qualified Code(s): I10 - Essential (primary) hypertension (8) Diabetes mellitus Current Visit: No Status: Chronic Assessment and plan: Vomiting will continue sliding scale Qualifiers: Diabetes mellitus type: type 2 Diabetes mellitus complication status: with hyperglycemia Diabetes mellitus group home insulin use: without probe operator use Qualified Code(s): E11.65 - Type 2 diabetes mellitus with hyperglycemia - Subjective Interval history: Patient with history of stage IV pancreatic cancer, hypertension, diabetes, admitted with gastric outlet obstruction being followed by surgery today patient underwent paracentesis 5100 mL fluid was removed. Patient reports that he feels much better no fever or chills but white count is increased to 23,000, Just sent Gram stain and cell count of the ascites fluid Patient is on vancomycin and Levaquin I will add cefepime also Today patient states that he is doing very well WILL LIKE TO GO l home is afebrile white count is normal. I WILL STOP VANCO, CEFEPIME AND LEVAQUIN AND CONTINUE ZOSYN probably discharge tomorrow - Constitutional Vitals: Temp Pulse Resp BP Pulse Ox 98.2 F 85 18 120/79 95 07/04/17 08:22 07/04/17 08:22 07/04/17 08:22 07/04/17 08:22 07/04/17 08:22 General appearance: Present: A&O X 3, no acute distress, underweight, answers questions appropriately - Eye Eye exam: Present: PERRL, conjuntiva pink, sclera anicteric Pupils: Present: PERRL - Neck Neck exam general surgery: Present: supple, trachea midline. Absent: lymphadenopathy - Respiratory Respiratory exam: Present: CTAB. Absent: accessory muscle use, rales, rhonchi, wheezes - Cardiovascular Cardiovascular exam: Present: RRR, +S1, +S2. Absent: diastolic murmur, gallop, rubs, systolic murmur - GI/Abdominal GI/Abdominal exam: Present: normal bowel sounds, soft, no peritoneal signs. Absent: distended, tenderness Internal Medicine: Result - Labs CBC & Chem 7: 07/04/17 04:25 07/03/17 12:01 Labs: Short CBC 07/03/17 07/04/17 Range/Units 12:01 04:25 WBC 12.2 H 9.6 (4.3-11.1) K/mcL Hgb 9.4 L 8.8 L (12.9-16.9) g/dL Hct 30.5 L 28.7 L (37.5-50.1) % Plt Count 223 225 (140-400) K/mcL Neutrophils # 10.6 H (1.6-8.9) K/mcL BMP 07/03/17 12:01 Sodium 133 L Potassium 4.6 Chloride 104 Carbon Dioxide 25 BUN 10 Creatinine 0.53 L Glucose 193 H Calcium 7.8 L - ABG Interpretation ABG results: ABG ABG pH 7.49 pH Units (7.32-7.45) H 06/25/17 10:58 ABG pCO2 34 mmHg (35-45) L 06/25/17 10:58 ABG pO2 291 mmHg (85-104) H 06/25/17 10:58 ABG O2 Saturation 100 % (95-98) H 06/25/17 10:58 PT/INR, D-dimer PT 16.6 Seconds (9.4-12.1) H 06/28/17 07:38 - Impressions Impressions Paracentesis Ultrasound 07/03/17 08:00 IMPRESSION: Successful ultrasound guided paracentesis. D/ / Adebayo Angeles MD / Adebayo Angeles MD Interpreting Provider: Adebayo Angeles MD - VTE Documentation of Mechanical Device: Intermittent pneumatic compression device Consult Discharge Plan - Plan Referrals: Florence Bello CNP [Primary Care Provider] - Jorge Rubio MD [Non-Partnered Physician] -
[2017-07-04] MEDS: Insulin LISPRO 300 UNITS/3 ML VIAL SQ SCH ×4 (10:02→21:19)
--- NOTE | 2017-07-04 11:02 | General Surgery Progress Note ---
Date of Encounter: 07/04/17 Time of Encounter: 10:50 Subjective Narrative: General Surgery - POD # 7 Patient feeling well, voicing no complaints; tolerated regular diet without crampy abdominal pain, nausea or vomiting. Patient continues to be afebrile, pulse 75, respirations 18, blood pressure 120/79. Lungs: Clear bilaterally, no obvious pain on deep inspiration Abdomen: Soft, distended, nontender. The distention is likely to reaccumulated ascites. Active bowel sounds and flatus noted; no bowel movement Gastrostomy site intact; midline incision also clean and dry. Laboratories: Leukocytosis resolved, 9.6; hemoglobin 8.8 hematocrit 28.7. Platelet count 225,000 Impression: Metastatic pancreatic cancer with gastric outlet obstruction; postoperative day 7 status post stapled gastrojejunostomy. Acceptable postoperative status Patient tolerating regular diet Antibiotic therapy weaned per primary service. Objective Vital Signs - Last 8 Hours Temp Pulse Resp BP Pulse Ox 07/04/17 08:22 98.2 F 85 18 120/79 95 07/04/17 04:38 98.2 F 92 14 116/74 96 Intake and Output 07/03/17 07/04/17 07/04/17 23:59 07:59 15:59 Intake Total 1440 / 1440 110 / 110 Output Total 800 / 800 0 / 0 Balance 640 / 640 110 / 110 Intake: IV Fluids 360 / 360 110 / 110 Maxipime 1,000 MG In Water for inj. (sterile) 10 ML @ 150 mls/ hr IVP Q8HR KATIE Rx#:[id number] Zosyn 3.375 GM In 0.9 % Sodium 100 / 100 100 / 100 Chloride 100 ML @ 25 mls/hr IVPB Q8H KATIE Rx#:[id number] Vancocin 1,000 MG In 0.9 % 250 / 250 Sodium Chloride 250 ML @ 167 mls/hr IVPB Q12H KATIE Rx#: [id number] Oral 1080 / 1080 0 / 0 Output: Urine 800 / 800 0 / 0 Other: Meal Dinner Percent of Meal Consumed 90% Weight 63.1 kg Blood Glucose* 205 137 Patient Weight 07/04/17 23:59 Weight 63.1 kg - Labs 07/04/17 04:25 07/03/17 12:01 Diabetes panel 07/03/17 Range/Units 12:01 Sodium 133 L (136-145) mEq/L Potassium 4.6 (3.5-5.1) mEq/L Chloride 104 (98-107) mEq/L Carbon Dioxide 25 (23-29) mEq/L BUN 10 (8-23) mg/dL Creatinine 0.53 L (0.70-1.30) mg/dL Glucose 193 H (70-105) mg/dL Calcium 7.8 L (8.6-10.3) mg/dL Calcium panel 07/03/17 Range/Units 12:01 Calcium 7.8 L (8.6-10.3) mg/dL Pituitary panel 07/03/17 Range/Units 12:01 Sodium 133 L (136-145) mEq/L Potassium 4.6 (3.5-5.1) mEq/L Chloride 104 (98-107) mEq/L Carbon Dioxide 25 (23-29) mEq/L BUN 10 (8-23) mg/dL Creatinine 0.53 L (0.70-1.30) mg/dL Glucose 193 H (70-105) mg/dL Calcium 7.8 L (8.6-10.3) mg/dL Adrenal panel 07/03/17 Range/Units 12:01 Sodium 133 L (136-145) mEq/L Potassium 4.6 (3.5-5.1) mEq/L Chloride 104 (98-107) mEq/L Carbon Dioxide 25 (23-29) mEq/L BUN 10 (8-23) mg/dL Creatinine 0.53 L (0.70-1.30) mg/dL Glucose 193 H (70-105) mg/dL Calcium 7.8 L (8.6-10.3) mg/dL - VTE Documentation of Mechanical Device: Intermittent pneumatic compression device Consult Discharge Plan - Plan Referrals: Florence Bello CNP [Primary Care Provider] - Jorge Rubio MD [Non-Partnered Physician] -
[2017-07-04] MEDS: *HR* HYDROmorphone 4 MG TABLET PO PRN ×2 (14:43→23:08)
[2017-07-05] MEDS: *HR* Enoxaparin 40 MG/0.4 ML SYRINGE SQ SCH (06:10)
[2017-07-05] MEDS: *HR* OxyCODONE/APAP 10/325 TABLET PO PRN ×3 (06:13→23:51)
[2017-07-05] MEDS: Pantoprazole 40 MG VIAL IVP SCH (08:02)
[2017-07-05] MEDS: Potassium Chloride Elixir 20 MEQ/15 ML UDC GTUBE SCH ×2 (08:02→21:01)
[2017-07-05] MEDS: Insulin LISPRO 300 UNITS/3 ML VIAL SQ SCH ×4 (08:02→21:02)
--- NOTE | 2017-07-05 10:03 | Internal Med Progress Note ---
Date of Encounter: 07/05/17 Time of Encounter: 09:58 - Assessment and plan (1) Bacteremia Current Visit: Yes Status: Acute Assessment and plan: patient has E coli bacteremia, adrianaley from biliary infection, continue zosyn and pending sensitivity (2) Failure to thrive Current Visit: No Status: Acute Assessment and plan: Severe malnourished Qualifiers: Failure to thrive age range: in adult Qualified Code(s): R62.7 - Adult failure to thrive (3) Gastric outlet obstruction Current Visit: Yes Status: Acute Assessment and plan: Study postsurgery day #7 clinically recovering well surgery is following (4) Cancer associated pain Current Visit: Yes Status: Acute Assessment and plan: Palliative care following patient for pain control (5) Leukocytosis Current Visit: Yes Status: Acute Assessment and plan: from bacteremia White count is back to normal on 07/04, patient clinically doing well Qualifiers: Leukocytosis type: bandemia Qualified Code(s): D72.825 - Bandemia (6) Pancreatic cancer metastasized to liver Current Visit: Yes Status: Acute Assessment and plan: Stage IV pancreatic cancer metastatic liver - Time Spent With Patient 25 - 35 minutes - Subjective Interval history: Patient with history of stage IV pancreatic cancer, hypertension, diabetes, admitted with gastric outlet obstruction being followed by surgery patient underwent paracentesis 5100 mL fluid was removed on 07/03 Patient reports that he feels much better no fever or chills. WBC back to normal. Patient was on vancomycin and Levaquin and cefepime , now d/leyla on 07/04 Patient has E coli bacteremia from [facility] on 07/02, continue IV zosyn, pending sensitivity - Constitutional Vitals: Temp Pulse Resp BP Pulse Ox 98.6 F 103 18 117/80 98 07/05/17 07:39 07/05/17 07:39 07/05/17 07:39 07/05/17 07:39 07/05/17 07:39 General appearance: Present: cachectic, A&O X 3, no acute distress, underweight , answers questions appropriately Exam: CONSTITUTIONAL: patient appears as an age appropriate male in no acute distress. EYES Clear sclerae, bilateral pupils are equal, reactive to light. EMOI. RESPIRATORY: No accessory muscle use, bilateral clear to auscultation, no wheezing, no crackles/rales. CARDIOVASCULAR: Regular heart rate, normal S1 and S2, no murmurs GASTROINTESTINAL: bowel sounds present, soft, no tenderness. distended abdomen from ascites MUSCULOSKELETAL: Joints in normal range of motion, no clubbing, no edema, no cyanosis. Bilateral peripheral pulses 2+. NEUROLOGIC: CN II to XII are grossly intact, no focal neurological deficit. Internal Medicine: Result - Labs CBC & Chem 7: 07/04/17 04:25 07/03/17 12:01 - ABG Interpretation ABG results: ABG ABG pH 7.49 pH Units (7.32-7.45) H 06/25/17 10:58 ABG pCO2 34 mmHg (35-45) L 06/25/17 10:58 ABG pO2 291 mmHg (85-104) H 06/25/17 10:58 ABG O2 Saturation 100 % (95-98) H 06/25/17 10:58 PT/INR, D-dimer PT 16.6 Seconds (9.4-12.1) H 06/28/17 07:38 - VTE Documentation of Mechanical Device: Intermittent pneumatic compression device Consult Discharge Plan - Plan Referrals: Florence Bello CNP [Primary Care Provider] - Jorge Rubio MD [Non-Partnered Physician] -
[2017-07-05] MEDS: *HR* HYDROmorphone 4 MG TABLET PO PRN ×2 (11:15→21:02)
[2017-07-05] MEDS: *HR* FentaNYL PATCH 25 MCG PATCH TD SCH (21:02)
[2017-07-06 05:22] LABS: Basophils # 0.1 K/mcL (0.0-0.2); Basophils % 0.6 %; Eosinophils # 0.1 K/mcL (0.0-0.6); Hematocrit 28.5 % (37.5-50.1); Hemoglobin 8.7 g/dL (12.9-16.9); Immature Granulocytes % 0.5 % (0-4); Lymphocytes # 1.2 K/mcL (0.6-4.6); Mean Corpuscular HGB Conc 30.5 g/dL (31.6-35.5); Mean Corpuscular Hemoglobin 27.9 pg (28.0-33.3); Mean Corpuscular Volume 91.3 fL (83.0-100.0); Mean Platelet Volume 10.1 fL (9.4-12.4); Monocytes # 0.7 K/mcL (0.0-1.3); Monocytes % 8.6 %; Neutrophils # 5.9 K/mcL (1.6-8.9); Platelet Count 236 K/mcL (140-400); Red Blood Count 3.12 M/mcL (4.19-5.50); Red Cell Distribution Width 18.1 % (11.5-14.5); Segmented Neutrophils % 74.3 %
[2017-07-06 05:35] LABS: BUN/Creatinine Ratio 14 (6-26); Blood Urea Nitrogen 8 mg/dL (8-23); Calcium 8.3 mg/dL (8.6-10.3); Carbon Dioxide 25 mEq/L (23-29); Chloride 105 mEq/L (98-107); Glucose 123 mg/dL (70-105); Osmolality,Calculated 278 (280-300); Potassium 4.4 mEq/L (3.5-5.1); Sodium 134 mEq/L (136-145); eGFR For African Americans > 60 (> 60); eGFR For Non-African Americans > 60 (> 60)
[2017-07-06] MEDS: *HR* Enoxaparin 40 MG/0.4 ML SYRINGE SQ SCH (06:39)
[2017-07-06] MEDS: Insulin LISPRO 300 UNITS/3 ML VIAL SQ SCH ×2 (08:56→12:16)
[2017-07-06] MEDS: *HR* OxyCODONE/APAP 10/325 TABLET PO PRN (09:07)
--- NOTE | 2017-07-06 10:34 | Discharge Summary ---
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 (5) Leukocytosis Priority: Secondary Status: Resolved Qualifiers: Leukocytosis type: bandemia Qualified Code(s): D72.825 - Bandemia (6) Pancreatic cancer metastasized to liver Priority: Secondary Status: Chronic - Discharge Medications Prescriptions: Ceftriaxone Sodium [Ceftriaxone] 2 gm IV DAILY #14 vial.port Home Medications: Magic Mouthwash 5 ml PO Q4H PRN #240 ml 06/09/16 [Rx] Ondansetron HCl [Zofran] 4 mg PO Q6H PRN #40 tablet 10/30/16 [Rx] Cyclobenzaprine [Flexeril] 10 mg PO TID PRN 01/15/17 [History] Zolpidem [Ambien] 10 mg PO HS PRN 01/27/17 [History] Bisacodyl [Dulcolax] 10 mg PO DAILY PRN tab 01/29/17 [Rx] Prochlorperazine Maleate [Compazine] 10 mg PO Q6HR PRN #30 tablet 03/10/17 [Rx] Lidocaine/Prilocaine [Emla] 1 appl TP AD #30 gm 03/31/17 [Rx] Insulin Glargine,Hum.rec.anlog [Basaglar Kwikpen U-100] 10 unit SQ BID #5 insuln.pen 04/17/17 [Rx] Dicyclomine [Bentyl] 10 mg PO QID PRN #30 capsule 06/09/17 [Rx] Hydromorphone HCl [Dilaudid] 4 mg PO Q6H PRN #120 tablet 06/09/17 [Rx] Lipase/Protease/Amylase [Creon Dr 24,000 Units Capsule] 1 each PO ACHS #90 cap 06/09/17 [Rx] Omeprazole [PriLOSEC] 20 mg PO DAILY #30 cap 06/09/17 [Rx] Oxycodone HCl/Acetaminophen [Percocet 10-325 mg Tablet] 1 each PO Q6H PRN #120 tablet 06/09/17 [Rx] Ceftriaxone Sodium [Ceftriaxone] 2 gm IV DAILY #14 vial.port 07/06/17 [Rx] Allergies/Adverse Reactions: 3 Allergy/AdvReac Type Severity Reaction Status Date / Time morphine AdvReac Headache Verified 06/24/17 22:47 Procedures/tests Complete & Pending: Procedures Performed prior 72 hours Category Date Time Status IR paracentesis ultrasound [IR] Stat IR 07/06/17 13:18 Ordered Date of admission: 06/24/17 23:30 Primary care physician: Florence Bello Consults: 06/25/17 07:26 Consult to Surgery [CONS] Routine Consulting Provider: Surgery [facility] - Joanne Reason for Consult: Acute gastric outlet obstruction Call Completed: Yes 06/25/17 10:57 Consult to Oncology [CONS] Routine Consulting Provider: On[facility] Reason for Consult: Pt known to you Call Completed: Yes 06/25/17 12:09 Consult to Palliative Care [CONS] Routine Comment: Consulting Provider: [facility] [place] Reason for Consult: Goals of care Call Completed: Yes 06/27/17 15:18 Consult to Critical Care [CONS] Routine Consulting Provider: [facility] Reason for Consult: metastatic pancreatic carcinoma with gastric outlet obstruction s/p gastrojejunostomy Time Notified: 14:03 Call Completed: Yes Discharging clinician: Ibeth Yi Anticipated date of discharge: 07/06/17 - Patient Status Disposition: Home Health Service Condition: Fair Overall status at discharge: patient is back to baseline - Discharge Instructions Follow Up With: Florence Bello CNP [Primary Care Provider] - Jorge Rubio MD [Non-Partnered Physician] - - Diet and Activity Diet: advance to your usual diet, low salt diet Interval History: Patient with history of stage IV pancreatic cancer, hypertension, diabetes, admitted with gastric outlet obstruction being followed by surgery patient underwent paracentesis 5100 mL fluid was removed on 07/03 Patient reports that he feels much better no fever or chills. WBC back to normal. Patient was on vancomycin and Levaquin and cefepime , now d/leyla on 07/04 Patient has E coli bacteremia from [facility] on 07/02, continue IV zosyn, E coli is sensitive to Ceftriaxone, will discharge on ceftriaxone IV for 14 days with home care Hospital course: Mr. Wilson is a 62 year old male with history of stage IV pancreatic cancer, hypertension, diabetes, admitted with gastric outlet obstruction being followed by surgery patient underwent paracentesis 5100 mL fluid was removed on 07/03 Patient reports that he feels much better no fever or chills. WBC back to normal. Patient was on vancomycin and Levaquin and cefepime , now d/leyla on 07/04 Patient has E coli bacteremia from on 07/02, continue IV zosyn, E coli is sensitive to Ceftriaxone, will discharge on ceftriaxone IV for 14 days with home care - Time Spent with Patient Total time spent providing and/or coordinating discharge services: - Constitutional Vitals: Temp Pulse Resp BP Pulse Ox 97.9 F 109 18 114/78 97 07/06/17 07:44 07/06/17 07:44 07/06/17 07:44 07/06/17 07:44 07/06/17 07:44 General appearance: Present: cachectic, A&O X 3, no acute distress, underweight , answers questions appropriately Exam: CONSTITUTIONAL: patient appears as an age appropriate male in no acute distress. EYES Clear sclerae, bilateral pupils are equal, reactive to light. EMOI. RESPIRATORY: No accessory muscle use, bilateral clear to auscultation, no wheezing, no crackles/rales. CARDIOVASCULAR: Regular heart rate, normal S1 and S2, no murmurs GASTROINTESTINAL: bowel sounds present, diste nded from ascites, no tenderness. MUSCULOSKELETAL: Joints in normal range of motion, no clubbing, no edema, no cyanosis. Bilateral peripheral pulses 2+. NEUROLOGIC: CN II to XII are grossly intact, no focal neurological deficit. - VTE Documentation of Mechanical Device: Intermittent pneumatic compression device
--- NOTE | 2017-07-06 11:01 | Physician Discharge Referral ---
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 For more information, call the [place] Tobacco Quit Line at 4-704-QRIA-NOW. - Diet/Nutrition Diet/Nutrition Orders: Cardiac - Activity Activity Orders: Up ad flower - Services Needed Following services are medically necessary services: Nursing Other Treatments: IV ceftriaxone - Transfer Medications Prescriptions: Ceftriaxone Sodium [Ceftriaxone] 2 gm IV DAILY #14 vial.port Home Medications: Magic Mouthwash 5 ml PO Q4H PRN #240 ml 06/09/16 [Rx] Ondansetron HCl [Zofran] 4 mg PO Q6H PRN #40 tablet 10/30/16 [Rx] Cyclobenzaprine [Flexeril] 10 mg PO TID PRN 01/15/17 [History] Zolpidem [Ambien] 10 mg PO HS PRN 01/27/17 [History] Bisacodyl [Dulcolax] 10 mg PO DAILY PRN tab 01/29/17 [Rx] Prochlorperazine Maleate [Compazine] 10 mg PO Q6HR PRN #30 tablet 03/10/17 [Rx] Lidocaine/Prilocaine [Emla] 1 appl TP AD #30 gm 03/31/17 [Rx] Insulin Glargine,Hum.rec.anlog [Basaglar Kwikpen U-100] 10 unit SQ BID #5 insuln.pen 04/17/17 [Rx] Dicyclomine [Bentyl] 10 mg PO QID PRN #30 capsule 06/09/17 [Rx] Hydromorphone HCl [Dilaudid] 4 mg PO Q6H PRN #120 tablet 06/09/17 [Rx] Lipase/Protease/Amylase [Creon Dr 24,000 Units Capsule] 1 each PO ACHS #90 cap 06/09/17 [Rx] Omeprazole [PriLOSEC] 20 mg PO DAILY #30 cap 06/09/17 [Rx] Oxycodone HCl/Acetaminophen [Percocet 10-325 mg Tablet] 1 each PO Q6H PRN #120 tablet 06/09/17 [Rx] Ceftriaxone Sodium [Ceftriaxone] 2 gm IV DAILY #14 vial.port 07/06/17 [Rx] Allergies/Adverse Reactions: 3 Allergy/AdvReac Type Severity Reaction Status Date / Time morphine AdvReac Headache Verified 06/24/17 22:47 Certification: Further, I certify that my clinical findings support that this patient is homebound (i.e. absences from home require considerable and taxing effort and are for medical reasons or amish services or infrequently or short duration when for other reasons) because: Homebound Reason: Patient requires assistance of a person or device to safely leave home, Absences from home are contraindicated except to recieve medical care, Post-surgery restriction and or conditions limit ability to leave home, Leaving home requires considerable and taxing effort due to condition, Altered mental status requiring supervision when leaving home, Severity of cardiac or pulmonary status limits activity tolerance Attestation: My signature below is to certify that this patient is under my care and that I, or nurse practitioner, or a physician's traffic assistant working with me, has a face-to -face encounter with this patient.
--- NOTE | 2017-07-06 11:07 | IR Procedure Note ---
Date of procedure: 07/06/17 Consent Obtained: Verbal consent, Written consent Timeout: Correct patient and procedure verified, Correct site verified, Time out performed, Skin prep completed Local anesthetic: Lidocaine 1% Indications: ascites Procedure Performed: paracentesis Was there an school office assistant present: Angella Director Custom: Jean-Paul Lema Site/Technique: LLQ Estimated blood loss (cc): 1 Complications: None; Tolerated procedure well Specimen: none
[2017-07-06] MEDS ORDERED: CEFTRIAXONE IN IS-OSM DEXTROSE 1 GM/50 ML PIGGYBACK IVPB SCH (11:15)
[2017-07-06] MEDS: Pantoprazole 40 MG VIAL IVP SCH (11:37)
[2017-07-06] MEDS: Potassium Chloride Elixir 20 MEQ/15 ML UDC GTUBE SCH (11:38)
[2017-07-06 11:51] VITALS: BP 113/71
[2017-07-06] MEDS ORDERED: cefTRIAXone 1,000 MG in Water for inj. (sterile) 20 ML 10 ML IVP SCH (12:00)
[2017-07-06] MEDS: *HR* HYDROmorphone 4 MG TABLET PO PRN (12:01)
--- NOTE | 2017-07-06 16:10 | Oncology Inp Progress Note ---
Date of Encounter: 07/03/17 Time of Encounter: 18:00 (1) Gastric outlet obstruction Current Visit: Yes Status: Chronic Assessment and plan: Recovering from stapled gastrojejunostomy with gastrostomy tube on 06/27/2017. Currently on liquid diet. In the past but no solid bowel movement yet Leukocytosis and fever have improved. Current WBC 8000 and hemoglobin 8.7 About 5.2 L ascites fluid is removed. He feels better and appetite is improved. May arrange for another paracentesis 07/06/2017 (2) Pancreatic cancer metastasized to liver Current Visit: Yes Status: Chronic Assessment and plan: He is on second line chemotherapy as mentioned. His CA-19-9 has come down but there is evidence of disease progression by enlargement of pancreatic head mass. This is causing gastric outlet obstruction. About 6 L of acetic fluid drained. Cytology showed atypical cells suspicious for adenocarcinoma Profound anemia . This could be related to leading into the stomach. Iron levels are low. Venofer 400 mg IV one dose. B12 also low at 230. B12 1000 g IM Current hemoglobin stable at 8.7 Overall prognosis poor. May consider palliative radiation to pancreas as an outpatient Will also look into clinical trials if available Oncology: Subj Interval history: Abdominal distention improved after 5.2 L of fluid drainage. Appetite is better. - Constitutional Vitals: Vital Signs Temp Pulse Resp BP Pulse Ox 07/06/17 11:49 98.9 F 89 16 113/71 97 07/06/17 07:44 97.9 F 109 18 114/78 97 07/06/17 04:26 98.1 F 92 14 107/69 96 07/05/17 20:22 98.4 F 95 14 102/68 96 Intake and Output 07/06/17 07/06/17 07/06/17 07:59 15:59 23:59 Intake Total 340 / 340 220 / 220 Output Total 200 / 200 Balance 140 / 140 220 / 220 Intake: IV Fluids 100 / 100 100 / 100 Zosyn 3.375 GM In 0.9 % Sodium 100 / 100 100 / 100 Chloride 100 ML @ 25 mls/hr IVPB Q8H [facility] Rx#:[id number] Oral 240 / 240 120 / 120 Output: Urine 200 / 200 Other: Meal Breakfast Percent of Meal Consumed 75% Weight 63.8 kg Blood Glucose* 132 194 Patient Weight 02/19/18 23:59 Weight 63.8 kg Oncology: Obj Data - Labs CBC & Chem 7: 07/06/17 04:20 07/06/17 04:20 Labs: Laboratory Results - last 24 hr 07/04/17 07/05/17 07/05/17 19:57 07:43 11:29 WBC RBC Hgb Hct MCV MCH MCHC RDW Plt Count MPV Immature Gran % Seg Neutrophils % Lymphocytes % Monocytes % Eosinophils % Basophils % Neutrophils # Lymphocytes # Monocytes # Eosinophils # Basophils # Sodium Potassium Chloride Carbon Dioxide BUN Creatinine Est GFR ( Amer) Est GFR (Non-Af Amer) BUN/Creatinine Ratio Glucose POC Glucose 146 H 156 H 150 H Calculated Osmolality Calcium 07/05/17 07/06/17 07/06/17 20:18 04:20 04:20 WBC 8.0 RBC 3.12 L Hgb 8.7 L Hct 28.5 L MCV 91.3 MCH 27.9 L MCHC 30.5 L RDW 18.1 H Plt Count 236 MPV 10.1 Immature Gran % 0.5 Seg Neutrophils % 74.3 Lymphocytes % 15.0 Monocytes % 8.6 Eosinophils % 1.0 Basophils % 0.6 Neutrophils # 5.9 Lymphocytes # 1.2 Monocytes # 0.7 Eosinophils # 0.1 Basophils # 0.1 Sodium 134 L Potassium 4.4 Chloride 105 Carbon Dioxide 25 BUN 8 Creatinine 0.58 L Est GFR ( Amer) > 60 Est GFR (Non-Af Amer) > 60 BUN/Creatinine Ratio 14 Glucose 123 H POC Glucose 149 H Calculated Osmolality 278 L Calcium 8.3 L 07/06/17 11:25 WBC RBC Hgb Hct MCV MCH MCHC RDW Plt Count MPV Immature Gran % Seg Neutrophils % Lymphocytes % Monocytes % Eosinophils % Basophils % Neutrophils # Lymphocytes # Monocytes # Eosinophils # Basophils # Sodium Potassium Chloride Carbon Dioxide BUN Creatinine Est GFR ( Amer) Est GFR (Non-Af Amer) BUN/Creatinine Ratio Glucose POC Glucose 194 H Calculated Osmolality Calcium - Impressions Impressions Paracentesis Ultrasound 07/06/17 13:18 IMPRESSION: Successful ultrasound guided paracentesis. D/ / Jamaal Pool MD / Jamaal Pool MD Interpreting Provider: Jamaal Pool MD - ABG Interpretation ABG results: ABG ABG pH 7.49 pH Units (7.32-7.45) H 06/25/17 10:58 ABG pCO2 34 mmHg (35-45) L 06/25/17 10:58 ABG pO2 291 mmHg (85-104) H 06/25/17 10:58 ABG O2 Saturation 100 % (95-98) H 06/25/17 10:58 PT/INR, D-dimer PT 16.6 Seconds (9.4-12.1) H 06/28/17 07:38 Consult Discharge Plan - Plan Referrals: Florence Bello CNP [Primary Care Provider] - 07/09/17 2:30 pm Jorge Rubio MD [Non-Partnered Physician] - 07/10/17 2:40 pm Prescriptions: Ceftriaxone Sodium [Ceftriaxone] 2 gm IV DAILY #14 vial.port
[2017-07-06] MEDS ORDERED: Insulin LISPRO 300 UNITS/3 ML VIAL SQ SCH ×2 (16:30→21:00)
== END 2017-07-06 16:54 | disposition home health service (06) | DRG 220 ==
LOC: EMEROO 21:31 → 3BNU 21:31 → SUATTDRO 23:30 → 2NNU 06-25 14:38 → ICNU 06-27 12:25 → 3ANU 06-29 13:05
PROVIDERS: ADMIT Family Medicine; ATTEND Hospitalist

== ENCOUNTER 2017-07-29 07:27 | Inpatient (IN) ==
[2017-07-29] MEDS ORDERED: 0.9 % Sodium Chloride 1,000 ML IVC ONE ×3 (07:33→14:07)
--- NOTE | 2017-07-29 08:05 | Emergency Department Note ---
Disposition Clinical Impression: Hyperkalemia, Hyponatremia, Acute kidney injury, Dehydration, Generalized weakness Disposition: Admitted As Inpatient Condition: Fair Referrals: Sola Doss MD [Primary Care Provider] - Forms: ED Satisfaction Letter Time of Disposition: 14:06 Weakness HPI - General Chief complaint: ED Weakness Stated complaint: weakness Time Seen by Provider: 07/29/17 07:29 Source: patient Mode of arrival: EMS Limitations: no limitations Nursing Notes Reviewed: Yes Vital Signs Reviewed: Yes - History of Present Illness HPI Narrative: Ill-appearing 62-year-old male is brought to emergency Department by EMS for generalized weakness that has worsened over the past several days. He has a history of pancreatic cancer is currently undergoing radiation treatment by the the oncology group here at [facility]. He received radiation therapy yesterday. His states that he has not been eating or drinking well. He does have a feeding tube in place but the spouse has been "supplementing fluids with", however she states that he usually is able to tolerate oral intake as well. He denies any fever, chills, shortness breath, chest pain, cough, nausea, vomiting. He does complain of generalized abdominal pain, for which he takes regularly prescribed Percocet and Dilaudid. Pt Subjective Complaint: generalized weakness/fatigue Onset (ago): day(s) Duration: gradually worsening Location: generalized Pain Severity: moderate Pain Scale: 5 If pain, quality: aching Improves with: none Worsens with: none Context: other Associated symptoms: Denies: chest pain, dysuria, fever/chills, nausea/vomiting , rash, shortness of breath - Related Data Home Medications Medication Instructions Recorded Confirmed Zolpidem [Ambien] 10 mg PO HS PRN 01/27/17 07/29/17 Polyethylene Glycol 3350 [MiraLAX] 17 gm PO DAILY 07/29/17 07/29/17 Previous Rx's Medication Instructions Recorded Magic Mouthwash 5 ml PO Q4H PRN #240 ml 06/09/16 Ondansetron HCl [Zofran] 4 mg PO Q6H PRN #40 tablet 10/30/16 Prochlorperazine Maleate 10 mg PO Q6HR PRN #30 tablet 03/10/17 [Compazine] Lidocaine/Prilocaine [Emla] 1 appl TP AD #30 gm 11/14/17 Insulin Glargine,Hum.rec.anlog 10 unit SQ BID #5 insuln.pen 04/17/17 [Basaglar Kwikpen U-100] Dicyclomine [Bentyl] 10 mg PO QID PRN #30 capsule 06/09/17 Omeprazole [PriLOSEC] 20 mg PO DAILY #30 cap 06/09/17 Hydromorphone HCl [Dilaudid] 4 mg PO Q6H PRN 30 Days #120 tablet 07/08/17 Oxycodone HCl/Acetaminophen 1 each PO Q6H PRN 30 Days #120 07/08/17 [Percocet 10-325 mg Tablet] tablet Capecitabine [Xeloda] 2 tab PO BID #60 tablet 07/22/17 Allergies Allergy/AdvReac Type Severity Reaction Status Date / Time morphine AdvReac Headache Verified 07/22/17 08:40 All systems ED: reviewed and negative except as stated. Constitutional: Reports: as per HPI, weakness (generalized). Denies: fever, chills, weight change Eyes: Denies: eye pain, eye discharge, vision change ENT ED: Denies: ear pain, throat pain, dental pain, hearing loss, epistaxis, congestion, dysphagia Cardiovascular: Denies: chest pain, palpitations, dyspnea on exertion, edema, syncope Respiratory: Denies: cough, dyspnea, wheezes, hemoptysis, stridor Gastrointestinal: Reports: as per HPI, abdominal pain. Denies: nausea, vomiting , diarrhea, constipation, hematemesis, melena, hematochezia Genitourinary: Denies: urgency, dysuria, frequency, hematuria Musculoskeletal: Denies: back pain, neck pain, arthralgia, myalgia Integumentary: Denies: rash, abrasion, lesions Neurological: Denies: headache, weakness, numbness, paresthesias, confusion, abnormal gait, vertigo Psychiatric: Denies: anxiety, depression, suicidal thoughts, homicidal thoughts , auditory hallucinations, visual hallucinations Endocrine: Denies: fatigue Hematological/Lymphatic: Denies: easy bleeding, easy bruising Allergic/Immunologic: Denies: facial swelling, urticaria Past Medical History - Past Medical History Attestation: Yes The following information was validated with the patient. Source: patient, obtained from family, nursing notes reviewed Medical history: Reports: arthritis, cancer, diabetes, hypertension, other Surgical history: Reports: orthopedic, other, other Psychiatric history: Reports: no psych history - Social History Smoking Status: Current some day smoker Smokeless Tobacco Status: No Alcohol use: Reports: none Drug use: Reports: none Physical Exam - General General appearance: alert - Head Head exam: atraumatic, normocephalic, normal inspection - Eye Eye exam: Present: normal appearance, PERRL, EOMI. Absent: nystagmus - ENT ENT exam: mucous membranes dry - Neck Neck exam: Present: normal inspection, full ROM, trachea midline - Chest Chest inspection: Present: normal inspection, symmetric chest wall rise - Respiratory Respiratory exam: Present: normal lung sounds bilaterally. Absent: respiratory distress, wheezes, stridor, accessory muscle use, prolonged expiratory phase - Cardiovascular Cardiovascular exam: Present: regular rate, normal rhythm, normal heart sounds - Abdominal Exam Abdominal exam: Present: soft, tenderness, normal bowel sounds. Absent: distention, guarding, rebound, rigidity Abdominal tenderness: Present: diffuse, moderate - Extremities Exam Extremities exam: Present: normal inspection, full ROM. Absent: tenderness, pedal edema - Neurological Exam Neurological exam: Present: alert, oriented X3 - Psychiatric Psychiatric exam: Present: normal affect, normal mood - Skin Skin exam: Present: warm, dry, intact, pallor Course Course Narrative: I have discussed this patient's case with Dr. Bello. Dr. Bello has been available throughout this patient's course of care and has had [id number] time with the patient. 1345: I spoke with Dr. Arriaga of the hospitalist service who has requested nephrology consultation regarding the patient's abnormal potassium and sodium levels as well as acute kidney injury prior to him accepting him to the hospitalist service. 1350: I spoke with Dr. Rogel of the nephrology group here. No additional orders have been given at this time, however she does state that she will send her resident to the patient's bedside for a formal consultation/evaluation. 1405: I discussed this plan with Dr. Arriaga, who states that he is comfortable accepting the patient to the hospital service as long as nephrology is consulted. - Consultations Consultation #1: I spoke with Dee, nurse practitioner with the oncology group here at [facility]. She reviewed the patient's chemotherapy records and did not find any record of administration of growth factors such as Neupogen that could account for the patient's leukocytosis. I discussed with Dee that the patient's urine and chest x-ray are unremarkable. She states that at this time, she recommends withholding IV antibiotics pending consultation between the oncologist, Dr. Dewitt, and the hospitalist on the floor, despite the leukocytosis and elevated lactic acid. Artificial oncology consultation will be entered into [employer]. Time: 11:37 Vital Signs Temperature 97.4 F L 07/29/17 07:29 Pulse Rate 87 07/29/17 07:29 Respiratory Rate 11 07/29/17 07:29 Blood Pressure 97/63 07/29/17 07:29 O2 Sat by Pulse Oximetry 98 07/29/17 07:29 Temperature 97.4 F L 07/29/17 07:29 Pulse Rate 84 07/29/17 11:25 Respiratory Rate 24 07/29/17 11:25 Blood Pressure 100/76 07/29/17 11:25 O2 Sat by Pulse Oximetry 93 07/29/17 11:25 Oxygen Delivery Oxygen Delivery Room Air Weakness - Medical Records Medical records reviewed: Yes I reviewed the patient's medical records. - Lab Data Lab results reviewed: Yes I reviewed the patient's lab results. Lab results narrative: Laboratory Last Values WBC 25.5 K/mcL (4.3-11.1) H D 07/29/17 08:10 RBC 4.55 M/mcL (4.19-5.50) 07/29/17 08:10 Hgb 12.2 g/dL (12.9-16.9) L D 07/29/17 08:10 Hct 39.1 % (37.5-50.1) 07/29/17 08:10 MCV 85.9 fL (83.0-100.0) 07/29/17 08:10 MCH 26.8 pg (28.0-33.3) L 07/29/17 08:10 MCHC 31.2 g/dL (31.6-35.5) L 07/29/17 08:10 RDW 18.2 % (11.5-14.5) H 07/29/17 08:10 Plt Count 429 K/mcL (140-400) H D 07/29/17 08:10 MPV 9.4 fL (9.4-12.4) 07/29/17 08:10 Immature Gran % 1.1 % (0-4) 07/29/17 08:10 Seg Neutrophils % 89.3 % 07/29/17 08:10 Lymphocytes % 3.5 % 07/29/17 08:10 Monocytes % 5.7 % 07/29/17 08:10 Eosinophils % 0.2 % 07/29/17 08:10 Basophils % 0.2 % 07/29/17 08:10 Neutrophils # 22.8 K/mcL (1.6-8.9) H 07/29/17 08:10 Lymphocytes # 0.9 K/mcL (0.6-4.6) 07/29/17 08:10 Monocytes # 1.5 K/mcL (0.0-1.3) H 07/29/17 08:10 Eosinophils # 0.1 K/mcL (0.0-0.6) 07/29/17 08:10 Basophils # 0.1 K/mcL (0.0-0.2) 07/29/17 08:10 Platelet Estimate Increased (Normal) H 07/29/17 08:10 Sodium 122 mEq/L (136-145) L 07/29/17 12:42 Potassium 7.1 mEq/L (3.5-5.1) H* 07/29/17 12:42 Chloride 97 mEq/L (98-107) L 07/29/17 12:42 Carbon Dioxide 20 mEq/L (23-29) L 07/29/17 12:42 BUN 75 mg/dL (8-23) H 07/29/17 12:42 Creatinine 2.52 mg/dL (0.70-1.30) H 07/29/17 12:42 Est GFR ( Amer) 32 (> 60) L 07/29/17 12:42 Est GFR (Non-Af Amer) 26 (> 60) L 07/29/17 12:42 BUN/Creatinine Ratio 30 (6-26) H 07/29/17 12:42 Glucose 63 mg/dL (70-105) L 07/29/17 12:42 POC Glucose 98 (58-89) H 07/29/17 07:38 Calculated Osmolality 274 (280-300) L 07/29/17 12:42 Lactic Acid 2.8 mmol/L (0.5-2.2) H 07/29/17 08:10 Calcium 7.9 mg/dL (8.6-10.3) L 07/29/17 12:42 Magnesium 2.3 mg/dL (1.6-2.6) 07/29/17 12:42 Total Bilirubin 1.0 mg/dL (0.3-1.0) 07/29/17 12:42 AST 32 Units/L (13-39) 07/29/17 12:42 ALT 30 Units/L (7-52) 07/29/17 12:42 Alkaline Phosphatase > 1500 Units/L (34-104) H 07/29/17 12:42 Creatine Kinase 23 Units/L (30-223) L 07/29/17 12:42 Troponin I 0.05 ng/mL (< 0.04) H* 07/29/17 08:10 Serum Total Protein 5.4 g/dL (6.4-8.9) L 07/29/17 12:42 Albumin 2.3 g/dL (3.5-5.7) L 07/29/17 12:42 Globulin 3.1 g/dL (2.4-3.5) 07/29/17 12:42 Albumin/Globulin Ratio 0.7 (1.1-2.2) L 07/29/17 12:42 Urine Color Dark Yellow (Yellow) 07/29/17 10:48 Urine Clarity Cloudy (Clear) A 07/29/17 10:48 Urine pH 5.5 pH Units (5.0-8.0) 07/29/17 10:48 Ur Specific [place] 1.026 (1.010-1.025) H 07/29/17 10:48 Urine Protein Trace mg/dL (Neg-Trace) 07/29/17 10:48 Urine Glucose (UA) Normal mg/dL (Normal) 07/29/17 10:48 Urine Ketones Negative mg/dL (Negative) 07/29/17 10:48 Urine Blood Negative (Negative) 07/29/17 10:48 Urine Nitrite Negative (Negative) 07/29/17 10:48 Urine Bilirubin Small (Negative) H 07/29/17 10:48 Urine Urobilinogen Normal mg/dL (Normal) 07/29/17 10:48 Ur Leukocyte Esterase Negative (Negative) 07/29/17 10:48 Urine Microscopic RBC 0-3 per hpf (0-3) 07/29/17 10:48 Urine Microscopic WBC 0-3 per hpf (0-3) 07/29/17 10:48 Ur Squamous Epith Cells Many per lpf (None-Few) H 07/29/17 10:48 Urine Bacteria None Seen per hpf (None-Few) 07/29/17 10:48 Hyaline Casts Few per lpf (None-Few) 07/29/17 10:48 Urine Yeast Test Not Performed 07/29/17 10:48 Ur Culture Indicated? NO (NO) 07/29/17 10:48 Blood Type O POSITIVE 07/29/17 08:10 Antibody Screen NEGATIVE 07/29/17 08:10 Result diagrams: 07/29/17 08:10 07/29/17 12:42 Lab Results 07/29/17 07/29/17 07/29/17 Range/Units 07:38 08:10 08:10 WBC 25.5 H D (4.3-11.1) K/mcL RBC 4.55 (4.19-5.50) M/mcL Hgb 12.2 L D (12.9-16.9) g/dL Hct 39.1 (37.5-50.1) % MCV 85.9 (83.0-100.0) fL MCH 26.8 L (28.0-33.3) pg MCHC 31.2 L (31.6-35.5) g/dL RDW 18.2 H (11.5-14.5) % Plt Count 429 H D (140-400) K/mcL MPV 9.4 (9.4-12.4) fL Immature Gran % 1.1 (0-4) % Seg Neutrophils % 89.3 % Lymphocytes % 3.5 % Monocytes % 5.7 % Eosinophils % 0.2 % Basophils % 0.2 % Neutrophils # 22.8 H (1.6-8.9) K/mcL Lymphocytes # 0.9 (0.6-4.6) K/mcL Monocytes # 1.5 H (0.0-1.3) K/mcL Eosinophils # 0.1 (0.0-0.6) K/mcL Basophils # 0.1 (0.0-0.2) K/mcL Platelet Estimate Increased H (Normal) Sodium Cancelled Potassium Cancelled Chloride Cancelled Carbon Dioxide Cancelled BUN Cancelled Creatinine Cancelled Est GFR ( Amer) Cancelled Est GFR (Non-Af Amer) Cancelled BUN/Creatinine Ratio Cancelled Glucose Cancelled POC Glucose 98 H (58-89) Calculated Osmolality Cancelled Lactic Acid (0.5-2.2) mmol/L Calcium Cancelled Magnesium Cancelled Total Bilirubin Cancelled AST Cancelled ALT Cancelled Alkaline Phosphatase Cancelled Creatine Kinase Cancelled Troponin I 0.05 H* (< 0.04) ng/mL Serum Total Protein Cancelled Albumin Cancelled Globulin Cancelled Albumin/Globulin Ratio Cancelled Urine Color (Yellow) Urine Clarity (Clear) Urine pH (5.0-8.0) pH Units Ur Specific [place] (1.010-1.025) Urine Protein (Neg-Trace) mg/dL Urine Glucose (UA) (Normal) mg/dL Urine Ketones (Negative) mg/dL Urine Blood (Negative) Urine Nitrite (Negative) Urine Bilirubin (Negative) Urine Urobilinogen (Normal) mg/dL Ur Leukocyte Esterase (Negative) Urine Microscopic RBC (0-3) per hpf Urine Microscopic WBC (0-3) per hpf Ur Squamous Epith Cells (None-Few) per lpf Urine Bacteria (None-Few) per hpf Hyaline Casts (None-Few) per lpf Urine Yeast Ur Culture Indicated? (NO) Blood Type Antibody Screen 07/29/17 07/29/17 07/29/17 Range/Units 08:10 08:10 08:10 WBC (4.3-11.1) K/mcL RBC (4.19-5.50) M/mcL Hgb (12.9-16.9) g/dL Hct (37.5-50.1) % MCV (83.0-100.0) fL MCH (28.0-33.3) pg MCHC (31.6-35.5) g/dL RDW (11.5-14.5) % Plt Count (140-400) K/mcL MPV (9.4-12.4) fL Immature Gran % (0-4) % Seg Neutrophils % % Lymphocytes % % Monocytes % % Eosinophils % % Basophils % % Neutrophils # (1.6-8.9) K/mcL Lymphocytes # (0.6-4.6) K/mcL Monocytes # (0.0-1.3) K/mcL Eosinophils # (0.0-0.6) K/mcL Basophils # (0.0-0.2) K/mcL Platelet Estimate (Normal) Sodium TNP Potassium TNP Chloride TNP Carbon Dioxide TNP BUN TNP Creatinine TNP Est GFR ( Amer) [employer]ED [employer]OLLER Est GFR (Non-Af Amer) WEED [employer]OLLER BUN/Creatinine Ratio WEED CONTROLLER Glucose TNP POC Glucose (58-89) Calculated Osmolality WEED [employer]ER Lactic Acid 2.8 H (0.5-2.2) mmol/L Calcium TNP Magnesium TNP Total Bilirubin TNP AST TNP ALT TNP Alkaline Phosphatase TNP Creatine Kinase TNP Troponin I (< 0.04) ng/mL Serum Total Protein TNP Albumin TNP Globulin WEED [employer]ER Albumin/Globulin Ratio WEED [employer]ER Urine Color (Yellow) Urine Clarity (Clear) Urine pH (5.0-8.0) pH Units Ur Specific [place] (1.010-1.025) Urine Protein (Neg-Trace) mg/dL Urine Glucose (UA) (Normal) mg/dL Urine Ketones (Negative) mg/dL Urine Blood (Negative) Urine Nitrite (Negative) Urine Bilirubin (Negative) Urine Urobilinogen (Normal) mg/dL Ur Leukocyte Esterase (Negative) Urine Microscopic RBC (0-3) per hpf Urine Microscopic WBC (0-3) per hpf Ur Squamous Epith Cells (None-Few) per lpf Urine Bacteria (None-Few) per hpf Hyaline Casts (None-Few) per lpf Urine Yeast Ur Culture Indicated? (NO) Blood Type O POSITIVE Antibody Screen NEGATIVE 07/29/17 07/29/17 Range/Units 10:48 12:42 WBC (4.3-11.1) K/mcL RBC (4.19-5.50) M/mcL Hgb (12.9-16.9) g/dL Hct (37.5-50.1) % MCV (83.0-100.0) fL MCH (28.0-33.3) pg MCHC (31.6-35.5) g/dL RDW (11.5-14.5) % Plt Count (140-400) K/mcL MPV (9.4-12.4) fL Immature Gran % (0-4) % Seg Neutrophils % % Lymphocytes % % Monocytes % % Eosinophils % % Basophils % % Neutrophils # (1.6-8.9) K/mcL Lymphocytes # (0.6-4.6) K/mcL Monocytes # (0.0-1.3) K/mcL Eosinophils # (0.0-0.6) K/mcL Basophils # (0.0-0.2) K/mcL Platelet Estimate (Normal) Sodium 122 L Potassium 7.1 H* Chloride 97 L Carbon Dioxide 20 L BUN 75 H Creatinine 2.52 H Est GFR ( Amer) 32 L Est GFR (Non-Af Amer) 26 L BUN/Creatinine Ratio 30 H Glucose 63 L POC Glucose (58-89) Calculated Osmolality 274 L Lactic Acid (0.5-2.2) mmol/L Calcium 7.9 L Magnesium 2.3 Total Bilirubin 1.0 AST 32 ALT 30 Alkaline Phosphatase > 1500 H Creatine Kinase 23 L Troponin I (< 0.04) ng/mL Serum Total Protein 5.4 L Albumin 2.3 L Globulin 3.1 Albumin/Globulin Ratio 0.7 L Urine Color Dark Yellow (Yellow) Urine Clarity Cloudy A (Clear) Urine pH 5.5 (5.0-8.0) pH Units Ur Specific [place] 1.026 H (1.010-1.025) Urine Protein Trace (Neg-Trace) mg/dL Urine Glucose (UA) Normal (Normal) mg/dL Urine Ketones Negative (Negative) mg/dL Urine Blood Negative (Negative) Urine Nitrite Negative (Negative) Urine Bilirubin Small H (Negative) Urine Urobilinogen Normal (Normal) mg/dL Ur Leukocyte Esterase Negative (Negative) Urine Microscopic RBC 0-3 (0-3) per hpf Urine Microscopic WBC 0-3 (0-3) per hpf Ur Squamous Epith Cells Many H (None-Few) per lpf Urine Bacteria None Seen (None-Few) per hpf Hyaline Casts Few (None-Few) per lpf Urine Yeast Test Not Performed Ur Culture Indicated? NO (NO) Blood Type Antibody Screen - Radiology Data Radiology results reviewed: Yes I reviewed the patient's radiology results. Chest X-Ray 07/29/17 07:33 IMPRESSION: No acute cardiopulmonary disease. D/ / Samantha Negro MD / Samantha Negro MD Interpreting Provider: Samantha Negro MD Head CT 07/29/17 07:34 IMPRESSION: Multifocal low-density in the periventricular and subcortical white matter bilaterally, likely secondary to small vessel ischemic change No acute abnormality otherwise noted. D/ / Sunday Sosa / Sunday Sosa Interpreting Provider: Sunday Sosa - EKG Data EKG attestation: Yes I reviewed and interpreted this EKG. EKG results narrative: EKG reviewed by Dr. Bello as well. EKG shows a supraventricular rhythm at a rate of 90 bpm. QRS to 105, QT/QTc interval 330/377. No ST elevation noted.
[2017-07-29 08:22] LABS: Basophils # 0.1 K/mcL (0.0-0.2); Basophils % 0.2 %; Eosinophils # 0.1 K/mcL (0.0-0.6); Eosinophils % 0.2 %; Hematocrit 39.1 % (37.5-50.1); Hemoglobin 12.2 g/dL (12.9-16.9); Immature Granulocytes % 1.1 % (0-4); Lymphocytes # 0.9 K/mcL (0.6-4.6); Lymphocytes % 3.5 %; Mean Corpuscular HGB Conc 31.2 g/dL (31.6-35.5); Mean Corpuscular Hemoglobin 26.8 pg (28.0-33.3); Mean Corpuscular Volume 85.9 fL (83.0-100.0); Mean Platelet Volume 9.4 fL (9.4-12.4); Monocytes # 1.5 K/mcL (0.0-1.3); Monocytes % 5.7 %; Neutrophils # 22.8 K/mcL (1.6-8.9); Platelet Count 429 K/mcL (140-400); Red Blood Count 4.55 M/mcL (4.19-5.50); Red Cell Distribution Width 18.2 % (11.5-14.5); Segmented Neutrophils % 89.3 %
[2017-07-29] MEDS ORDERED: *HR* FentaNYL (PF) 100 MCG/2 ML VIAL IVP ONE ×2 (08:29→14:07)
--- NOTE | 2017-07-29 08:35 | Emergency Department Note ---
START Narrative - START START: I examined this patient and my medical decision-making was reviewed with the Resident Physician. I agree with the documented findings, disposition and treatment plan as described except to the extent set forth below. 62 yo M with pancreatic cancer undergoing radiation and chemo presents to ER for dehydration and poor PO intake. Patient will need to be admitted for IV fluids. Patient seems very cachectic and weak. IV fluids. Admit. Check screening lab work.
[2017-07-29 09:14] LABS: Platelet Estimate Increased (Normal)
[2017-07-29] MEDS ORDERED: 0.9 % Sodium Chloride 1,000 ML IVC SCH (11:00)
[2017-07-29 11:02] LABS: Bilirubin,Urine Small (Negative); Blood,Urine Negative (Negative); Clarity,Urine Cloudy (Clear); Color,Urine Dark Yellow (Yellow); Glucose,Urine (UA) Normal (Normal); Ketones,Urine Negative (Negative); Leukocyte Esterase,Urine Negative (Negative); Nitrite,Urine Negative (Negative); PH,Urine 5.5 pH Units (5.0-8.0); Protein,Urine Trace mg/dL (Neg-Trace); Specific Gravity,Urine 1.026 (1.010-1.025); Urobilinogen,Urine Normal (Normal)
[2017-07-29 11:06] LABS: Bacteria,Urine None Seen per hpf (None-Few); Squamous Epithelial Cell,Urine Many per lpf (None-Few); WBC,Urine 0-3 per hpf (0-3)
[2017-07-29] MEDS ORDERED: Aspirin 81 MG TAB.CHEW PO ONE (11:18)
[2017-07-29 11:19] LABS: Hyaline Casts,Urine Few per lpf (None-Few); RBC,Urine 0-3 per hpf (0-3)
[2017-07-29] MEDS ORDERED: Sodium Bicarbonate 50 MEQ/50 ML VIAL IVP ONE (12:15)
[2017-07-29] MEDS ORDERED: Insulin Human Regular 10 UNIT in 0.9 % Sodium Chloride 10 ML IV ONE (12:15)
[2017-07-29 13:13] LABS: Alanine Aminotransferase 30 Units/L (7-52); Albumin 2.3 g/dL (3.5-5.7); Albumin/Globulin Ratio 0.7 (1.1-2.2); Alkaline Phosphatase > 1500 Units/L (34-104); Aspartate Amino Transferase 32 Units/L (13-39); BUN/Creatinine Ratio 30 (6-26); Blood Urea Nitrogen 75 mg/dL (8-23); Calcium 7.9 mg/dL (8.6-10.3); Carbon Dioxide 20 mEq/L (23-29); Chloride 97 mEq/L (98-107); Creatine Kinase 23 Units/L (30-223); Globulin 3.1 g/dL (2.4-3.5); Glucose 63 mg/dL (70-105); Magnesium 2.3 mg/dL (1.6-2.6); Osmolality,Calculated 274 (280-300); Potassium 7.1 mEq/L (3.5-5.1); Sodium 122 mEq/L (136-145); Total Protein 5.4 g/dL (6.4-8.9); eGFR For African Americans 32 (> 60); eGFR For Non-African Americans 26 (> 60)
[2017-07-29] MEDS: *HR* Dextrose 50 % in Water (Syg) 50 ML SYRINGE IVP ONE ×2 (13:43→18:01)
--- NOTE | 2017-07-29 15:32 | Nephrology Consult Note ---
<Eron Lee - Last Filed: 07/29/17 17:01> Date of Encounter: 07/29/17 Time of Encounter: 15:25 Assessment and Plan (1) Acute kidney failure Status: Acute No previous hx of CKD. Patient's K+ was 7.1, Na+ 122, Cr 2.52 (0.5-0.7 is baseline) in the ED, patient was given 4L of NS, Cagluc, insulin, and sodium bicarb in the ED. Concerns for peaked T waves on EKG. Dehydration is most likely the cause of BRUCE, and currently no plans for HD for now. Patient last seen eating ice cream in bed. Patient evaluated after 4L of NS, continues to appear volume down and BP remains 92/60. - Continue to rehydrate and will monitor electrolyte, and Cr response - ordered Kayex 60 - serial Cr, Na, and K+ labs - K+ 5.8 returned after 4L. Qualifiers: Qualified Code(s): N17.9 - Acute kidney failure, unspecified (2) Pancreatic cancer Status: Chronic per management of primary team Qualifiers: Pancreatic malignancy location: unspecified Qualified Code(s): C25.9 - Malignant neoplasm of pancreas, unspecified (3) Dehydration Status: Acute per management of primary team (4) Failure to thrive Status: Chronic per management of primary team Qualifiers: Failure to thrive age range: in adult Qualified Code(s): R62.7 - Adult failure to thrive (5) Hypokalemia Status: Acute see above (6) Hyponatremia Status: Acute see above History of Present Illness - Reason for Consult Consult date: 07/29/17 Acute Kidney Injury Requesting physician: Sidney Vogel - Chief Complaint dehydration - History of Present Illness Mr Wilson is a 62 yo M w/ pmh of pancreatic cancer last chemo yesterday who presents with generalized weakness. Weakness has progressed in the last few days but has been present since he started chemo, he has associate weight loss and fatigue. Per chart review patient has had mild BRUCE in the past but no known hx of CKD. Patient is seen bedside with his , and hx is gathered mostly from . Patient has not eaten due to anorexia or drank in the last 3- 4 days, and was poorly eating prior to that. He did not urinate yesterday, but did today and was reported to be very dark orange in color. He has not had a bowel movement in multiple days. Nephro consulted due to Na 122, K 7.1, Cr 2.52. Past Med Surg Social Fam HX - Past Medical History Medical history: arthritis, cancer, diabetes, hypertension, other Psychiatric history: no psych history - Past Surgical History Surgical History: orthopedic, other, other - Social History Smoking Status: Current some day smoker Smokeless Tobacco Status: No Alcohol use: none Drug use: none - Family History Mother Family Member Ethnicity: Non- Living Status: Hx Family Cardiac Disorders: Yes (HTN) Hx Family Cancer: Yes (Colon) Father Family Member Ethnicity: Non- Living Status: Hx Family Cardiac Disorders: Yes (HD, [place], stroke) Brother Family Member Ethnicity: Non- Living Status: Hx Family Cancer: Yes (Colon) Sister Family Member Ethnicity: Non- Living Status: Still Living Hx Family Cardiac Disorders: Yes (HD) Hx Family Cancer: Yes (Breast) Medications and Allergies Magic Mouthwash 5 ml PO Q4H PRN #240 ml 06/09/16 [Rx] Ondansetron HCl [Zofran] 4 mg PO Q6H PRN #40 tablet 10/30/16 [Rx] Zolpidem [Ambien] 10 mg PO HS PRN 01/27/17 [History] Prochlorperazine Maleate [Compazine] 10 mg PO Q6HR PRN #30 tablet 03/10/17 [Rx] Lidocaine/Prilocaine [Emla] 1 appl TP AD #30 gm 03/31/17 [Rx] Insulin Glargine,Hum.rec.anlog [Basaglar Kwikpen U-100] 10 unit SQ BID #5 insuln.pen 04/17/17 [Rx] Dicyclomine [Bentyl] 10 mg PO QID PRN #30 capsule 06/09/17 [Rx] Polyethylene Glycol 3350 [MiraLAX] 17 gm PO DAILY 07/29/17 [History] Ondansetron ODT [Zofran ODT] 4 mg SL Q6HR PRN #30 tab.rapdis 08/03/17 [Rx] Prochlorperazine Maleate [Compazine] 10 mg PO Q6HR PRN #30 tablet 08/03/17 [Rx] FentaNYL PATCH [Duragesic] 1 patch TD Q72H 30 Days #10 patch.td72 08/04/17 [Rx] Fentanyl Citrate [Actiq] 200 mcg BC Q4H PRN 10 Days #60 lozenge.hd 08/04/17 [Rx] Hydromorphone HCl [Dilaudid] 1 tab PO Q4H PRN 30 Days #90 tablet 08/04/17 [Rx] Ranitidine HCl [Zantac] 150 mg PO BID #60 tablet 08/04/17 [Rx] Bisacodyl [Dulcolax] 10 mg RC DAILY PRN #10 supp.rect 08/06/17 [Rx] Na Phos,M-B/Na Phos,Di-Ba [Fleet Enema Extra] 230 ml RC ONCE PRN #1 enema [Rx] 3 Allergy/AdvReac Type Severity Reaction Status Date / Time morphine AdvReac Headache Verified 08/04/17 11:34 Review of Systems All Systems: reviewed and no additional remarkable complaints except as stated Exam - Vital Signs Vital signs: Initial Vital Signs Temp Pulse Resp BP Pulse Ox 97.4 F L 87 11 97/63 98 07/29/17 07:29 07/29/17 07:29 07/29/17 07:29 07/29/17 07:29 07/29/17 07:29 Intake and Output 07/28/17 07/29/17 07/29/17 23:59 07:59 15:59 Intake Total 100 / 2100 Balance 100 / 2100 Intake: IV Fluids 100 / 100 HumuLIN R 10 UNIT In Normal 0 / 0 Saline Flush 10 ML @ 1212 mls/ hr IV ONCE ONE Rx#:[id number] Calcium Gluconate 1,000 MG In 0 100 / 100 .9 % Sodium Chloride 100 ML @ 220 mls/hr IVPB ONCE ONE Rx#: [id number] - General Appearance General appearance: cachectic, chronically ill, fatigue, frail EENT: mucous membranes dry Cardiology: regular rate Gastrointestinal: absent bowel sounds, no tenderness Neurologic: alert and oriented x3 Results - Lab Results 07/29/17 08:10 07/29/17 14:42 Most recent lab results Calcium 7.9 mg/dL (8.6-10.3) L 07/29/17 12:42 Magnesium 2.3 mg/dL (1.6-2.6) 07/29/17 12:42 Consult Discharge Plan - Plan Instructions: Fentanyl (Absorbed through the skin) Additional Instructions: The patient will need to have weekly sodium lab draws until able to follow up with PCP or Forestry Technical Officer. Referrals: Keon Dewitt MD [Partnered Physician] - 08/04/17 11:30 am Timoteo Weiss DO [Partnered Physician] - (pancreatic cancer, BRUCE, hyponatermia) Sola Doss MD [Primary Care Provider] - 08/12/17 3:30 pm Prescriptions: Ondansetron ODT [Zofran ODT] 4 mg SL Q6HR PRN #30 tab.rapdis PRN Reason: Nausea And Vomiting Prochlorperazine Maleate [Compazine] 10 mg PO Q6HR PRN #30 tablet PRN Reason: Nausea And Vomiting #2 <Radha Lazar - Last Filed: 08/13/17 16:45> Date of Encounter: 07/29/17 Assessment and Plan (1) Acute kidney injury Status: Resolved (2) Hyperkalemia Status: Resolved (3) Failure to thrive Status: Chronic Qualifiers: Failure to thrive age range: in adult Qualified Code(s): R62.7 - Adult failure to thrive (4) Pancreatic cancer metastasized to liver Status: Chronic (5) Hyponatremia Status: Acute Exam - Vital Signs Vital signs: Initial Vital Signs Temp Pulse Resp BP Pulse Ox 97.4 F L 87 11 97/63 98 07/29/17 07:29 07/29/17 07:29 07/29/17 07:29 07/29/17 07:29 07/29/17 07:29 Results - Lab Results 08/02/17 05:18 08/03/17 04:51 Most recent lab results Calcium 8.1 mg/dL (8.6-10.3) L 08/03/17 04:51 Magnesium 2.0 mg/dL (1.6-2.6) 08/02/17 05:18 Urine Creatinine 102 mg/dL 07/31/17 04:25 Urine Sodium 11.0 mEq/L 07/31/17 12:10 - Attending Attestation I examined this patient and my medical decision-making was reviewed with the Resident Physician. I agree with the documented findings, disposition and treatment plan as described except to the extent set forth below. 62 y o male with PMH of pancreatic cancer s/p chemo yesterday admitted with generalized weakness and noted with elevated SCR at 2.52 and potassium at 7.1 with sodium at 122 and also hypotensive with diminished po intake in the recent past. Pt given 4l NS in the ED along with hyperkalemia meds except kayexalate. Repeat K now showing 5.8 hence no acute indication for HIMS MANAGER at this time. Continue volume repletion as he appears volume depleted which is the etiology of his BRUCE. Avoid nephrotoxins if possible. Initiate BRUCE workup and also for hyponatremia which also appears to be volume related.
[2017-07-29] MEDS ORDERED: Naloxone 0.4 MG/ML INJ IVP PRN (16:25)
--- NOTE | 2017-07-29 16:46 | Electrocardiograph Report ---
[place] [id number] Test Date: 2017-07-29 Pat Name: Asif Wilson Department: 103 Room: 2N06 Gender: M Director Of Digital Platforms: : 1955 Requested By: Sidney Vogel Order Number: [id number] Reading MD: Hermelindo Cheek DO Measurements Intervals Watts Rate: 90 P: LA: 0 QRS: 83 QRSD: 105 T: 74 QT: 330 QTc: 377 Interpretive Statements POSSIBLE ACCELERATED JUNCTIONAL RHYTHM Electronically Signed On 07-29-2017 16:44:56 EDT by Hermelindo Cheek DO
--- NOTE | 2017-07-29 16:49 | Internal Med History&Physical ---
Date of Encounter: 08/01/17 Time of Encounter: 16:38 Assessment and Plan (1) Generalized weakness Current visit: Yes Status: Acute Presented for several day history of weakness. He has radiation therapy that he received yesterday. Also found to be hypotensive on admission. He has ascitic fluid drain that gets drained at home when patient gets symptoms. He has been requiring drainage of up to 2 L per day for past several days and also has decreased PO. Likely patient dehydration causing weakness. Family at bedside state that he looks much better after getting fluid while in ED. Will continue IV fluid to cover dehydration and will hold off from draining ascitic fluid for now. (2) Acute kidney failure Current visit: Yes Status: Acute Qualifiers: Acute renal failure type: unspecified Qualified Code(s): N17.9 - Acute kidney failure, unspecified (3) Dehydration Current visit: Yes Status: Acute (4) Hyperkalemia Current visit: Yes Status: Acute (5) Hyponatremia Current visit: Yes Status: Acute (6) Pancreatic cancer Current visit: Yes Status: Chronic Qualifiers: Pancreatic malignancy location: unspecified Qualified Code(s): C25.9 - Malignant neoplasm of pancreas, unspecified (7) Leukocytosis Current visit: Yes Status: Acute Patient does not have any identifiable cause for infection; He had negative chest x-ray, negative urinalysis. His A port on right side is clean without any signs of cellulitis or purulent drainage. The abdominal ascities drain on left abdomen is clean without any erythema or purulent drainage. He is hypotensive, likely from dehydration, Meets 1 SIRS criteria on admission for leukocytosis. ADDENDUM: has met another SIRS criteria for temp of 96 after admission. - Will obtain stat blood cultures followed by IV cefotaxime 2g IV Q8H to empirically cover patient, including for SBP. Obtain ascities sample if possible for analysis. Obtain CRP and trend. Qualifiers: Leukocytosis type: unspecified Qualified Code(s): D72.829 - Elevated white blood cell count, unspecified (8) DVT prophylaxis Current visit: Yes Status: Acute Heparin 5,000 units SQ Internal Medicine - H&P: HPI History of present illness: Mr. Wilson is a 62 year old male with history of pancreatic cancer, PEG tube, chronic abdominal drain presented for several day history of weakness. He has radiation therapy that he received yesterday. Also found to be hypotensive. Daughter at bedside states that she drains ascitic fluid in patient's abdomen with a chronic drain that was inserted in abdomen. She states she is allowed to take up to 2 L per day of draining up to point of symptomatic relief. She has been taking out 2 L for past several days as patient has had increase of fluid. Patient was also noted that he had poor appetite. In the ED patient had elevated sodium of 7.1 without any changes in heart rate or t wave changes. He was hypotensive with initial BP 97/63 and HR 87. His BP improved somewhat with IV. He received 4L and family states they immediately see improvement in his strength. He is found to have elevated creatinine of 2.52 and potassium elevated at 7.1. There was lab error showing sodium initially at 118 but repeat was 122. In regards to hyperkalemia he was given an amp of calcium gluconate, 10 units of insulin width one amp of D50, and 3 A of sodium bicarbonate. Patient admits to weakness, fatigue. Denies abdominal pain, admits to some abdominal pain fullness. Denies fevers/chills, n/v, diarrhea. The ED physician discussed patient's case with nurse practitioner at [facility]. There was no record to account for patient's leukocytosis. His chest x-ray and urinalysis were unremarkable. Past Med Surg Social Fam HX - Past Medical History Medical history: arthritis, cancer, diabetes, hypertension, other Psychiatric history: no psych history - Past Surgical History Surgical History: orthopedic, other, other - Social History Smoking Status: Current some day smoker Smokeless Tobacco Status: No Alcohol use: none Drug use: none - Family History Mother Family Member Ethnicity: Non- Living Status: Hx Family Cardiac Disorders: Yes (HTN) Hx Family Cancer: Yes (Colon) Father Family Member Ethnicity: Non- Living Status: Hx Family Cardiac Disorders: Yes (HD, [place], stroke) Brother Family Member Ethnicity: Non- Living Status: Hx Family Cancer: Yes (Colon) Sister Family Member Ethnicity: Non- Living Status: Still Living Hx Family Cardiac Disorders: Yes (HD) Hx Family Cancer: Yes (Breast) Internal Medicine - H&P: Meds Magic Mouthwash 5 ml PO Q4H PRN #240 ml 06/09/16 [Rx] Ondansetron HCl [Zofran] 4 mg PO Q6H PRN #40 tablet 10/30/16 [Rx] Zolpidem [Ambien] 10 mg PO HS PRN 01/27/17 [History] Prochlorperazine Maleate [Compazine] 10 mg PO Q6HR PRN #30 tablet 03/10/17 [Rx] Lidocaine/Prilocaine [Emla] 1 appl TP AD #30 gm 03/31/17 [Rx] Insulin Glargine,Hum.rec.anlog [Basaglar Kwikpen U-100] 10 unit SQ BID #5 insuln.pen 04/17/17 [Rx] Dicyclomine [Bentyl] 10 mg PO QID PRN #30 capsule 06/09/17 [Rx] Omeprazole [PriLOSEC] 20 mg PO DAILY #30 cap 06/09/17 [Rx] Hydromorphone HCl [Dilaudid] 4 mg PO Q6H PRN 30 Days #120 tablet 07/08/17 [Rx] Oxycodone HCl/Acetaminophen [Percocet 10-325 mg Tablet] 1 each PO Q6H PRN 30 Days #120 tablet 07/08/17 [Rx] Capecitabine [Xeloda] 2 tab PO BID #60 tablet 07/22/17 [Rx] Polyethylene Glycol 3350 [MiraLAX] 17 gm PO DAILY 07/29/17 [History] 3 Allergy/AdvReac Type Severity Reaction Status Date / Time morphine AdvReac Headache Verified 07/22/17 08:40 All Systems PM: A 10-system review of systems was performed and is negative for pertinent findings except as documented above in the HPI. Review of systems: As per HPI - Constitutional Vitals: Temp Pulse Resp BP Pulse Ox 97.3 F L 95 14 92/60 99 07/29/17 13:10 07/29/17 14:16 07/29/17 14:16 07/29/17 14:16 07/29/17 13:10 Exam: - General General appearance: alert Left abdominal drain present, clamped, clean Right A port is clean dry PEG tube in place, clamped - Head Head exam: atraumatic, normocephalic, normal inspection - Eye Eye exam: Present: normal appearance, PERRL, EOMI. Absent: nystagmus - ENT ENT exam: mucous membranes dry - Neck Neck exam: Present: normal inspection, full ROM, trachea midline - Chest Chest inspection: Present: normal inspection, symmetric chest wall rise - Respiratory Respiratory exam: Present: normal lung sounds bilaterally. Absent: respiratory distress, wheezes, stridor, accessory muscle use, prolonged expiratory phase - Cardiovascular Cardiovascular exam: Present: regular rate, normal rhythm, normal heart sounds - Abdominal Exam Abdominal exam: Present: soft, tenderness, normal bowel sounds. Absent: distention, guarding, rebound, rigidity Abdominal tenderness: Present: diffuse, moderate - Extremities Exam Extremities exam: Present: normal inspection, full ROM. Absent: tenderness, pedal edema - Neurological Exam Neurological exam: Present: alert, oriented X3 - Psychiatric Psychiatric exam: Present: normal affect, normal mood - Skin Skin exam: Present: warm, dry, intact, pallor Internal Med - H&P Results - Labs CBC & Chem 7: 08/01/17 04:20 08/01/17 04:20
[2017-07-29] MEDS ORDERED: 0.9 % Sodium Chloride 1,000 ML ONE (17:30)
[2017-07-29] MEDS: *HR* Heparin 5,000 UNIT/ML VIAL SQ SCH (17:40)
[2017-07-29] MEDS: 0.9 % Sodium Chloride 1,000 ML IVC SCH ×2 (17:41→23:50)
[2017-07-29 17:42] LABS: Calcium 7.9 mg/dL (8.6-10.3); Chol/HDL Ratio 3.6 (0-4.9); Magnesium 2.3 mg/dL (1.6-2.6); Potassium 5.9 mEq/L (3.5-5.1)
[2017-07-29] MEDS ORDERED: *HR* Dextrose 50 % in Water (Syg) 50 ML SYRINGE ONE (17:47)
[2017-07-29] MEDS ORDERED: Acetaminophen 325 MG TABLET PO PRN (19:51)
[2017-07-29 21:34] LABS: Calcium 7.9 mg/dL (8.6-10.3); Potassium 6.1 mEq/L (3.5-5.1)
[2017-07-29] MEDS ORDERED: Dextrose Gel 15 GM/37.5 ML TUBE PO PRN ×2 (21:42)
[2017-07-29] MEDS ORDERED: D5% in Water 1,000 ML IVC PRN (21:42)
[2017-07-29] MEDS: *HR* Dextrose 50 % in Water (Syg) 50 ML SYRINGE IVP PRN (22:00)
[2017-07-29] MEDS ORDERED: WATER FOR INJ IVP STA (23:15)
[2017-07-29] MEDS ORDERED: CEFOTAXIME IVP STA (23:15)
[2017-07-29] MEDS ORDERED: Ketorolac 30 MG/ML VIAL IVP ONE (23:25)
[2017-07-29] MEDS: Albumin 25% 25gram/100mL 25 GM/100 ML IV.SOLN IVPB SCH (23:42)
--- NOTE | 2017-07-30 00:33 | Event Note ---
Date of Encounter: 07/29/17 Time of Encounter: 22:45 Pts. nurse called to let me know pt. was in severe pain d/t current pancreatic cancer dx and that his SBP >90 and DBP >60. Pt. has been receiving IV fluids to help bring his BP up but numbers have not changed dramatically. Went to see pt. and his to explain how pain medications will drop his BP level and place him at increased risk for further morbidity. Tylenol 650 mg PO Q6 had been ordered but was not helping w/pts. pain. Discussed case w/Dr. Kuhn who suggested IV albumin since pts. current albumin is 2.3 in order to help increase his BP. Also suggested IVP Toradol 30 mg once for pain control. Pts. Ambien ordered to help him sleep. Will monitor pt. and vital signs closely throughout the night. Plan discussed w/pt. and who are in agreement.
[2017-07-30] MEDS: *HR* Dextrose 50 % in Water (Syg) 50 ML SYRINGE IVP PRN ×2 (01:51→09:59)
[2017-07-30] MEDS: D5% in 0.45% NACL 1,000 ML IVC SCH ×2 (04:18→16:14)
[2017-07-30 04:48] LABS: Basophils % 0.1 %; Eosinophils % 0.2 %; Hematocrit 31.3 % (37.5-50.1); Immature Granulocytes % 0.7 % (0-4); Lymphocytes # 0.6 K/mcL (0.6-4.6); Mean Corpuscular HGB Conc 32.3 g/dL (31.6-35.5); Mean Corpuscular Hemoglobin 26.9 pg (28.0-33.3); Mean Corpuscular Volume 83.5 fL (83.0-100.0); Monocytes # 1.2 K/mcL (0.0-1.3); Monocytes % 5.9 %; Neutrophils # 17.6 K/mcL (1.6-8.9); Platelet Count 335 K/mcL (140-400); Red Blood Count 3.75 M/mcL (4.19-5.50); Segmented Neutrophils % 90.1 %
[2017-07-30 04:53] LABS: Hemoglobin 10.1 g/dL (12.9-16.9)
[2017-07-30 05:02] LABS: Calcium 8.1 mg/dL (8.6-10.3); Potassium 6.6 mEq/L (3.5-5.1)
[2017-07-30] MEDS: *HR* Heparin 5,000 UNIT/ML VIAL SQ SCH ×2 (06:44→18:02)
[2017-07-30] MEDS ORDERED: Insulin Regular, Human 100 UNIT/ML IV ONE (08:10)
[2017-07-30] MEDS ORDERED: *HR* Dextrose 25% in Water (Syg) 10 ML SYRINGE IVP STA (08:10)
[2017-07-30] MEDS ORDERED: Albuterol 2.5 MG/3 ML NEBULIZER IH ONE (08:11)
[2017-07-30] MEDS: Albumin 25% 25gram/100mL 25 GM/100 ML IV.SOLN IVPB SCH ×2 (08:12→16:09)
[2017-07-30] MEDS ORDERED: Insulin Human Regular 5 UNIT in 0.9 % Sodium Chloride 10 ML IV ONE (08:13)
[2017-07-30] MEDS ORDERED: *HR* OxyCODONE/APAP 5/325 TABLET PO ONE (09:20)
--- NOTE | 2017-07-30 10:29 | Internal Med Progress Note ---
<Jean-Paul Lema - Last Filed: 07/30/17 10:24> Date of Encounter: 07/30/17 Time of Encounter: 10:25 - Assessment and plan (1) Leukocytosis Current Visit: Yes Status: Acute Assessment and plan: presented with leukocytosis of 25.5 afebrile, not tachycardic, no signs of infection CXR negative for acute process urine negative for infection ascitic fluid collected and sent for analysis for sbp on cefotaxime Qualifiers: Leukocytosis type: unspecified Qualified Code(s): D72.829 - Elevated white blood cell count, unspecified (2) Acute kidney injury Current Visit: Yes Status: Acute Assessment and plan: Patient's baseline serum creatinine is around 1 Presented with a serum creatinine of 2.52. Likely secondary to hypovolemia from daily drainage of ascitic fluid up to 2 L per day. Continue IV fluids. Continue to monitor renal function. (3) Hyperkalemia Current Visit: Yes Status: Acute Assessment and plan: Patient's potassium was 6.5 this morning. He was given 1 amp of bicarbonate, 1 amp of dextrose, 5 units of normal insulin , Kayexalate, albuterol nebulizer treatment. Repeating BMP Patient is very sensitive to insulin and becomes hypoglycemic. Advise using boluses of insulin the sedative drip and frequently monitoring. See glucose every hour thereafter for 3 hours. (4) Pancreatic cancer metastasized to liver Current Visit: Yes Status: Chronic Assessment and plan: Patient has stage IV pancreatic cancer. He is getting palliative radiation at the [facility] for follow by Dr. Dewitt. Oncology consult. Family and patient interested in prognosis as per Dr. Dewitt. (5) DVT prophylaxis Current Visit: Yes Status: Acute Assessment and plan: Heparin subcutaneous - Subjective Interval history: Patient reports having pain all over. He was not able to sleep at night. He feels miserable. Patient states that she is removing one to 2 L of ascitic fluid every day at home per the Pleurx catheter. Patient is hyponatremic, hyperkalemic, with acute kidney injury. Patient has pancreatic cancer stage IV. He is on palliative radiation and chemotheraphy. Explained to family we are unable to give narcotic pain medicine because of his hypotension. - Constitutional Vitals: Temp Pulse Resp BP Pulse Ox 97.7 F 95 16 96/75 97 03/15/18 06:52 07/30/17 08:28 07/30/17 08:34 07/30/17 06:52 07/30/17 08:34 - Other Additional findings: General: Pleasant with moderate distress Heart: Regular rate and rhythm with no murmur Lungs: Clear to auscultation bilaterally Abdomen: Soft, distended, mild tenderness diffusely, positive bowel sounds, ascites, Pleurx catheter Skin: warm and dry Extremities: Absent pedal edema, Neuro: Alert oriented 3 Vascular: Pedal and radial pulses 2 out of 4 Internal Medicine: Result - Labs CBC & Chem 7: 07/30/17 04:30 07/30/17 04:30 Labs: Short CBC 07/30/17 Range/Units 04:30 WBC 19.5 H (4.3-11.1) K/mcL Hgb 10.1 L D (12.9-16.9) g/dL Hct 31.3 L (37.5-50.1) % Plt Count 335 (140-400) K/mcL Neutrophils # 17.6 H (1.6-8.9) K/mcL BMP 07/29/17 07/29/17 07/29/17 14:42 16:53 21:00 Sodium 126 L 126 L Potassium 5.8 H 5.9 H 6.1 H Chloride 97 L 97 L Carbon Dioxide 23 22 L BUN 71 H 69 H Creatinine 2.08 H 2.03 H Glucose 38 L* 72 Calcium 7.9 L 7.9 L 07/30/17 04:30 Sodium 126 L Potassium 6.6 H* Chloride 98 Carbon Dioxide 20 L BUN 68 H Creatinine 2.06 H Glucose 74 Calcium 8.1 L Consult Discharge Plan - Plan Referrals: Sola Doss MD [Primary Care Provider] - 08/12/17 3:30 pm <Blanco Suarez - Last Filed: 07/30/17 12:50> Date of Encounter: 07/30/17 - Constitutional Vitals: Temp Pulse Resp BP Pulse Ox 97.7 F 92 17 96/71 98 07/30/17 11:59 07/30/17 11:59 07/30/17 11:59 07/30/17 11:59 07/30/17 11:59 Internal Medicine: Result - Labs CBC & Chem 7: 07/30/17 04:30 07/30/17 10:30 Labs: Short CBC 07/30/17 Range/Units 04:30 WBC 19.5 H (4.3-11.1) K/mcL Hgb 10.1 L D (12.9-16.9) g/dL Hct 31.3 L (37.5-50.1) % Plt Count 335 (140-400) K/mcL Neutrophils # 17.6 H (1.6-8.9) K/mcL BMP 07/29/17 07/29/17 07/29/17 14:42 16:53 21:00 Sodium 126 L 126 L Potassium 5.8 H 5.9 H 6.1 H Chloride 97 L 97 L Carbon Dioxide 23 22 L BUN 71 H 69 H Creatinine 2.08 H 2.03 H Glucose 38 L* 72 Calcium 7.9 L 7.9 L 07/30/17 07/30/17 04:30 10:30 Sodium 126 L 127 L Potassium 6.6 H* 5.9 H Chloride 98 95 L Carbon Dioxide 20 L 22 L BUN 68 H 69 H Creatinine 2.06 H 2.31 H Glucose 74 90 Calcium 8.1 L 8.6 - Attending Attestation Chronic kidney disease stage III Hypotension Hyperkalemia improving The patient and the patient's family would like to talk to Dr. Dewitt in order to consider hospice Severe ascites, the patient removes 1 L twice a day from his catheter Has a poor prognosis due to metastatic pancreatic cancer/adenocarcinoma I examined this patient and my medical decision-making was reviewed with the Resident Physician. I agree with the documented findings, disposition and treatment plan as described except to the extent set forth below.
[2017-07-30 11:21] LABS: Calcium 8.6 mg/dL (8.6-10.3); Potassium 5.9 mEq/L (3.5-5.1)
[2017-07-30 12:23] LABS: RBC,Peritoneal Fluid < 0.002 M/mcL
[2017-07-30] MEDS ORDERED: *HR* OxyCODONE/APAP 10/325 TABLET PO PRN (12:36)
[2017-07-30] MEDS ORDERED: *HR* HYDROmorphone 4 MG TABLET PO PRN (12:36)
[2017-07-30 12:39] LABS: Appearance of Peritoneal Fl CLOUDY (Clear)
--- NOTE | 2017-07-30 14:00 | Oncology Inp Consult Note ---
<Keon Dewitt S - Last Filed: 07/30/17 17:15> Date of Encounter: 07/30/17 - Data of Consult Requesting Physician: Blanco Suarez Primary Care Provider: Sola Doss MD - Consult Narrative History of present illness: Mr. Wilson is a 62 year old male Medications and Allergies Magic Mouthwash 5 ml PO Q4H PRN #240 ml 06/09/16 [Rx] Ondansetron HCl [Zofran] 4 mg PO Q6H PRN #40 tablet 10/30/16 [Rx] Zolpidem [Ambien] 10 mg PO HS PRN 01/27/17 [History] Prochlorperazine Maleate [Compazine] 10 mg PO Q6HR PRN #30 tablet 03/10/17 [Rx] Lidocaine/Prilocaine [Emla] 1 appl TP AD #30 gm 03/31/17 [Rx] Insulin Glargine,Hum.rec.anlog [Basaglar Kwikpen U-100] 10 unit SQ BID #5 insuln.pen 04/17/17 [Rx] Dicyclomine [Bentyl] 10 mg PO QID PRN #30 capsule 06/09/17 [Rx] Omeprazole [PriLOSEC] 20 mg PO DAILY #30 cap 06/09/17 [Rx] Hydromorphone HCl [Dilaudid] 4 mg PO Q6H PRN 30 Days #120 tablet 07/08/17 [Rx] Oxycodone HCl/Acetaminophen [Percocet 10-325 mg Tablet] 1 each PO Q6H PRN 30 Days #120 tablet 07/08/17 [Rx] Capecitabine [Xeloda] 2 tab PO BID #60 tablet 07/22/17 [Rx] Polyethylene Glycol 3350 [MiraLAX] 17 gm PO DAILY 07/29/17 [History] 3 Allergy/AdvReac Type Severity Reaction Status Date / Time morphine AdvReac Headache Verified 07/22/17 08:40 Oncology - Exam - Constitutional Vitals: Temp Pulse Resp BP Pulse Ox 97.7 F 86 17 96/71 98 07/30/17 11:59 07/30/17 16:16 07/30/17 11:59 07/30/17 11:59 07/30/17 11:59 Oncology - Results Labs: Short CBC 07/30/17 Range/Units 04:30 WBC 19.5 H (4.3-11.1) K/mcL Hgb 10.1 L D (12.9-16.9) g/dL Hct 31.3 L (37.5-50.1) % Plt Count 335 (140-400) K/mcL Neutrophils # 17.6 H (1.6-8.9) K/mcL BMP 07/29/17 07/29/17 07/30/17 16:53 21:00 04:30 Sodium 126 L 126 L 126 L Potassium 5.9 H 6.1 H 6.6 H* Chloride 97 L 97 L 98 Carbon Dioxide 23 22 L 20 L BUN 71 H 69 H 68 H Creatinine 2.08 H 2.03 H 2.06 H Glucose 38 L* 72 74 Calcium 7.9 L 7.9 L 8.1 L 07/30/17 07/30/17 10:30 14:55 Sodium 127 L Potassium 5.9 H 5.7 H Chloride 95 L Carbon Dioxide 22 L BUN 69 H Creatinine 2.31 H Glucose 90 Calcium 8.6 Consult Discharge Plan - Plan Referrals: Sola Doss MD [Primary Care Provider] - 08/12/17 3:30 pm - Attending Attestation Metastatic pancreatic cancer. Progressed on 2 lines of chemotherapy. Enlarging pancreatic mass and received palliative radiation Go malignant ascites with large volume output at least a liter per day through the Pleurx catheter. That is causing him to be dehydrated with renal insufficiency. Also significant electrolyte imbalance with hyponatremia hyperkalemia Low albumin of 2.[address] Moore. May consider palliative radiation to minimize the large volume ascites output. Intraperitoneal chemotherapy may be too toxic for him 2. Discussed in detail about pain control. I will try Duragesic patch. He has tried in the past that he felt funny. May start him on low-dose and increase it does tolerated He is getting Dilaudid 4 mg alternating with Percocets. Because of Tylenol the cannot increase the dose on Percocet. We can try Dilaudid 8 mg by mouth every 4-6 hours when necessary. I have decreased absorption of oral medication because of large volume ascites 3. Discussed with him about hospice. Given his terminal cancer he will be best served under hospice. Patient and agrees. <Dee Dominique L - Last Filed: 07/31/17 09:17> Date of Encounter: 07/30/17 Time of Encounter: 12:30 Assessment and Plan (1) Pancreatic cancer Status: Chronic Assessment and plan: Stage IV metastatic pancreatic cancer. S/P multiple treatments. He has most recently began palliative radiotherapy to his enlarging retroperitoneal mass. He is clinically failing, and admitted essentially with the picture of failure to thrive, with multiple electrolyte and fluid imbalances, weakness, dehydration and pain control. Dr. Dewitt discussed very poor prognosis with patient and patients today at bedside. Unfortunately, oncology does not have further treatment options that would be of benefit to this patient at this time given that he is clinically failing. Hospice was recommended to patient and patients at today's discussion. Patient and patients understand patients difficult and unfortunate circumstance and are now agreeable for further Hospice discussions with the palliative care team. Discussed plan for palliative radiation with Dr. Moore, treating radiation oncologist. Patient would still like to pursue radiation to assist with his pain control. Given complexity of patients medical circumstances, frailty and issues with pain control, multiple trips to and from cancer center for palliative radiation will be difficult task for patient. Dr. Moore will re- plan patients radiation prescription to allow for one effective dose of palliative radiation. He may plan to discharge with hospice either before his radiation tomorrow or at any time arrangements are ready. Kinjal and I will plan to round with patient and family tomorrow to finalize detail plans. I have discussed this case with Kinjal Maurer CNP with palliative care. Patients is hopeful that she may take him home with hospice soon. Pain control has been an issue for Mr. Wilson. He remains hypotensive at around 85/50 currently but is asymptomatic, and is now transitioning to Hospice care which will allow us to treat his pain more effectively. Discussed pain medication with palliative care team and need for a long acting medication to assist with his pain relief, he previously used a fentanyl patch however, discontinued it at one time due to drowsiness and hypotension. Discussed with palliative team who will assist with further pain control recommendation, appreciate the recommendations. Please refer to Dr. Dewitt's attestation below for further details. Qualifiers: Pancreatic malignancy location: unspecified Qualified Code(s): C25.9 - Malignant neoplasm of pancreas, unspecified - Data of Consult Patient: known to practice within the last 3 years Consult date: 07/30/17 Requesting Physician: Blanco Suarez Primary Care Provider: Sola Doss MD - Consult Narrative Reason for consult: Metastatic pancreatic adenocarcinoma History of present illness: Mr. Wilson is a 62 year old male with metastatic pancreatic adenocarcinoma, stage IV with liver metastasis. He as a history of a number of prior therapies as detailed in Dr. Dewitt's office progress note. Most recently he has had disease progression with enlargement of pancreatic chest mass causing gastric outlet obstruction along with malignant ascites. He is status post palliative bypass surgery. Most recently he began palliative radiation to his pancreatic mass and completed 1 of the 10 planned treatments. Mr. Wilson presented to the ER with c/o weakness and increased ascites and dehydration. He is cachetic and malnourished. He is having great difficulty with fluid balance due to his ascites and pleurx draining. He has been draining about 2-3 L of fluid per day. Past Med Surg Social Fam HX - Past Medical History Medical history: arthritis, cancer, diabetes, hypertension, other Psychiatric history: no psych history - Past Surgical History Surgical History: orthopedic, other, other - Social History Smoking Status: Current some day smoker Smokeless Tobacco Status: No Alcohol use: none Drug use: none - Family History Mother Family Member Ethnicity: Non- Living Status: Hx Family Cardiac Disorders: Yes (HTN) Hx Family Cancer: Yes (Colon) Father Family Member Ethnicity: Non- Living Status: Hx Family Cardiac Disorders: Yes (HD, [place], stroke) Brother Family Member Ethnicity: Non- Living Status: Hx Family Cancer: Yes (Colon) Sister Family Member Ethnicity: Non- Living Status: Still Living Hx Family Cardiac Disorders: Yes (HD) Hx Family Cancer: Yes (Breast) Constitutional: Present: anorexia, fatigue, malaise, weakness, weight loss. Absent: chills, fever(s), frequent falls Eyes: Absent: change in vision Nose, mouth and throat: Present: as per HPI. Absent: mouth lesions Cardiovascular: Present: orthopnea. Absent: chest pain, irregular heart rhythm , palpitations Respiratory: Present: dyspnea. Absent: cough, hemoptysis Gastrointestinal: Present: abdominal pain, early satiety, nausea. Absent: hematemesis, hematochezia, melena, vomiting Additional comments: ascites Additional comments: denies dysuria or hematuria Musculoskeletal: Present: muscle weakness Integumentary: Absent: wounds Neurological: Absent: focal weakness, frequent falls Hematologic/Lymphatic: Present: as per HPI Oncology - Exam - Constitutional Vitals: Temp Pulse Resp BP Pulse Ox 97.7 F 92 17 96/71 98 07/30/17 11:59 07/30/17 11:59 07/30/17 11:59 07/30/17 11:59 07/30/17 11:59 General appearance: cooperative, no acute distress, no febrile Exam: chronically ill appearing, severely thin and cachectic - Head Head exam: Present: atraumatic - ENT ENT exam: Present: mucous membranes moist - Respiratory Respiratory exam: Present: CTAB. Absent: respiratory distress - Cardiovascular Cardiovascular exam: Present: RRR, +S1, +S2 - GI/Abdominal GI/Abdominal exam: Present: distended, firm, normal bowel sounds, tenderness - Extremities Exam Extremities exam: Present: normal inspection. Absent: calf tenderness - Neurological Exam Neurological exam: Present: alert, oriented X3, no focal deficits, strengths equal and symetr throughout - Psychiatric Psychiatric exam: Present: normal affect, normal mood - Skin Skin exam: Present: normal color, warm Oncology - Results Labs: Short CBC 07/30/17 Range/Units 04:30 WBC 19.5 H (4.3-11.1) K/mcL Hgb 10.1 L D (12.9-16.9) g/dL Hct 31.3 L (37.5-50.1) % Plt Count 335 (140-400) K/mcL Neutrophils # 17.6 H (1.6-8.9) K/mcL BMP 07/29/17 07/29/17 07/29/17 14:42 16:53 21:00 Sodium 126 L 126 L Potassium 5.8 H 5.9 H 6.1 H Chloride 97 L 97 L Carbon Dioxide 23 22 L BUN 71 H 69 H Creatinine 2.08 H 2.03 H Glucose 38 L* 72 Calcium 7.9 L 7.9 L 07/30/17 07/30/17 04:30 10:30 Sodium 126 L 127 L Potassium 6.6 H* 5.9 H Chloride 98 95 L Carbon Dioxide 20 L 22 L BUN 68 H 69 H Creatinine 2.06 H 2.31 H Glucose 74 90 Calcium 8.1 L 8.6
--- NOTE | 2017-07-30 14:56 | Palliative - Consult Note ---
Date of Encounter: 07/30/17 Time of Encounter: 15:00 - Assessment and Plan (1) Cancer associated pain Current Visit: No Status: Chronic Assessment and plan: Patient states that current regimen is not adequate for his pain control. He was on Fentanyl patch 25mcg during last hospital stay and tolerated well, he is interested in restarting this. He has cancer related cachexia - this may affect absorption some, but he most likely would struggle with GI absorption of long acting medications. He is also wanting Dilaudid tabs increased - discussed that if we increase Dilaudid and added patch, I would be discontinued the Percocet. Will attempt to utilize one long acting and one short acting agent - titrate as needed and add additional at that point if needed. D/W Dee Barahona [employer] POURER oncology as well. (2) Counseling regarding advanced care planning and goals of care Current Visit: Yes Status: Acute Assessment and plan: D/W pt/, Madelyn and pt mother at bedside. DNR/DNI was established yesterday per Dr. Arriaga. Patient/ are considering hospice care, this was discussed at length. Discussed that goal would be to keep pt at home and let nature of the disease take its course. Patient would not keep receiving lab draws, artificial hydration. Discussed benefits of nursing care, symptom management, social support, DME/medication delivery. They verbalized understanding. /pt desire for him to be "improved to the extent possible" prior to discharge. They are also awaiting further recommendations from Dr. Dewitt/Dr. Moore regarding further palliative radiation. If these are going to continue, I informed them would most likely would finish these prior to enrolling in hospice. They verbalized understanding. Will f/u in am. (3) Dehydration Current Visit: Yes Status: Acute (4) Pancreatic cancer Current Visit: Yes Status: Chronic Assessment and plan: Oncology following Qualifiers: Pancreatic malignancy location: unspecified Qualified Code(s): C25.9 - Malignant neoplasm of pancreas, unspecified (5) Acute kidney injury Current Visit: Yes Status: Acute Assessment and plan: Nephrology following (6) Pancreatic cancer metastasized to liver Current Visit: Yes Status: Chronic (7) Cancer-related pain Current Visit: No Status: Chronic Palliative-CN HPI - Data of Consult Consult date: 07/30/17 Requesting Physician: Blanco Suarez Primary Care Provider: Sola Doss MD - Consult Narrative History of present illness: Mr. Wilson is a 62 year old male known to the palliative care team from his June admission, who presented with several day history of weakness, and was found to be hypotensive and dehydrated, with many critical electrolytes imbalances. He has history of pancreatic cancer with recent GI obstruction, and had surgery last month per Dr. Rubio. PEG was place at that time. Patient also has pleurx abd cath for drainage of ascites. has been draining almost daily up to 2liters. He had started palliative radiation treatments the day prior to admission. Appetite has been poor. Other past medical history includes: arthritis, diabetes, hypertension. Labs improved slightly today, but far from normal. Nephrology/Oncology following. Upon my visit, he is resting in bed, and assisted to the chair. States pain not well controlled at this point, and asking for Fentanyl patch to be restarted. C/o no appetite - has been doing feedings of Boost/Ensure at home. He was made DNR/DNI yesterday. Palliative was consulted to assist with symptom management as well as further goals of care discussion. CC: Blanco Suarez Past Med Surg Social Fam HX - Past Medical History Medical history: arthritis, cancer, diabetes, hypertension, other Psychiatric history: no psych history - Past Surgical History Surgical History: orthopedic, other, other - Social History Smoking Status: Current some day smoker Smokeless Tobacco Status: No Alcohol use: none Drug use: none - Family History Mother Family Member Ethnicity: Non- Living Status: Hx Family Cardiac Disorders: Yes (HTN) Hx Family Cancer: Yes (Colon) Father Family Member Ethnicity: Non- Living Status: Hx Family Cardiac Disorders: Yes (HD, [place], stroke) Brother Family Member Ethnicity: Non- Living Status: Hx Family Cancer: Yes (Colon) Sister Family Member Ethnicity: Non- Living Status: Still Living Hx Family Cardiac Disorders: Yes (HD) Hx Family Cancer: Yes (Breast) Medications and Allergies Magic Mouthwash 5 ml PO Q4H PRN #240 ml 06/09/16 [Rx] Ondansetron HCl [Zofran] 4 mg PO Q6H PRN #40 tablet 10/30/16 [Rx] Zolpidem [Ambien] 10 mg PO HS PRN 01/27/17 [History] Prochlorperazine Maleate [Compazine] 10 mg PO Q6HR PRN #30 tablet 03/10/17 [Rx] Lidocaine/Prilocaine [Emla] 1 appl TP AD #30 gm 03/31/17 [Rx] Insulin Glargine,Hum.rec.anlog [Basaglar Kwikpen U-100] 10 unit SQ BID #5 insuln.pen 04/17/17 [Rx] Dicyclomine [Bentyl] 10 mg PO QID PRN #30 capsule 06/09/17 [Rx] Omeprazole [PriLOSEC] 20 mg PO DAILY #30 cap 06/09/17 [Rx] Hydromorphone HCl [Dilaudid] 4 mg PO Q6H PRN 30 Days #120 tablet 07/08/17 [Rx] Oxycodone HCl/Acetaminophen [Percocet 10-325 mg Tablet] 1 each PO Q6H PRN 30 Days #120 tablet 07/08/17 [Rx] Capecitabine [Xeloda] 2 tab PO BID #60 tablet 07/22/17 [Rx] Polyethylene Glycol 3350 [MiraLAX] 17 gm PO DAILY 07/29/17 [History] 3 Allergy/AdvReac Type Severity Reaction Status Date / Time morphine AdvReac Headache Verified 07/22/17 08:40 All systems: reviewed and no additional remarkable complaints except as stated ( progressive weakness, ascites, abd pain, weight loss, anorexia) Palliative Care-Exam - Constitutional Vitals: Temp Pulse Resp BP Pulse Ox 97.7 F 92 17 96/71 98 07/30/17 11:59 07/30/17 11:59 07/30/17 11:59 07/30/17 11:59 07/30/17 11:59 General appearance: Present: febrile, mild distress - Head Head Exam: Present: normal inspection, normocephalic - Respiratory Respiratory exam: Present: decreased breath sounds, CTAB - Cardiovascular Cardiovascular exam: Present: +S1, +S2 - GI/Abdominal Exam additional comments: Pleurex cath/ PEG intact - Extremities Exam Extremities exam: Present: normal capillary refill, normal inspection - Neurological Exam Neurological exam: Present: alert, oriented X3, strengths equal and symetr throughout Additional comments: Generalized weakness - Skin Skin exam: Present: dry, pallor, warm Internal Medicine - CN: Reslt - Labs CBC & Chem 7: 07/30/17 04:30 07/30/17 10:30 Labs: Short CBC 07/30/17 Range/Units 04:30 WBC 19.5 H (4.3-11.1) K/mcL Hgb 10.1 L D (12.9-16.9) g/dL Hct 31.3 L (37.5-50.1) % Plt Count 335 (140-400) K/mcL Neutrophils # 17.6 H (1.6-8.9) K/mcL BMP 07/29/17 07/29/17 07/29/17 14:42 16:53 21:00 Sodium 126 L 126 L Potassium 5.8 H 5.9 H 6.1 H Chloride 97 L 97 L Carbon Dioxide 23 22 L BUN 71 H 69 H Creatinine 2.08 H 2.03 H Glucose 38 L* 72 Calcium 7.9 L 7.9 L 07/30/17 07/30/17 04:30 10:30 Sodium 126 L 127 L Potassium 6.6 H* 5.9 H Chloride 98 95 L Carbon Dioxide 20 L 22 L BUN 68 H 69 H Creatinine 2.06 H 2.31 H Glucose 74 90 Calcium 8.1 L 8.6 Consult Discharge Plan - Plan Referrals: Sola Doss MD [Primary Care Provider] - 08/12/17 3:30 pm Palliative Quality Palliative Quality: Screen for Code Status: Yes, Screen for Goals of Care: Yes, Screen for Pain: Yes, If Pain Regimen Started, Initiate Bowel Regimen: NA, Screen for Nausea/Vomitting: Yes Code Status: 07/29/17 16:25 Resuscitation Status: Active [RES] Routine Comment: Resuscitation Status: [id number]
[2017-07-30] MEDS: *HR* FentaNYL PATCH 25 MCG PATCH TD SCH (16:06)
[2017-07-30] MEDS: cefoTAXime 2,000 MG in 0.9 % Sodium Chloride 100 ML IVPB SCH ×2 (18:02→23:52)
[2017-07-30] MEDS ORDERED: Ondansetron ODT 4 MG TAB.RAPDIS SL PRN (18:05)
[2017-07-30] MEDS: *HR* HYDROmorphone 4 MG TABLET PO PRN (19:30)
--- NOTE | 2017-07-31 00:06 | Nephrology Progress Note ---
Date of Encounter: 07/31/17 Time of Encounter: 13:00 - Assessment and Plan (1) Acute kidney injury Current Visit: Yes Status: Acute SCr improving from 2.52, GFR 26 to 2.06, GFR 33 with voluem repletion but worsening later to 2.31, GFR 29 likely from peritoneal drainage this am. 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 Obstruction less likely despite retroperitoneal mass post palliative RT but if more aggressive desired, will need imaging (2) Hyperkalemia Current Visit: Yes Status: Acute s/p kayexalate yesterday. Can use prn if potassium persists renal diet advised (3) Failure to thrive Current Visit: Yes Status: Chronic Palliative care on board Qualifiers: Failure to thrive age range: in adult Qualified Code(s): R62.7 - Adult failure to thrive (4) Pancreatic cancer metastasized to liver Current Visit: Yes Status: Chronic Per oncology (5) Hyponatremia Current Visit: Yes Status: Acute sodium improving from 122 to 127 on ivf, will continue Subjective Interval history: Pt seen and examined with family at bedside discussing goals of care with palliative care. Pt reports he is not interested in DATA WAREHOUSING ENGINEER even if needed with 's support. Objective - Vital Signs Vital signs: Vital Signs Temp Pulse Resp BP Pulse Ox 07/30/17 23:34 97.9 F 93 14 99/68 98 07/30/17 16:16 86 07/30/17 11:59 97.7 F 92 17 96/71 98 07/30/17 11:05 93 07/30/17 08:34 16 97 07/30/17 08:28 95 07/30/17 06:52 97.7 F 93 14 96/75 97 07/30/17 03:46 97.7 F 91 14 93/66 98 Intake and Output 07/30/17 07/30/17 07/31/17 15:59 23:59 07:59 Intake Total 553.05 / 553.05 1193 / 1193 Output Total 1300 / 1300 500 / 500 Balance -746.95 / -746.95 693 / 693 Intake: IV Fluids 103.05 / 103.05 1193 / 1193 HumuLIN R 5 UNIT In Normal 10.05 / 10.05 Saline Flush 10 ML @ 1206 mls/ hr IV ONCE ONE Rx#:[id number] D5% And 0.45% Nacl 1000 Ml Bag 1000 / 1000 1,000 ML @ 75 mls/hr IVC . [id number] KATIE Rx#:[id number] Flexbumin 25 gm In 100 ml @ 60 93 / 93 93 / 93 mls/hr IVPB Q8HR [facility] Rx#: [id number] Claforan 2,000 MG In 0.9 % 100 / 100 Sodium Chloride 100 ML @ 200 mls/hr IVPB Q8HR [facility] Rx#: [id number] Oral 450 / 450 Output: Catheter 500 / 500 Wound Drainage 1300 / 1300 Left Upper Abdomen 1300 / 1300 Other: Meal Lunch Percent of Meal Consumed 95% Stool Size Copious Large Stool Consistency liquid liquid Stool Characteristics Normal for Patient Stool Color Brown Brown # Bowel Movements 1 1 Blood Glucose* 95 114 - General Appearance General appearance: Present: cachectic, chronically ill, frail EENT: Present: ATNC, mucous membranes dry Neck: Present: no JVD, supple Respiratory: Present: clear Cardiology: Present: no edema, normal S1, normal S2 Gastrointestinal: Present: no tenderness, no guarding, distended (with peritoneal drain in place) Integumentary: Present: warm and dry Neurologic: Present: no focal deficit Musculoskeletal: Present: no deformities Psychiatric: Present: mood/affect appropriate, cooperative - Lab 07/30/17 04:30 07/30/17 14:55 Most recent lab results Calcium 8.6 mg/dL (8.6-10.3) 07/30/17 10:30 Magnesium 2.3 mg/dL (1.6-2.6) 07/29/17 16:53 Consult Discharge Plan - Plan Referrals: Sola Doss MD [Primary Care Provider] - 08/12/17 3:30 pm
[2017-07-31] MEDS: *HR* HYDROmorphone 4 MG TABLET PO PRN ×4 (04:15→22:46)
[2017-07-31 04:42] LABS: Basophils % 0.1 %; Eosinophils # 0.2 K/mcL (0.0-0.6); Hematocrit 27.7 % (37.5-50.1); Hemoglobin 8.9 g/dL (12.9-16.9); Immature Granulocytes % 0.7 % (0-4); Lymphocytes # 0.6 K/mcL (0.6-4.6); Lymphocytes % 4.1 %; Mean Corpuscular HGB Conc 32.1 g/dL (31.6-35.5); Mean Corpuscular Hemoglobin 27.2 pg (28.0-33.3); Mean Corpuscular Volume 84.7 fL (83.0-100.0); Mean Platelet Volume 9.9 fL (9.4-12.4); Monocytes # 0.8 K/mcL (0.0-1.3); Monocytes % 5.2 %; Neutrophils # 13.2 K/mcL (1.6-8.9); Platelet Count 234 K/mcL (140-400); Red Blood Count 3.27 M/mcL (4.19-5.50); Red Cell Distribution Width 18.2 % (11.5-14.5); Segmented Neutrophils % 88.9 %
[2017-07-31 04:56] LABS: Sodium, Urine 12.3 mEq/L
[2017-07-31 05:09] LABS: Albumin 2.9 g/dL (3.5-5.7); Albumin/Globulin Ratio 1.3 (1.1-2.2); Globulin 2.3 g/dL (2.4-3.5); Potassium 4.6 mEq/L (3.5-5.1); Total Protein 5.2 g/dL (6.4-8.9); Uric Acid 7.3 mg/dL (2.3-7.6)
[2017-07-31] MEDS: D5% in 0.45% NACL 1,000 ML IVC SCH (06:01)
[2017-07-31] MEDS: *HR* Heparin 5,000 UNIT/ML VIAL SQ SCH ×2 (06:10→18:23)
[2017-07-31] MEDS: cefoTAXime 2,000 MG in 0.9 % Sodium Chloride 100 ML IVPB SCH ×2 (08:38→15:36)
--- NOTE | 2017-07-31 10:52 | Nephrology Progress Note ---
Date of Encounter: 07/31/17 Time of Encounter: 10:00 - Assessment and Plan (1) Acute kidney failure Current Visit: Yes Status: Acute BRUCE from volume depletion associated with hyponatremia and hyperkalemia. Trending better overall and his appetite, he reported, is returning. However the hyponatremia has reached a plateau, so I recommend changing the D51/2NS to D5NS. The hypotonicity of the 1/2NS would not help the hyponatremia. The ddx for the hyponatremia is from dehydration/volume depletion (most likely), but also could include an component from malignancy or from post-op hyponatremia ( he reported that he just recently had surgery before admission). Nevertheless, will change the IVF to an isotonic solution to better treat the hyponatremia. Will also include D5 d/t to help prevent hypoglycemia that he was having earlier in this admission. Continue to follow a renal protective strategy: avoid NSAIDs, Bactrim, IV contrast as able. Continue to collect strict I/Os and daily weights. Will follow with you. Thank you. Qualifiers: Acute renal failure type: unspecified Qualified Code(s): N17.9 - Acute kidney failure, unspecified (2) Dehydration Current Visit: Yes Status: Acute See above. Continue IVF (3) Hyperkalemia Current Visit: Yes Status: Acute Trending better nicely. (4) Hyponatremia Current Visit: Yes Status: Acute (5) Pancreatic cancer metastasized to liver Current Visit: Yes Status: Chronic Hx of Pancreatic CA. He follows with [facility] and it sounds like he may have plans for further palliative radiation before starting hospice , according the floor RN. (6) Anemia Current Visit: No Status: Acute Will monitor. 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 He was pleasant, quite and his did most of the talking. He did not affirm N/V today and said that he is feeling a little hungry today. Objective - Vital Signs Vital signs: Vital Signs Temp Pulse Resp BP Pulse Ox 07/31/17 08:49 108 07/31/17 07:21 98.6 F 106 14 106/71 97 07/31/17 04:05 97.2 F L 103 12 89/60 97 07/30/17 23:34 97.9 F 93 14 99/68 98 07/30/17 16:16 86 07/30/17 11:59 97.7 F 92 17 96/71 98 07/30/17 11:05 93 Intake and Output 07/30/17 07/31/17 07/31/17 23:59 07:59 15:59 Intake Total 1193 / 1193 1100 / 1100 300 / 300 Output Total 500 / 500 Balance 693 / 693 1100 / 1100 300 / 300 Intake: IV Fluids 1193 / 1193 1100 / 1100 D5% And 0.45% Nacl 1000 Ml Bag 1000 / 1000 1000 / 1000 1,000 ML @ 75 mls/hr IVC . [id number] KATIE Rx#:[id number] Flexbumin 25 gm In 100 ml @ 60 93 / 93 mls/hr IVPB Q8HR KATIE Rx#: [id number] Claforan 2,000 MG In 0.9 % 100 / 100 100 / 100 Sodium Chloride 100 ML @ 200 mls/hr IVPB Q8HR KATIE Rx#: [id number] Oral 300 / 300 Output: Catheter 500 / 500 Other: Meal Breakfast Percent of Meal Consumed 50% Stool Size Large Stool Consistency liquid Stool Characteristics Normal for Patient Stool Color Brown # Bowel Movements 1 Weight 51.9 kg Blood Glucose* 114 Patient Weight 07/31/17 23:59 Weight 51.9 kg - General Appearance General appearance: Present: cachectic, chronically ill, fatigue, frail EENT: Present: ATNC, PERRL, mucous membranes dry Neck: Present: supple Respiratory: Present: clear Cardiology: Present: no edema, regular rate, regular rhythm, normal S1, normal S2 Gastrointestinal: Present: normoactive bowel sounds, no tenderness, no guarding , distended (but not overtly tense; +fluid wave) Integumentary: Present: no rash, warm and dry Neurologic: Present: no focal deficit, no asterixis, alert and oriented x3 Musculoskeletal: Present: no deformities, no erythema, no cyanosis Psychiatric: Present: mood/affect appropriate, cooperative - Lab 07/31/17 04:00 07/31/17 04:00 Most recent lab results Calcium 8.0 mg/dL (8.6-10.3) L 07/31/17 04:00 Magnesium 2.3 mg/dL (1.6-2.6) 07/29/17 16:53 Urine Creatinine 102 mg/dL 07/31/17 04:25 Urine Sodium 12.3 mEq/L 07/31/17 04:25 Consult Discharge Plan - Plan Referrals: Sola Doss MD [Primary Care Provider] - 08/12/17 3:30 pm
--- NOTE | 2017-07-31 11:00 | Internal Med Progress Note ---
<Jean-Paul Lema - Last Filed: 07/31/17 10:52> Date of Encounter: 07/31/17 Time of Encounter: 11:00 - Assessment and plan (1) Leukocytosis Current Visit: Yes Status: Acute Assessment and plan: improving Peritoneal fluid culture negative preliminarily and blood cultures negative preliminarily Ascitic fluid analysis neutrophil count 34. SBP unlikely. Qualifiers: Leukocytosis type: unspecified Qualified Code(s): D72.829 - Elevated white blood cell count, unspecified (2) Acute kidney injury Current Visit: Yes Status: Acute Assessment and plan: 2nd to dehydration improving renal function continue IV fluids as per nephrology (3) Hyponatremia Current Visit: Yes Status: Acute Assessment and plan: 2nd to cirrhosis in setting of pancreatic cancer with liver mets IVF chnaged to D5NS (4) Hyperkalemia Current Visit: Yes Status: Acute Assessment and plan: resolved. (5) Pancreatic cancer metastasized to liver Current Visit: Yes Status: Chronic Assessment and plan: awaiting final recommendations from oncology patient may be planning to get radiation outpatient. (6) DVT prophylaxis Current Visit: Yes Status: Acute Assessment and plan: heparin SQ - Subjective Interval history: Patient abdominal pain has improved. He has tolerated his breakfast. He did not have acute overnight events. Family and patient still deciding on if they would like hospice. Patients reports she would like him to continue receiving treatment if that would help with his mental status. - Constitutional Vitals: Temp Pulse Resp BP Pulse Ox 98.6 F 108 14 106/71 97 07/31/17 07:21 07/31/17 08:49 07/31/17 07:21 07/31/17 07:21 07/31/17 07:21 - Other Additional findings: General: Pleasant without distress Heart: Regular rate and rhythm with no murmur Lungs: Clear to auscultation bilaterally Abdomen: Soft, distended, absent tenderness diffusely, positive bowel sounds, ascites, Pleurx catheter Skin: warm and dry Extremities: Absent pedal edema, Neuro: Alert oriented 3 Vascular: Pedal and radial pulses 2 out of 4 Internal Medicine: Result - Labs CBC & Chem 7: 07/31/17 04:00 07/31/17 04:00 Labs: Short CBC 07/31/17 Range/Units 04:00 WBC 14.8 H (4.3-11.1) K/mcL Hgb 8.9 L (12.9-16.9) g/dL Hct 27.7 L (37.5-50.1) % Plt Count 234 (140-400) K/mcL Neutrophils # 13.2 H (1.6-8.9) K/mcL BMP 07/30/17 07/30/17 07/31/17 10:30 14:55 04:00 Sodium 127 L 127 L Potassium 5.9 H 5.7 H 4.6 Chloride 95 L 97 L Carbon Dioxide 22 L 23 BUN 69 H 60 H Creatinine 2.31 H 1.54 H Glucose 90 130 H Calcium 8.6 8.0 L Liver Function 07/31/17 Range/Units 04:00 Total Bilirubin 1.0 (0.3-1.0) mg/dL AST 31 (13-39) Units/L ALT 20 (7-52) Units/L Alkaline Phosphatase 1337 H (34-104) Units/L Albumin 2.9 L (3.5-5.7) g/dL Consult Discharge Plan - Plan Referrals: Sola Doss MD [Primary Care Provider] - 08/12/17 3:30 pm <Blanco Suarez - Last Filed: 07/31/17 16:19> Date of Encounter: 07/31/17 - Constitutional Vitals: Temp Pulse Resp BP Pulse Ox 97.4 F L 104 15 91/70 96 07/31/17 15:55 07/31/17 15:55 07/31/17 15:55 07/31/17 15:55 07/31/17 15:55 Internal Medicine: Result - Labs CBC & Chem 7: 07/31/17 04:00 07/31/17 04:00 Labs: Short CBC 07/31/17 Range/Units 04:00 WBC 14.8 H (4.3-11.1) K/mcL Hgb 8.9 L (12.9-16.9) g/dL Hct 27.7 L (37.5-50.1) % Plt Count 234 (140-400) K/mcL Neutrophils # 13.2 H (1.6-8.9) K/mcL BMP 07/31/17 04:00 Sodium 127 L Potassium 4.6 Chloride 97 L Carbon Dioxide 23 BUN 60 H Creatinine 1.54 H Glucose 130 H Calcium 8.0 L Liver Function 07/31/17 Range/Units 04:00 Total Bilirubin 1.0 (0.3-1.0) mg/dL AST 31 (13-39) Units/L ALT 20 (7-52) Units/L Alkaline Phosphatase 1337 H (34-104) Units/L Albumin 2.9 L (3.5-5.7) g/dL - Attending Attestation Chronic kidney disease stage III Hypotension Hyperkalemia resolved The patient and the patient's family would like to have palliative radiotherapy after discussing the case with Dr. Dewitt May consider hospice at some point Severe ascites, the patient removes 1 L twice a day from his catheter Has a poor prognosis due to metastatic pancreatic cancer/adenocarcinoma I examined this patient and my medical decision-making was reviewed with the Resident Physician. I agree with the documented findings, disposition and treatment plan as described except to the extent set forth below.
--- NOTE | 2017-07-31 14:33 | Palliative Progress Note ---
Date of Encounter: 07/31/17 Time of Encounter: 14:30 - Assessment and plan (1) Cancer associated pain Current Visit: No Status: Chronic Assessment and plan: Patient has been fairly comfortable with new medication regimen. Will continue Fentanyl 25mcg as well as Hydromorphone 8mg for breakthrough. Has utilized x3 last 24 hours. (2) Counseling regarding advanced care planning and goals of care Current Visit: Yes Status: Acute Assessment and plan: Long discussion with pt/, Dee [facility] Oncology VALANCE CUTTER, and myself regarding goals of care. Dee discussed potential radiation treatment today and discussion with Dr. Moore, and pt and would like to proceed. still has many reservations regarding hospice care, and does not want to lose the control of not returning him to hospital if needed. Discussed at length. They state they need further time to make a decision. palliative will follow up Thursday. (3) Dehydration Current Visit: Yes Status: Acute (4) Pancreatic cancer Current Visit: Yes Status: Chronic Qualifiers: Pancreatic malignancy location: unspecified Qualified Code(s): C25.9 - Malignant neoplasm of pancreas, unspecified (5) Acute kidney injury Current Visit: Yes Status: Acute Assessment and plan: Nephrology following - adjusting IV fluids. (6) Pancreatic cancer metastasized to liver Current Visit: Yes Status: Chronic (7) Cancer-related pain Current Visit: No Status: Chronic - Time Spent With Patient Total time spent is greater than 50% in coordination of care (as documented) at patient's floor/unit and/or counseling patient: - Subjective Interval history: Patient feeling better today - states pain fairly well controlled. Electrolytes improved. at bedside. He has been up in the chair. - Constitutional Vitals: Abnormal lab results WBC 14.8 K/mcL (4.3-11.1) H 07/31/17 04:00 RBC 3.27 M/mcL (4.19-5.50) L 07/31/17 04:00 Hgb 8.9 g/dL (12.9-16.9) L 07/31/17 04:00 Hct 27.7 % (37.5-50.1) L 07/31/17 04:00 MCH 27.2 pg (28.0-33.3) L 07/31/17 04:00 RDW 18.2 % (11.5-14.5) H 07/31/17 04:00 Neutrophils # 13.2 K/mcL (1.6-8.9) H 07/31/17 04:00 Platelet Estimate Increased (Normal) H 07/29/17 08:10 Sodium 127 mEq/L (136-145) L 07/31/17 04:00 Chloride 97 mEq/L (98-107) L 07/31/17 04:00 BUN 60 mg/dL (8-23) H 07/31/17 04:00 Creatinine 1.54 mg/dL (0.70-1.30) H 07/31/17 04:00 Est GFR ( Amer) 56 (> 60) L 07/31/17 04:00 Est GFR (Non-Af Amer) 46 (> 60) L 07/31/17 04:00 BUN/Creatinine Ratio 39 (6-26) H 07/31/17 04:00 Glucose 130 mg/dL (70-105) H 07/31/17 04:00 POC Glucose 116 (58-89) H 07/30/17 23:38 Calcium 8.0 mg/dL (8.6-10.3) L 07/31/17 04:00 Alkaline Phosphatase 1337 Units/L (34-104) H 07/31/17 04:00 Creatine Kinase 23 Units/L (30-223) L 07/29/17 12:42 Troponin I 0.05 ng/mL (< 0.04) H* 07/29/17 08:10 Serum Total Protein 5.2 g/dL (6.4-8.9) L 07/31/17 04:00 Albumin 2.9 g/dL (3.5-5.7) L 07/31/17 04:00 Globulin 2.3 g/dL (2.4-3.5) L 07/31/17 04:00 HDL Cholesterol 34 mg/dL (40-59) L 07/29/17 16:53 Urine Clarity Cloudy (Clear) A 07/29/17 10:48 Ur Specific [place] 1.026 (1.010-1.025) H 07/29/17 10:48 Urine Bilirubin Small (Negative) H 07/29/17 10:48 Ur Squamous Epith Cells Many per lpf (None-Few) H 07/29/17 10:48 Periton Tot Nuc Cells 439 TNC/mcL (0-300) H 07/30/17 09:30 General appearance: Present: no acute distress - Respiratory Respiratory exam: Present: decreased breath sounds, CTAB - Cardiovascular Cardiovascular exam: Present: +S1, +S2 - GI/Abdominal GI/Abdominal exam: Present: distended, firm Additional comments: PEG/Pleurx cath in place - Extremities Exam Extremities exam: Present: normal capillary refill, normal inspection - Neurological Exam Neurological exam: Present: oriented X3, strengths equal and symetr throughout Additional comments: generalized weakness - Skin Skin exam: Present: dry, pallor, warm Palliative Quality Palliative Quality: Screen for Code Status: Yes, Screen for Goals of Care: Yes, Screen for Pain: Yes, If Pain Regimen Started, Initiate Bowel Regimen: NA, Screen for Nausea/Vomitting: Yes Code Status: 07/29/17 16:25 Resuscitation Status: Active [RES] Routine Comment: Resuscitation Status: [id number] - Labs CBC & Chem 7: 07/31/17 04:00 07/31/17 04:00 Labs: Laboratory Results - last 24 hr 07/30/17 07/30/17 07/30/17 01:21 06:43 09:56 WBC RBC Hgb Hct MCV MCH MCHC RDW Plt Count MPV Immature Gran % Seg Neutrophils % Lymphocytes % Monocytes % Eosinophils % Basophils % Neutrophils # Lymphocytes # Monocytes # Eosinophils # Basophils # Sodium Potassium Chloride Carbon Dioxide BUN Creatinine Est GFR ( Amer) Est GFR (Non-Af Amer) BUN/Creatinine Ratio Glucose POC Glucose 74 83 52 L Calculated Osmolality Uric Acid Calcium Total Bilirubin AST ALT Alkaline Phosphatase Serum Total Protein Albumin Globulin Albumin/Globulin Ratio Ur Eosinophil Smear Urine Osmolality Urine Creatinine Urine Sodium 07/30/17 07/30/17 07/30/17 10:22 12:01 14:55 WBC RBC Hgb Hct MCV MCH MCHC RDW Plt Count MPV Immature Gran % Seg Neutrophils % Lymphocytes % Monocytes % Eosinophils % Basophils % Neutrophils # Lymphocytes # Monocytes # Eosinophils # Basophils # Sodium Potassium 5.7 H Chloride Carbon Dioxide BUN Creatinine Est GFR ( Amer) Est GFR (Non-Af Amer) BUN/Creatinine Ratio Glucose POC Glucose 103 H 95 H Calculated Osmolality Uric Acid Calcium Total Bilirubin AST ALT Alkaline Phosphatase Serum Total Protein Albumin Globulin Albumin/Globulin Ratio Ur Eosinophil Smear Urine Osmolality Urine Creatinine Urine Sodium 03/07/30/17 07/30/17 17:03 19:49 23:38 WBC RBC Hgb Hct MCV MCH MCHC RDW Plt Count MPV Immature Gran % Seg Neutrophils % Lymphocytes % Monocytes % Eosinophils % Basophils % Neutrophils # Lymphocytes # Monocytes # Eosinophils # Basophils # Sodium Potassium Chloride Carbon Dioxide BUN Creatinine Est GFR ( Amer) Est GFR (Non-Af Amer) BUN/Creatinine Ratio Glucose POC Glucose 138 H 114 H 116 H Calculated Osmolality Uric Acid Calcium Total Bilirubin AST ALT Alkaline Phosphatase Serum Total Protein Albumin Globulin Albumin/Globulin Ratio Ur Eosinophil Smear Urine Osmolality Urine Creatinine Urine Sodium 07/31/17 07/31/17 07/31/17 04:00 04:00 04:25 WBC 14.8 H RBC 3.27 L Hgb 8.9 L Hct 27.7 L MCV 84.7 MCH 27.2 L MCHC 32.1 RDW 18.2 H Plt Count 234 MPV 9.9 Immature Gran % 0.7 Seg Neutrophils % 88.9 Lymphocytes % 4.1 Monocytes % 5.2 Eosinophils % 1.0 Basophils % 0.1 Neutrophils # 13.2 H Lymphocytes # 0.6 Monocytes # 0.8 Eosinophils # 0.2 Basophils # 0.0 Sodium 127 L Potassium 4.6 Chloride 97 L Carbon Dioxide 23 BUN 60 H Creatinine 1.54 H Est GFR ( Amer) 56 L Est GFR (Non-Af Amer) 46 L BUN/Creatinine Ratio 39 H Glucose 130 H POC Glucose Calculated Osmolality 283 Uric Acid 7.3 Calcium 8.0 L Total Bilirubin 1.0 AST 31 ALT 20 Alkaline Phosphatase 1337 H Serum Total Protein 5.2 L Albumin 2.9 L Globulin 2.3 L Albumin/Globulin Ratio 1.3 Ur Eosinophil Smear 0 Urine Osmolality Urine Creatinine Urine Sodium 07/31/17 07/31/17 07/31/17 04:25 12:10 12:10 WBC RBC Hgb Hct MCV MCH MCHC RDW Plt Count MPV Immature Gran % Seg Neutrophils % Lymphocytes % Monocytes % Eosinophils % Basophils % Neutrophils # Lymphocytes # Monocytes # Eosinophils # Basophils # Sodium Potassium Chloride Carbon Dioxide BUN Creatinine Est GFR ( Amer) Est GFR (Non-Af Amer) BUN/Creatinine Ratio Glucose POC Glucose Calculated Osmolality Uric Acid Calcium Total Bilirubin AST ALT Alkaline Phosphatase Serum Total Protein Albumin Globulin Albumin/Globulin Ratio Ur Eosinophil Smear Urine Osmolality 453 Urine Creatinine 102 Urine Sodium 12.3 11.0 Consult Discharge Plan - Plan Referrals: Le,Tri H, MD [Primary Care Provider] - 08/12/17 3:30 pm
[2017-07-31] MEDS: D5% in 0.9% NACL 1,000 ML IVC SCH (15:36)
--- NOTE | 2017-07-31 16:27 | Oncology Inp Progress Note ---
Date of Encounter: 07/31/17 Time of Encounter: 11:00 (1) Pancreatic cancer Current Visit: Yes Status: Chronic Assessment and plan: Stage IV metastatic pancreatic cancer. S/P multiple treatments. He has most recently began palliative radiotherapy to his enlarging retroperitoneal mass. He is clinically failing, and admitted essentially with the picture of failure to thrive, with multiple electrolyte and fluid imbalances, weakness, dehydration and pain control. Prior discussion with Dr. Dewitt, patients treating oncologist, included that oncology does not have further treatment options that would be of benefit to this patient at this time given that he is clinically failing, Hospice care was recommended to better meet patients needs. Revisited this recommendation again today alongside Kinjal Maurer SIMULATION EDUCATOR with Palliative Care. Patients continues to express hesitancy with enrolling patient in Hospice. They would like to continue to discuss over weekend while patient continues to receive hydration and work towards further electrolyte balance. Further discussions to be help early next week for discharge planning home with hospice versus home with home health. Patient agreeable to one time palliative dose radiation to retroperitoneal mass to assist with further pain control and other symptoms related to enlarging mass. He is planned for inpatient radiotherapy treatment today. Patient and patients also wish to meet with Dr. Moore to further discuss goals of care. Qualifiers: Pancreatic malignancy location: unspecified Qualified Code(s): C25.9 - Malignant neoplasm of pancreas, unspecified Oncology: Subj Interval history: Mr. Wilson is resting in bed, at bedside. Pain better controlled, present but manageable. He is fatigued but overall feeling better today. Electrolytes improving. Met with patient, patients and Kinjal Maurer Palliative Care SIMULATION EDUCATOR to discuss treatment goals and discharge planning. - Constitutional Vitals: Vital Signs Temp Pulse Resp BP Pulse Ox 07/31/17 15:55 97.4 F L 104 15 91/70 96 07/31/17 11:40 97.4 F L 94 16 102/73 91 07/31/17 11:14 108 07/31/17 08:49 108 07/31/17 07:21 98.6 F 106 14 106/71 97 07/31/17 04:05 97.2 F L 103 12 89/60 97 07/30/17 23:34 97.9 F 93 14 99/68 98 Intake and Output 07/31/17 07/31/17 07/31/17 07:59 15:59 23:59 Intake Total 1100 / 1100 400 / 400 Balance 1100 / 1100 400 / 400 Intake: IV Fluids 1100 / 1100 100 / 100 D5% And 0.45% Nacl 1000 Ml Bag 1000 / 1000 1,000 ML @ 75 mls/hr IVC . [id number] KATIE Rx#:[id number] Claforan 2,000 MG In 0.9 % 100 / 100 100 / 100 Sodium Chloride 100 ML @ 200 mls/hr IVPB Q8HR KATIE Rx#: [id number] Oral 300 / 300 Other: Meal Breakfast Percent of Meal Consumed 50% Weight 51.9 kg Patient Weight 07/31/17 23:59 Weight 51.9 kg General appearance: no acute distress, thin, no febrile Exam: cachectic and chronically ill appearing. - Head Head exam: Present: atraumatic - Respiratory Respiratory exam: Present: CTAB. Absent: respiratory distress - Cardiovascular Cardiovascular exam: Present: RRR, +S1, +S2 - GI/Abdominal GI/Abdominal exam: Present: firm, normal bowel sounds, tenderness Additional comments: PEG/Pleurx catheter - Extremities Exam Extremities exam: Present: normal inspection. Absent: calf tenderness - Neurological Exam Neurological exam: Present: alert, oriented X3, no focal deficits, strengths equal and symetr throughout - Psychiatric Psychiatric exam: Present: flat affect - Skin Skin exam: Present: normal color, warm Oncology: Obj Data - Labs CBC & Chem 7: 08/02/17 05:18 08/03/17 04:51 Consult Discharge Plan - Plan Referrals: Sola Doss MD [Primary Care Provider] - 08/12/17 3:30 pm
[2017-08-01] MEDS: cefoTAXime 2,000 MG in 0.9 % Sodium Chloride 100 ML IVPB SCH ×3 (00:51→17:21)
[2017-08-01] MEDS: *HR* HYDROmorphone 4 MG TABLET PO PRN ×5 (03:29→22:33)
[2017-08-01 04:56] LABS: Basophils % 0.1 %; Eosinophils # 0.1 K/mcL (0.0-0.6); Eosinophils % 0.6 %; Hematocrit 29.5 % (37.5-50.1); Hemoglobin 9.1 g/dL (12.9-16.9); Immature Granulocytes % 0.7 % (0-4); Lymphocytes # 0.4 K/mcL (0.6-4.6); Lymphocytes % 3.4 %; Mean Corpuscular HGB Conc 30.8 g/dL (31.6-35.5); Mean Corpuscular Hemoglobin 26.4 pg (28.0-33.3); Mean Corpuscular Volume 85.5 fL (83.0-100.0); Mean Platelet Volume 10.2 fL (9.4-12.4); Monocytes # 0.7 K/mcL (0.0-1.3); Monocytes % 5.7 %; Neutrophils # 11.2 K/mcL (1.6-8.9); Platelet Count 226 K/mcL (140-400); Red Blood Count 3.45 M/mcL (4.19-5.50); Red Cell Distribution Width 17.7 % (11.5-14.5); Segmented Neutrophils % 89.5 %
[2017-08-01 05:18] LABS: BUN/Creatinine Ratio 46 (6-26); Blood Urea Nitrogen 52 mg/dL (8-23); Calcium 7.3 mg/dL (8.6-10.3); Carbon Dioxide 21 mEq/L (23-29); Chloride 102 mEq/L (98-107); Glucose 164 mg/dL (70-105); Osmolality,Calculated 288 (280-300); Potassium 3.6 mEq/L (3.5-5.1); Sodium 130 mEq/L (136-145); eGFR For African Americans > 60 (> 60); eGFR For Non-African Americans > 60 (> 60)
[2017-08-01] MEDS: D5% in 0.9% NACL 1,000 ML IVC SCH ×2 (06:06→17:11)
[2017-08-01] MEDS: *HR* Heparin 5,000 UNIT/ML VIAL SQ SCH ×2 (06:06→17:12)
--- NOTE | 2017-08-01 07:26 | Nephrology Progress Note ---
Date of Encounter: 08/01/17 Time of Encounter: 07:24 - Assessment and Plan (1) Acute kidney failure Current Visit: Yes Status: Acute Renal function nicely correcting with volume expansion. The switch to D5NS has helped also improve the hyponatremia to 130. Hyperkalemia has resolved, and infact he may be at risk for mild hypokalemia by tomorrow AM. IVFs with glucose can contribute to inducing an intracellular shift of serum K+. Will monitor and check serum Mg in the AM. Continue to follow a renal protective strategy: avoid NSAIDs, Bactrim, IV contrast as able. Continue to collect strict I/Os and daily weights. Will follow with you. Thank you. Qualifiers: Acute renal failure type: unspecified Qualified Code(s): N17.9 - Acute kidney failure, unspecified (2) Dehydration Current Visit: Yes Status: Acute See above. Continue IVF (3) Hyperkalemia Current Visit: Yes Status: Resolved Trending better nicely. (4) Hyponatremia Current Visit: Yes Status: Acute Relatively stable (5) Pancreatic cancer metastasized to liver Current Visit: Yes Status: Chronic Hx of Pancreatic CA. He follows with [facility] hematology/oncology (6) Anemia Current Visit: No Status: Acute Will monitor. 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 He did not affirm N/V today and said that he ate breakfast today. Objective - Vital Signs Vital signs: Vital Signs Temp Pulse Resp BP Pulse Ox 08/01/17 07:09 98.2 F 112 16 104/81 95 08/01/17 04:04 96.7 F L 114 14 97/74 98 07/31/17 23:44 97.7 F 14 104/73 98 07/31/17 19:29 98.3 F 116 15 93/66 96 07/31/17 15:55 97.4 F L 104 15 91/70 96 07/31/17 15:41 116 07/31/17 11:40 97.4 F L 94 16 102/73 91 07/31/17 11:14 108 07/31/17 08:49 108 Intake and Output 07/31/17 07/31/1708/01/18 15:59 23:59 07:59 Intake Total 400 / 400 100 / 100 1000 / 1000 Output Total 1850 / 1850 Balance 400 / 400 -1750 / -1750 1000 / 1000 Intake: IV Fluids 100 / 100 100 / 100 1000 / 1000 D5% And 0.9% Nacl 1000 Ml 1,000 1000 / 1000 ML @ 75 mls/hr IVC .[id number] KATIE Rx#:[id number] Claforan 2,000 MG In 0.9 % 100 / 100 100 / 100 Sodium Chloride 100 ML @ 200 mls/hr IVPB Q8HR KATIE Rx#: [id number] Oral 300 / 300 Output: Catheter 850 / 850 Wound Drainage 1000 / 1000 Left Upper Abdomen 1000 / 1000 Other: Meal Breakfast Percent of Meal Consumed 50% - General Appearance Exam: General appearance: Present: cachectic, chronically ill, fatigue, frail EENT: Present: ATNC, PERRL, mucous membranes dry Neck: Present: supple Respiratory: Present: clear Cardiology: Present: no edema, regular rate, regular rhythm, normal S1, normal S2 Gastrointestinal: Present: normoactive bowel sounds, no tenderness, no guarding , distended (but not overtly tense; +fluid wave) Integumentary: Present: no rash, warm and dry Neurologic: Present: no focal deficit, no asterixis, alert and oriented x3 Musculoskeletal: Present: no deformities, no erythema, no cyanosis Psychiatric: Present: mood/affect appropriate, cooperative - Lab 08/02/17 05:18 08/02/17 05:18 Most recent lab results Calcium 7.3 mg/dL (8.6-10.3) L 08/01/17 04:20 Magnesium 2.3 mg/dL (1.6-2.6) 07/29/17 16:53 Urine Creatinine 102 mg/dL 07/31/17 04:25 Urine Sodium 11.0 mEq/L 07/31/17 12:10 Consult Discharge Plan - Plan Referrals: Sola Doss MD [Primary Care Provider] - 08/12/17 3:30 pm
--- NOTE | 2017-08-01 08:26 | Internal Med Progress Note ---
<Jean-Paul Lema - Last Filed: 08/01/17 08:23> Date of Encounter: 08/01/17 Time of Encounter: 08:23 - Assessment and plan (1) Leukocytosis Current Visit: Yes Status: Acute Assessment and plan: Improving. Blood cultures. No fluid cultures negative. Afebrile. continue cefotaxime day 4 Qualifiers: Leukocytosis type: unspecified Qualified Code(s): D72.829 - Elevated white blood cell count, unspecified (2) Acute kidney injury Current Visit: Yes Status: Resolved Assessment and plan: Resolved. Continue IV fluids. Appreciate nephrology recommendations. For nephrotoxic agents. (3) Hyponatremia Current Visit: Yes Status: Acute Assessment and plan: Resolving. Continue IV fluids. (4) Hyperkalemia Current Visit: Yes Status: Resolved Assessment and plan: Continue to monitor. (5) Pancreatic cancer metastasized to liver Current Visit: Yes Status: Chronic Assessment and plan: Patient received dose of radiation yesterday. Follow-up with oncology outpatient. Pain controlled with fentanyl patch and when necessary Dilaudid. Denies nausea. (6) DVT prophylaxis Current Visit: Yes Status: Acute Assessment and plan: Heparin subcutaneous. (7) Protein calorie malnutrition Current Visit: Yes Status: Acute Assessment and plan: Continue regular diet. Qualifiers: Protein-calorie malnutrition severity: severe Qualified Code(s): E43 - Unspecified severe protein-calorie malnutrition - Subjective Interval history: Patient reports he feels great this morning. He is sitting up in chair eating breakfast. He denies any overnight events. He has no complaints. Denies headache, chest pain, palpitations, shortness of breath, abdominal pain. He had 1000 mL removed from his abdomen area Pleurx catheter last night. - Constitutional Vitals: Temp Pulse Resp BP Pulse Ox 98.2 F 112 16 104/81 95 08/01/17 07:09 08/01/17 07:09 08/01/17 07:09 08/01/17 07:09 08/01/17 07:09 - Other Additional findings: General: Pleasant without distress Heart: Sinus tachycardia Lungs: Clear to auscultation bilaterally Abdomen: Soft, distended, absent tenderness diffusely, positive bowel sounds, ascites, Pleurx catheter Skin: warm and dry Extremities: Absent pedal edema, Neuro: Alert oriented 3 Vascular: Pedal and radial pulses 2 out of 4 Internal Medicine: Result - Labs CBC & Chem 7: 08/01/17 04:20 08/01/17 04:20 Labs: Short CBC 08/01/17 Range/Units 04:20 WBC 12.6 H (4.3-11.1) K/mcL Hgb 9.1 L (12.9-16.9) g/dL Hct 29.5 L (37.5-50.1) % Plt Count 226 (140-400) K/mcL Neutrophils # 11.2 H (1.6-8.9) K/mcL BMP 08/01/17 04:20 Sodium 130 L Potassium 3.6 Chloride 102 Carbon Dioxide 21 L BUN 52 H Creatinine 1.13 Glucose 164 H Calcium 7.3 L - Impressions Impressions Retroperitoneum Ultrasound 07/31/17 17:00 IMPRESSION: 1. Mild right pelviectasis. No hydronephrosis. 2. Moderate volume ascites. D/ / 07/31/2017 18:47:45 Sherry Lynn MD / clement Interpreting Provider: Sherry Lynn MD Consult Discharge Plan - Plan Referrals: Sola Doss MD [Primary Care Provider] - 08/12/17 3:30 pm <Héctor Smith - Last Filed: 08/01/17 13:34> Date of Encounter: 08/01/17 Time of Encounter: 10:10 - Assessment and plan (1) Leukocytosis Current Visit: Yes Status: Acute Qualifiers: Leukocytosis type: unspecified Qualified Code(s): D72.829 - Elevated white blood cell count, unspecified (2) Acute kidney injury Current Visit: Yes Status: Resolved (3) Cancer-related pain Current Visit: No Status: Chronic (4) Hyperkalemia Current Visit: Yes Status: Resolved (5) Hyponatremia Current Visit: Yes Status: Acute (6) Pancreatic cancer metastasized to liver Current Visit: Yes Status: Chronic (7) DVT prophylaxis Current Visit: Yes Status: Acute (8) Diabetes mellitus Current Visit: Yes Status: Chronic Qualifiers: Diabetes mellitus type: due to underlying condition Diabetes mellitus half-way insulin use: without half-way use Diabetes mellitus complication status : with hyperglycemia Qualified Code(s): E08.65 - Diabetes mellitus due to underlying condition with hyperglycemia - Constitutional Vitals: Temp Pulse Resp BP Pulse Ox 97.9 F 107 18 102/76 98 08/01/17 11:24 08/01/17 12:39 08/01/17 12:36 08/01/17 11:24 08/01/17 11:24 Internal Medicine: Result - Labs CBC & Chem 7: 08/01/17 04:20 08/01/17 04:20 Labs: Short CBC 08/01/17 Range/Units 04:20 WBC 12.6 H (4.3-11.1) K/mcL Hgb 9.1 L (12.9-16.9) g/dL Hct 29.5 L (37.5-50.1) % Plt Count 226 (140-400) K/mcL Neutrophils # 11.2 H (1.6-8.9) K/mcL BMP 08/01/17 04:20 Sodium 130 L Potassium 3.6 Chloride 102 Carbon Dioxide 21 L BUN 52 H Creatinine 1.13 Glucose 164 H Calcium 7.3 L - Impressions Impressions Retroperitoneum Ultrasound 07/31/17 17:00 IMPRESSION: 1. Mild right pelviectasis. No hydronephrosis. 2. Moderate volume ascites. D/ / 07/31/2017 18:47:45 Sherry Lynn MD / clement Interpreting Provider: Sherry Lynn MD - Attending Attestation I examined this patient and my medical decision-making was reviewed with the Resident Physician, Jean-Paul Lema. I agree with the documented findings, disposition and treatment plan as described with any changes as documented below. Patient is comfortable. Pain is well controlled. Denies any new complaints at this time. Tolerating diet better. Underwent palliative radiation therapy yesterday. Tolerated well. Peritoneal fluid culture does not show any growth. On examination, patient is awake and alert. Abdomen is soft distended but nontender. On cefotaxime. We will stop this antibiotic if cultures remain negative. Palliative care and oncology following. Renal function continues to improve. Creatinine is 1.13 today. May be able to arrange for outpatient transfusion of intravenous fluids through home health. Will discuss with foster care social worker on Thursday.Blood sugars are elevated today. Will place patient on low correctional sliding scale coverage.
[2017-08-01] MEDS: Insulin LISPRO 300 UNITS/3 ML VIAL SQ SCH ×2 (17:12→22:37)
[2017-08-02] MEDS: cefoTAXime 2,000 MG in 0.9 % Sodium Chloride 100 ML IVPB SCH ×4 (00:24→23:54)
[2017-08-02] MEDS: *HR* HYDROmorphone 4 MG TABLET PO PRN ×5 (03:01→20:55)
[2017-08-02] MEDS: *HR* Heparin 5,000 UNIT/ML VIAL SQ SCH ×2 (05:18→17:58)
[2017-08-02 05:55] LABS: Basophils % 0.1 %; Eosinophils # 0.1 K/mcL (0.0-0.6); Eosinophils % 0.6 %; Hematocrit 30.1 % (37.5-50.1); Hemoglobin 9.5 g/dL (12.9-16.9); Immature Granulocytes % 0.9 % (0-4); Lymphocytes # 0.6 K/mcL (0.6-4.6); Lymphocytes % 3.9 %; Mean Corpuscular HGB Conc 31.6 g/dL (31.6-35.5); Mean Corpuscular Hemoglobin 26.8 pg (28.0-33.3); Mean Corpuscular Volume 84.8 fL (83.0-100.0); Mean Platelet Volume 9.9 fL (9.4-12.4); Monocytes # 0.8 K/mcL (0.0-1.3); Monocytes % 5.4 %; Neutrophils # 13.3 K/mcL (1.6-8.9); Platelet Count 243 K/mcL (140-400); Red Blood Count 3.55 M/mcL (4.19-5.50); Red Cell Distribution Width 17.4 % (11.5-14.5); Segmented Neutrophils % 89.1 %
[2017-08-02 06:15] LABS: BUN/Creatinine Ratio 46 (6-26); Blood Urea Nitrogen 52 mg/dL (8-23); Calcium 7.9 mg/dL (8.6-10.3); Carbon Dioxide 22 mEq/L (23-29); Chloride 99 mEq/L (98-107); Creatine Kinase 32 Units/L (30-223); Glucose 198 mg/dL (70-105); Osmolality,Calculated 288 (280-300); Potassium 3.6 mEq/L (3.5-5.1); Sodium 129 mEq/L (136-145); eGFR For African Americans > 60 (> 60); eGFR For Non-African Americans > 60 (> 60)
[2017-08-02] MEDS: D5% in 0.9% NACL 1,000 ML IVC SCH ×2 (08:01→22:37)
[2017-08-02] MEDS: Insulin LISPRO 300 UNITS/3 ML VIAL SQ SCH ×4 (08:07→21:34)
--- NOTE | 2017-08-02 09:13 | Internal Med Progress Note ---
<Jean-Paul Lema - Last Filed: 08/02/17 09:09> Date of Encounter: 08/02/17 Time of Encounter: 09:10 - Assessment and plan (1) Leukocytosis Current Visit: Yes Status: Acute Assessment and plan: mild increase from 12 to 14 may be 2nd to large dose radiation therapy done on Thursday Blood cultures and fluid cultures negative preliminarily Afebrile continue cefotaxime day 5 Qualifiers: Leukocytosis type: unspecified Qualified Code(s): D72.829 - Elevated white blood cell count, unspecified (2) Hyponatremia Current Visit: Yes Status: Acute Assessment and plan: Resolving. Continue IV fluids. patient may eat higher salt diet, drink fluids with electrolytes like gatorade. (3) Acute kidney injury Current Visit: Yes Status: Resolved Assessment and plan: Resolved. Continue IV fluids. Appreciate nephrology recommendations. For nephrotoxic agents. (4) Hyperkalemia Current Visit: Yes Status: Resolved Assessment and plan: Continue to monitor. (5) Pancreatic cancer metastasized to liver Current Visit: Yes Status: Chronic Assessment and plan: Patient received dose of radiation yesterday. Follow-up with oncology outpatient. Pain controlled with fentanyl patch and when necessary Dilaudid. Denies nausea. plan to d/c home tomorrow with home health: set up for IV fluids and BMP in one week. (6) DVT prophylaxis Current Visit: Yes Status: Acute Assessment and plan: Heparin subcutaneous. (7) Protein calorie malnutrition Current Visit: Yes Status: Acute Assessment and plan: Continue regular diet. Ensure 3 times a day. Qualifiers: Protein-calorie malnutrition severity: severe Qualified Code(s): E43 - Unspecified severe protein-calorie malnutrition - Subjective Interval history: No acute events overnight. He has no complaints. Denies headache, chest pain, palpitations, shortness of breath, abdominal pain. - Constitutional Vitals: Temp Pulse Resp BP Pulse Ox 98.4 F 106 16 103/80 97 08/02/17 07:40 08/02/17 08:45 08/02/17 08:45 08/02/17 07:40 08/02/17 08:45 - Other Additional findings: General: Pleasant without distress Heart: Sinus tachycardia Lungs: Clear to auscultation bilaterally Abdomen: Soft, distended, absent tenderness diffusely, positive bowel sounds, ascites, Pleurx catheter Skin: warm and dry Extremities: Absent pedal edema, Neuro: Alert oriented 3 Vascular: Pedal and radial pulses 2 out of 4 Internal Medicine: Result - Labs CBC & Chem 7: 08/02/17 05:18 08/02/17 05:18 Labs: Short CBC 08/02/17 Range/Units 05:18 WBC 14.9 H (4.3-11.1) K/mcL Hgb 9.5 L (12.9-16.9) g/dL Hct 30.1 L (37.5-50.1) % Plt Count 243 (140-400) K/mcL Neutrophils # 13.3 H (1.6-8.9) K/mcL BMP 08/02/17 05:18 Sodium 129 L Potassium 3.6 Chloride 99 Carbon Dioxide 22 L BUN 52 H Creatinine 1.14 Glucose 198 H Calcium 7.9 L - Impressions Impressions Retroperitoneum Ultrasound 07/31/17 17:00 IMPRESSION: 1. Mild right pelviectasis. No hydronephrosis. 2. Moderate volume ascites. D/ / 07/31/2017 18:47:45 Sherry Lynn MD / clement Interpreting Provider: Sherry Lynn MD Consult Discharge Plan - Plan Referrals: Sola Doss MD [Primary Care Provider] - 08/12/17 3:30 pm <Héctor Smith - Last Filed: 08/02/17 13:48> Date of Encounter: 08/02/17 Time of Encounter: 10:25 - Assessment and plan (1) Leukocytosis Current Visit: Yes Status: Acute Qualifiers: Leukocytosis type: unspecified Qualified Code(s): D72.829 - Elevated white blood cell count, unspecified (2) Acute kidney injury Current Visit: Yes Status: Resolved (3) Cancer-related pain Current Visit: No Status: Chronic (4) Hyperkalemia Current Visit: Yes Status: Resolved (5) Hyponatremia Current Visit: Yes Status: Acute (6) Pancreatic cancer metastasized to liver Current Visit: Yes Status: Chronic (7) DVT prophylaxis Current Visit: Yes Status: Acute (8) Diabetes mellitus Current Visit: Yes Status: Chronic Qualifiers: Diabetes mellitus type: due to underlying condition Diabetes mellitus group home insulin use: without group home use Diabetes mellitus complication status : with hyperglycemia Qualified Code(s): E08.65 - Diabetes mellitus due to underlying condition with hyperglycemia - Constitutional Vitals: Temp Pulse Resp BP Pulse Ox 97.9 F 103 16 103/74 98 08/02/17 11:19 08/02/17 12:07 08/02/17 12:07 08/02/17 11:19 08/02/17 12:07 Internal Medicine: Result - Labs CBC & Chem 7: 08/02/17 05:18 08/02/17 05:18 Labs: Short CBC 08/02/17 Range/Units 05:18 WBC 14.9 H (4.3-11.1) K/mcL Hgb 9.5 L (12.9-16.9) g/dL Hct 30.1 L (37.5-50.1) % Plt Count 243 (140-400) K/mcL Neutrophils # 13.3 H (1.6-8.9) K/mcL BMP 08/02/17 05:18 Sodium 129 L Potassium 3.6 Chloride 99 Carbon Dioxide 22 L BUN 52 H Creatinine 1.14 Glucose 198 H Calcium 7.9 L - Impressions Impressions Retroperitoneum Ultrasound 07/31/17 17:00 IMPRESSION: 1. Mild right pelviectasis. No hydronephrosis. 2. Moderate volume ascites. D/ / 07/31/2017 18:47:45 Sherry Lynn MD / clement Interpreting Provider: Sherry Lynn MD - Attending Attestation I examined this patient and my medical decision-making was reviewed with the Resident Physician, Jean-Paul Lema. I agree with the documented findings, disposition and treatment plan as described with any changes as documented below. Patient's condition remains stable. Tolerating diet well. Pain is well controlled. No new complaints at this time. Renal function back to baseline. On cefotaxime. Peritoneal fluid cultures are negative. Does continue to have leukocytosis. Could be reactive. No other signs of acute infection. Continue cefotaxime for now. Readdress this tomorrow. Consider stopping antibiotics if WBC count improves.
[2017-08-02] MEDS: *HR* FentaNYL PATCH 25 MCG PATCH TD SCH (16:09)
[2017-08-03] MEDS: *HR* HYDROmorphone 4 MG TABLET PO PRN ×4 (01:53→16:24)
[2017-08-03] MEDS: *HR* Heparin 5,000 UNIT/ML VIAL SQ SCH (05:13)
[2017-08-03 05:33] LABS: BUN/Creatinine Ratio 42 (6-26); Blood Urea Nitrogen 54 mg/dL (8-23); Calcium 8.1 mg/dL (8.6-10.3); Carbon Dioxide 19 mEq/L (23-29); Chloride 100 mEq/L (98-107); Glucose 193 mg/dL (70-105); Osmolality,Calculated 284 (280-300); Sodium 127 mEq/L (136-145); eGFR For African Americans > 60 (> 60); eGFR For Non-African Americans 57 (> 60)
[2017-08-03] MEDS: cefoTAXime 2,000 MG in 0.9 % Sodium Chloride 100 ML IVPB SCH (08:53)
[2017-08-03] MEDS: Insulin LISPRO 300 UNITS/3 ML VIAL SQ SCH ×2 (08:54→11:44)
--- NOTE | 2017-08-03 11:02 | Palliative Progress Note ---
Date of Encounter: 08/03/17 Time of Encounter: 09:40 - Assessment and plan (1) Cancer associated pain Current Visit: No Status: Chronic (2) Counseling regarding advanced care planning and goals of care Current Visit: Yes Status: Acute (3) Dehydration Current Visit: Yes Status: Acute (4) Pancreatic cancer Current Visit: Yes Status: Chronic Qualifiers: Pancreatic malignancy location: unspecified Qualified Code(s): C25.9 - Malignant neoplasm of pancreas, unspecified (5) Acute kidney injury Current Visit: Yes Status: Resolved (6) Pancreatic cancer metastasized to liver Current Visit: Yes Status: Chronic (7) Cancer-related pain Current Visit: No Status: Chronic - Time Spent With Patient Total time spent is greater than 50% in coordination of care (as documented) at patient's floor/unit and/or counseling patient: - Subjective Interval history: Patient asleep on my arrival. at bedside. States he had a good weekend and pain has been well managed. States he has been eating well and has been drinking ensure. She states they have decided to return home with home health and not do hospice at this time. - Constitutional Vitals: Abnormal lab results WBC 14.9 K/mcL (4.3-11.1) H 08/02/17 05:18 RBC 3.55 M/mcL (4.19-5.50) L 08/02/17 05:18 Hgb 9.5 g/dL (12.9-16.9) L 08/02/17 05:18 Hct 30.1 % (37.5-50.1) L 08/02/17 05:18 MCH 26.8 pg (28.0-33.3) L 08/02/17 05:18 RDW 17.4 % (11.5-14.5) H 08/02/17 05:18 Neutrophils # 13.3 K/mcL (1.6-8.9) H 08/02/17 05:18 Platelet Estimate Increased (Normal) H 07/29/17 08:10 Sodium 127 mEq/L (136-145) L 08/03/17 04:51 Carbon Dioxide 19 mEq/L (23-29) L 08/03/17 04:51 BUN 54 mg/dL (8-23) H 08/03/17 04:51 Est GFR (Non-Af Amer) 57 (> 60) L 08/03/17 04:51 BUN/Creatinine Ratio 42 (6-26) H 08/03/17 04:51 Glucose 193 mg/dL (70-105) H 08/03/17 04:51 POC Glucose 123 (58-89) H 08/02/17 20:13 Calcium 8.1 mg/dL (8.6-10.3) L 08/03/17 04:51 Alkaline Phosphatase 1337 Units/L (34-104) H 07/31/17 04:00 Troponin I 0.05 ng/mL (< 0.04) H* 07/29/17 08:10 Serum Total Protein 5.2 g/dL (6.4-8.9) L 07/31/17 04:00 Albumin 2.9 g/dL (3.5-5.7) L 07/31/17 04:00 Globulin 2.3 g/dL (2.4-3.5) L 07/31/17 04:00 HDL Cholesterol 34 mg/dL (40-59) L 07/29/17 16:53 Urine Clarity Cloudy (Clear) A 07/29/17 10:48 Ur Specific [place] 1.026 (1.010-1.025) H 07/29/17 10:48 Urine Bilirubin Small (Negative) H 07/29/17 10:48 Ur Squamous Epith Cells Many per lpf (None-Few) H 07/29/17 10:48 Periton Tot Nuc Cells 439 TNC/mcL (0-300) H 07/30/17 09:30 Palliative Quality Palliative Quality: Screen for Code Status: Yes, Screen for Goals of Care: Yes, Screen for Pain: Yes, If Pain Regimen Started, Initiate Bowel Regimen: NA, Screen for Nausea/Vomitting: Yes Code Status: 07/29/17 16:25 Resuscitation Status: Active [RES] Routine Comment: Resuscitation Status: [id number] - Labs CBC & Chem 7: 08/02/17 05:18 08/03/17 04:51 Labs: Laboratory Results - last 24 hr 08/02/17 08/02/17 08/02/17 07:40 11:19 16:01 Sodium Potassium Chloride Carbon Dioxide BUN Creatinine Est GFR ( Amer) Est GFR (Non-Af Amer) BUN/Creatinine Ratio Glucose POC Glucose 208 H 122 H 209 H Calculated Osmolality Calcium Urine Osmolality 08/02/17 08/02/17 08/03/17 20:13 23:58 04:51 Sodium 127 L Potassium 4.0 Chloride 100 Carbon Dioxide 19 L BUN 54 H Creatinine 1.28 Est GFR ( Amer) > 60 Est GFR (Non-Af Amer) 57 L BUN/Creatinine Ratio 42 H Glucose 193 H POC Glucose 123 H Calculated Osmolality 284 Calcium 8.1 L Urine Osmolality 417 Consult Discharge Plan - Plan Referrals: Sola Doss MD [Primary Care Provider] - 08/12/17 3:30 pm
--- NOTE | 2017-08-03 11:06 | Event Note ---
Date of Encounter: 08/03/17 Time of Encounter: 09:30 Patient sleeping on my arrival and did not want me to disturb him for assessment. States he has had good weekend and pain under good control with Fentanyl 25mcg and Dilaudid 8mg for breakthrough. States they have discussed and do not desire hospice care at this time. They want renewal to [facility]. states she may reach out to other hospice agencies to discuss if they have other means of treating him. She will need prescriptions for Fentanyl patches and Dilaudid tablets, and [facility] Dr[facility] Dewitt. He is hoping to be discharged today.
[2017-08-03 11:18] VITALS: BP 95/73
--- NOTE | 2017-08-03 13:36 | Discharge Summary ---
<Jean-Paul Lema - Last Filed: 08/03/17 13:59> Date of Encounter: 08/03/17 Time of Encounter: 13:29 - Discharge Diagnosis (1) Hyperkalemia Priority: Primary Status: Resolved (2) Leukocytosis Priority: Secondary Status: Acute Qualifiers: Leukocytosis type: unspecified Qualified Code(s): D72.829 - Elevated white blood cell count, unspecified (3) Hyponatremia Priority: Secondary Status: Acute (4) Acute kidney injury Priority: Secondary Status: Resolved (5) Pancreatic cancer metastasized to liver Priority: Secondary Status: Chronic (6) DVT prophylaxis Priority: Secondary Status: Acute (7) Protein calorie malnutrition Priority: Secondary Status: Acute Qualifiers: Protein-calorie malnutrition severity: severe Qualified Code(s): E43 - Unspecified severe protein-calorie malnutrition Hospital course: Mr. Wilson is a 62 year old male with stage IV pancreatic cancer metastatic to liver presented with acute kidney injury, hyperkalemia, hyponatremia. Patient has a Pleurx catheter in the abdomen to drain ascites fluid. According to patient patient drained on average 2 L every single day. This was the cause of BRUCE. Patient's hyperkalemia was treated with Kayexalate, albuterol, bicarbonate, insulin with dextrose. This resolved patient's hyperkalemia. Patient's hyponatremia gradually improved to 130 and then has decreased to 127. Nephrology was consulted for further recommendations. IV fluids were started and his BRUCE resolved as well. Initially patient's family and patient was leaning toward hospice care. Palliative was consulted. Palliative team, oncology team and patient had a meeting and decided to continue palliative radiation therapy. Nephrology recommended home health with IV fluids, weekly BMPs and starting patient on demeclocycline outpatient. Discharge discussed with: patient, family - Time Spent with Patient Total time spent providing and/or coordinating discharge services: Greater than 30 minutes - Discharge Medications Prescriptions: Ondansetron ODT [Zofran ODT] 4 mg SL Q6HR PRN #30 tab.rapdis PRN Reason: Nausea And Vomiting Prochlorperazine Maleate [Compazine] 10 mg PO Q6HR PRN #30 tablet PRN Reason: Nausea And Vomiting #2 FentaNYL PATCH [Duragesic] 25 mcg TD Q72H 9 Days #3 patch.td72 HYDROmorphone [Dilaudid] 8 mg PO Q4H PRN 5 Days #11 tablet PRN Reason: Pain Home Medications: Magic Mouthwash 5 ml PO Q4H PRN #240 ml 06/09/16 [Rx] Ondansetron HCl [Zofran] 4 mg PO Q6H PRN #40 tablet 10/30/16 [Rx] Zolpidem [Ambien] 10 mg PO HS PRN 01/27/17 [History] Prochlorperazine Maleate [Compazine] 10 mg PO Q6HR PRN #30 tablet 03/10/17 [Rx] Lidocaine/Prilocaine [Emla] 1 appl TP AD #30 gm 03/31/17 [Rx] Insulin Glargine,Hum.rec.anlog [Basaglar Kwikpen U-100] 10 unit SQ BID #5 insuln.pen 04/17/17 [Rx] Dicyclomine [Bentyl] 10 mg PO QID PRN #30 capsule 06/09/17 [Rx] Hydromorphone HCl [Dilaudid] 4 mg PO Q6H PRN 30 Days #120 tablet 07/08/17 [Rx] Oxycodone HCl/Acetaminophen [Percocet 10-325 mg Tablet] 1 each PO Q6H PRN 30 Days #120 tablet 07/08/17 [Rx] Capecitabine [Xeloda] 2 tab PO BID #60 tablet 07/22/17 [Rx] Polyethylene Glycol 3350 [MiraLAX] 17 gm PO DAILY 07/29/17 [History] FentaNYL PATCH [Duragesic] 25 mcg TD Q72H 9 Days #3 patch.td72 08/03/17 [Rx] HYDROmorphone [Dilaudid] 8 mg PO Q4H PRN 5 Days #11 tablet 08/03/17 [Rx] Ondansetron ODT [Zofran ODT] 4 mg SL Q6HR PRN #30 tab.rapdis 08/03/17 [Rx] Prochlorperazine Maleate [Compazine] 10 mg PO Q6HR PRN #30 tablet 08/03/17 [Rx] Allergies/Adverse Reactions: 3 Allergy/AdvReac Type Severity Reaction Status Date / Time morphine AdvReac Headache Verified 07/22/17 08:40 Date of admission: 07/29/17 14:27 Primary care physician: Sola Doss MD Consults: 07/30/17 13:35 Consult to Palliative Care [CONS] Routine Comment: Consulting Provider: Palliative Care Emi Reason for Consult: hospice Call Completed: Yes 08/03/17 08:00 Consult to Physical Therapy [CONS] Routine Comment: Evaluate, develop and implement POC Reason for Consult: Patient going home with either home health or hospice. Please eval for walker. Does patient have active BEDREST order?: No Is patient medically & hemodynamically stable?: Yes Patient assessed for mobility or mobilized this visit?: No Discharging clinician: Jean-Paul Lema Anticipated date of discharge: 08/03/17 - Constitutional Vitals: Temp Pulse Resp BP Pulse Ox 98.0 F 106 20 95/73 97 08/03/17 11:12 08/03/17 11:12 08/03/17 11:12 08/03/17 11:12 08/03/17 11:12 - Other Additional findings: General: Pleasant without distress Heart: Sinus tachycardia Lungs: Clear to auscultation bilaterally Abdomen: Soft, distended, absent tenderness diffusely, positive bowel sounds, ascites, Pleurx catheter Skin: warm and dry Extremities: Absent pedal edema, Neuro: Alert oriented 3 Vascular: Pedal and radial pulses 2 out of 4 - Patient Status Disposition: Home Health Service Condition: Fair Functional capacity at discharge: uses cane/walker Overall status at discharge: patient is progressing back to baseline - Ambulatory Orders Ambulatory Orders: Basic Metabolic Panel [CHEM] Time Frame: 08/06/17, Facility: [facility], Location: Lab Basic Metabolic Panel [CHEM] Time Frame: 08/06/17, Facility: [facility], Location: Lab Basic Metabolic Panel [CHEM] Time Frame: 08/13/17, Facility: [facility], Location: Lab Basic Metabolic Panel [CHEM] Time Frame: 08/20/17, Facility: [facility], Location: Lab Misc. Orders Time Frame: 3 Weeks, Facility: [facility], Location: Home Health Services - Discharge Instructions Instructions: Fentanyl (Absorbed through the skin) Follow Up With: Keon Dewitt MD [Partnered Physician] - 08/04/17 11:30 am Sola Doss MD [Primary Care Provider] - 08/12/17 3:30 pm Timoteo Weiss DO [Partnered Physician] - (pancreatic cancer, BRUCE, hyponatermia) Additional Instructions: The patient will need to have weekly sodium lab draws until able to follow up with PCP or Broadband Technician. - Diet and Activity Activity: ambulate only with your walker, increase activity as tolerated Diet: regular diet <Blanco Suarez - Last Filed: 08/03/17 17:29> Date of Encounter: 08/03/17 Hospital course: Mr. Wilson is a 62 year old male - Time Spent with Patient Total time spent providing and/or coordinating discharge services: Date of admission: 07/29/17 14:27 Primary care physician: Sola Doss MD Consults: 07/30/17 13:35 Consult to Palliative Care [CONS] Routine Comment: Consulting Provider: Palliative Care Emi Reason for Consult: hospice Call Completed: Yes 08/03/17 08:00 Consult to Physical Therapy [CONS] Routine Comment: Evaluate, develop and implement POC Reason for Consult: Patient going home with either home health or hospice. Please eval for walker. Does patient have active BEDREST order?: No Is patient medically & hemodynamically stable?: Yes Patient assessed for mobility or mobilized this visit?: No - Constitutional Vitals: Temp Pulse Resp BP Pulse Ox 98.0 F 106 20 95/73 97 08/03/17 11:12 08/03/17 11:12 08/03/17 11:12 08/03/17 11:12 08/03/17 11:12 - Attending Attestation Chronic kidney disease stage III Hypotension Hyperkalemia resolved The patient and the patient's family preferred to have palliative radiotherapy. Dr. Dewitt following the case May need hospice at some point Severe ascites, the patient removes 1 L twice a day from his catheter Has a poor prognosis due to metastatic pancreatic cancer/adenocarcinoma Time spent 40 minutes I examined this patient and my medical decision-making was reviewed with the Resident Physician. I agree with the documented findings, disposition and treatment plan as described except to the extent set forth below.
--- NOTE | 2017-08-03 13:49 | Physician Discharge Referral ---
Home Health/Hosp Referral Info Transfer to: Home Health Attending Provider: Dr. Bernal Provider in Charge Post Discharge: PCP - Diagnosis (1) Hyperkalemia Priority: Primary Status: Resolved (2) Leukocytosis Priority: Secondary Status: Acute (3) Hyponatremia Priority: Secondary Status: Acute (4) Acute kidney injury Priority: Secondary Status: Resolved (5) Pancreatic cancer metastasized to liver Priority: Secondary Status: Chronic (6) DVT prophylaxis Priority: Secondary Status: Acute (7) Protein calorie malnutrition Priority: Secondary Status: Acute - Respiratory Orders Smoking Cessation: Smoking cessation has been advised. For more information, call the [place] Tobacco Quit Line at 6-718-PUUS-NOW. - Diet/Nutrition Diet/Nutrition Orders: Regular (ensure TID) - Activity Activity Orders: Ambulate, Walker - Services Needed Following services are medically necessary services: Nursing, Physical Therapy, Occupational Therapy, Home Infusion (D5NS 1000cc 100mL/hr thu) - Transfer Medications Prescriptions: Ondansetron ODT [Zofran ODT] 4 mg SL Q6HR PRN #30 tab.rapdis PRN Reason: Nausea And Vomiting Prochlorperazine Maleate [Compazine] 10 mg PO Q6HR PRN #30 tablet PRN Reason: Nausea And Vomiting #2 FentaNYL PATCH [Duragesic] 25 mcg TD Q72H 9 Days #3 patch.td72 HYDROmorphone [Dilaudid] 8 mg PO Q4H PRN 5 Days #11 tablet PRN Reason: Pain Home Medications: Magic Mouthwash 5 ml PO Q4H PRN #240 ml 06/09/16 [Rx] Ondansetron HCl [Zofran] 4 mg PO Q6H PRN #40 tablet 10/30/16 [Rx] Zolpidem [Ambien] 10 mg PO HS PRN 01/27/17 [History] Prochlorperazine Maleate [Compazine] 10 mg PO Q6HR PRN #30 tablet 03/10/17 [Rx] Lidocaine/Prilocaine [Emla] 1 appl TP AD #30 gm 03/31/17 [Rx] Insulin Glargine,Hum.rec.anlog [Basaglar Kwikpen U-100] 10 unit SQ BID #5 insuln.pen 04/17/17 [Rx] Dicyclomine [Bentyl] 10 mg PO QID PRN #30 capsule 06/09/17 [Rx] Hydromorphone HCl [Dilaudid] 4 mg PO Q6H PRN 30 Days #120 tablet 07/08/17 [Rx] Oxycodone HCl/Acetaminophen [Percocet 10-325 mg Tablet] 1 each PO Q6H PRN 30 Days #120 tablet 07/08/17 [Rx] Capecitabine [Xeloda] 2 tab PO BID #60 tablet 07/22/17 [Rx] Polyethylene Glycol 3350 [MiraLAX] 17 gm PO DAILY 07/29/17 [History] FentaNYL PATCH [Duragesic] 25 mcg TD Q72H 9 Days #3 patch.td72 08/03/17 [Rx] HYDROmorphone [Dilaudid] 8 mg PO Q4H PRN 5 Days #11 tablet 08/03/17 [Rx] Ondansetron ODT [Zofran ODT] 4 mg SL Q6HR PRN #30 tab.rapdis 08/03/17 [Rx] Prochlorperazine Maleate [Compazine] 10 mg PO Q6HR PRN #30 tablet 08/03/17 [Rx] Allergies/Adverse Reactions: 3 Allergy/AdvReac Type Severity Reaction Status Date / Time morphine AdvReac Headache Verified 07/22/17 08:40 Certification: Further, I certify that my clinical findings support that this patient is homebound (i.e. absences from home require considerable and taxing effort and are for medical reasons or sabianist services or infrequently or short duration when for other reasons) because: Homebound Reason: Patient requires assistance of a person or device to safely leave home, Absences from home are contraindicated except to recieve medical care Attestation: My signature below is to certify that this patient is under my care and that I, or nurse practitioner, or a physician's practice assistant working with me, has a face-to -face encounter with this patient.
--- NOTE | 2017-08-03 14:13 | Nephrology Progress Note ---
Date of Encounter: 08/03/17 Time of Encounter: 12:20 - Assessment and Plan (1) Acute kidney failure Status: Acute Stable renal function Hyponatremia persists: rec weekly BMP and if it worsens then would recommend adding Demeclocycline for SIADH. To help prevent recurrent volume depletion from his massive ascites and daily ascites drains, I also recommend IVF as an outpt. Please help arrange for outpt nephro follow up appt in about 2-3 weeks. Thank you Continue to follow a renal protective strategy: avoid NSAIDs, Bactrim, IV contrast as able. Continue to collect strict I/Os and daily weights. Thank you. Qualifiers: Acute renal failure type: unspecified Qualified Code(s): N17.9 - Acute kidney failure, unspecified (2) Dehydration Status: Acute See above. (3) Hyperkalemia Status: Resolved Resolved. (4) Hyponatremia Status: Acute Relatively stable (5) Pancreatic cancer metastasized to liver Status: Chronic Hx of Pancreatic CA. He follows with [facility] (6) Anemia Status: Acute Will monitor. 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 He did not affirm N/V today and said that he ate breakfast today. He is looking forward to going home soon. He and his mentioned that they have started smaller and more frequent ascites fluid drains rather than large volume drains. Objective - Vital Signs Vital signs: Vital Signs Temp Pulse Resp BP Pulse Ox 08/03/17 11:12 98.0 F 106 20 95/73 97 08/03/17 07:21 98.0 F 109 18 105/79 96 08/03/17 05:00 97.7 F 106 18 108/84 97 08/03/17 00:04 97.8 F 107 18 98/68 97 08/02/17 21:00 108 08/02/17 20:11 97.7 F 109 18 102/80 96 08/02/17 17:39 129 18 08/02/17 16:25 106 08/02/17 16:05 97.9 F 106 16 104/80 96 Intake and Output 08/02/17 08/03/17 08/03/17 23:59 07:59 15:59 Intake Total 1160 / 1160 100 / 100 Output Total 1225 / 1225 625 / 625 Balance -65 / -65 100 / 100 -625 / -625 Intake: IV Fluids 1100 / 1100 100 / 100 D5% And 0.9% Nacl 1000 Ml 1,000 1000 / 1000 ML @ 75 mls/hr IVC .[id number] [facility] Rx#:[id number] Claforan 2,000 MG In 0.9 % 100 / 100 100 / 100 Sodium Chloride 100 ML @ 200 mls/hr IVPB Q8HR [facility] Rx#: [id number] Oral 60 / 60 Output: Urine 200 / 200 100 / 100 Peracentesis 350 / 350 Wound Drainage 675 / 675 525 / 525 Left Upper Abdomen 675 / 675 525 / 525 Other: Meal Dinner Percent of Meal Consumed 0% Weight 53.1 kg Blood Glucose* 123 178 199 Patient Weight 08/03/17 23:59 Weight 53.1 kg - General Appearance Exam: General appearance: Present: cachectic, chronically ill, fatigue, frail EENT: Present: ATNC, PERRL, mucous membranes dry Neck: Present: supple Respiratory: Present: clear Cardiology: Present: no edema, regular rate, regular rhythm, normal S1, normal S2 Gastrointestinal: Present: normoactive bowel sounds, no tenderness, no guarding , distended (but not overtly tense; +fluid wave) Integumentary: Present: no rash, warm and dry Neurologic: Present: no focal deficit, no asterixis, alert and oriented x3 Musculoskeletal: Present: no deformities, no erythema, no cyanosis Psychiatric: Present: mood/affect appropriate, cooperative - Lab 08/02/17 05:18 08/03/17 04:51 Most recent lab results Calcium 8.1 mg/dL (8.6-10.3) L 08/03/17 04:51 Magnesium 2.0 mg/dL (1.6-2.6) 08/02/17 05:18 Urine Creatinine 102 mg/dL 07/31/17 04:25 Urine Sodium 11.0 mEq/L 07/31/17 12:10 Consult Discharge Plan - Plan Instructions: Fentanyl (Absorbed through the skin) Additional Instructions: The patient will need to have weekly sodium lab draws until able to follow up with PCP or [employer] [facility]. Referrals: Keon Dewitt MD [Partnered Physician] - 08/04/17 11:30 am Timoteo Weiss DO [Partnered Physician] - (pancreatic cancer, BRUCE, hyponatermia) Sola Doss MD [Primary Care Provider] - 08/12/17 3:30 pm Prescriptions: Ondansetron ODT [Zofran ODT] 4 mg SL Q6HR PRN #30 tab.rapdis PRN Reason: Nausea And Vomiting Prochlorperazine Maleate [Compazine] 10 mg PO Q6HR PRN #30 tablet PRN Reason: Nausea And Vomiting #2
== END 2017-08-03 17:00 | disposition home health service (06) | DRG 422 ==
LOC: EMEROO 07:27 → SUATTDRO 14:27 → 2NNU 14:27
PROVIDERS: ADMIT Student in an Organized Health Care Education/Training Program; ATTEND Internal Medicine